=== PATIENT | female | born 1950 | race Caucasian/White ===

== ENCOUNTER → 2020-08-29 15:28 | Outpatient (CLI) | payer MEDICARE, SELFPAY ==
--- NOTE | ~2020-08-29 | MM_ITS ---
EXAMINATION: MM screening vero LT w lina HISTORY: Screening left mammogram, history of right mastectomy TECHNIQUE: Craniocaudal and mediolateral oblique 3-D tomosynthesis images were obtained and synthetic 2-D images were generated. CAD analysis was submitted and interpreted. COMPARISON: 07/26/2019, 07/21/2018, 07/12/2017, 06/23/2016 BREAST PARENCHYMAL COMPOSITION: There are scattered areas of fibroglandular density. FINDINGS: Scattered benign-appearing calcifications are present. An asymmetry in the middle third of the inner breast in the craniocaudal view is stable on multiple examinations, consistent with a benig n finding. There is no evidence of suspicious mass, calcification, or architectural distortion to sug gest malignancy in either breast. There has been no suspicious interval change. IMPRESSION: 1. No mammographic evidence of malignancy. 2. Recommend routine screening mammography in one year. BI-RADS Category 2: Benign finding(s). Reviewed, dictated and finalized at location A. TAPPER
--- NOTE | ~2020-08-29 | DEXA_ITS ---
Bone Density Report Name: Christen Smith Age: 70 Sex: Female Ethnicity: White Date of : 1950 Indication: postmenopausal osteoporosis; monitoring treatment; height loss; cancer; asthma or emphysema; Referring Provider: KAREN BRITTON Study: Bone densitometry was performed. Exam Date: August 29, 2020 Accession number: [id number] Bone Density: Region BMD T-score Z-score Classification AP Spine (L1-L4) 0.838 -1.9 0.2 Osteopenia Femoral Neck (Left) 0.699 -1.4 0.5 Osteopenia Total Hip (Left) 0.812 -1.1 0.5 Osteopenia Femoral Neck (Right) 0.694 -1.4 0.4 Osteopenia Total Hip (Right) 0.849 -0.8 0.8 Normal Total Hip Mean 0.831 -1.0 0.7 Normal World Health Organization criteria for BMD impression classify patients as: Normal (T-score at or above -1.0), Osteopenia (T-score between -1.0 and -2.5), or Osteoporosis (T-score at or below -2.5). 10-year Fracture Risk: FRAX not reported because: Treated for osteoporosis Previous Exams: Region Exam Age BMD T-score BMD Change BMD Change Date g/cm2 vs Baseline vs Previous AP Spine(L1-L4) 08/29/2020 70 0.838 -1.9 -0.016 0.069* 07/21/2018 68 0.769 -2.5 -0.084 -0.041* 06/23/2016 66 0.810 -2.2 -0.044 -0.043 04/20/2014 64 0.853 -1.8 0.000 0.066* 04/17/2012 62 0.787 -2.4 -0.066* -0.028* 03/23/2010 60 0.815 -2.1 -0.038* -0.038* 02/07/2008 58 0.853 -1.8 Total Hip(Left) 08/29/2020 70 0.812 -1.1 0.006 -0.009 07/21/2018 68 0.821 -1.0 0.015 0.015 06/23/2016 66 0.807 -1.1 0.000 -0.009 04/20/2014 64 0.815 -1.0 0.009 0.010 04/17/2012 62 0.806 -1.1 -0.001 0.072* 03/23/2010 60 0.733 -1.7 -0.073* -0.073* 02/07/2008 58 0.807 -1.1 Total Hip(Right) 08/29/2020 70 0.849 -0.8 0.050 0.044* 07/21/2018 68 0.805 -1.1 0.006 -0.007 06/23/2016 66 0.812 -1.1 0.013 -0.015 04/20/2014 64 0.827 -0.9 0.028* 0.036* 04/17/2012 62 0.791 -1.2 -0.008 -0.012 03/23/2010 60 0.803 -1.1 0.004 0.004 02/07/2008 58 0.799 -1.2 *Denotes significance at 95% confidence level, LSC for AP Spine = 0.022 g/cm2, LSC for Total Hip = 0.027 g/cm2 Clinical Information Provided by Patient: Is
== END ==
PROVIDERS: PCP Internal Medicine; Visit Provider Obstetrics & Gynecology Gynecology
DX: Z12.31 Encounter for screening mammogram for malignant neoplasm of breast (principal); Z78.0 Asymptomatic menopausal state; M85.88 Other specified disorders of bone density and structure, other site; M85.852 Other specified disorders of bone density and structure, left thigh; M85.851 Other specified disorders of bone density and structure, right thigh
CPT/HCPCS: 77063; 77067; 77080

== ENCOUNTER → 2021-03-05 03:00 | Outpatient (CLI) | payer MEDICARE, SELFPAY ==
[2021-03-05 20:00] LABS: SARS-CoV-2 RNA PCR Negative
== END ==
PROVIDERS: PCP Internal Medicine; Visit Provider Internal Medicine
DX: R05 Cough (principal); Z20.822 Contact with and (suspected) exposure to COVID-19
CPT/HCPCS: C9803; U0003; U0005

== ENCOUNTER 2021-03-09 08:41 | Emergency (ER) | payer MEDICARE, SELFPAY ==
[2021-03-09] VITALS (7 sets, daily range): BP systolic 109–150; BP diastolic 59–68; PULSE 67–72; RESP 16–20; TEMP 36.8; O2SAT 94–100
--- NOTE | ~2021-03-09 | US_ITS ---
EXAMINATION: US arterial ankle brachial ind DATE: 03/09/2021 11:58 INDICATION: Chronic wound to the right lower limb. Claudication. TECHNIQUE: Segmental pressures and plethysmographic and Doppler waveforms of the brachial and lower e xtremity arteries were obtained. COMPARISON: None. FINDINGS: Right and left brachial artery pressures of 122 mm Hg and 146 mm Hg, respectively, are concordant (no rmal difference <= 30 mmHg). The right ankle-brachial index (ELYSIA) is 1.01 (normal >= 0.9-1.0). The right great toe-brachial index (TBI) is 0.69 (normal >= 0.65). Arterial Doppler waveforms are biphasic with brisk systolic upstrokes at both the right posterior tibial and dorsalis pedis arteries. The left ELYSIA is 1.07. The left TBI is 0.85. Arterial Doppler waveforms are biphasic with brisk systol ic upstrokes at both the left posterior tibial and dorsalis pedis arteries. IMPRESSION: 1. Reviewed, dictated and finalized at location A. IMPRESSION: 1.
--- NOTE | ~2021-03-09 | XR_ITS ---
EXAMINATION: XR tibia fibula RT 2V DATE: 03/09/2021 10:01 INDICATION: Wound and edema at the anterior right lower leg TECHNIQUE: Anteroposterior and lateral views of the right tibia and fibula were obtained. COMPARISON: None. FINDINGS: Bone alignment is normal. No fracture. Cortical erosions or periosteal reaction. The profiled joint s paces appear normal on nonweightbearing imaging there is soft tissue swelling with irregular skin con tour the anterior aspect of the distal right lower leg likely representing the site of the reported s kin wound. No underlying soft tissue gas or radiopaque foreign bodies. Additional soft tissue swellin g about the ankle. No ankle joint effusion. IMPRESSION: 1. No radiopaque foreign bodies or acute osseous abnormality. Reviewed, dictated and finalized at location A.
--- NOTE | ~2021-03-09 | CT_ITS ---
EXAMINATION: CT lumbar spine wo [facility] EXAM DATE: 03/09/2021 10:59 INDICATION: Low back pain radiating down the right leg. TECHNIQUE: Spiral CT of the lumbar spine was performed without contrast. Axial, coronal and sagittal images lumbar spine were reviewed. The dose-length product (DLP) for this examination was 1017.29 m Gy-cm. The exposure was tailored according to patient size (auto mA exposure control), and iterativ e reconstruction (ASIR) was used as additional dose reduction technique. Correlation is made to [facility] ed MRI examination 2014. FINDINGS: There is moderate disc disease at L2-3, mild to moderate at the other lumbar levels. There are no acute fractures identified. No spondylolysis. The vertebral bodies are aligned in the AP dimen gurjit. Paraspinal soft tissue is unremarkable. There are no bony erosions identified. Level by level evaluation: T12-L1: Disc does not extend beyond the endplate margin. Facet arthropathy: None. Neural foraminal stenosis: No stenosis. Central canal stenosis: No stenosis. L1-L2: There is a mild diffuse disc bulge. Facet arthropathy: None. Neural foraminal stenosis: No stenosis. Central canal stenosis: Mild. L2-L3: There is a mild to moderate diffuse disc bulge. Facet arthropathy: Mild. Neural foraminal stenosis: No stenosis. Central canal stenosis: Mild. L3-L4: There is a mild to moderate diffuse disc bulge. Facet arthropathy: Mild. Neural foraminal stenosis: Mild to moderate left, minimal right. Central canal stenosis: Mild to moderate. L4-L5: There is a mild to moderate diffuse disc bulge. Facet arthropathy: Mild to moderate. Neural foraminal stenosis: Mild to moderate left, mild right. Central canal stenosis: Mild to moderate. L5-S1: There is a mild diffuse disc bulge. Facet arthropathy: Mild. Neural foraminal stenosis: No stenosis. Central canal stenosis: No stenosis. IMPRESSION: 1. Overall mild to moderate lumbar spondylosis. 2. No acute findings. Reviewed, dictated and finalized at location B.
--- NOTE | 2021-03-09 10:09 | ED.WOUNDLAC ---
HPI - Wound/Laceration General Chief Complaint: Wound/Laceration Stated Complaint: wound Time Seen by Provider: 03/09/21 09:51 Source: patient Mode of arrival: ambulatory Limitations: no limitations History of Present Illness HPI narrative: This is a 71 year old female that presents to the ER for a chronic wound to the E. Reports she feels as if the wound is not getting any better. She has been seeing wound care for this at [place]. She was seen by another ER a couple of days ago for her wound and started on Keflex. She also reports she has been having trouble with sciatica of the right lower extremity. Reports pain in the right buttock that radiates into the leg. Denies fever, decreased ROM or weakness, or numbness. Related Data Home Medications Medication Instructions Recorded Confirmed albuterol sulfate 90 mcg/actuation 1 inhalation INHALATION Q4H 06/12/19 02/11/21 aerosol inhaler budesonide-formoterol HFA 160 2 puff INHALATION Q12H 06/12/19 02/11/21 mcg-4.5 mcg/actuation aerosol inhaler letrozole 2.5 mg tablet 2.5 mg PO DAILY 06/12/19 02/13/21 magnesium oxide 400 mg PO DAILY 06/12/19 02/13/21 omega-3 fatty acids 1,000 mg 2,000 mg PO BID cap 06/12/19 02/13/21 capsule palbociclib 75 mg capsule 75 mg PO DAILY 06/12/19 02/13/21 warfarin 5 mg tablet 5 mg PO DAILY 06/12/19 02/13/21 fluticasone fur. 200 mcg-umeclid 1 inh INHALATION DAILY 01/05/21 02/13/21 62.5 mcg-vilant 25 mcg inhalat.powder silver sulfadiazine 1 % topical 1 applic TOPICAL BID 01/05/21 02/11/21 cream cephalexin 500 mg PO Q8H 03/09/21 Allergies Allergy/AdvReac Type Severity Reaction Status Date / Time adhesive Allergy Unknown RASH Verified 02/10/21 16:19 aspirin Allergy Unknown Nausea Verified 02/10/21 16:19 chlordiazepoxide Allergy Unknown Unknown Verified 02/10/21 16:19 diazepam Allergy Unknown Dizziness Verified 02/10/21 16:19 meprobamate Allergy Unknown Unknown Verified 02/10/21 16:19 metformin AdvReac Mild Diarrhea Verified 02/10/21 16:19 CHLORDIAZEPOXIDE HCL AdvReac Unknown WHOOZY Uncoded 02/10/21 16:19 Review of Systems Review of Systems: CONSTITUTIONAL: Denies fever SKIN: Reports chronic wound MUSCULOSKELETAL: Reports back pain, joint pain, and myalgia. NEUROLOGIC: Denies numbness, or weakness. All systems reviewed & are unremarkable except as noted in HPI and below PMFSH Past Medical History Medical History (Updated 03/09/21 @ 13:14 by Hailee Griggs PA-C) A-fib Abrasion of right lower extremity Benign essential hypertension Bilateral cataracts BMI 35.0-35.9,adult Breast cancer COPD (chronic obstructive pulmonary disease) Cough DM type 2 (diabetes mellitus, type 2) HUERTA (dyspnea on exertion) Encounter for Medicare annual wellness exam Encounter for routine adult health examination with abnormal findings Follow up Hx pulmonary embolism Hyperlipidemia Impacted cerumen of both ears Neutropenia Non-healing wound of lower extremity On assisted drug therapy VIDYA on CPAP Family History Family History Father Diabetes mellitus Family history of chronic obstructive pulmonary disease Family history of diabetes mellitus in first degree relative Mother Diabetes mellitus Family history of emphysema Family history of diabetes mellitus in first degree relative Social History Social History Smoking status: Never smoker Alcohol intake: never Gender identity (if verbalized by the patient): Female Exam Narrative: GENERAL: Well-appearing, well-nourished, and in no acute distress. HEAD: Normocephalic, atraumatic. EYES: EOMI. CHEST: Clear to auscultation. No respiratory distress. No wheezes rales or rhonchi HEART: Regular rate and rhythm. No murmur heard. Normal peripheral pulses. BACK: No midline spinal tenderness. Strength equal bilateral lower extremities (5/5). EXTREMITIES: Normal r
[2021-03-09 10:41] LABS: Basophils Percent Auto 0.9 % (0.2-1.2); Eosinophils Percent Auto 0.6 % (0-4.4); Hematocrit 34.9 % (37.0-47.0); Hemoglobin 11.4 g/dL (12.0-15.0); Immature Granulocyte Absolute 0.01 K/mm3 (0.00-0.031); Immature Granulocyte Percent A 0.3 % (0-0.5); Lymphocytes Absolute Auto 0.98 K/mm3 (0.9-3.2); Lymphocytes Percent Auto 29.2 % (18.3-44.2); Mean Corpuscular HGB Conc 32.7 g/dl (32-36); Mean Corpuscular Hemoglobin 33.6 pg (26-34); Mean Corpuscular Volume 102.9 fl (80-100); Monocytes Absolute Auto 0.3 K/mm3 (0.1-0.6); Monocytes Percent Auto 7.4 % (2.6-8.5); Neutrophils Absolute Auto 2.1 K/mm3 (1.3-6.7); Neutrophils Percent Auto 61.6 % (45.5-73.1); Platelet Count Result 122 k/mm3 (150-375); Red Blood Count 3.39 M/mm3 (4.2-5.4); Red Cell Distribution Width 14.6 % (11.5-14.5); White Blood Count 3.4 K/mm3 (4.5-10.0)
[2021-03-09] MEDS: MORPHINE SULFATE (*CRX) 4 MG/ML INJ IV PUSH (10:43)
[2021-03-09] MEDS: ONDANSETRON INJ 4 MG/2 ML VIAL IV PUSH (10:43)
[2021-03-09 10:55] LABS: Anion Gap 8 mmol/L (8-16); Blood Urea Nitrogen 13 mg/dL (7-17); Calcium 9.2 mg/dL (8.4-10.2); Carbon Dioxide 25 mmol/L (22-30); Chloride 104 mmol/L (98-107); Estimated CRCL calculation 70 ml/min; Estimated Glomerular Filt Rate > 60; Glucose 105 mg/dL (65-110); Potassium 4.2 mmol/L (3.4-5.0); Sodium 137 mmol/L (137-145)
[2021-03-09 11:43] LABS: Erythrocyte Sedimentation Rate 68 mm/hr (0-20)
--- NOTE | 2021-03-09 12:11 | PCWOUND ---
WOCN NOTE patient followed by wound care as an outpatient. wound to right lower leg is stable 4.3 cm in length by 3.4 cm in width b y 0.2 cm in depth. leg with 4+ pitting edema. patient to follow current home wound care and keep appointment for this coming Tuesday for assessment. Reminded patient she needs to follow up with vascular surgeon as well.
== END 2021-03-09 13:35 | disposition home or self-care (01) ==
PROVIDERS: Physician Assistant; Emergency Provider Emergency Medicine; PCP Internal Medicine
DX: L97.819 Non-pressure chronic ulcer of other part of right lower leg with unspecified severity (principal); M54.31 Sciatica, right side; I48.91 Unspecified atrial fibrillation; I10 Essential (primary) hypertension; E78.5 Hyperlipidemia, unspecified; J44.9 Chronic obstructive pulmonary disease, unspecified; E11.9 Type 2 diabetes mellitus without complications; G47.33 Obstructive sleep apnea (adult) (pediatric); H26.9 Unspecified cataract; Z86.711 Personal history of pulmonary embolism; Z79.01 Long term (current) use of anticoagulants; Z79.84 Long term (current) use of oral hypoglycemic drugs; Z85.3 Personal history of malignant neoplasm of breast; M47.816 Spondylosis without myelopathy or radiculopathy, lumbar region
CPT/HCPCS: 36415; 72131; 73590; 80048; 85025; 85652; 86140; 93922; 96374; 96375; 99284; J0131; J2270; J2405

== ENCOUNTER 2021-03-27 07:50 | Outpatient (RCR) | payer MEDICARE, SELFPAY ==
[2021-02-13 10:54] VITALS: BMI 36.6
--- NOTE | 2021-03-06 13:22 | PCWOUND ---
WOCN NOTE Patient called complaining of pain in her leg and wanted pain medication, informed patient she needs to contract her PCP. asked patient for description of her wound and what treatment she is following. She said the wound looks the same its just the pain, and did not describe the correct wound care she was instructed to follow. i Explained the wound center does not address pain that is a function of the PCP. Patient stated that is not right, again directed patient to contact her PCP of visit the ER for care.
--- NOTE | 2021-04-06 10:21 | PCWOUND ---
WOCN NOTE patient called to cancel her appointment for Tuesday04/10/21 as she has found a new wound center to go to. Will discharge patient at this time.
== END 2021-04-06 10:23 | disposition home or self-care (01) ==
LOC: ANHWOC 07:50
PROVIDERS: PCP Internal Medicine; Visit Provider Internal Medicine
DX: S81.811D Laceration without foreign body, right lower leg, subsequent encounter (principal)
CPT/HCPCS: 99212; 99213; A9270; G0463

== ENCOUNTER → 2021-04-24 06:30 | Outpatient (CLI) | payer MEDICARE, SELFPAY ==
[2021-04-24 17:46] LABS: SARS-CoV-2 RNA PCR Negative
== END ==
PROVIDERS: PCP Internal Medicine; Visit Provider Internal Medicine
DX: R68.89 Other general symptoms and signs (principal); Z20.822 Contact with and (suspected) exposure to COVID-19
CPT/HCPCS: C9803; U0003; U0005

== ENCOUNTER 2021-09-23 00:27 | Day surgery (SDC) | payer MEDICARE, SELFPAY ==
[2021-08-18 12:08] VITALS: BMI 35.6
[2021-09-17 15:55] VITALS: BMI 35.6
--- NOTE | 2021-09-22 17:31 | PM.HPGS ---
History of Present Illness History of Present Illness Consent: Risks, benefits, and alternatives have been discussed and questions answered. Patient agrees to proceed with procedure. Chief complaint: neoplasm screening Narrative: Christen Smith is a 71 year old female Referred for colon cancer screening Review of Systems Review of Systems: All systems reviewed & are unremarkable except as noted in HPI and below PMFSH Past Medical History Medical History A-fib Abrasion of right lower extremity Benign essential hypertension Bilateral cataracts BMI 35.0-35.9,adult Breast cancer COPD (chronic obstructive pulmonary disease) Cough DM type 2 (diabetes mellitus, type 2) HUERTA (dyspnea on exertion) Dysphagia Encounter for Medicare annual wellness exam Encounter for routine adult health examination with abnormal findings Encounter for routine adult health examination without abnormal findings Follow up Hx pulmonary embolism Hyperlipidemia Impacted cerumen of both ears Neutropenia Non-healing wound of lower extremity On penitentiary drug therapy VIDYA on CPAP Family History Family History Father Diabetes mellitus Family history of chronic obstructive pulmonary disease Family history of diabetes mellitus in first degree relative Mother Diabetes mellitus Family history of emphysema Family history of diabetes mellitus in first degree relative Social History Social History Smoking status: Never smoker Alcohol intake: current Substance use: never Substance use type: does not use Living arrangements: with family Gender identity (if verbalized by the patient): Female Spiritual care concerns: No Meds Home Medications and Allergies Home Medications Medication Instructions Recorded Confirmed Type albuterol sulfate 90 mcg/actuation 1 inhalation INHALATION Q4H 06/12/19 09/17/21 History aerosol inhaler letrozole 2.5 mg tablet 2.5 mg PO DAILY 06/12/19 09/17/21 History magnesium oxide 400 mg PO DAILY 06/12/19 09/17/21 History omega-3 fatty acids 1,000 mg 2,000 mg PO DAILY cap 06/12/19 09/17/21 History capsule palbociclib 75 mg capsule 75 mg PO DAILY 06/12/19 09/17/21 History warfarin 5 mg tablet 5 mg PO DAILY 06/12/19 09/17/21 History folic acid 0.8 mg capsule 0.8 mg PO DAILY #90 cap 02/12/20 09/17/21 Rx blood sugar diagnostic #100 ea 10/01/20 09/17/21 Rx fluticasone fur. 200 mcg-umeclid 1 inh INHALATION DAILY 01/05/21 09/17/21 History 62.5 mcg-vilant 25 mcg inhalat.powder syringe with needle 3 mL 23 x 1 #3 each 03/17/21 09/17/21 Rx cefdinir 300 mg capsule 300 mg PO Q12H #15 cap 08/17/21 09/17/21 Rx codeine 10 mg-guaifenesin 100 mg/5 10 ml PO Q6H PRN #120 ml 08/17/21 09/17/21 Rx mL oral liquid Adults Multivitamin 1 tab-cap PO DAILY 08/18/21 09/17/21 History cyanocobalamin (vitamin B-12) 1,000 mcg IM MONTHLY 08/18/21 09/17/21 History dapagliflozin [Farxiga] 10 mg PO DAILY 08/18/21 09/17/21 History ergocalciferol (vitamin D2) 50,000 unit PO WEEKLY 08/18/21 09/17/21 History escitalopram oxalate 10 mg PO DAILY 08/18/21 09/17/21 History escitalopram oxalate 20 mg PO DAILY 08/18/21 09/17/21 History linagliptin [Tradjenta] 5 mg PO DAILY 08/18/21 09/17/21 History metoprolol tartrate 50 mg PO BID 08/18/21 09/17/21 History omalizumab [Xolair] 75 mg SUBCUT [id number] 08/18/21 09/17/21 History omalizumab [Xolair] 150 mg SUBCUT [id number] 08/18/21 09/17/21 History rosuvastatin 10 mg PO DAILY 08/18/21 09/17/21 History trazodone 50 mg PO HS 08/18/21 09/17/21 History trazodone 100 mg PO HS 08/18/21 09/17/21 History omeprazole 40 mg capsule,delayed See Rx Instructions .ROUTE 09/07/21 09/17/21 Rx release .COMPLEX #90 capsule glimepiride 2 mg tablet 2 mg PO DAILY 09/18/21 History Allergies Allergy/AdvReac Type Severity Reaction Status Date / Time
[2021-09-23 08:43] VITALS: BP 121/70; PULSE 76; RESP 18; TEMP 36.6; O2SAT 97
[2021-09-23 08:54] LABS: Glucose Point of Care 175 mg/dl (65-105)
[2021-09-23] MEDS: LACTATED RINGERS 1,000 ML 150 ML IV CONT (09:00)
[2021-09-23 09:05] LABS: INR 1.2; Prothrombin Time 14.4 Seconds (11.1-14.7)
--- NOTE | 2021-09-23 09:12 | WPDANESEPPF ---
Anes - Initial Pre Proc Eval Procedure: Operation Date: 09/23/21 09:30 Proposed Procedures p Screening Colonoscopy - Lan Morris MD Date/Time: 09/23/21 09:13 Surgeon: Lan Morris MD Pre Op Diagnosis: neoplasm screening Patient Data Age: 71 Gender: F Height: 1.71 m Weight: 103.4 kg Last Vital Signs Temp 36.6 C 09/23/21 08:43 Pulse 76 09/23/21 08:43 Resp 18 09/23/21 08:43 BP 121/70 09/23/21 08:43 Pulse Ox 97 09/23/21 08:43 Allergies Allergy/AdvReac Type Severity Reaction Status Date / Time adhesive Allergy Intermediate RASH Verified 09/23/21 08:41 diazepam Allergy Intermediate Confusion Verified 09/23/21 08:41 meprobamate Allergy Intermediate Confusion Verified 09/23/21 08:41 chlordiazepoxide AdvReac Intermediate Confusion Verified 09/23/21 08:41 aspirin AdvReac Mild Nausea Verified 09/23/21 08:41 metformin AdvReac Mild Diarrhea Verified 09/23/21 08:41 Home Medications Medication Instructions Recorded Confirmed Type albuterol sulfate 90 mcg/actuation 1 inhalation INHALATION Q4H 06/12/19 09/17/21 History aerosol inhaler letrozole 2.5 mg tablet 2.5 mg PO DAILY 06/12/19 09/17/21 History magnesium oxide 400 mg PO DAILY 06/12/19 09/17/21 History omega-3 fatty acids 1,000 mg 2,000 mg PO DAILY cap 06/12/19 09/17/21 History capsule palbociclib 75 mg capsule 75 mg PO DAILY 06/12/19 09/17/21 History warfarin 5 mg tablet 5 mg PO DAILY 06/12/19 09/17/21 History folic acid 0.8 mg capsule 0.8 mg PO DAILY #90 cap 02/12/20 09/17/21 Rx blood sugar diagnostic #100 ea 10/01/20 09/17/21 Rx fluticasone fur. 200 mcg-umeclid 1 inh INHALATION DAILY 01/05/21 09/17/21 History 62.5 mcg-vilant 25 mcg inhalat.powder syringe with needle 3 mL 23 x 1 #3 each 03/17/21 09/17/21 Rx cefdinir 300 mg capsule 300 mg PO Q12H #15 cap 08/17/21 09/17/21 Rx codeine 10 mg-guaifenesin 100 mg/5 10 ml PO Q6H PRN #120 ml 08/17/21 09/17/21 Rx mL oral liquid Adults Multivitamin 1 tab-cap PO DAILY 08/18/21 09/17/21 History cyanocobalamin (vitamin B-12) 1,000 mcg IM MONTHLY 08/18/21 09/17/21 History dapagliflozin [Farxiga] 10 mg PO DAILY 08/18/21 09/17/21 History ergocalciferol (vitamin D2) 50,000 unit PO WEEKLY 08/18/21 09/17/21 History escitalopram oxalate 10 mg PO DAILY 08/18/21 09/17/21 History escitalopram oxalate 20 mg PO DAILY 08/18/21 09/17/21 History linagliptin [Tradjenta] 5 mg PO DAILY 08/18/21 09/17/21 History metoprolol tartrate 50 mg PO BID 08/18/21 09/17/21 History omalizumab [Xolair] 75 mg SUBCUT [id number] 08/18/21 09/17/21 History omalizumab [Xolair] 150 mg SUBCUT [id number] 08/18/21 09/17/21 History rosuvastatin 10 mg PO DAILY 08/18/21 09/17/21 History trazodone 50 mg PO HS 08/18/21 09/17/21 History trazodone 100 mg PO HS 08/18/21 09/17/21 History omeprazole 40 mg capsule,delayed See Rx Instructions .ROUTE 09/07/21 09/17/21 Rx release .COMPLEX #90 capsule glimepiride 2 mg tablet 2 mg PO DAILY 09/18/21 History Laboratory Tests 09/23/21 09/23/21 08:39 08:51 PT 14.4 Seconds Seconds (11.1-14.7) INR 1.2 POC Capillary Glucose 175 mg/dl H mg/dl (65-105) Patient hx anesthesia problems: none Family hx anesthesia problems: none Results Review: All pre-operative results and documents have been reviewed as part of the pre-operative evaluation. [facility] Past Medical History Medical History A-fib Abrasion of right lower extremity Benign essential hypertension Bilateral cataracts BMI 35.0-35.9,adult Breast cancer COPD (chronic obstructive pulmonary disease) Cough DM type 2 (diabetes mellitus, type 2) HUERTA (dyspnea on exertion) Dysphagia Encounter for Medicare annual wellness exam Encounter for routine adult health examination with abnormal findings Encounter for routine adult health examination without abnormal findings Follow up Hx pulmonary embolism Hyperlipidemia Impacted cerumen of both ears Neutropenia Non-heal
[2021-09-23 09:40] VITALS: BP 153/64; PULSE 75; RESP 17; O2SAT 100
[2021-09-23 09:50] VITALS: BP 147/71; PULSE 67; RESP 18; O2SAT 100
[2021-09-23 10:00] VITALS: BP 154/70; PULSE 67; RESP 18; O2SAT 100
== END 2021-09-23 10:14 | disposition home or self-care (01) ==
PROVIDERS: PCP Internal Medicine; Visit Provider Internal Medicine Gastroenterology
PROC: 0DJD8ZZ Inspection of Lower Intestinal Tract, Via Natural or Artificial Opening Endoscopic (ICD-10-PCS; CPT 45378; principal; 2021-09-23 09:30)
DX: Z12.11 Encounter for screening for malignant neoplasm of colon (principal); K57.30 Diverticulosis of large intestine without perforation or abscess without bleeding; I48.91 Unspecified atrial fibrillation; I10 Essential (primary) hypertension; J44.9 Chronic obstructive pulmonary disease, unspecified; E78.5 Hyperlipidemia, unspecified; G47.33 Obstructive sleep apnea (adult) (pediatric); E11.9 Type 2 diabetes mellitus without complications; Z86.711 Personal history of pulmonary embolism; Z85.3 Personal history of malignant neoplasm of breast; Z79.811 Long term (current) use of aromatase inhibitors; Z79.84 Long term (current) use of oral hypoglycemic drugs; Z79.01 Long term (current) use of anticoagulants; Z79.51 Long term (current) use of inhaled steroids; E66.9 Obesity, unspecified; Z68.35 Body mass index [BMI] 35.0-35.9, adult
CPT/HCPCS: G0105; 36415; 82948; 85610; J2704; J7120

== ENCOUNTER → 2021-09-28 10:07 | Outpatient (CLI) | payer MEDICARE, SELFPAY ==
--- NOTE | ~2021-09-28 | MM_ITS ---
EXAMINATION: MM screening vero LT w lina HISTORY: Screening mammogram TECHNIQUE: Craniocaudal and mediolateral oblique 3-D tomosynthesis images were obtained and synthetic 2-D images were generated. CAD analysis was submitted and interpreted. COMPARISON: August 29, 2020, July 26, 2019, July 21, 2018 left screening mammogram examinatio ns BREAST PARENCHYMAL COMPOSITION: There are scattered areas of fibroglandular density. FINDINGS: History of right mastectomy in 2004 for breast cancer. There scattered benign calcification s. Is no evidence of suspicious mass, calcification, or architectural distortion to suggest malignanc y of the left breast. There has been no suspicious interval change. IMPRESSION: 1. No mammographic evidence of malignancy. 2. Recommend routine screening mammography in one year. BI-RADS Category 2: Benign finding(s). Reviewed, dictated and finalized at location A.
== END ==
PROVIDERS: PCP Internal Medicine; Visit Provider Obstetrics & Gynecology Gynecology
DX: Z12.31 Encounter for screening mammogram for malignant neoplasm of breast (principal)
CPT/HCPCS: 77063; 77067

== ENCOUNTER → 2023-01-14 13:16 | Outpatient (CLI) | payer MEDICARE, SELFPAY ==
--- NOTE | ~2023-01-14 | MM_ITS ---
EXAMINATION: MM screening vero LT w lina HISTORY: Screening left mammogram, history of right mastectomy TECHNIQUE: Craniocaudal and mediolateral oblique 3-D tomosynthesis images were obtained and synthetic 2-D images were generated. CAD analysis was submitted and interpreted. COMPARISON: 09/28/2021, 08/29/2020, 07/26/2019 BREAST PARENCHYMAL COMPOSITION: There are scattered areas of fibroglandular density. FINDINGS: There has been interval insertion of a cardiac monitoring device into the medial left breas t. No suspicious mass, calcification, or architectural distortion are identified to suggest malignanc y. There has been no suspicious interval change. IMPRESSION: 1. No mammographic evidence of malignancy. 2. Recommend routine screening mammography in one year. BI-RADS Category 1: Negative Reviewed, dictated and finalized at location A.
== END ==
PROVIDERS: PCP Internal Medicine; Visit Provider Advanced Practice Midwife
DX: Z12.31 Encounter for screening mammogram for malignant neoplasm of breast (principal)
CPT/HCPCS: 77063; 77067

== ENCOUNTER 2023-07-12 12:44 | Outpatient (CLI) | payer OTHER, SELFPAY ==
--- NOTE | ~2023-07-12 | XR_ITS ---
EXAMINATION: XR chest 2V DATE: 07/12/2023 13:02 INDICATION: Acute upper respiratory tract infection, cough and wheezing TECHNIQUE: PA and lateral views of the chest were obtained. COMPARISON: Chest radiograph dated 04/11/2018 FINDINGS: Left paracardial fat pad which partially obscures the apex of the heart. No other airspace opacities, pulmonary edema, pleural effusion or pneumothorax. Size is normal. Right breast implant. Left pector al implantable venue attendant. Cholecystectomy clips in the right upper quadrant. Thoracic kyphosis with moderate to severe spondylosis and chronic mild anterior wedging of a few mid and lower thoracic vertebral bodies. IMPRESSION: 1. No acute cardiopulmonary disease. Reviewed, dictated and finalized at location A. 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
== END 2023-07-12 12:45 | disposition home or self-care (01) ==
PROVIDERS: PCP Internal Medicine; Visit Provider Internal Medicine
DX: J06.9 Acute upper respiratory infection, unspecified (principal); R05.9 Cough, unspecified; R06.2 Wheezing
CPT/HCPCS: 71046

== ENCOUNTER 2024-02-13 12:30 | Outpatient (CLI) | payer OTHER, SELFPAY ==
--- NOTE | ~2024-02-13 | MM_ITS ---
EXAMINATION: MM screening vero LT w lina HISTORY: Screening TECHNIQUE: Craniocaudal and mediolateral oblique 3-D tomosynthesis images were obtained and synthetic 2-D images were generated. CAD analysis was submitted and interpreted. COMPARISON: Comparison to multiple prior studies sequentially, with oldest reviewed study dated 08/2017. BREAST PARENCHYMAL COMPOSITION: There are scattered areas of fibroglandular density. FINDINGS: There is no evidence of suspicious mass, calcification, or architectural distortion to sugg est malignancy in the left breast. There has been no suspicious interval change. IMPRESSION: 1. No mammographic evidence of malignancy. 2. Recommend routine screening mammography in one year. BI-RADS Category 1: Negative Reviewed, dictated and finalized at location B.
== END 2024-02-13 12:31 ==
LOC: MICIMG 12:31
PROVIDERS: PCP Internal Medicine; Visit Provider Obstetrics & Gynecology Gynecology
DX: Z12.31 Encounter for screening mammogram for malignant neoplasm of breast (principal)
CPT/HCPCS: 77063; 77067

== ENCOUNTER 2024-03-28 10:59 | Outpatient (CLI) | payer OTHER, SELFPAY ==
--- NOTE | 2024-03-28 11:14 | ECG_ITS ---
Test Date: 2024-03-28 10:28:09 Measurements Intervals [place] Rate: 71 P: 11 ND: 162 QRS: 15 QRSD: 81 T: 24 QT: 404 QTc: 439 Interpretive Statements SINUS RHYTHM LOW QRS VOLTAGE IN PRECORDIAL LEADS CONSIDER INFERIOR INFARCT, AGE INDETERMINATE ABNORMAL ECG No previous ECG available for comparison Electronically Signed On 03-28-2024 11:47:22 CDT by Madhav Lee D.O.
[2024-03-28 12:37] LABS: Hematocrit 38.9 % (37.0-47.0); Hemoglobin 12.7 g/dL (12.0-15.0)
[2024-03-28 12:48] LABS: Albumin Level 4.5 g/dL (3.5-5.1); Estimated Glomerular Filt Rate > 60; Glucose 148 mg/dL (65-110)
[2024-03-28 12:52] LABS: Urine Cotinine NEGATIVE
[2024-03-28 13:04] LABS: Hemoglobin A1C 6.7 % (<5.7)
== END 2024-03-28 11:00 | disposition home or self-care (01) ==
LOC: ANHCARD 11:10
PROVIDERS: PCP Internal Medicine; Visit Provider Orthopaedic Surgery
DX: I48.0 Paroxysmal atrial fibrillation (principal); M17.11 Unilateral primary osteoarthritis, right knee; E11.65 Type 2 diabetes mellitus with hyperglycemia; E53.8 Deficiency of other specified B group vitamins; Z79.899 Other long term (current) drug therapy
CPT/HCPCS: 80307; 82040; 82565; 82947; 83036; 85014; 85018; 93005

== ENCOUNTER 2024-05-25 09:57 | Outpatient (CLI) | payer OTHER, SELFPAY ==
[2024-05-25 11:36] LABS: INR 1.8; Prothrombin Time 21.4 Seconds (11.1-14.7)
[2024-05-25 11:37] LABS: Partial Thromboplastin Time 33.1 Seconds (22.3-36.8)
[2024-05-25 11:55] LABS: Urine Cotinine NEGATIVE
[2024-05-25 12:31] LABS: MRSA (PCR) NOT DETECTED (NOT DETECTE)
== END 2024-05-25 09:58 | disposition home or self-care (01) ==
LOC: ANHSURGERY 10:01
PROVIDERS: Anesthesiology; PCP Internal Medicine; Visit Provider Orthopaedic Surgery
DX: M17.11 Unilateral primary osteoarthritis, right knee (principal); Z79.01 Long term (current) use of anticoagulants; Z79.899 Other long term (current) drug therapy
CPT/HCPCS: 36415; 80307; 85610; 85730; 87641

== ENCOUNTER 2024-06-21 02:00 | Observation (INO) | payer OTHER, SELFPAY ==
--- NOTE | 2024-05-25 08:28 | PC.NURSE ---
Report to the Outpatient Waiting Room, entrance under the green pavilion located off [facility], at time _10 am on date __06/18/24 . Planned Procedure Time: _1200 noon .? Time changes happen often and if your time is changed the preop area will call you the afternoon before. - You and your visitor will be asked to self-screen and do not enter if you have any COVID symptoms. Please call surgeon if you need to reschedule. - A mask is optional within the hospital at this time. Patients may have clear liquids (water, carbonated beverages, clear teas, apple juice) until 3 hours prior to surgery( 9 am) with a maximum of 20 ounces. - No food from midnight until time of surgery and no smoking. This includes no chewing gum, candy or mints. - Infants may have breast milk until 4 hours before surgery, formula 6 hours prior to surgery. - Children will be allowed to drink immediately following surgery.? If applicable, please bring a bottle or sippy cup to assist with drinking. Juice, water, soda, and popsicles are readily available.? For infants on formula, please bring formula the day of surgery.? Pacifiers are allowed. Take only the following medications with a SIP of water on the morning of surgery: inhaler,escitalopram,metoprolol, DO NOT STOP ANY OF YOUR OTHER PRESCRIPTION MEDICATIONS PRIOR TO SURGERY EXCEPT THE FOLLOWING Medications to discontinue per physician _oncologist dr mcmullen hold palbociclib (ibrance) 2 months prior to surgery. hold warfarin 4 days pre op per dr lal last dose 06/13/24 hold all vitamins and supplements 3 days pre op.last dose 06/14/24 TOTAL JOINT CLASS 05/30/24 AT 10 AM Please no make-up, nail maltese, hairspray, perfume, deodorant, or body powder the day of surgery.? No jewelry (including any body piercings) or valuables the day of surgery, leave them at home.? Please take a shower or bath the night before, or the morning of, surgery with an antibacterial soap.? Wear comfortable, loose fitting clothing.? Children are encouraged to wear pajamas. - Jewelry must be removed prior to entering the operating room.? Rings and piercings that are not removed may be cut off. - The hospital will not accept responsibility for valuables.? - Please leave all valuables, including medications, at home the day of surgery. If you are going home after surgery, a licensed hazmat cdl a driver must drive you home.? - NO public transportation without another adult if you receive anesthesia. - We recommend that an adult stay with you for 24 hours following discharge. - We also recommend that you do not drive, make important decision, drink alcoholic beverages, or take any drugs that were not prescribed by your health care provider for at least 24 hours after your discharge time. Follow any additional instructions given to you from your surgeon. verbal and written instructions given to _patient and asked if any additional questions and then verbalized understanding. Patient advised to call surgeon office or pre surgery nurse liaison [phone] if any additional questions.
[2024-05-25 10:06] VITALS: BMI 33.0
[2024-05-25 11:00] VITALS: BP 138/60; PULSE 69; RESP 18; TEMP 36.7; O2SAT 97
[2024-06-18] VITALS (14 sets, daily range): BP systolic 114–159; BP diastolic 47–68; PULSE 63–100; RESP 12–18; TEMP 35.8–36.7; O2SAT 93–100; BMI 33.0
[2024-06-18] MEDS: LACTATED RINGERS 1,000 ML 30 ML IV CONT ×3 (10:40→14:25)
[2024-06-18] MEDS: ACETAMINOPHEN 500 MG TABLET 1000 MG PO (10:50)
[2024-06-18 10:58] LABS: Glucose Point of Care 125 mg/dl (65-105)
[2024-06-18 11:11] LABS: INR 1.1; Prothrombin Time 14.5 Seconds (11.1-14.7)
[2024-06-18] MEDS: TRANEXAMIC ACID 1,000MG/ISO100 1,000 MG/100 ML BAG 200 MG IVPB (11:33)
--- NOTE | 2024-06-18 11:58 | WPDANESEPPF ---
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 Patient Data Age: 74 Gender: F Height: 1.7 m Weight: 95.5 kg Last Vital Signs Temp 36.3 C L 06/18/24 10:00 Pulse 63 06/18/24 10:00 Resp 18 06/18/24 10:00 BP 145/63 H 06/18/24 10:00 Pulse Ox 98 06/18/24 10:00 O2 Del Method Room Air 06/18/24 10:00 Allergies Allergy/AdvReac Type Severity Reaction Status Date / Time adhesive Allergy Intermediate RASH Verified 06/18/24 10:13 diazepam Allergy Intermediate Confusion Verified 06/18/24 10:13 meprobamate Allergy Intermediate Confusion Verified 06/18/24 10:13 chlordiazepoxide AdvReac Intermediate Confusion Verified 06/18/24 10:13 aspirin AdvReac Mild Nausea Verified 06/18/24 10:13 metformin AdvReac Mild Diarrhea Verified 06/18/24 10:13 Home Medications Medication Instructions Recorded Confirmed Type albuterol sulfate 90 mcg/actuation 1 inhalation inhalation Q4H 06/12/19 05/29/24 History aerosol inhaler letrozole 2.5 mg tablet 2.5 mg PO DAILY 06/12/19 05/29/24 History magnesium oxide 400 mg PO DAILY 06/12/19 05/29/24 History omega-3 fatty acids 1,000 mg 2,000 mg PO DAILY 06/12/19 06/18/24 History capsule (Fish Oil Concentrate) palbociclib 75 mg capsule (Ibrance) 75 mg PO DAILY 06/12/19 06/18/24 History folic acid 0.8 mg capsule 0.8 mg PO DAILY #90 caps 02/12/20 06/18/24 Rx Adults Multivitamin 1 tab-cap PO DAILY 08/18/21 06/18/24 History diphenhydramine HCl 25 mg capsule 25 mg PO QHS PRN itching #90 caps 10/19/21 05/29/24 Rx (Benadryl) budesonide 160 mcg-glycopyr 9 2 inh inhalation BID 03/08/22 05/29/24 History mcg-formot 4.8 mcg/actuation HFA inhaler (Breztri Aerosphere) ergocalciferol (vitamin D2) 1,250 50,000 unit PO .twice a month 04/15/23 06/18/24 History mcg (50,000 unit) capsule warfarin 5 mg tablet 5 mg PO 6XW 04/15/23 06/18/24 History albuterol sulfate 2.5 mg/3 mL 2.5 mg (3 mL) inhalation Q4-6H PRN 07/12/23 05/29/24 Rx (0.083 %) solution for nebulization shortness of breath or wheezing #90 mL cyanocobalamin (vitamin B-12) See Rx Instructions .Route 11/07/23 06/18/24 Rx 1,000 mcg/mL injection solution .COMPLEX #3 mL trazodone 50 mg tablet See Rx Instructions .Route 01/11/24 05/29/24 Rx .COMPLEX #180 tabs Restless Leg 1 tab-cap PO HS 01/18/24 05/29/24 History calcium 600 mg (as carbonate)-vit 1 tablet PO DAILY 01/18/24 06/18/24 History D3 20 mcg (800 unit) chewable tablet (Caltrate plus D) losartan 100 mg tablet 100 mg PO DAILY 01/18/24 05/29/24 History blood-glucose meter (FreeStyle #1 ea 02/27/24 05/29/24 Rx [place] Lite kit) escitalopram oxalate 20 mg tablet See Rx Instructions .Route 02/27/24 06/18/24 Rx .COMPLEX #90 tabs omeprazole 40 mg capsule,delayed See Rx Instructions .Route DAILY 02/27/24 05/29/24 Rx release #90 caps Freestyle [place] Lite Test Strips #1 ea 02/29/24 05/29/24 Rx Freestyle [place] Lite lancets #1 ea 02/29/24 05/29/24 Rx empagliflozin 25 mg-linagliptin 5 See Rx Instructions .Route 03/02/24 05/29/24 Rx mg tablet (Glyxambi) .COMPLEX #90 tabs rosuvastatin 10 mg tablet See Rx Instructions .Route 03/13/24 05/29/24 Rx .COMPLEX #90 tabs Gemtesa 75 mg PO DAILY 05/25/24 05/25/24 History acetaminophen 500 mg capsule 500 mg PO PRN PRN Pain 05/25/24 05/25/24 History escitalopram oxalate 10 mg tablet See Rx Instructions .Route 05/25/24 06/18/24 Rx .COMPLEX #90 tabs warfarin 7.5 mg PO WEEKLY 05/25/24 05/25/24 History metoprolol tartrate 25 mg tablet 12.5 mg PO BID #180 tabs 05/28/24 Rx syringe with needle 3 mL 23 x 1 #100 ea 06/04/24 Rx (BD Luer-Rosio Syringe) trazodone 100 mg tablet See Rx Instructions .Route 06/11/24 Rx .COMPLEX #90 tabs oxycodone-acetaminophen 5 mg-325 1 - 2 tablet PO Q4-6H PRN pain 7 06/18/24 Rx mg tablet days #30 tabs prednisone 5 mg tablet 5 mg PO DAILY 3 weeks #21 tabs 06/18/24 Rx Laboratory Tests 06/18/24 06/18/24 10:46 10:53 PT 14.5 Seconds (11.1-14.7) INR 1.1 POC Capillary Glucose 125 H mg/dl (65-105) Blood Type B Positive Antibody Screen Negative Patient hx anesthesia problems: none Family hx anesthesia problems: none Results Review: All pre-operative results and documents have been reviewed as part of the pre-operative evaluation. [facility] Past Medical History Medical History A-fib Acute bronchitis Acute dysfunction of right eustachian tube Acute UTI Atypical chest pain Back pain with history of spinal surgery Benign essential hypertension Biceps tendonitis on right Bilateral cataracts BMI 30.0-30.9,adult BMI 31.0-31.9,adult BMI 32.0-32.9,adult BMI 33.0-33.9,adult BMI 34.0-34.9,adult BMI 35.0-35.9,adult BMI 36.0-36.9,adult Breast cancer Compression fracture of L1 lumbar vertebra COPD (chronic obstructive pulmonary disease) Diarrhea DM type 2 (diabetes mellitus, type 2) Encounter for Medicare annual wellness exam Encounter for routine adult health examination with abnormal findings Encounter for routine adult health examination without abnormal findings Epistaxis Fall Follow up Hospital discharge follow-up Hx pulmonary embolism Hyperlipidemia Impaired functional mobility, balance, gait, and endurance Multiple episodes of deep venous thrombosis Neutropenia Non-healing wound of lower extremity 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 Orthostatic hypotension VIDYA on CPAP Pneumonia Pre-operative clearance Right medial knee pain Shortness of breath Sore throat and laryngitis Splenic artery aneurysm SVT (supraventricular tachycardia) URI (upper respiratory infection) Surgical History Surgical History S/P kyphoplasty Family History Family History Father Diabetes mellitus Family history of chronic obstructive pulmonary disease Family history of diabetes mellitus in first degree relative Mother Diabetes mellitus Family history of emphysema Family history of diabetes mellitus in first degree relative Social History Social History Smoking status: Never smoker Second hand tobacco smoke exposure: No Additional smoking assessment comments: DENIES ANY FORM OF TOBACCO USE Alcohol intake: current Drinks per week: 1 Alcohol use details: BEER Substance use: never Substance use type: does not use Do You Feel Safe in your Home?: Yes Lack of Transportation: No Lack of Food: Never True Current Housing: I Have Housing Concerned About Future Housing: No Difficulty Paying Gas/Electric Bills: No Difficulty Paying for Meds: No Currently Unemployed: No Education: High School Diploma/GED Difficulty w/ Childcare or Family Care: No Living arrangements: with family Occupation/Education: occupation Gender identity (if verbalized by the patient): Female Spiritual care concerns: No Anes - Eval Final PreProcedure Day of Procedure 06/18/24 11:58 Patient weight: obese Heart: regular rate and rhythm Lungs: decreased breath sounds Airway: Mallampati scale class II Neurological: alert and oriented Last oral intake: >/= 8 hours ASA classification: III Emergent: no Anesthetic plan: proceed Anesthesia type and monitoring: general LMA and standard monitoring Results Review: All pre-operative results and documents have been reviewed as part of the pre-operative evaluation. Informed Consent: The patient's anesthetic plan and its attendant risks and benefits were discussed with the patient/family/POA. Questions were solicited and answers provided to the satisfaction of the patient/family/POA.
--- NOTE | 2024-06-18 12:01 | WPDHPUPDATE1 ---
History and Physical Update Update Date/Time: 06/18/24 12:01 History and Physical has been reviewed, including an updated exam of the patient. There are NO changes in the patient's condition. Risks, benefits, and alternatives have been discussed and questions answered. Patient agrees to proceed with procedure.
[2024-06-18] MEDS: ceFAZolin 2 GM/D5W 50 ML 2 GM/50 ML BAG IVPB ×2 (12:13→20:00)
[2024-06-18] MEDS: SODIUM CHLORIDE 0.9% IV 37.7 ML, MORPHINE SULFATE INJ (*CRX) 2 MG, ROPivacaine HCL 1% 2... INFILTRATE (12:15)
[2024-06-18] MEDS: GENTAMICIN BONE CEMENT REFOBACIN 1 EACH TOPICAL (13:39)
[2024-06-18 14:40] LABS: Glucose Point of Care 148 mg/dl (65-105)
--- NOTE | 2024-06-18 14:41 | P.OP_ITS ---
Procedure Note - Detailed Date of Procedure 06/18/24 Pre-op Diagnosis Right knee degenerative arthritis. Post-op Diagnosis Same Procedure Performed Calipered, kinematically aligned total knee replacement right knee. Surgeon Ar Melgar MD Senior Reservoir Engineer Jacqueline Price PA-C Anesthesia General Findings According to the calipered kinematic alignment principles, the knee was balanced by the following verification checks incorporating 6 caliper measurements, and adjusting the tibial resection following the kinematic alignment algorithm (see figure 160.10 published in [employer] chapter on kinematic alignment total knee arthroplasty.) The steps verified the femoral and tibial components were kinematically aligned coincident to the patient's pre arthritic joint lines, which closely restored the [place] tibial compartment forces and ligament laxities without ligament release. The invendo medicala Novalere FPK TestPlantriKA knee, designed specifically for kinematic alignment, fit optimally. Severe patellofemoral changes. Significant changes of the lateral tibia. No ligament releases. The record of verification checks were documented and scanned into the chart. Distal Femoral Resection: Distal Medial 8 mm, Distal Lateral 8 mm Target thickness of 8mm Unworn, 6mm Worn (No Cartilage). Posterior Femoral Resection: Posterior Medial 7 mm, Posterior Lateral 7 mm. Target thickness of 7mm Unworn, 5mm Worn (No Cartilage). Description of Procedure General anesthesia was administered. A well-padded tourniquet was placed high on the thigh. The limb was prepped and draped in the usual sterile fashion. The limb was exsanguinated and the tourniquet inflated to 300 mmHg. A longitudinal incision was created over the midline of the knee. Sharp dissection was taken through subcutaneous tissues. Electrocautery was used for hemostasis. A trivector approach to the knee joint was performed. The ACL, anterior horns of the menisci, and fat pad were excised, and a subperiosteal dissection was carried along the posterior medial border of the tibia. The thickness of the [place] patella was measured with a caliper. The patella was resected using the oscillating saw. The best fitting anatomic patella button was selected. The fixation holes were drilled. When the patella and patella buttons combined thickness was thicker than the [place] patella, the patella was recut. Starting midway between the top of the notch in the anterior femoral cortex, I drilled a 9 mm diameter hole parallel to the anterior cortex to minimize flexion of the femoral component and promote patella tracking. I verified the existence of a 5-10 mm bone bridge between the posterior aspect of the hole and the anterior limit of the intercondylar notch. An intraosseous positioning pato was inserted 10 cm into the femur perpendicular to the distal joint line and parallel to the anterior cortex. I used a distal femoral referencing guide that compensated 2 mm when the cartilage was worn on the distal medial femoral condyle, and 2 mm when the cartilage was worn on the distal lateral femoral condyle. The basis for setting the distal and posterior femoral resection guide is knowing that the varus and valgus grade II to IV Kellegren-Ariel osteoarthritic knees have negligible bone wear at 0? and 90? and that the mean full-thickness cartilage wear approximates 2 mm. I measured the thickness of distal femoral resections with a caliper to +/- 0.5 mm. The thickness of each resection was adjusted to match the thickness of the respective condyle of the femoral component within 0.5 mm of target after compensating for cartilage wear and kerf. When the distal resection was 1-2 mm too thin, a recut guide was used to adjust the cut. When the distal resection was too thick, a 1 or 2 mm thick washer was fixed to the back of the 4-in-1 chamfer block to [place] a corrective gap between the femoral component and distal femur. I set posterior femoral referencing guide at 0? orientation to position the pin holes for the 4 in 1 chamfer block. The oswaldo wing measured the width of the distal femoral resection and selected the size of the 4 in 1 chamfer block and femoral component. The AP sizer confirmed the size. I measured the thickness of the posterior femoral resections with a caliper before making the anterior and chamfer cuts. I adjusted the thicknesses of each resection to match the thickness of the respective condyle of the femoral component within +/-0.5 mm after compensating for cartilage wear and curve. When a posterior resection femoral resection was 1-2 mm too thick or thin a corrective correction was made by shifting or rotating the 4 in 1 chamfer block as needed. The chamfer block was secured in the correct position with compression screws. The anterior and chamfer femoral resections were made. These caliper measurements and corrections verified that the femoral component was set coincident with the patient's pre-arthritic distal and posterior femoral joint lines. I removed all the medial and lateral femoral and tibial osteophytes to restore the pre arthritic length of the medial and lateral collateral ligaments. I olya AP lines along the major axis of the lateral tibial plateau in between the tibial spines which identified the flexion extension plane of the knee. A conventional extramedullary tibial resection guide was applied to the ankle. An oswaldo wing was placed medially in the saw slot. The varus valgus angle of the tibial resection guide was adjusted until the guide paralleled the proximal tibial articular surface after compensating for cartilage and bone wear. The slope of flexion extension angle of the tibial resection guide was adjusted until the oswaldo wing paralleled the slope of the medial tibia after compensating for wear. The AP axis of the tibial resection guide was adjusted parallel to the two lines. The proximal tibia was resected, partially releasing the insertion of the posterior cruciate ligament. The thickness of the medial and lateral lateral tibial condyle was measured at the base of the tibial spines. I visually verified the slope of the medial border of the resection was parallel to the patient's pre arthritic slope after compensating for cartilage and bone wear. I removed the remnants of the posterior horns of the menisci and posterior osteophytes and cauterized the inferior lateral genicular vessels. The Aquamantys bipolar device was also used to for additional hemostasis. When the knee had a preoperative flexion contracture of 20? or more I teased the capsule off the posterior femur with a curved 3 quarter-inch osteotome. I administered the posterior femoral periosteal injection by delivering 10 cc using a 20 gauge spinal needle at the most medial and 10 cc at the most lateral femoral spur surface which reduced the risk of injury to the posterior neurovascular structures. I followed 6 options in a decision tree to fine tune the varus valgus and posterior slope orientation of the tibial component to restore the patient's pre arthritic tibial joint line and limb alignment. First, I adjusted the varus- valgus orientation of the proximal tibia resection working in 1 degree to 2 degree increments until there was negligible medial and lateral lift off of the distal femoral and proximal tibial resection from the spacer block during a varus valgus laxity assessment in extension. I selected the largest anatomic shape trial tibial base plate that fit within the cortical boundary of the proximal tibial resection. The base plate was best fit parallel to the cortical boundary which set the Internal-external orientation of the anterior to posterior and medial to lateral positions. The best fit method set the AP axis of the tibial base plate and insert parallel to the flexion extension plane of the pre arthritic knee. I pinned the trial tibial base plate, prepared the cruciate slot, and fixed the base plate to the tibia with the cruciate stem. I inserted the trial femoral component. The knee was placed in full extension. Varus valgus laxity is of the knee with trial components were assessed. When asymmetric laxity was observed a 1-2 degree varus or valgus recut guide was used to fine tune the tibial resection until the laxity was 1 degree or less in full extension like the [place] knee. The following steps determined the optimal insert thickness within +/-1 mm. I reduced the patella and then with the knee in maximum extension, I verified the knee hyperextended a few degrees and had negligible varus valgus laxity, like the pre arthritic knee. Next, I measured the external tibial orientation which was the angle the insert goniometer intersected the sagittal line on the medial condyle of the femoral trial component. Then with the knee in 15-30 degrees flexion I verified a 3-4 mm gap in the lateral compartment and no gap in the medial compartment during a 2nd varus valgus laxity test. Next, I placed the knee in 90? of flexion and the foot resting on the operating table and measured the internal tibial orientation. I repeated the steps until I identified the insert thickness that provided the highest external tibia orientation in extension and the highest internal tibial orientation at 90? flexion without anterior lift-off of the insert from the tibial base plate. The insert with this thickness was implanted. I applied a posterior drawer test with the tibia distracted by gravity and verified no posterior subluxation of the tibia relative to the femur. The patella remained centered on the trochlea and tracked well throughout the entire arc of flexion and extension. I used pulse lavage to clean the bony surfaces of debris and dried bone. I cemented the tibial, femoral, and patellar components using 1 bag of methylmethacrylate with Gentamycin, then rechecked the stability at full extens ion, 15-30 degrees, and 90? flexion and verified jewish of the entire arc of motion of the knee. The circulating nurse confirmed the sponge and needle counts were correct. I used pulse lavage to rinse the joint and wound. The extensor mechanism was closed with interrupted #1 Vicryl suture and #1 running Stratafix suture. The subcutaneous layer was closed with interrupted #1 Vicryl suture followed by 2-0 Stratafix and 3-0 Stratafix. Steri-Strips placed on the skin. Silver impregnated occlusive dressing applied to the wound. A light gauze wrap and Isac bandage were placed. The patient was transferred to the recovery room in stable condition. There were no complications. Implants Medacta GMK spheriKA Femoral component SpheriKA size 3+, tibial component size 3, vitamin-E flex insert, thickness 11mm, Anatomic patella implant size . Estimated Blood Loss 20 Tourniquet Time Total Tourniquet Time: 72 Drains No Pathology None sent Complications No immediate complications Condition Stable Disposition PACU [facility] Billing Surgery - Charge Forward: Surgery Billing
--- NOTE | 2024-06-18 15:42 | ADMGEN ---
This patient, Christen Smith, was admitted to -. Patient/family oriented to hospital policies and general routines including ID bracelet, bed and alarms, visiting hours, pain management, procedures, bathroom and other care routines, personal items, smoking policy, room service/diet, and visiting hours. Information on how to activate the Rapid Response Team has been discussed. Patient/Family are encouraged to report perceived risks to care and to ask questions if they do not understand what they are told or what they should do.
[2024-06-18] MEDS: SODIUM CHLORIDE 0.9% IV 1,000 ML 125 ML IV CONT (16:21)
[2024-06-18] MEDS: predniSONE 5 MG TABLET PO (16:21)
[2024-06-18] MEDS: SENNA/DOCUSATE SODIUM TABLET 2 TAB PO (16:21)
[2024-06-18] MEDS: WARFARIN (*PBKC) 7.5 MG TABLET PO (16:21)
[2024-06-18] MEDS: ACETAMINOPHEN 325 MG TABLET 650 MG PO ×2 (17:00→23:14)
--- NOTE | 2024-06-18 18:35 | P.CONIM_ITS ---
Assessment and Plan Assessment and plan (1) Degenerative arthritis of right knee: Code(s): M17.11 - Unilateral primary osteoarthritis, right knee Status: Acute Assessment and Plan: Postoperative day 0 status post right total knee arthroplasty. Wound care, pain control, and DVT prophylaxis deferred to primary service. Check baseline labs in a.m.. 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 Continue neurovascular checks ordered per surgeon. (3) Breast cancer: Qualifiers: Breast location: unspecified site of breast Estrogen receptor status: unspecified Patient sex: female Laterality: unspecified laterality Qualified Code(s): C50.919 - Malignant neoplasm of unspecified site of unspecified female breast Code(s): C50.919 - Malignant neoplasm of unspecified site of unspecified female breast Status: Acute Assessment and Plan: Right breast cancer in 2014 with recurrence and metastases to the liver in 2017. Resume letrozole and palbociclib when okay with surgeon. (4) Chronic anticoagulation: Code(s): Z79.01 - custodial (current) use of anticoagulants Status: Acute Assessment and Plan: Patient on warfarin for history of recurrent DVTs and paroxysmal atrial fibrillation. Recommend aggressive DVT prophylaxis given her history. Resume warfarin when okay with surgeon. (5) Obstructive sleep apnea on CPAP: Code(s): G47.33 - Obstructive sleep apnea (adult) (pediatric) Status: Acute Assessment and Plan: CPAP will be provided for the patient to use while hospitalized. (6) Paroxysmal atrial fibrillation: Code(s): I48.0 - Paroxysmal atrial fibrillation Status: Acute Assessment and Plan: She currently sounds to be in a normal sinus rhythm. (7) Type 2 diabetes mellitus: Code(s): E11.9 - Type 2 diabetes mellitus without complications Status: Acute Assessment and Plan: Resume empagliflozin once tolerating diet. Initiate sliding scale insulin, Accu-Cheks, and hypoglycemic protocol. Plan Thank you for allowing us to participate in this patient's care. Please do not hesitate to contact us with any questions. HPI Date of Consult Consult date: 06/18/24 Requesting Physician: Ar Melgar MD Primary Care Provider: Hayder Zepeda MD Consult Narrative Reason for consult: medical managment Narrative: This is a very pleasant 74-year-old female with history of recurrent deep venous thrombosis, pulmonary embolism, breast cancer, atrial fibrillation on chronic anticoagulation, hypertension, obstructive sleep apnea on CPAP, type 2 diabetes mellitus, breast cancer, and degenerative arthritis whom the hospitalist service has been consulted for help managing the patient's medical conditions postoperatively. She presented today for elective right total knee arthroplasty due to ongoing pain despite conservative outpatient treatment. Postoperatively her pain is well controlled and she has minimal discomfort which is manageable with acetaminophen. She has been up to the chair to the bathroom with help. She is having difficulties dorsiflexing the right foot and reports some tingling in the right leg [id number]. She denies fever, chills, sweats, chest pain, shortness a breath, nausea, and vomiting. Regarding her chronic medical conditions; she believes they are well controlled on home medications. Her glucose is typically in the 120s in the mornings though on occasion it is a bit lower though she has not had any significant lows. She has been off her warfarin in anticipation of the surgery and that will be resumed per the surgeon's discretion. Review of Systems Review of Systems: 12 systems were reviewed and are negativ e except for as per HPI. [facility] Past Medical History Medical History (Updated 06/18/24 @ 21:18 by Ximena Tomas PA-C) Back pain with history of spinal surgery Benign essential hypertension Cancer of right breast (2003) metastasized to liver as of 2016 Chronic anticoagulation Chronic obstructive pulmonary disease Compression fracture of L1 lumbar vertebra Hyperlipidemia Multiple episodes of deep venous thrombosis Obstructive sleep apnea on CPAP Paroxysmal atrial fibrillation Pulmonary embolism Splenic artery aneurysm Type 2 diabetes mellitus Surgical History Surgical History (Updated 06/18/24 @ 21:15 by Ximena Tomas PA-C) History of appendectomy History of arthroplasty of right knee (06/18/24) History of bilateral cataract extraction History of cholecystectomy History of kyphoplasty History of lumbar surgery History of nasal septoplasty History of total mastectomy of right breast (2003) Family History Family History Father Diabetes mellitus Family history of chronic obstructive pulmonary disease Family history of diabetes mellitus in first degree relative Mother Diabetes mellitus Family history of emphysema Family history of diabetes mellitus in first degree relative Social History Social History (Updated 06/18/24 @ 21:15 by Ximena Tomas PA-C) Social History: Surrogate medical decision maker: Jourdan Smith, spouse. Code status: Full code. Smoking status: Never smoker Second hand tobacco smoke exposure: No Alcohol intake: current Drinks per week: 1 Alcohol use details: BEER Substance use: never Substance use type: does not use Do You Feel Safe in your Home?: Yes Lack of Transportation: No Lack of Food: Never True Current Housing: I Have Housing Concerned About Future Housing: No Difficulty Paying Gas/Electric Bills: No Difficulty Paying for Meds: No Currently Unemployed: No Education: High School Diploma/GED Difficulty w/ Childcare or Family Care: No Spiritual care concerns: No Meds Home Medications and Allergies Home Medications Medication Instructions Recorded Confirmed Type albuterol sulfate 90 mcg/actuation 1 inhalation inhalation Q4H 06/12/19 05/29/24 History aerosol inhaler letrozole 2.5 mg tablet 2.5 mg PO DAILY 06/12/19 05/29/24 History magnesium oxide 400 mg PO DAILY 06/12/19 05/29/24 History omega-3 fatty acids 1,000 mg 2,000 mg PO DAILY 06/12/19 06/18/24 History capsule (Fish Oil Concentrate) palbociclib 75 mg capsule (Ibrance) 75 mg PO DAILY 06/12/19 06/18/24 History folic acid 0.8 mg capsule 0.8 mg PO DAILY #90 caps 02/12/20 06/18/24 Rx Adults Multivitamin 1 tab-cap PO DAILY 08/18/21 06/18/24 History diphenhydramine HCl 25 mg capsule 25 mg PO QHS PRN itching #90 caps 10/19/21 05/29/24 Rx (Benadryl) budesonide 160 mcg-glycopyr 9 2 inh inhalation BID 03/08/22 05/29/24 History mcg-formot 4.8 mcg/actuation HFA inhaler (Breztri Aerosphere) ergocalciferol (vitamin D2) 1,250 50,000 unit PO .twice a month 04/15/23 06/18/24 History mcg (50,000 unit) capsule warfarin 5 mg tablet 5 mg PO 6XW 04/15/23 06/18/24 History albuterol sulfate 2.5 mg/3 mL 2.5 mg (3 mL) inhalation Q4-6H PRN 07/12/23 05/29/24 Rx (0.083 %) solution for nebulization shortness of breath or wheezing #90 mL cyanocobalamin (vitamin B-12) See Rx Instructions .Route 11/07/23 06/18/24 Rx 1,000 mcg/mL injection solution .COMPLEX #3 mL Restless Leg 1 tab-cap PO HS 01/18/24 05/29/24 History calcium 600 mg (as carbonate)-vit 1 tablet PO DAILY 01/18/24 06/18/24 History D3 20 mcg (800 unit) chewable tablet (Caltrate plus D) losartan 100 mg tablet 100 mg PO DAILY 01/18/24 05/29/24 History blood-glucose meter (FreeStyle #1 ea 02/27/24 06/18/24 Rx [place] Lite kit) escitalopram oxalate 20 mg tablet See Rx Instructions .Route 02/27/24 06/18/24 Rx .COMPLEX #90 tabs omeprazole 40 mg capsule,delayed See Rx Instructions .Route DAILY 02/27/24 05/29/24 Rx release #90 caps Freestyle [place] Lite Test Strips #1 ea 02/29/24 06/18/24 Rx Freestyle [place] Lite lancets #1 ea 02/29/24 06/18/24 Rx empagliflozin 25 mg-linagliptin 5 See Rx Instructions .Route 03/02/24 05/29/24 Rx mg tablet (Glyxambi) .COMPLEX #90 tabs rosuvastatin 10 mg tablet See Rx Instructions .Route 03/13/24 05/29/24 Rx .COMPLEX #90 tabs Gemtesa 75 mg PO DAILY 05/25/24 05/25/24 History acetaminophen 500 mg capsule 500 mg PO PRN PRN Pain 05/25/24 05/25/24 History escitalopram oxalate 10 mg tablet See Rx Instructions .Route 05/25/24 06/18/24 Rx .COMPLEX #90 tabs warfarin 7.5 mg PO WEEKLY 05/25/24 05/25/24 History metoprolol tartrate 25 mg tablet 12.5 mg PO BID #180 tabs 05/28/24 Rx syringe with needle 3 mL 23 x 1 #100 ea 06/04/24 06/18/24 Rx (BD Luer-Rosio Syringe) oxycodone-acetaminophen 5 mg-325 1 - 2 tablet PO Q4-6H PRN pain 7 06/18/24 Rx mg tablet days #30 tabs prednisone 5 mg tablet 5 mg PO DAILY 3 weeks #21 tabs 06/18/24 Rx trazodone 100 mg tablet 150 mg PO HS 06/18/24 06/18/24 History Allergies Allergy/AdvReac Type Severity Reaction Status Date / Time adhesive Allergy Intermediate RASH Verified 06/18/24 10:13 chlordiazepoxide AdvReac Intermediate Confusion Verified 06/18/24 10:13 diazepam AdvReac Intermediate Confusion Verified 06/18/24 12:03 meprobamate AdvReac Intermediate Confusion Verified 06/18/24 12:03 aspirin AdvReac Mild Nausea Verified 06/18/24 10:13 metformin AdvReac Mild Diarrhea Verified 06/18/24 10:13 Vital Signs Vital Signs - 24 hr 06/18/24 10:00 06/18/24 14:25 06/18/24 14:40 Temperature 97.3 F L 97.6 F Pulse Rate 63 100 87 Respiratory Rate 18 16 12 Blood Pressure 145/63 H 159/68 H 130/49 L Pulse Oximetry 98 98 97 Oxygen Delivery Room Air Simple Face Mask Room Air Oxygen Flow Rate 8 06/18/24 14:55 06/18/24 15:10 06/18/24 15:25 Temperature Pulse Rate 85 81 77 Respiratory Rate 14 13 16 Blood Pressure 136/52 L 135/51 L 114/54 L Pulse Oximetry 93 94 96 Oxygen Delivery Room Air Room Air Nasal Cannula Oxygen Flow Rate 2 06/18/24 15:31 06/18/24 17:41 Temperature Pulse Rate 77 Respiratory Rate 14 Blood Pressure 126/56 L Pulse Oximetry 94 95 Oxygen Delivery Nasal Cannula Room Air Oxygen Flow Rate 2 Exam Narrative: General: Well-developed, nontoxic appearing female sitting in a chair at the side of the bed. Weight: 95.5 kg. BMI: 33.0. HEENT: Normocephalic, atraumatic. PERRL, EOMI. Sclera anicteric. Oral mucosa moist. Oropharynx clear. Neck: Supple. Respiratory: Lungs are clear to auscultation bilaterally. Cardiovascular: Regular rate and rhythm with S1-S2. Gastrointestinal: Abdomen is soft, nontender, and nondistended with positive bowel sounds. Skin: Warm and dry. No rash or lesions on limited exam. Extremities: No cyanosis, clubbing, or edema. Radial and pedal pulses intact. Musculoskeletal: Right knee dressing is clean, dry, and intact. She has sensation in the lower leg though she states that is blunted. Unable to dorsiflex the right foot. Able to scot and invert no eversion seems a little weak. Neurological: Alert. Cranial nerves 2-12 grossly intact. No gross focal deficits to casual conversation. Psychiatric: Pleasant and cooperative with normal mood and affect. Judgment and insight intact.
[2024-06-18] MEDS: ALBUTEROL SULFATE (*SP) AEROSOL 1 PUFF INHALATION (19:17)
[2024-06-18] MEDS: traZODone HCL 50 MG TABLET 150 MG PO (20:00)
[2024-06-18 22:01] LABS: Glucose Point of Care 194 mg/dl (65-105)
[2024-06-19] VITALS (10 sets, daily range): BP systolic 115–135; BP diastolic 47–56; PULSE 63–86; RESP 18–20; TEMP 36.2–36.8; O2SAT 93–97
[2024-06-19] MEDS: ALBUTEROL SULFATE (*SP) AEROSOL 1 PUFF INHALATION ×5 (02:05→20:50)
[2024-06-19] MEDS: ceFAZolin 2 GM/D5W 50 ML 2 GM/50 ML BAG IVPB ×2 (02:46→11:45)
[2024-06-19] MEDS: ACETAMINOPHEN 325 MG TABLET 650 MG PO ×4 (05:25→23:23)
[2024-06-19 07:36] LABS: Glucose Point of Care 135 mg/dl (65-105)
[2024-06-19 07:39] LABS: Basophils Percent Auto 0.2 % (0.2-1.2); Hematocrit 35.1 % (37.0-47.0); Hemoglobin 11.2 g/dL (12.0-15.0); Immature Granulocyte Absolute 0.06 K/mm3 (0.00-0.031); Immature Granulocyte Percent A 0.9 % (0-0.5); Lymphocytes Percent Auto 16.7 % (18.3-44.2); Mean Corpuscular HGB Conc 31.9 g/dl (32-36); Mean Corpuscular Hemoglobin 31.4 pg (26-34); Mean Corpuscular Volume 98.3 fl (80-100); Mean Platelet Volume 8.7 fl (7.4-10.4); Monocytes Absolute Auto 0.5 K/mm3 (0.1-0.6); Neutrophils Percent Auto 75.2 % (45.5-73.1); Platelet Count Result 121 k/mm3 (150-375); Red Blood Count 3.57 M/mm3 (4.2-5.4); Red Cell Distribution Width 14.1 % (11.5-14.5); White Blood Count 6.6 K/mm3 (4.5-10.0)
[2024-06-19 07:49] LABS: INR 1.2; Prothrombin Time 15.1 Seconds (11.1-14.7)
[2024-06-19] MEDS: ROSUVASTATIN 10 MG TABLET PO (07:55)
[2024-06-19] MEDS: ESCITALOPRAM OXALATE 10 MG TABLET 30 MG PO (07:55)
[2024-06-19] MEDS: LOSARTAN POTASSIUM 100 MG TABLET PO (07:55)
[2024-06-19] MEDS: SENNA/DOCUSATE SODIUM TABLET 2 TAB PO ×2 (07:55→16:49)
[2024-06-19] MEDS: polyethylene glycoL 3350 17 GM POWD.PACK PO (07:56)
[2024-06-19] MEDS: ENOXAPARIN 30 MG/0.3 ML SYRINGE SUB-Q ×2 (07:56→21:05)
[2024-06-19] MEDS: traMADol HCL (*CRX) 50 MG TABLET PO (07:56)
[2024-06-19 08:19] LABS: Alanine Aminotransferase 80 U/L (6-35); Albumin Level 3.6 g/dL (3.5-5.1); Alkaline Phosphatase 63 U/L (38-126); Anion Gap 5 mmol/L (4-12); Aspartate Amino Transferase 62 U/L (14-36); Bilirubin,Total 0.4 mg/dL (0.2-1.3); Blood Urea Nitrogen 19 mg/dL (7-17); Calcium 8.4 mg/dL (8.4-10.2); Carbon Dioxide 25 mmol/L (22-30); Chloride 105 mmol/L (98-107); Estimated CRCL calculation 66 ml/min; Estimated Glomerular Filt Rate > 60; Glucose 127 mg/dL (65-110); Potassium 4.2 mmol/L (3.4-5.0); Sodium 135 mmol/L (137-145)
[2024-06-19] MEDS: FLUTICASONE/UMECLIDIN/VILANTER 100-62.5-25 MCG ELLIPTA 1 PUFF INHALATION (09:09)
--- NOTE | 2024-06-19 09:49 | P.DS_ITS ---
DS: Admitting Diagnosis Discharge Date 06/19/24 Admitting Diagnosis Knee arthritis. DS: Discharge Diagnosis Discharge Diagnosis (1) Status post total right knee replacement: Code(s): Z96.651 - Presence of right artificial knee joint Status: Acute Assessment and Plan: Postop day 1: Right total knee arthroplasty. Patient tolerated procedure well. No complications. Pain manageable with pain medication. No numbness or tingling. We had a lengthy discussion regarding postoperative wound care, limitations, expectations, and exercises. Patient shows good understanding. She has had initial physical therapy and is tolerating it well. DVT prophylaxis: Continue Warfarin as normal. Pain medication: Percocet. Prednisone. Patient has followup appointment with Dr. Melgar in 3 weeks. DS: Summary Hospital Course Reason for hospitalization: Total knee arthroplasty Hospital Course: Patient tolerated procedure well. Has had initial PT/OT. Status at Discharge Functional status at discharge: uses cane/walker Overall status at discharge: patient is progressing back to baseline Time Spent with Patient Time attestation: Total time spent providing and/or coordinating discharge services: Exam Narrative: Overweight 74 y/o female. Resting comfortably in bed. Wearing compression socks bilaterally. Dressing intact with no drainage. Moderate swelling. No ecchymosis. No erythema. No hematoma. Range of motion limited due to pain. 0-90. Calf nontender. Neurologic status intact. No varicosities. Distal pulses palpable. DS: Data Data Completed and Pending Labs on day of discharge: Labs from last 24 hours 06/19/24 06/19/24 06/18/24 07:33 07:15 21:52 WBC 6.6 RBC 3.57 L Hgb 11.2 L Hct 35.1 L MCV 98.3 MCH 31.4 MCHC 31.9 L RDW 14.1 Plt Count 121 L MPV 8.7 Immature Gran % (Auto) 0.9 H Neut % (Auto) 75.2 H Lymph % (Auto) 16.[address] [place] % (Auto) 7.0 Eos % (Auto) 0.0 Baso % (Auto) 0.2 Lymph # (Auto) 1.10 [place] # (Auto) 0.5 Eos # (Auto) 0.0 Baso # (Auto) 0.0 Abs Immat Gran (auto) 0.06 H Absolute Neuts (auto) 5.0 Absolute Nucleated RBC 0.000 Nucleated RBC % 0.0 PT 15.1 H INR 1.2 Sodium 135 L Potassium 4.2 Chloride 105 Carbon Dioxide 25 Anion Gap 5 BUN 19 H Creatinine 0.80 Estim Creat Clear Calc 66 Estimated GFR > 60 Glucose 127 H POC Capillary Glucose 135 H 194 H Calcium 8.4 Total Bilirubin 0.4 Direct Bilirubin 0.0 AST 62 H ALT 80 H Alkaline Phosphatase 63 Total Protein 6.0 L Albumin 3.6 Blood Type Antibody Screen 06/18/24 06/18/24 06/18/24 14:28 10:53 10:46 WBC RBC Hgb Hct MCV MCH MCHC RDW Plt Count MPV Immature Gran % (Auto) Neut % (Auto) Lymph % (Auto) [place] % (Auto) Eos % (Auto) Baso % (Auto) Lymph # (Auto) [place] # (Auto) Eos # (Auto) Baso # (Auto) Abs Immat Gran (auto) Absolute Neuts (auto) Absolute Nucleated RBC Nucleated RBC % PT 14.5 INR 1.1 Sodium Potassium Chloride Carbon Dioxide Anion Gap BUN Creatinine Estim Creat Clear Calc Estimated GFR Glucose POC Capillary Glucose 148 H 125 H Calcium Total Bilirubin Direct Bilirubin AST ALT Alkaline Phosphatase Total Protein Albumin Blood Type B Positive Antibody Screen Negative Discharge Plan Discharge Patient Disposition: Home, Self-Care Discharge Instructions: See green instruction sheets Patient Instructions: Pain Management (DC) Patient Language: Estonian Stand Alone Forms: General Discharge Instructions Follow-up/Referrals: Jacqueline Price PA [[facility] [employer]] - Discharge Medications: New prednisone 5 mg tablet 5 mg PO DAILY 21 Days Qty: 21 0RF oxycodone-acetaminophen 5-325 mg tablet 1 - 2 tablet PO Q4-6H PRN (Reason: pain) 7 Days Qty: 30 0RF Continued albuterol sulfate 90 mcg/actuation HFA aerosol inhaler 1 inhalation INHALATION Q4H letrozole 2.5 mg tablet 2.5 mg PO DAILY omega-3 fatty acids [Fish Oil Concentrate] 1,000 mg capsule 2,000 mg PO DAILY Breztri Aerosphere 160-9-4.8 mcg/actuation HFA aerosol inhaler 2 inh inhalation BID Caltrate 600 plus D 600 mg-20 mcg (800 unit) tablet,chewable 1 tablet PO DAILY Restless Leg 1 tab-cap PO HS losartan 100 mg tablet 100 mg PO DAILY diphenhydramine HCl [Benadryl] 25 mg capsule 25 mg PO QHS PRN (Reason: itching) Qty: 90 0RF albuterol sulfate 2.5 mg /3 mL (0.083 %) solution for nebulization 2.5 mg inhalation Q4-6H PRN (Reason: shortness of breath or wheezing) Qty: 90 3RF Gemtesa 75 mg PO DAILY warfarin 7.5 mg PO WEEKLY Patient Comments: takes 7.5 mg on mondays acetaminophen 500 mg Capsule 500 mg PO PRN PRN (Reason: Pain) Adults Multivitamin 1 tab-cap PO DAILY ergocalciferol (vitamin D2) 1,250 mcg (50,000 unit) capsule 50,000 unit PO .twice a month magnesium oxide 400 mg magnesium tablet 400 mg PO DAILY folic acid 0.8 mg capsule 0.8 mg PO DAILY Qty: 90 0RF warfarin 5 mg tablet 5 mg PO 6XW cyanocobalamin (vitamin B-12) 1,000 mcg/mL solution See Rx Instructions .ROUTE .COMPLEX Qty: 3 3RF Dose Instruction: ADMINISTER 1 ML IN THE MUSUCLE MONTHLY (NON-FORMULARY ON INSURANCE) Rx Instructions: ADMINISTER 1 ML IN THE MUSUCLE MONTHLY (NON-FORMULARY ON INSURANCE) omeprazole 40 mg capsule,delayed release(DR/EC) See Rx Instructions .ROUTE DAILY Qty: 90 1RF Dose Instruction: TAKE 1 CAPSULE BY MOUTH EVERY DAY Rx Instructions: TAKE 1 CAPSULE BY MOUTH EVERY DAY daily; escitalopram oxalate 20 mg tablet See Rx Instructions .ROUTE .COMPLEX Qty: 90 1RF Dose Instruction: TAKE 1 TABLET BY MOUTH EVERY DAY WITH 1-10MG TABLET FOR A TOTAL OF 30MG DAILY Rx Instructions: TAKE 1 TABLET BY MOUTH EVERY DAY WITH 1-10MG TABLET FOR A TOTAL OF 30MG DAILY (DME) blood-glucose meter [FreeStyle [place] Lite] Kit See Rx Instructions .Route Qty: 1 0RF Rx Instructions: As directed (DME) Freestyle [place]ite Test Strips See Rx Instructions .Route .MEDSUPPLY Qty: 1 1RF Rx Instructions: test blood sugar daily; (DME) Freestyle [place] lancets See Rx Instructions .Route .MEDSUPPLY Qty: 1 2RF Rx Instructions: test blood sugar daily; Glyxambi 25-5 mg tablet See Rx Instructions .ROUTE .COMPLEX Qty: 90 2RF Dose Instruction: TAKE 1 TABLET BY MOUTH EVERY DAY Rx Instructions: TAKE 1 TABLET BY MOUTH EVERY DAY rosuvastatin 10 mg tablet See Rx Instructions .ROUTE .COMPLEX Qty: 90 1RF Dose Instruction: TAKE 1 TABLET BY MOUTH EVERY DAY Rx Instructions: TAKE 1 TABLET BY MOUTH EVERY DAY escitalopram oxalate 10 mg tablet See Rx Instructions .ROUTE .COMPLEX Qty: 90 0RF Dose Instruction: TAKE 1 TABLET (10 MG) BY MOUTH DAILY WITH 20MG FOR TOTAL 30MG Rx Instructions: TAKE 1 TABLET (10 MG) BY MOUTH DAILY WITH 20MG FOR TOTAL 30MG metoprolol tartrate 25 mg tablet 12.5 mg PO BID Qty: 180 1RF (DME) BD Luer-Rosio Syringe 3 mL 23 x 1 syringe See Rx Instructions .ROUTE .COMPLEX Qty: 100 3RF Dose Instruction: USE 1 SYRINGE MONTHLY TO INJECT B-12 INTO THE MUSCLE Rx Instructions: USE 1 SYRINGE MONTHLY TO INJECT B-12 INTO THE MUSCLE Held Ibrance 75 mg capsule 75 mg PO DAILY Hold Instructions: Resume on 07/02/24. Hold for 2 weeks after surgery. Patient Comments: No Action trazodone 100 mg tablet 150 mg PO HS
[2024-06-19] MEDS: oxyCODONE/ACETAMINOPHEN (*CRX) 5-325 MG TABLET 1 TABLET PO (10:02)
--- NOTE | 2024-06-19 11:22 | P.PNIM_ITS ---
Progress Note: A&P Assessment and Plan (1) Degenerative arthritis of right knee: Code(s): M17.11 - Unilateral primary osteoarthritis, right knee Status: Acute Assessment and Plan: * Postoperative day 1 status post right total knee arthroplasty. * Wound care, pain control, and DVT prophylaxis deferred to primary service. * Monitor labs. (2) Right foot drop: Code(s): M21.371 - Foot drop, right foot Status: Acute Assessment and Plan: * Possible peroneal nerve palsy following surgery. * Continue neurovascular checks ordered per surgeon. (3) Breast cancer: Qualifiers: Breast location: unspecified site of breast Estrogen receptor status: unspecified Patient sex: female Laterality: unspecified laterality Qualified Code(s): C50.919 - Malignant neoplasm of unspecified site of unspecified female breast Code(s): C50.919 - Malignant neoplasm of unspecified site of unspecified female breast Status: Acute Assessment and Plan: * Right breast cancer in 2014 with recurrence and metastases to the liver in 2017. * Resume letrozole and palbociclib when okay with surgeon. (4) Chronic anticoagulation: Code(s): Z79.01 - [facility] (current) use of anticoagulants Status: Acute Assessment and Plan: * Patient on warfarin for history of recurrent DVTs and paroxysmal atrial fibrillation. * Recommend aggressive DVT prophylaxis given her history. * Warfarin 7.5 mg PO started back this evening. * INR 1.2. Patient reports goal is 2.5 * Monitor labs. (5) Obstructive sleep apnea on CPAP: Code(s): G47.33 - Obstructive sleep apnea (adult) (pediatric) Status: Acute Assessment and Plan: * CPAP will be provided for the patient to use while hospitalized. (6) Paroxysmal atrial fibrillation: Code(s): I48.0 - Paroxysmal atrial fibrillation Status: Acute Assessment and Plan: * She currently sounds to be in a normal sinus rhythm. (7) Type 2 diabetes mellitus: Code(s): E11.9 - Type 2 diabetes mellitus without complications Status: Acute Assessment and Plan: * Resume empagliflozin once tolerating diet. * Initiate sliding scale insulin, Accu-Cheks, and hypoglycemic protocol. Subjective Date/time seen: 06/19/24 11:22 Interval history: Patient report pain in right knee is a 7 , constant, and aching. Patient denies chest pain, palpitations, headache, dizziness, nausea, or vomiting. Patient reports that her INR goal is 2.5, patient is currently 1.2. Review of Systems Review of Systems: All systems reviewed & are unremarkable except as noted in HPI and below Exam Const: General: no acute distress and uncomfortable Eyes: Sclera: sclerae normal Resp: Effort & Inspection: normal respiratory effort Auscultation: clear to auscultation bilaterally Cardio: Rate: regular rate Rhythm: regular rhythm GI: GI Palp: Yes Soft to palpation Auscultation: normal bowel sounds Skin: Other: Right knee dressing is clean, dry, and intact. Neuro: Speech: normal speech Extrem: General: no pedal edema Psych: Mental Status: mental status grossly normal Affect: normal affect Objective Data Vital Signs Vital Signs: Vital Signs - 24 hr 06/18/24 14:25 06/18/24 14:40 06/18/24 14:55 Temperature 97.6 F Pulse Rate 100 87 85 Respiratory Rate 16 12 14 Blood Pressure 159/68 H 130/49 L 136/52 L Pulse Oximetry 98 97 93 Oxygen Delivery Simple Face Mask Room Air Room Air Oxygen Flow Rate 8 06/18/24 15:10 06/18/24 15:25 06/18/24 15:31 Temperature Pulse Rate 81 77 77 Respiratory Rate 13 16 14 Blood Pressure 135/51 L 114/54 L 126/56 L Pulse Oximetry 94 96 94 Oxygen Delivery Room Air Nasal Cannula Nasal Cannula Oxygen Flow Rate 2 2 06/18/24 15:33 06/18/24 15:48 06/18/24 16:18 Temperature 96.5 F L 97.4 F L 97.4 F L Pulse Rate 69 70 68 Respiratory Rate 18 18 18 Blood Pressure 121/55 L 121/47 L 127/54 L Pulse Oximetry 99 99 99 Oxygen Delivery Oxygen Flow Rate 06/18/24 17:18 06/18/24 17:41 06/18/24 20:50 Temperature 97.8 F Pulse Rate 78 65 Respiratory Rate 18 Blood Pressure 137/50 L Pulse Oximetry 100 95 96 Oxygen Delivery Room Air Oxygen Flow Rate 06/18/24 21:00 06/18/24 23:06 06/19/24 01:07 Temperature 98.1 F 97.5 F L Pulse Rate 67 63 Respiratory Rate 18 18 Blood Pressure 131/59 L 115/47 L Pulse Oximetry 98 95 Oxygen Delivery Room Air Oxygen Flow Rate 06/19/24 05:18 06/19/24 08:11 06/19/24 09:11 Temperature 97.2 F L Pulse Rate 66 77 Respiratory Rate 18 20 Blood Pressure 127/51 L Pulse Oximetry 97 Oxygen Delivery Room Air Oxygen Flow Rate 06/19/24 09:15 06/19/24 09:28 06/19/24 09:37 Temperature Pulse Rate Respiratory Rate Blood Pressure Pulse Oximetry 94 Oxygen Delivery Room Air Room Air Room Air Oxygen Flow Rate Intake/Output Intake/Output: Intake & Output 06/16/24 06/17/24 06/18/24 06/19/24 23:59 23:59 23:59 23:59 Intake Total 1090 360 Balance 1090 360 Meds/Results Medications: Active Medications Generic Name Dose Route Start Last Admin Trade Name Freq PRN Reason Stop Dose Admin Acetaminophen 650 mg 06/18/24 18:00 06/19/24 05:25 Acetaminophen 325 Mg Tablet PO 650 mg Q6HR ROSAMARIA Administration Albuterol 2.5 mg 06/18/24 15:33 Albuterol Sulfate Neb 2.5 Mg/3 Ml Inh INHALATION Q4HRT PRN shortness of breath or wheezing Albuterol 1 puff 06/18/24 16:00 06/19/24 09:09 Albuterol Sulfate (*Sp) Aerosol 1 Puff INHALATION 1 puff Q4HRT ROSAMARIA Administration Cyclobenzaprine HCl 10 mg 06/18/24 15:33 Cyclobenzaprine Hcl 10 Mg Tablet PO Q8H PRN Spasms Dextrose 12.5 gm 06/18/24 21:18 Dextrose 50% 25 Gm/50 Ml Syringe IV PUSH PRN PRN Hypoglycemia Protocol Diphenhydramine HCl 25 mg 06/18/24 15:33 Diphenhydramine Hcl Cap 25 Mg Capsule PO QHS PRN itching Enoxaparin Sodium 30 mg 06/19/24 09:00 06/19/24 07:56 Enoxaparin 30 Mg/0.3 Ml Syringe SUB-Q 30 mg Q12HR ROSAMARIA Administration Escitalopram Oxalate 30 mg 06/19/24 09:00 06/19/24 07:55 Escitalopram Oxalate 10 Mg Tablet PO 30 mg DAILY ROSAMARIA Administration Fluticasone/Umeclidinium/Vilanterol 1 puff 06/19/24 08:00 06/19/24 09:09 Fluticasone/Umeclidin/Vilanter 100-62.5-25 Mcg Ellipta INHALATION 1 puff DAILYRT ROSAMARIA Administration Glucagon 1 mg 06/18/24 21:18 Glucagon For Inj 1 Mg Vial IM PRN PRN Hypoglycemia Protocol Glucose 15 gm 06/18/24 21:18 Glucose Oral Gel 15 Gm Of Glucse In 37.5 Gm Tube PO PRN PRN Hypoglycemia Protocol Hydromorphone HCl 1 mg 06/18/24 15:33 Hydromorphone Hcl Inj (*Crx) 1 Mg/Ml Syr IV PUSH Q2H PRN Breakthrough Pain Rated 7-10 or NPO Hydromorphone HCl 0.5 mg 06/18/24 15:33 Hydromorphone Hcl Inj (*Crx) 1 Mg/Ml Syr IV PUSH Q2H PRN Breakthrough Pain Rated 4-6 or NPO Cefazolin Sodium 2 gm in 50 mls @ 100 mls/hr 06/18/24 20:00 06/19/24 02:46 Ancef 2 Gm/D5w 50 Ml IVPB 06/19/24 12:29 100 mls/hr Q8H ROSAMARIA Administration Dextrose 1,000 mls @ 100 mls/hr 06/18/24 21:18 Dextrose 5% 1,000 Ml IVPB PRN PRN Hypoglycemia Protocol Insulin Aspart 1 - 3 units 06/19/24 21:00 Insulin Aspart (*Bkc) 100 Units/Ml SUB-Q HS ROSAMARIA Protocol Insulin Aspart 3 - 6 units 06/19/24 08:00 06/19/24 07:55 Insulin Aspart (*Bkc) 100 Units/Ml SUB-Q Not Given TIDWM ROSAMARIA Protocol Losartan Potassium 100 mg 06/19/24 09:00 06/19/24 07:55 Losartan Potassium 100 Mg Tablet PO 100 mg DAILY ROSAMARIA Administration Miscellaneous Information 1 each 06/18/24 00:01 Gemtesa Is Non Formulary Can Patient Use From Home? XX 07/18/24 00:00 CLARIFY ROSAMARIA Naloxone HCl 0.1 mg 06/18/24 15:33 Naloxone Hcl 0.4 Mg/Ml Vial IV PUSH Q2M PRN Opiate Reversal Non-Formulary Medication 75 mg 06/19/24 09:00 Gemtesa PO 07/19/24 08:59 DAILY ROSAMARIA Ondansetron HCl 4 mg 06/18/24 15:33 Ondansetron Inj 4 Mg/2 Ml Vial IV PUSH Q4H PRN Nausea And Vomiting Oxycodone/Acetaminophen 1 tablet 06/18/24 15:33 06/19/24 10:02 Oxycodone/Acetaminophen (*Crx) 5-325 Mg Tablet PO 1 tablet Q4H PRN Administration Pain Rated 4-6 Oxycodone/Acetaminophen 1 tab 06/18/24 15:33 Oxycodone/Acetaminophen (*Crx) 10-325 Mg Tablet PO Q6H PRN Pain Rated 7-10 Polyethylene Glycol 17 gm 06/19/24 09:00 06/19/24 07:56 Polyethylene Glycol 3350 17 Gm Powd.Pack PO 17 gm QAM ROSAMARIA Administration Prednisone 5 mg 06/18/24 17:00 06/18/24 16:21 Prednisone 5 Mg Tablet PO 5 mg DAILY@1700 ROSAMARIA Administration Rosuvastatin Calcium 10 mg 06/19/24 09:00 06/19/24 07:55 Rosuvastatin 10 Mg Tablet PO 10 mg DAILY ROSAMARIA Administration Senna/Docusate Sodium 2 tab 06/18/24 17:00 06/19/24 07:55 Senna/Docusate Sodium Tablet PO 2 tab BID ROSAMARIA Administration Tramadol HCl 50 mg 06/18/24 15:33 06/19/24 07:56 Tramadol Hcl (*Crx) 50 Mg Tablet PO 50 mg Q4H PRN Administration Pain Rated 1-3 Trazodone HCl 150 mg 06/18/24 21:00 06/18/24 20:00 Trazodone Hcl 50 Mg Tablet PO 150 mg HS ROSAMARIA Administration Warfarin Sodium 7.5 mg 06/18/24 17:00 06/18/24 16:21 Warfarin (*Pbkc) 7.5 Mg Tablet PO 7.5 mg DAILY@1700 ROSAMARIA Administration Radiology Results: ITS Impressions Knee X-Ray 06/18/24 14:51 IMPRESSION: 1. Right total knee arthroplasty, negative for postoperative purposes. Labs Labs: Laboratory Results - last 24 hr 06/18/24 06/18/24 06/18/24 10:46 14:28 21:52 WBC RBC Hgb Hct MCV MCH MCHC RDW Plt Count MPV Immature Gran % (Auto) Neut % (Auto) Lymph % (Auto) [place] % (Auto) Eos % (Auto) Baso % (Auto) Lymph # (Auto) [place] # (Auto) Eos # (Auto) Baso # (Auto) Abs Immat Gran (auto) Absolute Neuts (auto) Absolute Nucleated RBC Nucleated RBC % PT INR Sodium Potassium Chloride Carbon Dioxide Anion Gap BUN Creatinine Estim Creat Clear Calc Estimated GFR Glucose POC Capillary Glucose 148 H 194 H Calcium Total Bilirubin Direct Bilirubin AST ALT Alkaline Phosphatase Total Protein Albumin Blood Type B Positive Antibody Screen Negative 06/19/24 06/19/24 07:15 07:33 WBC 6.6 RBC 3.57 L Hgb 11.2 L Hct 35.1 L MCV 98.3 MCH 31.4 MCHC 31.9 L RDW 14.1 Plt Count 121 L MPV 8.7 Immature Gran % (Auto) 0.9 H Neut % (Auto) 75.2 H Lymph % (Auto) 16.7 L [place] % (Auto) 7.0 Eos % (Auto) 0.0 Baso % (Auto) 0.2 Lymph # (Auto) 1.10 [place] # (Auto) 0.5 Eos # (Auto) 0.0 Baso # (Auto) 0.0 Abs Immat Gran (auto) 0.06 H Absolute Neuts (auto) 5.0 Absolute Nucleated RBC 0.000 Nucleated RBC % 0.0 PT 15.1 H INR 1.2 Sodium 135 L Potassium 4.2 Chloride 105 Carbon Dioxide 25 Anion Gap 5 BUN 19 H Creatinine 0.80 Estim Creat Clear Calc 66 Estimated GFR > 60 Glucose 127 H POC Capillary Glucose 135 H Calcium 8.4 Total Bilirubin 0.4 Direct Bilirubin 0.0 AST 62 H ALT 80 H Alkaline Phosphatase 63 Total Protein 6.0 L Albumin 3.6 Blood Type Antibody Screen Quality VTE Prophylaxis VTE prophylaxis: mechanical ordered and pharmacologic ordered
[2024-06-19 11:35] LABS: Glucose Point of Care 131 mg/dl (65-105)
--- NOTE | 2024-06-19 13:55 | P.PNAN_ITS ---
Anes - Prog Note Post-Op Date/Time: 06/19/24 13:55 Cardiovascular status: normal Respiratory status: normal Airway patency: baseline Mental status: baseline Post-Op hydration status: normal Vital Signs: Last Vital Signs Temp 97.2 F L 06/19/24 05:18 Pulse 86 06/19/24 11:23 Resp 20 06/19/24 11:23 BP 127/51 L 06/19/24 05:18 Pulse Ox 95 06/19/24 11:23 O2 Del Method Room Air 06/19/24 11:23 O2 Flow Rate 2 06/18/24 15:31 Pain Score (VAS): 0/10 I/O: Intake & Output 06/18/24 06/19/24 06/19/24 23:59 07:59 15:59 Intake Total 840 50 420 Balance 840 50 420 Laboratory Tests 06/19/24 07:15 06/19/24 07:15 06/18/24 06/18/24 06/19/24 14:28 21:52 07:15 WBC 6.6 RBC 3.57 L Hgb 11.2 L Hct 35.1 L MCV 98.3 MCH 31.4 MCHC 31.9 L RDW 14.1 Plt Count 121 L MPV 8.7 Immature Gran % (Auto) 0.9 H Neut % (Auto) 75.2 H Lymph % (Auto) 16.7 L [place] % (Auto) 7.0 Eos % (Auto) 0.0 Baso % (Auto) 0.2 Lymph # (Auto) 1.10 [place] # (Auto) 0.5 Eos # (Auto) 0.0 Baso # (Auto) 0.0 Abs Immat Gran (auto) 0.06 H Absolute Neuts (auto) 5.0 Absolute Nucleated RBC 0.000 Nucleated RBC % 0.0 PT 15.1 H INR 1.2 Sodium 135 L Potassium 4.2 Chloride 105 Carbon Dioxide 25 Anion Gap 5 BUN 19 H Creatinine 0.80 Estim Creat Clear Calc 66 Estimated GFR > 60 Glucose 127 H POC Capillary Glucose 148 H 194 H Calcium 8.4 Total Bilirubin 0.4 Direct Bilirubin 0.0 AST 62 H ALT 80 H Alkaline Phosphatase 63 Total Protein 6.0 L Albumin 3.6 06/19/24 06/19/24 07:33 11:31 WBC RBC Hgb Hct MCV MCH MCHC RDW Plt Count MPV Immature Gran % (Auto) Neut % (Auto) Lymph % (Auto) [place] % (Auto) Eos % (Auto) Baso % (Auto) Lymph # (Auto) [place] # (Auto) Eos # (Auto) Baso # (Auto) Abs Immat Gran (auto) Absolute Neuts (auto) Absolute Nucleated RBC Nucleated RBC % PT INR Sodium Potassium Chloride Carbon Dioxide Anion Gap BUN Creatinine Estim Creat Clear Calc Estimated GFR Glucose POC Capillary Glucose 135 H 131 H Calcium Total Bilirubin Direct Bilirubin AST ALT Alkaline Phosphatase Total Protein Albumin Post-procedural complaints: none Patient Feedback: Patient satisfied with anesthetic care.
--- NOTE | 2024-06-19 15:20 | PM.PNORT ---
Progress Note: A&P Assessment and Plan (1) Status post total right knee replacement: Code(s): Z96.651 - Presence of right artificial knee joint Status: Acute (2) Chronic anticoagulation: Code(s): Z79.01 - [facility] (current) use of anticoagulants Status: Acute (3) Hx pulmonary embolism: Code(s): Z86.711 - Personal history of pulmonary embolism Status: Acute Plan Postop day 1: Right total knee arthroplasty. Patient tolerated procedure well. No complications. Pain manageable with pain medication. No numbness or tingling. Patient is a very high risk for blood clot. Patient was non-compliant with the pre-operative plan for her to take her last dose of Lovenox the morning before surgery and then resume the Warfarin the night before surgery. She did not resume the Warfarin and continued the Lovenox. Her INR is not in a therapeutic range and given her high risk for DVT, I recommend she stay another night and recheck INR in the AM. We do not want the INR to be above 2 due to the risk of bleeding. Subjective Subjective Date/Time Seen: 06/19/24 15:20 Interval history: Patient resting comfortably. No complaints. Review of Systems Review of Systems: All systems reviewed & are unremarkable except as noted in HPI and below Exam Narrative: Overweight 74 y/o female. Resting comfortably in bed. Wearing compression socks bilaterally. Dressing intact with no drainage. Mild swelling. No erythema. No hematoma. Range of motion limited due to pain. Calf nontender. Neurologic status intact. No varicosities. Distal pulses palpable. Objective Data Vital Signs Vital Signs: Vital Signs - 24 hr 06/18/24 15:25 06/18/24 15:31 06/18/24 15:33 Temperature 96.5 F L Pulse Rate 77 77 69 Respiratory Rate 16 14 18 Blood Pressure 114/54 L 126/56 L 121/55 L Pulse Oximetry 96 94 99 Oxygen Delivery Nasal Cannula Nasal Cannula Oxygen Flow Rate 2 2 06/18/24 15:48 06/18/24 16:18 06/18/24 17:18 Temperature 97.4 F L 97.4 F L 97.8 F Pulse Rate 70 68 78 Respiratory Rate 18 18 18 Blood Pressure 121/47 L 127/54 L 137/50 L Pulse Oximetry 99 99 100 Oxygen Delivery Oxygen Flow Rate 06/18/24 17:41 06/18/24 20:50 06/18/24 21:00 Temperature 98.1 F Pulse Rate 65 67 Respiratory Rate 18 Blood Pressure 131/59 L Pulse Oximetry 95 96 98 Oxygen Delivery Room Air Oxygen Flow Rate 06/18/24 23:06 06/19/24 01:07 06/19/24 05:18 Temperature 97.5 F L 97.2 F L Pulse Rate 63 66 Respiratory Rate 18 18 Blood Pressure 115/47 L 127/51 L Pulse Oximetry 95 97 Oxygen Delivery Room Air Oxygen Flow Rate 06/19/24 08:11 06/19/24 09:11 06/19/24 09:15 Temperature Pulse Rate 77 Respiratory Rate 20 Blood Pressure Pulse Oximetry 94 Oxygen Delivery Room Air Room Air Oxygen Flow Rate 06/19/24 09:28 06/19/24 09:37 06/19/24 11:23 Temperature Pulse Rate 86 Respiratory Rate 20 Blood Pressure Pulse Oximetry Oxygen Delivery Room Air Room Air Oxygen Flow Rate 06/19/24 11:23 06/19/24 15:05 Temperature Pulse Rate 75 Respiratory Rate 18 Blood Pressure Pulse Oximetry 95 Oxygen Delivery Room Air Oxygen Flow Rate Intake/Output Intake/Output: Intake & Output 06/16/24 06/17/24 06/18/24 06/19/24 23:59 23:59 23:59 23:59 Intake Total 1090 470 Balance 1090 470 Meds/Results Medications: Active Medications Generic Name Dose Route Start Last Admin Trade Name Freq PRN Reason Stop Dose Admin Acetaminophen 650 mg 06/18/24 18:00 06/19/24 11:45 Acetaminophen 325 Mg Tablet PO 650 mg Q6HR ROSAMARIA Administration Albuterol 2.5 mg 06/18/24 15:33 Albuterol Sulfate Neb 2.5 Mg/3 Ml Inh INHALATION Q4HRT PRN shortness of breath or wheezing Albuterol 1 puff 06/18/24 16:00 06/19/24 15:05 Albuterol Sulfate (*Sp) Aerosol 1 Puff INHALATION 1 puff Q4HRT ROSAMARIA Administration Cyclobenzaprine HCl 10 mg 06/18/24 15:33 Cyclobenzaprine Hcl 10 Mg Tablet PO Q8H PRN Spasms Dextrose 12.5 gm 06/18/24 21:18 Dextrose 50% 25 Gm/50 Ml Syringe IV PUSH PRN PRN Hypoglycemia Protocol Diphenhydramine HCl 25 mg 06/18/24 15:33 Diphenhydramine Hcl Cap 25 Mg Capsule PO QHS PRN itching Enoxaparin Sodium 30 mg 06/19/24 09:00 06/19/24 07:56 Enoxaparin 30 Mg/0.3 Ml Syringe SUB-Q 30 mg Q12HR ROSAMARIA Administration Escitalopram Oxalate 30 mg 06/19/24 09:00 06/19/24 07:55 Escitalopram Oxalate 10 Mg Tablet PO 30 mg DAILY ROSAMARIA Administration Fluticasone/Umeclidinium/Vilanterol 1 puff 06/19/24 08:00 06/19/24 09:09 Fluticasone/Umeclidin/Vilanter 100-62.5-25 Mcg Ellipta INHALATION 1 puff DAILYRT ROSAMARIA Administration Glucagon 1 mg 06/18/24 21:18 Glucagon For Inj 1 Mg Vial IM PRN PRN Hypoglycemia Protocol Glucose 15 gm 06/18/24 21:18 Glucose Oral Gel 15 Gm Of Glucse In 37.5 Gm Tube PO PRN PRN Hypoglycemia Protocol Hydromorphone HCl 1 mg 06/18/24 15:33 Hydromorphone Hcl Inj (*Crx) 1 Mg/Ml Syr IV PUSH Q2H PRN Breakthrough Pain Rated 7-10 or NPO Hydromorphone HCl 0.5 mg 06/18/24 15:33 Hydromorphone Hcl Inj (*Crx) 1 Mg/Ml Syr IV PUSH Q2H PRN Breakthrough Pain Rated 4-6 or NPO Dextrose 1,000 mls @ 100 mls/hr 06/18/24 21:18 Dextrose 5% 1,000 Ml IVPB PRN PRN Hypoglycemia Protocol Insulin Aspart 1 - 3 units 06/19/24 21:00 Insulin Aspart (*Bkc) 100 Units/Ml SUB-Q HS ROSAMARIA Protocol Insulin Aspart 3 - 6 units 06/19/24 08:00 06/19/24 11:42 Insulin Aspart (*Bkc) 100 Units/Ml SUB-Q Not Given TIDWM ROSAMARIA Protocol Losartan Potassium 100 mg 06/19/24 09:00 06/19/24 07:55 Losartan Potassium 100 Mg Tablet PO 100 mg DAILY ORSAMARIA Administration Miscellaneous Information 1 each 06/18/24 00:01 Gemtesa Is Non Formulary Can Patient Use From Home? XX 07/18/24 00:00 CLARIFY ROSAMARIA Naloxone HCl 0.1 mg 06/18/24 15:33 Naloxone Hcl 0.4 Mg/Ml Vial IV PUSH Q2M PRN Opiate Reversal Non-Formulary Medication 75 mg 06/19/24 09:00 Gemtesa PO 07/19/24 08:59 DAILY ROSAMARIA Ondansetron HCl 4 mg 06/18/24 15:33 Ondansetron Inj 4 Mg/2 Ml Vial IV PUSH Q4H PRN Nausea And Vomiting Oxycodone/Acetaminophen 1 tablet 06/18/24 15:33 06/19/24 10:02 Oxycodone/Acetaminophen (*Crx) 5-325 Mg Tablet PO 1 tablet Q4H PRN Administration Pain Rated 4-6 Oxycodone/Acetaminophen 1 tab 06/18/24 15:33 Oxycodone/Acetaminophen (*Crx) 10-325 Mg Tablet PO Q6H PRN Pain Rated 7-10 Polyethylene Glycol 17 gm 06/19/24 09:00 06/19/24 07:56 Polyethylene Glycol 3350 17 Gm Powd.Pack PO 17 gm QAM ROSAMARIA Administration Prednisone 5 mg 06/18/24 17:00 06/18/24 16:21 Prednisone 5 Mg Tablet PO 5 mg DAILY@1700 ROSAMARIA Administration Rosuvastatin Calcium 10 mg 06/19/24 09:00 06/19/24 07:55 Rosuvastatin 10 Mg Tablet PO 10 mg DAILY ROSAMARIA Administration Senna/Docusate Sodium 2 tab 06/18/24 17:00 06/19/24 07:55 Senna/Docusate Sodium Tablet PO 2 tab BID ROSAMARIA Administration Tramadol HCl 50 mg 06/18/24 15:33 06/19/24 07:56 Tramadol Hcl (*Crx) 50 Mg Tablet PO 50 mg Q4H PRN Administration Pain Rated 1-3 Trazodone HCl 150 mg 06/18/24 21:00 06/18/24 20:00 Trazodone Hcl 50 Mg Tablet PO 150 mg HS ROSAMARIA Administration Warfarin Sodium 7.5 mg 06/18/24 17:00 06/18/24 16:21 Warfarin (*Pbkc) 7.5 Mg Tablet PO 7.5 mg DAILY@1700 ROSAMARIA Administration Radiology Results: ITS Impressions Knee X-Ray 06/18/24 14:51 IMPRESSION: 1. Right total knee arthroplasty, negative for postoperative purposes. Labs Labs: Laboratory Results - last 24 hr 06/18/24 06/19/24 06/19/24 21:52 07:15 07:33 WBC 6.6 RBC 3.57 L Hgb 11.2 L Hct 35.1 L MCV 98.3 MCH 31.4 MCHC 31.9 L RDW 14.1 Plt Count 121 L MPV 8.7 Immature Gran % (Auto) 0.9 H Neut % (Auto) 75.2 H Lymph % (Auto) 16.7 L [place] % (Auto) 7.0 Eos % (Auto) 0.0 Baso % (Auto) 0.2 Lymph # (Auto) 1.10 [place] # (Auto) 0.5 Eos # (Auto) 0.0 Baso # (Auto) 0.0 Abs Immat Gran (auto) 0.06 H Absolute Neuts (auto) 5.0 Absolute Nucleated RBC 0.000 Nucleated RBC % 0.0 PT 15.1 H INR 1.2 Sodium 135 L Potassium 4.2 Chloride 105 Carbon Dioxide 25 Anion Gap 5 BUN 19 H Creatinine 0.80 Estim Creat Clear Calc 66 Estimated GFR > 60 Glucose 127 H POC Capillary Glucose 194 H 135 H Calcium 8.4 Total Bilirubin 0.4 Direct Bilirubin 0.0 AST 62 H ALT 80 H Alkaline Phosphatase 63 Total Protein 6.0 L Albumin 3.6 06/19/24 11:31 WBC RBC Hgb Hct MCV MCH MCHC RDW Plt Count MPV Immature Gran % (Auto) Neut % (Auto) Lymph % (Auto) [place] % (Auto) Eos % (Auto) Baso % (Auto) Lymph # (Auto) [place] # (Auto) Eos # (Auto) Baso # (Auto) Abs Immat Gran (auto) Absolute Neuts (auto) Absolute Nucleated RBC Nucleated RBC % PT INR Sodium Potassium Chloride Carbon Dioxide Anion Gap BUN Creatinine Estim Creat Clear Calc Estimated GFR Glucose POC Capillary Glucose 131 H Calcium Total Bilirubin Direct Bilirubin AST ALT Alkaline Phosphatase Total Protein Albumin
[2024-06-19 16:46] LABS: Glucose Point of Care 172 mg/dl (65-105)
[2024-06-19] MEDS: predniSONE 5 MG TABLET PO (16:49)
[2024-06-19] MEDS: WARFARIN (*PBKC) 7.5 MG TABLET PO (16:49)
[2024-06-19] MEDS: oxyCODONE/ACETAMINOPHEN (*CRX) 10-325 MG TABLET 1 TAB PO ×2 (16:49→22:12)
[2024-06-19] MEDS: traZODone HCL 50 MG TABLET 150 MG PO (21:06)
[2024-06-19] MEDS: INSULIN ASPART (*BKC) 100 UNITS/ML SUB-Q (21:06)
[2024-06-19 21:13] LABS: Glucose Point of Care 235 mg/dl (65-105)
[2024-06-20] VITALS (10 sets, daily range): BP systolic 152–173; BP diastolic 61–65; PULSE 74–87; RESP 18–20; TEMP 36.4–36.9; O2SAT 94–98
[2024-06-20] MEDS: ALBUTEROL SULFATE (*SP) AEROSOL 1 PUFF INHALATION ×6 (02:37→20:33)
[2024-06-20] MEDS: oxyCODONE/ACETAMINOPHEN (*CRX) 10-325 MG TABLET 1 TAB PO ×2 (05:37→17:02)
[2024-06-20] MEDS: ACETAMINOPHEN 325 MG TABLET 650 MG PO ×3 (05:37→17:46)
[2024-06-20 06:57] LABS: Basophils Percent Auto 0.4 % (0.2-1.2); Eosinophils Percent Auto 0.7 % (0-4.4); Hematocrit 34.1 % (37.0-47.0); Hemoglobin 11.2 g/dL (12.0-15.0); Immature Granulocyte Absolute 0.06 K/mm3 (0.00-0.031); Immature Granulocyte Percent A 1.1 % (0-0.5); Lymphocytes Absolute Auto 1.46 K/mm3 (0.9-3.2); Lymphocytes Percent Auto 26.8 % (18.3-44.2); Mean Corpuscular HGB Conc 32.8 g/dl (32-36); Mean Corpuscular Hemoglobin 32.4 pg (26-34); Mean Corpuscular Volume 98.6 fl (80-100); Mean Platelet Volume 9.7 fl (7.4-10.4); Monocytes Absolute Auto 0.5 K/mm3 (0.1-0.6); Monocytes Percent Auto 8.8 % (2.6-8.5); Neutrophils Absolute Auto 3.4 K/mm3 (1.3-6.7); Neutrophils Percent Auto 62.2 % (45.5-73.1); Platelet Count Result 145 k/mm3 (150-375); Red Blood Count 3.46 M/mm3 (4.2-5.4); Red Cell Distribution Width 14.6 % (11.5-14.5); White Blood Count 5.4 K/mm3 (4.5-10.0)
[2024-06-20 07:04] LABS: Alanine Aminotransferase 48 U/L (6-35); Albumin Level 3.5 g/dL (3.5-5.1); Alkaline Phosphatase 61 U/L (38-126); Anion Gap 0 mmol/L (4-12); Aspartate Amino Transferase 27 U/L (14-36); Bilirubin,Total 0.5 mg/dL (0.2-1.3); Blood Urea Nitrogen 14 mg/dL (7-17); Calcium 8.3 mg/dL (8.4-10.2); Carbon Dioxide 27 mmol/L (22-30); Chloride 106 mmol/L (98-107); Estimated CRCL calculation 85 ml/min; Estimated Glomerular Filt Rate > 60; Glucose 125 mg/dL (65-110); Potassium 3.9 mmol/L (3.4-5.0); Sodium 133 mmol/L (137-145)
[2024-06-20 07:05] LABS: INR 1.3; Prothrombin Time 16.3 Seconds (11.1-14.7)
[2024-06-20 07:51] LABS: Glucose Point of Care 126 mg/dl (65-105)
[2024-06-20] MEDS: FLUTICASONE/UMECLIDIN/VILANTER 100-62.5-25 MCG ELLIPTA 1 PUFF INHALATION (09:22)
[2024-06-20] MEDS: LOSARTAN POTASSIUM 100 MG TABLET PO (09:40)
[2024-06-20] MEDS: ENOXAPARIN 30 MG/0.3 ML SYRINGE SUB-Q (09:40)
[2024-06-20] MEDS: ROSUVASTATIN 10 MG TABLET PO (09:41)
[2024-06-20] MEDS: ESCITALOPRAM OXALATE 10 MG TABLET 30 MG PO (09:41)
[2024-06-20] MEDS: oxyCODONE/ACETAMINOPHEN (*CRX) 5-325 MG TABLET 1 TABLET PO ×2 (09:41→12:44)
[2024-06-20] MEDS: polyethylene glycoL 3350 17 GM POWD.PACK PO (09:42)
[2024-06-20] MEDS: SENNA/DOCUSATE SODIUM TABLET 2 TAB PO ×2 (09:42→17:03)
[2024-06-20] MEDS: CYCLOBENZAPRINE HCL 10 MG TABLET PO ×2 (09:42→17:03)
[2024-06-20 11:32] LABS: Glucose Point of Care 170 mg/dl (65-105)
--- NOTE | 2024-06-20 16:05 | PM.IMPN ---
Progress Note: A&P Assessment and Plan (1) Degenerative arthritis of right knee: Code(s): M17.11 - Unilateral primary osteoarthritis, right knee Status: Acute Assessment and Plan: Postoperative day 2 status post right total knee arthroplasty. Continue wound care per nursing staff. Pain fairly well controlled. Started on weight based Lovenox as we bridge Warfarin with pt Hx of Paroxysmal A-Fib, DVT and PE. 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 Continue neurovascular checks ordered per surgeon. (3) Breast cancer: Qualifiers: Breast location: unspecified site of breast Estrogen receptor status: unspecified Patient sex: female Laterality: unspecified laterality Qualified Code(s): C50.919 - Malignant neoplasm of unspecified site of unspecified female breast Code(s): C50.919 - Malignant neoplasm of unspecified site of unspecified female breast Status: Acute Assessment and Plan: Right breast cancer in 2013 with recurrence and metastases to the liver in 2017. Continue letrozole and palbociclib when okay with surgeon. 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 Recommend aggressive DVT prophylaxis given her history. Currently on Warfarin 7.5 mg. INR 1.2. Patient reports goal is 2.5. Lovenox changed to weight based. Continue to monitor INR. (5) Obstructive sleep apnea on CPAP: Code(s): G47.33 - Obstructive sleep apnea (adult) (pediatric) Status: Acute Assessment and Plan: CPAP bedtime. (6) Paroxysmal atrial fibrillation: Code(s): I48.0 - Paroxysmal atrial fibrillation Status: Acute Assessment and Plan: Currently in sinus rhythm. Continue tele monitoring. (7) Type 2 diabetes mellitus: Code(s): E11.9 - Type 2 diabetes mellitus without complications Status: Acute Assessment and Plan: Blood glucose levels labile. Continue to adjust insulin as needed. Continue sliding scale insulin, Accu-Cheks, and hypoglycemic protocol. Time Spent With Patient Time with patient: 15 - 25 minutes Subjective Date/time seen: 06/20/24 16:05 Patient states she feels alright, ambulated with PT and tolerated well, minimal pain. Interval history: Patient calm on bedrest and looks to be in no acute distress. Right knee brace intact. Review of Systems Review of Systems: 12 systems were reviewed and are negative except for as per HPI. All systems reviewed & are unremarkable except as noted in HPI and below Exam Narrative: General: Well appearing, no acute distress. HEENT: Atraumatic, PERRL, EOM, moist mucosa. NECK: Supple. LUNGS: Clear lungs. HEART: RRR, no murmurs. Abdomen: Soft, non-tender, non-distended, +ve bowel sounds X4 quadrants. Extremities:Acyanotic, no edema. Skin: Knee with intact brace. Objective Data Vital Signs Vital Signs: Vital Signs - 24 hr 06/19/24 16:23 06/19/24 17:18 06/19/24 20:52 Temperature 98.3 F Pulse Rate 74 82 Respiratory Rate 18 Blood Pressure 127/56 L Pulse Oximetry 96 93 Oxygen Delivery Room Air CPAP 06/19/24 20:52 06/19/24 20:52 06/19/24 21:31 Temperature 97.7 F Pulse Rate 82 72 Respiratory Rate 18 20 Blood Pressure 135/56 L Pulse Oximetry 93 96 Oxygen Delivery Room Air 06/20/24 02:38 06/20/24 02:38 06/20/24 05:58 Temperature 98.4 F Pulse Rate 76 76 77 Respiratory Rate 18 20 Blood Pressure 152/65 H Pulse Oximetry 94 98 Oxygen Delivery CPAP 06/20/24 09:45 06/20/24 09:53 06/20/24 09:53 Temperature Pulse Rate 87 87 Respiratory Rate 20 20 Blood Pressure Pulse Oximetry 95 Oxygen Delivery Room Air Room Air 06/20/24 12:20 06/20/24 13:56 Temperature 98.0 F Pulse Rate 84 83 Respiratory Rate 18 20 Blood Pressure 173/61 H Pulse Oximetry 97 Oxygen Delivery Intake/Output Intake/Output: Intake & Output 06/17/24 06/18/24 06/19/24 06/20/24 23:59 23:59 23:59 23:59 Intake Total 1090 1310 1160 Balance 1090 1310 1160 Meds/Results Medications: Active Medications Generic Name Dose Route Start Last Admin Trade Name Freq PRN Reason Stop Dose Admin Acetaminophen 650 mg 06/18/24 18:00 06/20/24 12:45 Acetaminophen 325 Mg Tablet PO 650 mg Q6HR ROSAMARIA Administration Albuterol 2.5 mg 06/18/24 15:33 Albuterol Sulfate Neb 2.5 Mg/3 Ml Inh INHALATION Q4HRT PRN shortness of breath or wheezing Albuterol 1 puff 06/18/24 16:00 06/20/24 12:18 Albuterol Sulfate (*Sp) Aerosol 1 Puff INHALATION 1 puff Q4HRT ROSAMARIA Administration Cyclobenzaprine HCl 10 mg 06/18/24 15:33 06/20/24 09:42 Cyclobenzaprine Hcl 10 Mg Tablet PO 10 mg Q8H PRN Administration Spasms Dextrose 12.5 gm 06/18/24 21:18 Dextrose 50% 25 Gm/50 Ml Syringe IV PUSH PRN PRN Hypoglycemia Protocol Diphenhydramine HCl 25 mg 06/18/24 15:33 Diphenhydramine Hcl Cap 25 Mg Capsule PO QHS PRN itching Enoxaparin Sodium 30 mg 06/19/24 09:00 06/20/24 09:40 Enoxaparin 30 Mg/0.3 Ml Syringe SUB-Q 30 mg Q12HR ROSAMARIA Administration Escitalopram Oxalate 30 mg 06/19/24 09:00 06/20/24 09:41 Escitalopram Oxalate 10 Mg Tablet PO 30 mg DAILY ROSAMARIA Administration Fluticasone/Umeclidinium/Vilanterol 1 puff 06/19/24 08:00 06/20/24 09:22 Fluticasone/Umeclidin/Vilanter 100-62.5-25 Mcg Ellipta INHALATION 1 puff DAILYRT ROSAMARIA Administration Glucagon 1 mg 06/18/24 21:18 Glucagon For Inj 1 Mg Vial IM PRN PRN Hypoglycemia Protocol Glucose 15 gm 06/18/24 21:18 Glucose Oral Gel 15 Gm Of Glucse In 37.5 Gm Tube PO PRN PRN Hypoglycemia Protocol Hydromorphone HCl 1 mg 06/18/24 15:33 Hydromorphone Hcl Inj (*Crx) 1 Mg/Ml Syr IV PUSH Q2H PRN Breakthrough Pain Rated 7-10 or NPO Hydromorphone HCl 0.5 mg 06/18/24 15:33 Hydromorphone Hcl Inj (*Crx) 1 Mg/Ml Syr IV PUSH Q2H PRN Breakthrough Pain Rated 4-6 or NPO Dextrose 1,000 mls @ 100 mls/hr 06/18/24 21:18 Dextrose 5% 1,000 Ml IVPB PRN PRN Hypoglycemia Protocol Insulin Aspart 1 - 3 units 06/19/24 21:00 06/19/24 21:06 Insulin Aspart (*Bkc) 100 Units/Ml SUB-Q 1 units HS ROSAMARIA Administration Protocol Insulin Aspart 3 - 6 units 06/19/24 08:00 06/20/24 12:46 Insulin Aspart (*Bkc) 100 Units/Ml SUB-Q Not Given TIDWM [facility] Protocol Losartan Potassium 100 mg 06/19/24 09:00 06/20/24 09:40 Losartan Potassium 100 Mg Tablet PO 100 mg DAILY ROSAMARIA Administration Miscellaneous Information 1 each 06/18/24 00:01 Gemtesa Is Non Formulary Can Patient Use From Home? XX 07/18/24 00:00 CLARIFY ROSAMARIA Naloxone HCl 0.1 mg 06/18/24 15:33 Naloxone Hcl 0.4 Mg/Ml Vial IV PUSH Q2M PRN Opiate Reversal Non-Formulary Medication 75 mg 06/19/24 09:00 Gemtesa PO 07/19/24 08:59 DAILY [facility] Ondansetron HCl 4 mg 06/18/24 15:33 Ondansetron Inj 4 Mg/2 Ml Vial IV PUSH Q4H PRN Nausea And Vomiting Oxycodone/Acetaminophen 1 tablet 06/18/24 15:33 06/20/24 12:44 Oxycodone/Acetaminophen (*Crx) 5-325 Mg Tablet PO 1 tablet Q4H PRN Administration Pain Rated 4-6 Oxycodone/Acetaminophen 1 tab 06/18/24 15:33 06/20/24 05:37 Oxycodone/Acetaminophen (*Crx) 10-325 Mg Tablet PO 1 tab Q6H PRN Administration Pain Rated 7-10 Polyethylene Glycol 17 gm 06/19/24 09:00 06/20/24 09:42 Polyethylene Glycol 3350 17 Gm Powd.Pack PO 17 gm QAM ROSAMARIA Administration Prednisone 5 mg 06/18/24 17:00 06/19/24 16:49 Prednisone 5 Mg Tablet PO 5 mg DAILY@1700 ROSAMARIA Administration Rosuvastatin Calcium 10 mg 06/19/24 09:00 06/20/24 09:41 Rosuvastatin 10 Mg Tablet PO 10 mg DAILY ROSAMARIA Administration Senna/Docusate Sodium 2 tab 06/18/24 17:00 06/20/24 09:42 Senna/Docusate Sodium Tablet PO 2 tab BID ROSAMARIA Administration Tramadol HCl 50 mg 06/18/24 15:33 06/19/24 07:56 Tramadol Hcl (*Crx) 50 Mg Tablet PO 50 mg Q4H PRN Administration Pain Rated 1-3 Trazodone HCl 150 mg 06/18/24 21:00 06/19/24 21:06 Trazodone Hcl 50 Mg Tablet PO 150 mg HS ROSAMARIA Administration Warfarin Sodium 5 mg 06/20/24 17:00 Warfarin (*Pbkc) 5 Mg Tablet PO DAILY@1700 [facility] Radiology Results: ITS Impressions Knee X-Ray 06/18/24 14:51 IMPRESSION: 1. Right total knee arthroplasty, negative for postoperative purposes. Labs Labs: Laboratory Results - last 24 hr 06/19/24 06/19/24 06/20/24 16:42 20:41 06:28 WBC 5.4 RBC 3.46 L Hgb 11.2 L Hct 34.1 L MCV 98.6 MCH 32.4 MCHC 32.8 RDW 14.6 H Plt Count 145 L MPV 9.7 Immature Gran % (Auto) 1.1 H Neut % (Auto) 62.2 Lymph % (Auto) 26.8 [place] % (Auto) 8.8 H Eos % (Auto) 0.7 Baso % (Auto) 0.4 Lymph # (Auto) 1.46 [place] # (Auto) 0.5 Eos # (Auto) 0.0 Baso # (Auto) 0.0 Abs Immat Gran (auto) 0.06 H Absolute Neuts (auto) 3.4 Absolute Nucleated RBC 0.000 Nucleated RBC % 0.0 PT 16.3 H INR 1.3 Sodium 133 L Potassium 3.9 Chloride 106 Carbon Dioxide 27 Anion Gap 0 L BUN 14 D Creatinine 0.60 L Estim Creat Clear Calc 85 Estimated GFR > 60 Glucose 125 H POC Capillary Glucose 172 H 235 H Calcium 8.3 L Total Bilirubin 0.5 AST 27 ALT 48 H Alkaline Phosphatase 61 Total Protein 6.0 L Albumin 3.5 06/20/24 06/20/24 07:25 11:23 WBC RBC Hgb Hct MCV MCH MCHC RDW Plt Count MPV Immature Gran % (Auto) Neut % (Auto) Lymph % (Auto) [place] % (Auto) Eos % (Auto) Baso % (Auto) Lymph # (Auto) [place] # (Auto) Eos # (Auto) Baso # (Auto) Abs Immat Gran (auto) Absolute Neuts (auto) Absolute Nucleated RBC Nucleated RBC % PT INR Sodium Potassium Chloride Carbon Dioxide Anion Gap BUN Creatinine Estim Creat Clear Calc Estimated GFR Glucose POC Capillary Glucose 126 H 170 H Calcium Total Bilirubin AST ALT Alkaline Phosphatase Total Protein Albumin Quality VTE Prophylaxis VTE prophylaxis: mechanical ordered and pharmacologic ordered Hospitalist MIPS Advance Care Plan I have confirmed that the patient's Advanced Care Plan is present, code status is documented, or surrogate decision maker is listed in patient medical record.: Yes Medication Reconciliation I have utilized all available resources to obtain, update and review the patients current medications (includes all prescriptions, OTC, herbals, cannabis, and nutritional supplements).: Yes
--- NOTE | 2024-06-20 16:29 | PM.PNORT ---
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 Patient tolerated procedure well. No complications. Pain manageable with pain medication. No numbness or tingling. Patient is a very high risk for blood clot. Patient was non-compliant with the pre-operative plan for her to take her last dose of Lovenox the morning before surgery and then resume the Warfarin the night before surgery. She did not resume the Warfarin and continued the Lovenox. Her INR is not in a therapeutic range and given her high risk for DVT, I recommend she stay another night and recheck INR in the AM. INR has gone up to 1.3 today. Will switch her back to her 5 mg dose. Will continue Lovenox. Will continue monitoring. Subjective Subjective Date/Time Seen: 06/20/24 16:29 Interval history: Patient resting comfortably. Notes pain in the knee. Difficultly ambulating due to pain. Review of Systems Review of Systems: No All systems reviewed & are unremarkable except as noted in HPI and below Exam Narrative: Overweight 74 y/o female. Resting comfortably in bed. Wearing compression socks bilaterally. Dressing intact with no drainage. Mild swelling. No erythema. No hematoma. Range of motion limited due to pain. Calf nontender. Neurologic status intact. No varicosities. Distal pulses palpable. Objective Data Vital Signs Vital Signs: Vital Signs - 24 hr 06/19/24 17:18 06/19/24 20:52 06/19/24 20:52 Temperature 98.3 F Pulse Rate 74 82 Respiratory Rate 18 Blood Pressure 127/56 L Pulse Oximetry 96 93 93 Oxygen Delivery CPAP Room Air 06/19/24 20:52 06/19/24 21:31 06/20/24 02:38 Temperature 97.7 F Pulse Rate 82 72 76 Respiratory Rate 18 20 18 Blood Pressure 135/56 L Pulse Oximetry 96 Oxygen Delivery 06/20/24 02:38 06/20/24 05:58 06/20/24 09:45 Temperature 98.4 F Pulse Rate 76 77 Respiratory Rate 20 Blood Pressure 152/65 H Pulse Oximetry 94 98 Oxygen Delivery CPAP Room Air 06/20/24 09:53 06/20/24 09:53 06/20/24 12:20 Temperature Pulse Rate 87 87 84 Respiratory Rate 20 20 18 Blood Pressure Pulse Oximetry 95 Oxygen Delivery Room Air 06/20/24 13:56 Temperature 98.0 F Pulse Rate 83 Respiratory Rate 20 Blood Pressure 173/61 H Pulse Oximetry 97 Oxygen Delivery Intake/Output Intake/Output: Intake & Output 06/17/24 06/18/24 06/19/24 06/20/24 23:59 23:59 23:59 23:59 Intake Total 1090 1310 1160 Balance 1090 1310 1160 Meds/Results Medications: Active Medications Generic Name Dose Route Start Last Admin Trade Name Freq PRN Reason Stop Dose Admin Acetaminophen 650 mg 06/18/24 18:00 06/20/24 12:45 Acetaminophen 325 Mg Tablet PO 650 mg Q6HR ROSAMARIA Administration Albuterol 2.5 mg 06/18/24 15:33 Albuterol Sulfate Neb 2.5 Mg/3 Ml Inh INHALATION Q4HRT PRN shortness of breath or wheezing Albuterol 1 puff 06/18/24 16:00 06/20/24 12:18 Albuterol Sulfate (*Sp) Aerosol 1 Puff INHALATION 1 puff Q4HRT ROSAMARIA Administration Cyclobenzaprine HCl 10 mg 06/18/24 15:33 06/20/24 09:42 Cyclobenzaprine Hcl 10 Mg Tablet PO 10 mg Q8H PRN Administration Spasms Dextrose 12.5 gm 06/18/24 21:18 Dextrose 50% 25 Gm/50 Ml Syringe IV PUSH PRN PRN Hypoglycemia Protocol Diphenhydramine HCl 25 mg 06/18/24 15:33 Diphenhydramine Hcl Cap 25 Mg Capsule PO QHS PRN itching Enoxaparin Sodium 30 mg 06/19/24 09:00 06/20/24 09:40 Enoxaparin 30 Mg/0.3 Ml Syringe SUB-Q 30 mg Q12HR ROSAMARIA Administration Escitalopram Oxalate 30 mg 06/19/24 09:00 06/20/24 09:41 Escitalopram Oxalate 10 Mg Tablet PO 30 mg DAILY ROSAMARIA Administration Fluticasone/Umeclidinium/Vilanterol 1 puff 06/19/24 08:00 06/20/24 09:22 Fluticasone/Umeclidin/Vilanter 100-62.5-25 Mcg Ellipta INHALATION 1 puff DAILYRT ROSAMARIA Administration Glucagon 1 mg 06/18/24 21:18 Glucagon For Inj 1 Mg Vial IM PRN PRN Hypoglycemia Protocol Glucose 15 gm 06/18/24 21:18 Glucose Oral Gel 15 Gm Of Glucse In 37.5 Gm Tube PO PRN PRN Hypoglycemia Protocol Hydromorphone HCl 1 mg 06/18/24 15:33 Hydromorphone Hcl Inj (*Crx) 1 Mg/Ml Syr IV PUSH Q2H PRN Breakthrough Pain Rated 7-10 or NPO Hydromorphone HCl 0.5 mg 06/18/24 15:33 Hydromorphone Hcl Inj (*Crx) 1 Mg/Ml Syr IV PUSH Q2H PRN Breakthrough Pain Rated 4-6 or NPO Dextrose 1,000 mls @ 100 mls/hr 06/18/24 21:18 Dextrose 5% 1,000 Ml IVPB PRN PRN Hypoglycemia Protocol Insulin Aspart 1 - 3 units 06/19/24 21:00 06/19/24 21:06 Insulin Aspart (*Bkc) 100 Units/Ml SUB-Q 1 units HS ROSAMARIA Administration Protocol Insulin Aspart 3 - 6 units 06/19/24 08:00 06/20/24 12:46 Insulin Aspart (*Bkc) 100 Units/Ml SUB-Q Not Given TIDWM ROSAMARIA Protocol Losartan Potassium 100 mg 06/19/24 09:00 06/20/24 09:40 Losartan Potassium 100 Mg Tablet PO 100 mg DAILY ROSAMARIA Administration Miscellaneous Information 1 each 06/18/24 00:01 Gemtesa Is Non Formulary Can Patient Use From Home? XX 07/18/24 00:00 CLARIFY ROSAMARIA Naloxone HCl 0.1 mg 06/18/24 15:33 Naloxone Hcl 0.4 Mg/Ml Vial IV PUSH Q2M PRN Opiate Reversal Non-Formulary Medication 75 mg 06/19/24 09:00 Gemtesa PO 07/19/24 08:59 DAILY ROSAMARIA Ondansetron HCl 4 mg 06/18/24 15:33 Ondansetron Inj 4 Mg/2 Ml Vial IV PUSH Q4H PRN Nausea And Vomiting Oxycodone/Acetaminophen 1 tablet 06/18/24 15:33 06/20/24 12:44 Oxycodone/Acetaminophen (*Crx) 5-325 Mg Tablet PO 1 tablet Q4H PRN Administration Pain Rated 4-6 Oxycodone/Acetaminophen 1 tab 06/18/24 15:33 06/20/24 05:37 Oxycodone/Acetaminophen (*Crx) 10-325 Mg Tablet PO 1 tab Q6H PRN Administration Pain Rated 7-10 Polyethylene Glycol 17 gm 06/19/24 09:00 06/20/24 09:42 Polyethylene Glycol 3350 17 Gm Powd.Pack PO 17 gm QAM ROSAMARIA Administration Prednisone 5 mg 06/18/24 17:00 06/19/24 16:49 Prednisone 5 Mg Tablet PO 5 mg DAILY@1700 [facility] Administration Rosuvastatin Calcium 10 mg 06/19/24 09:00 06/20/24 09:41 Rosuvastatin 10 Mg Tablet PO 10 mg DAILY ROSAMARIA Administration Senna/Docusate Sodium 2 tab 06/18/24 17:00 06/20/24 09:42 Senna/Docusate Sodium Tablet PO 2 tab BID ROSAMARIA Administration Tramadol HCl 50 mg 06/18/24 15:33 06/19/24 07:56 Tramadol Hcl (*Crx) 50 Mg Tablet PO 50 mg Q4H PRN Administration Pain Rated 1-3 Trazodone HCl 150 mg 06/18/24 21:00 06/19/24 21:06 Trazodone Hcl 50 Mg Tablet PO 150 mg HS ROSAMARIA Administration Warfarin Sodium 5 mg 06/20/24 17:00 Warfarin (*Pbkc) 5 Mg Tablet PO DAILY@1700 [facility] Radiology Results: ITS Impressions Knee X-Ray 06/18/24 14:51 IMPRESSION: 1. Right total knee arthroplasty, negative for postoperative purposes. Labs Labs: Laboratory Results - last 24 hr 06/19/24 06/19/24 06/20/24 16:42 20:41 06:28 WBC 5.4 RBC 3.46 L Hgb 11.2 L Hct 34.1 L MCV 98.6 MCH 32.4 MCHC 32.8 RDW 14.6 H Plt Count 145 L MPV 9.7 Immature Gran % (Auto) 1.1 H Neut % (Auto) 62.2 Lymph % (Auto) 26.8 [place] % (Auto) 8.8 H Eos % (Auto) 0.7 Baso % (Auto) 0.4 Lymph # (Auto) 1.46 [place] # (Auto) 0.5 Eos # (Auto) 0.0 Baso # (Auto) 0.0 Abs Immat Gran (auto) 0.06 H Absolute Neuts (auto) 3.4 Absolute Nucleated RBC 0.000 Nucleated RBC % 0.0 PT 16.3 H INR 1.3 Sodium 133 L Potassium 3.9 Chloride 106 Carbon Dioxide 27 Anion Gap 0 L BUN 14 D Creatinine 0.60 L Estim Creat Clear Calc 85 Estimated GFR > 60 Glucose 125 H POC Capillary Glucose 172 H 235 H Calcium 8.3 L Total Bilirubin 0.5 AST 27 ALT 48 H Alkaline Phosphatase 61 Total Protein 6.0 L Albumin 3.5 06/20/24 06/20/24 07:25 11:23 WBC RBC Hgb Hct MCV MCH MCHC RDW Plt Count MPV Immature Gran % (Auto) Neut % (Auto) Lymph % (Auto) [place] % (Auto) Eos % (Auto) Baso % (Auto) Lymph # (Auto) [place] # (Auto) Eos # (Auto) Baso # (Auto) Abs Immat Gran (auto) Absolute Neuts (auto) Absolute Nucleated RBC Nucleated RBC % PT INR Sodium Potassium Chloride Carbon Dioxide Anion Gap BUN Creatinine Estim Creat Clear Calc Estimated GFR Glucose POC Capillary Glucose 126 H 170 H Calcium Total Bilirubin AST ALT Alkaline Phosphatase Total Protein Albumin
[2024-06-20 16:33] LABS: Glucose Point of Care 220 mg/dl (65-105)
[2024-06-20] MEDS: predniSONE 5 MG TABLET PO (17:03)
[2024-06-20] MEDS: WARFARIN (*PBKC) 5 MG TABLET PO (17:04)
[2024-06-20] MEDS: INSULIN ASPART (*BKC) 100 UNITS/ML SUB-Q ×2 (18:08→21:21)
[2024-06-20 21:04] LABS: Glucose Point of Care 218 mg/dl (65-105)
[2024-06-20] MEDS: traZODone HCL 50 MG TABLET 150 MG PO (21:20)
[2024-06-20] MEDS: ENOXAPARIN 100 MG/ML SYRINGE SUB-Q (21:21)
--- NOTE | ~2024-06-21 | XR_ITS ---
EXAMINATION: [id number] DATE: 06/18/2024 14:42 INDICATION: Postoperative evaluation following right total knee arthroplasty. TECHNIQUE: Anteroposterior and lateral views of the right knee were obtained. COMPARISON: None. FINDINGS: Right total knee arthroplasty with patellar resurfacing appears well seated and in near anatomic alig nment. No fractures identified. Expected postoperative subcutaneous comment intramedullary and intra -articular gas. IMPRESSION: 1. Right total knee arthroplasty, negative for postoperative purposes. Reviewed, dictated and finalized at location A. RRER MACHINE
[2024-06-21] MEDS: ACETAMINOPHEN 325 MG TABLET 650 MG PO ×4 (00:06→17:06)
[2024-06-21] MEDS: ALBUTEROL SULFATE (*SP) AEROSOL 1 PUFF INHALATION ×5 (04:20→21:41)
[2024-06-21 06:04] VITALS: BP 158/56; PULSE 75; RESP 18; TEMP 36.3; O2SAT 97
[2024-06-21] MEDS: FLUTICASONE/UMECLIDIN/VILANTER 100-62.5-25 MCG ELLIPTA 1 PUFF INHALATION (07:45)
[2024-06-21 08:03] LABS: Glucose Point of Care 137 mg/dl (65-105)
[2024-06-21 08:13] LABS: Basophils Percent Auto 0.2 % (0.2-1.2); Eosinophils Percent Auto 0.8 % (0-4.4); Hematocrit 38.2 % (37.0-47.0); Hemoglobin 12.4 g/dL (12.0-15.0); Immature Granulocyte Absolute 0.05 K/mm3 (0.00-0.031); Lymphocytes Absolute Auto 1.47 K/mm3 (0.9-3.2); Lymphocytes Percent Auto 29.9 % (18.3-44.2); Mean Corpuscular HGB Conc 32.5 g/dl (32-36); Mean Corpuscular Hemoglobin 31.7 pg (26-34); Mean Corpuscular Volume 97.7 fl (80-100); Monocytes Absolute Auto 0.4 K/mm3 (0.1-0.6); Monocytes Percent Auto 7.1 % (2.6-8.5); Nucleated Red Blood Cells Perc 0.4 % (0.0-0.2); Platelet Count Result 141 k/mm3 (150-375); Red Blood Count 3.91 M/mm3 (4.2-5.4); Red Cell Distribution Width 14.5 % (11.5-14.5); White Blood Count 4.9 K/mm3 (4.5-10.0)
[2024-06-21 08:28] LABS: Alanine Aminotransferase 51 U/L (6-35); Alkaline Phosphatase 76 U/L (38-126); Anion Gap 5 mmol/L (4-12); Aspartate Amino Transferase 31 U/L (14-36); Bilirubin,Total 0.8 mg/dL (0.2-1.3); Blood Urea Nitrogen 13 mg/dL (7-17); Calcium 9.3 mg/dL (8.4-10.2); Carbon Dioxide 30 mmol/L (22-30); Chloride 102 mmol/L (98-107); Estimated CRCL calculation 74 ml/min; Estimated Glomerular Filt Rate > 60; Glucose 127 mg/dL (65-110); Potassium 3.9 mmol/L (3.4-5.0); Sodium 137 mmol/L (137-145)
[2024-06-21] MEDS: polyethylene glycoL 3350 17 GM POWD.PACK PO (08:50)
[2024-06-21] MEDS: ENOXAPARIN 100 MG/ML SYRINGE SUB-Q ×2 (08:50→20:29)
[2024-06-21] MEDS: LOSARTAN POTASSIUM 100 MG TABLET PO (08:51)
[2024-06-21] MEDS: oxyCODONE/ACETAMINOPHEN (*CRX) 5-325 MG TABLET 1 TABLET PO (08:51)
[2024-06-21] MEDS: SENNA/DOCUSATE SODIUM TABLET 2 TAB PO ×2 (08:51→16:23)
[2024-06-21] MEDS: ESCITALOPRAM OXALATE 10 MG TABLET 30 MG PO (08:51)
[2024-06-21] MEDS: ROSUVASTATIN 10 MG TABLET PO (08:51)
[2024-06-21 08:54] LABS: INR 1.4; Prothrombin Time 17.2 Seconds (11.1-14.7)
[2024-06-21 11:59] LABS: Glucose Point of Care 128 mg/dl (65-105)
--- NOTE | 2024-06-21 14:35 | P.PNIM_ITS ---
Progress Note: A&P Assessment and Plan (1) Degenerative arthritis of right knee: Code(s): M17.11 - Unilateral primary osteoarthritis, right knee Status: Acute Assessment and Plan: * Postoperative day 3 status post right total knee arthroplasty. * Continue wound care per nursing staff. * Pain fairly well controlled. * Continue weight based Lovenox as we bridge Warfarin with pt Hx of Paroxysmal A-Fib, DVT and PE. (2) Right foot drop: Code(s): M21.371 - Foot drop, right foot Status: Acute Assessment and Plan: * Possible peroneal nerve palsy following surgery. * Continue to monitor for acute neuro changes. (3) Breast cancer: Qualifiers: Breast location: unspecified site of breast Estrogen receptor status: unspecified Patient sex: female Laterality: unspecified laterality Qualified Code(s): C50.919 - Malignant neoplasm of unspecified site of unspecified female breast Code(s): C50.919 - Malignant neoplasm of unspecified site of unspecified female breast Status: Acute Assessment and Plan: * Right breast cancer in 2013 with recurrence and metastases to the liver in 2017. * Continue letrozole and palbociclib when okay with surgeon. (4) Chronic anticoagulation: Code(s): Z79.01 - senior living (current) use of anticoagulants Status: Acute Assessment and Plan: * Patient on warfarin for history of recurrent DVTs and paroxysmal atrial fibrillation. * Recommend aggressive DVT prophylaxis given her history. * Currently on Warfarin 7.5 mg and 5 mg. * INR 1.4. Patient reports goal is 2.5. * Lovenox changed to weight based. * Continue to monitor INR closely. (5) Obstructive sleep apnea on CPAP: Code(s): G47.33 - Obstructive sleep apnea (adult) (pediatric) Status: Acute Assessment and Plan: * CPAP bedtime. (6) Paroxysmal atrial fibrillation: Code(s): I48.0 - Paroxysmal atrial fibrillation Status: Acute Assessment and Plan: * Currently in sinus rhythm. * Continue tele monitoring. (7) Type 2 diabetes mellitus: Code(s): E11.9 - Type 2 diabetes mellitus without complications Status: Acute Assessment and Plan: * Blood glucose levels labile. * Continue to adjust insulin as needed. * Continue sliding scale insulin, Accu-Cheks, and hypoglycemic protocol. Time Spent With Patient Time with patient: 15 - 25 minutes Subjective Date/time seen: 06/21/24 10:35 Patient states she feels alright and is comfortable currently, with no pain or other distress. Interval history: Patient calm on bedrest and appears to be in no acute distress. Right knee brace intact. Review of Systems Review of Systems: 12 systems were reviewed and are negativ e except for as per HPI. All systems reviewed & are unremarkable except as noted in HPI and below Exam Narrative: General: Well appearing, no acute distress. HEENT: Atraumatic, PERRL, EOM, moist mucosa. NECK: Supple. LUNGS: Clear lungs. HEART: RRR, no murmurs. Abdomen: Soft, non-tender, non-distended, +ve bowel sounds X4 quadrants. Extremities:Acyanotic, no edema. Skin: Knee with intact brace. Objective Data Vital Signs Vital Signs: Vital Signs - 24 hr 06/20/24 16:20 06/20/24 20:34 06/20/24 22:00 Temperature 97.6 F Pulse Rate 80 81 74 Respiratory Rate 18 18 18 Blood Pressure 165/63 H Pulse Oximetry 94 Oxygen Delivery 06/20/24 22:43 06/20/24 22:43 06/20/24 22:48 Temperature Pulse Rate 81 82 Respiratory Rate 18 Blood Pressure Pulse Oximetry 94 94 Oxygen Delivery CPAP Room Air 06/21/24 04:21 06/21/24 06:04 06/21/24 08:00 Temperature 97.4 F L Pulse Rate 75 Respiratory Rate 18 Blood Pressure 158/56 H Pulse Oximetry 97 Oxygen Delivery CPAP Room Air Intake/Output Intake/Output: Intake & Output 06/18/24 06/19/24 06/20/24 06/21/24 23:59 23:59 23:59 23:59 Intake Total 1090 1310 1640 415 Balance 1090 1310 1640 415 Meds/Results Medications: Active Medications Generic Name Dose Route Start Last Admin Trade Name Freq PRN Reason Stop Dose Admin Acetaminophen 650 mg 06/18/24 18:00 06/21/24 11:52 Acetaminophen 325 Mg Tablet PO 650 mg Q6HR ROSAMARIA Administration Albuterol 2.5 mg 06/18/24 15:33 Albuterol Sulfate Neb 2.5 Mg/3 Ml Inh INHALATION Q4HRT PRN shortness of breath or wheezing Albuterol 1 puff 06/18/24 16:00 06/21/24 11:59 Albuterol Sulfate (*Sp) Aerosol 1 Puff INHALATION 1 puff Q4HRT ROSAMARIA Administration Cyclobenzaprine HCl 10 mg 06/18/24 15:33 06/20/24 17:03 Cyclobenzaprine Hcl 10 Mg Tablet PO 10 mg Q8H PRN Administration Spasms Dextrose 12.5 gm 06/18/24 21:18 Dextrose 50% 25 Gm/50 Ml Syringe IV PUSH PRN PRN Hypoglycemia Protocol Diphenhydramine HCl 25 mg 06/18/24 15:33 Diphenhydramine Hcl Cap 25 Mg Capsule PO QHS PRN itching Enoxaparin Sodium 100 mg 06/20/24 21:00 06/21/24 08:50 Enoxaparin 100 Mg/Ml Syringe SUB-Q 100 mg Q12HR ROSAMARIA Administration Escitalopram Oxalate 30 mg 06/19/24 09:00 06/21/24 08:51 Escitalopram Oxalate 10 Mg Tablet PO 30 mg DAILY ROSAMARIA Administration Fluticasone/Umeclidinium/Vilanterol 1 puff 06/19/24 08:00 06/21/24 07:45 Fluticasone/Umeclidin/Vilanter 100-62.5-25 Mcg Ellipta INHALATION 1 puff DAILYRT ROSAMARIA Administration Glucagon 1 mg 06/18/24 21:18 Glucagon For Inj 1 Mg Vial IM PRN PRN Hypoglycemia Protocol Glucose 15 gm 06/18/24 21:18 Glucose Oral Gel 15 Gm Of Glucse In 37.5 Gm Tube PO PRN PRN Hypoglycemia Protocol Hydromorphone HCl 1 mg 06/18/24 15:33 Hydromorphone Hcl Inj (*Crx) 1 Mg/Ml Syr IV PUSH Q2H PRN Breakthrough Pain Rated 7-10 or NPO Hydromorphone HCl 0.5 mg 06/18/24 15:33 Hydromorphone Hcl Inj (*Crx) 1 Mg/Ml Syr IV PUSH Q2H PRN Breakthrough Pain Rated 4-6 or NPO Dextrose 1,000 mls @ 100 mls/hr 06/18/24 21:18 Dextrose 5% 1,000 Ml IVPB PRN PRN Hypoglycemia Protocol Insulin Aspart 1 - 3 units 06/19/24 21:00 06/20/24 21:21 Insulin Aspart (*Bkc) 100 Units/Ml SUB-Q 1 units HS ROSAMARIA Administration Protocol Insulin Aspart 3 - 6 units 06/19/24 08:00 06/21/24 12:00 Insulin Aspart (*Bkc) 100 Units/Ml SUB-Q Not Given TIDWM [facility] Protocol Losartan Potassium 100 mg 06/19/24 09:00 06/21/24 08:51 Losartan Potassium 100 Mg Tablet PO 100 mg DAILY ROSAMARIA Administration Miscellaneous Information 1 each 06/18/24 00:01 Gemtesa Is Non Formulary Can Patient Use From Home? XX 07/18/24 00:00 CLARIFY ROSAMARIA Naloxone HCl 0.1 mg 06/18/24 15:33 Naloxone Hcl 0.4 Mg/Ml Vial IV PUSH Q2M PRN Opiate Reversal Non-Formulary Medication 75 mg 06/19/24 09:00 Gemtesa PO 07/19/24 08:59 DAILY ROSAMARIA Ondansetron HCl 4 mg 06/18/24 15:33 Ondansetron Inj 4 Mg/2 Ml Vial IV PUSH Q4H PRN Nausea And Vomiting Oxycodone/Acetaminophen 1 tablet 06/18/24 15:33 06/21/24 08:51 Oxycodone/Acetaminophen (*Crx) 5-325 Mg Tablet PO 1 tablet Q4H PRN Administration Pain Rated 4-6 Oxycodone/Acetaminophen 1 tab 06/18/24 15:33 06/20/24 17:02 Oxycodone/Acetaminophen (*Crx) 10-325 Mg Tablet PO 1 tab Q6H PRN Administration Pain Rated 7-10 Polyethylene Glycol 17 gm 06/19/24 09:00 06/21/24 08:50 Polyethylene Glycol 3350 17 Gm Powd.Pack PO 17 gm QAM ROSAMARIA Administration Prednisone 5 mg 06/18/24 17:00 06/20/24 17:03 Prednisone 5 Mg Tablet PO 5 mg DAILY@1700 ROSAMARIA Administration Rosuvastatin Calcium 10 mg 06/19/24 09:00 06/21/24 08:51 Rosuvastatin 10 Mg Tablet PO 10 mg DAILY ROSAMARIA Administration Senna/Docusate Sodium 2 tab 06/18/24 17:00 06/21/24 08:51 Senna/Docusate Sodium Tablet PO 2 tab BID ROSAMARIA Administration Tramadol HCl 50 mg 06/18/24 15:33 06/19/24 07:56 Tramadol Hcl (*Crx) 50 Mg Tablet PO 50 mg Q4H PRN Administration Pain Rated 1-3 Trazodone HCl 150 mg 06/18/24 21:00 06/20/24 21:20 Trazodone Hcl 50 Mg Tablet PO 150 mg HS ROSAMARIA Administration Warfarin Sodium 5 mg 06/20/24 17:00 06/20/24 17:04 Warfarin (*Pbkc) 5 Mg Tablet PO 5 mg DAILY@1700 ROSAMARIA Administration Radiology Results: ITS Impressions Knee X-Ray 06/18/24 14:51 IMPRESSION: 1. Right total knee arthroplasty, negative for postoperative purposes. Labs Labs: Laboratory Results - last 24 hr 06/20/24 06/20/24 06/21/24 16:19 20:41 07:55 WBC 4.9 RBC 3.91 L Hgb 12.4 Hct 38.2 MCV 97.7 MCH 31.7 MCHC 32.5 RDW 14.5 Plt Count 141 L MPV 9.0 Immature Gran % (Auto) 1.0 H Neut % (Auto) 61.0 Lymph % (Auto) 29.9 [place] % (Auto) 7.1 Eos % (Auto) 0.8 Baso % (Auto) 0.2 Lymph # (Auto) 1.47 [place] # (Auto) 0.4 Eos # (Auto) 0.0 Baso # (Auto) 0.0 Abs Immat Gran (auto) 0.05 H Absolute Neuts (auto) 3.0 Absolute Nucleated RBC 0.020 H Nucleated RBC % 0.4 H PT 17.2 H INR 1.4 Sodium 137 Potassium 3.9 Chloride 102 Carbon Dioxide 30 Anion Gap 5 BUN 13 Creatinine 0.70 Estim Creat Clear Calc 74 Estimated GFR > 60 Glucose 127 H POC Capillary Glucose 220 H 218 H Calcium 9.3 Total Bilirubin 0.8 AST 31 ALT 51 H Alkaline Phosphatase 76 Total Protein 8.0 Albumin 4.0 06/21/24 06/21/24 08:00 11:57 WBC RBC Hgb Hct MCV MCH MCHC RDW Plt Count MPV Immature Gran % (Auto) Neut % (Auto) Lymph % (Auto) [place] % (Auto) Eos % (Auto) Baso % (Auto) Lymph # (Auto) [place] # (Auto) Eos # (Auto) Baso # (Auto) Abs Immat Gran (auto) Absolute Neuts (auto) Absolute Nucleated RBC Nucleated RBC % PT INR Sodium Potassium Chloride Carbon Dioxide Anion Gap BUN Creatinine Estim Creat Clear Calc Estimated GFR Glucose POC Capillary Glucose 137 H 128 H Calcium Total Bilirubin AST ALT Alkaline Phosphatase Total Protein Albumin Quality VTE Prophylaxis VTE prophylaxis: mechanical ordered and pharmacologic ordered Hospitalist MIPS Advance Care Plan I have confirmed that the patient's Advanced Care Plan is present, code status is documented, or surrogate decision maker is listed in patient medical record.: Yes Medication Reconciliation I have utilized all available resources to obtain, update and review the patients current medications (includes all prescriptions, OTC, herbals, cannabis, and nutritional supplements).: Yes
[2024-06-21 15:12] VITALS: BP 147/50; PULSE 79; RESP 18; TEMP 36.6; O2SAT 96
[2024-06-21] MEDS: WARFARIN (*PBKC) 5 MG TABLET PO (16:23)
[2024-06-21] MEDS: predniSONE 5 MG TABLET PO (16:23)
--- NOTE | 2024-06-21 16:27 | PM.PNORT ---
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 Continuing to monitor INR. INR 1.4 today. 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 Patient notes pain is improving and she is doing better with formal physical therapy today. Will continue to monitor. Subjective Subjective Date/Time Seen: 06/21/24 16:27 Interval history: Patient states pain is improving today. She has been doing better with therapy. No calf pain or trouble breathing. Review of Systems Review of Systems: All systems reviewed & are unremarkable except as noted in HPI and below Exam Narrative: Overweight 74 y/o female. Resting comfortably in bed. Wearing compression socks bilaterally. Dressing intact with no drainage. Mild swelling. No erythema. No hematoma. Range of motion limited due to pain. Calf nontender. Neurologic status intact. No varicosities. Distal pulses palpable. Objective Data Vital Signs Vital Signs: Vital Signs - 24 hr 06/20/24 20:34 06/20/24 22:00 06/20/24 22:43 Temperature 97.6 F Pulse Rate 81 74 81 Respiratory Rate 18 18 Blood Pressure 165/63 H Pulse Oximetry 94 94 Oxygen Delivery CPAP 06/20/24 22:43 06/20/24 22:48 06/21/24 04:21 Temperature Pulse Rate 82 Respiratory Rate 18 Blood Pressure Pulse Oximetry 94 Oxygen Delivery Room Air CPAP 06/21/24 06:04 06/21/24 08:00 06/21/24 15:12 Temperature 97.4 F L 97.9 F Pulse Rate 75 79 Respiratory Rate 18 18 Blood Pressure 158/56 H 147/50 H Pulse Oximetry 97 96 Oxygen Delivery Room Air Intake/Output Intake/Output: Intake & Output 06/18/24 06/19/24 06/20/24 06/21/24 23:59 23:59 23:59 23:59 Intake Total 1090 1310 1640 652 Balance 1090 1310 1640 652 Meds/Results Medications: Active Medications Generic Name Dose Route Start Last Admin Trade Name Freq PRN Reason Stop Dose Admin Acetaminophen 650 mg 06/18/24 18:00 06/21/24 11:52 Acetaminophen 325 Mg Tablet PO 650 mg Q6HR ROSAMARIA Administration Albuterol 2.5 mg 06/18/24 15:33 Albuterol Sulfate Neb 2.5 Mg/3 Ml Inh INHALATION Q4HRT PRN shortness of breath or wheezing Albuterol 1 puff 06/18/24 16:00 06/21/24 16:18 Albuterol Sulfate (*Sp) Aerosol 1 Puff INHALATION 1 puff Q4HRT ROSAMARIA Administration Cyclobenzaprine HCl 10 mg 06/18/24 15:33 06/20/24 17:03 Cyclobenzaprine Hcl 10 Mg Tablet PO 10 mg Q8H PRN Administration Spasms Dextrose 12.5 gm 06/18/24 21:18 Dextrose 50% 25 Gm/50 Ml Syringe IV PUSH PRN PRN Hypoglycemia Protocol Diphenhydramine HCl 25 mg 06/18/24 15:33 Diphenhydramine Hcl Cap 25 Mg Capsule PO QHS PRN itching Enoxaparin Sodium 100 mg 06/20/24 21:00 06/21/24 08:50 Enoxaparin 100 Mg/Ml Syringe SUB-Q 100 mg Q12HR ROSMAARIA Administration Escitalopram Oxalate 30 mg 06/19/24 09:00 06/21/24 08:51 Escitalopram Oxalate 10 Mg Tablet PO 30 mg DAILY ROSAMARIA Administration Fluticasone/Umeclidinium/Vilanterol 1 puff 06/19/24 08:00 06/21/24 07:45 Fluticasone/Umeclidin/Vilanter 100-62.5-25 Mcg Ellipta INHALATION 1 puff DAILYRT ROSAMARIA Administration Glucagon 1 mg 06/18/24 21:18 Glucagon For Inj 1 Mg Vial IM PRN PRN Hypoglycemia Protocol Glucose 15 gm 06/18/24 21:18 Glucose Oral Gel 15 Gm Of Glucse In 37.5 Gm Tube PO PRN PRN Hypoglycemia Protocol Hydromorphone HCl 1 mg 06/18/24 15:33 Hydromorphone Hcl Inj (*Crx) 1 Mg/Ml Syr IV PUSH Q2H PRN Breakthrough Pain Rated 7-10 or NPO Hydromorphone HCl 0.5 mg 06/18/24 15:33 Hydromorphone Hcl Inj (*Crx) 1 Mg/Ml Syr IV PUSH Q2H PRN Breakthrough Pain Rated 4-6 or NPO Dextrose 1,000 mls @ 100 mls/hr 06/18/24 21:18 Dextrose 5% 1,000 Ml IVPB PRN PRN Hypoglycemia Protocol Insulin Aspart 1 - 3 units 06/19/24 21:00 06/20/24 21:21 Insulin Aspart (*Bkc) 100 Units/Ml SUB-Q 1 units HS ROSAMARIA Administration Protocol Insulin Aspart 3 - 6 units 06/19/24 08:00 06/21/24 12:00 Insulin Aspart (*Bkc) 100 Units/Ml SUB-Q Not Given TIDWM [facility] Protocol Losartan Potassium 100 mg 06/19/24 09:00 06/21/24 08:51 Losartan Potassium 100 Mg Tablet PO 100 mg DAILY ROSAMARIA Administration Miscellaneous Information 1 each 06/18/24 00:01 Gemtesa Is Non Formulary Can Patient Use From Home? XX 07/18/24 00:00 CLARIFY [facility] Naloxone HCl 0.1 mg 06/18/24 15:33 Naloxone Hcl 0.4 Mg/Ml Vial IV PUSH Q2M PRN Opiate Reversal Non-Formulary Medication 75 mg 06/19/24 09:00 Gemtesa PO 07/19/24 08:59 DAILY [facility] Ondansetron HCl 4 mg 06/18/24 15:33 Ondansetron Inj 4 Mg/2 Ml Vial IV PUSH Q4H PRN Nausea And Vomiting Oxycodone/Acetaminophen 1 tablet 06/18/24 15:33 06/21/24 08:51 Oxycodone/Acetaminophen (*Crx) 5-325 Mg Tablet PO 1 tablet Q4H PRN Administration Pain Rated 4-6 Oxycodone/Acetaminophen 1 tab 06/18/24 15:33 06/20/24 17:02 Oxycodone/Acetaminophen (*Crx) 10-325 Mg Tablet PO 1 tab Q6H PRN Administration Pain Rated 7-10 Polyethylene Glycol 17 gm 06/19/24 09:00 06/21/24 08:50 Polyethylene Glycol 3350 17 Gm Powd.Pack PO 17 gm QAM ROSAMARIA Administration Prednisone 5 mg 06/18/24 17:00 06/21/24 16:23 Prednisone 5 Mg Tablet PO 5 mg DAILY@1700 ROSAMARIA Administration Rosuvastatin Calcium 10 mg 06/19/24 09:00 06/21/24 08:51 Rosuvastatin 10 Mg Tablet PO 10 mg DAILY ROSAMARIA Administration Senna/Docusate Sodium 2 tab 06/18/24 17:00 06/21/24 16:23 Senna/Docusate Sodium Tablet PO 2 tab BID ROSAMARIA Administration Tramadol HCl 50 mg 06/18/24 15:33 06/19/24 07:56 Tramadol Hcl (*Crx) 50 Mg Tablet PO 50 mg Q4H PRN Administration Pain Rated 1-3 Trazodone HCl 150 mg 06/18/24 21:00 06/20/24 21:20 Trazodone Hcl 50 Mg Tablet PO 150 mg HS ROSAMARIA Administration Warfarin Sodium 5 mg 06/20/24 17:00 06/21/24 16:23 Warfarin (*Pbkc) 5 Mg Tablet PO 5 mg DAILY@1700 [facility] Administration Radiology Results: ITS Impressions Knee X-Ray 06/18/24 14:51 IMPRESSION: 1. Right total knee arthroplasty, negative for postoperative purposes. Labs Labs: Laboratory Results - last 24 hr 06/20/24 06/20/24 06/21/24 16:19 20:41 07:55 WBC 4.9 RBC 3.91 L Hgb 12.4 Hct 38.2 MCV 97.7 MCH 31.7 MCHC 32.5 RDW 14.5 Plt Count 141 L MPV 9.0 Immature Gran % (Auto) 1.0 H Neut % (Auto) 61.0 Lymph % (Auto) 29.9 [place] % (Auto) 7.1 Eos % (Auto) 0.8 Baso % (Auto) 0.2 Lymph # (Auto) 1.47 [place] # (Auto) 0.4 Eos # (Auto) 0.0 Baso # (Auto) 0.0 Abs Immat Gran (auto) 0.05 H Absolute Neuts (auto) 3.0 Absolute Nucleated RBC 0.020 H Nucleated RBC % 0.4 H PT 17.2 H INR 1.4 Sodium 137 Potassium 3.9 Chloride 102 Carbon Dioxide 30 Anion Gap 5 BUN 13 Creatinine 0.70 Estim Creat Clear Calc 74 Estimated GFR > 60 Glucose 127 H POC Capillary Glucose 220 H 218 H Calcium 9.3 Total Bilirubin 0.8 AST 31 ALT 51 H Alkaline Phosphatase 76 Total Protein 8.0 Albumin 4.0 06/21/24 06/21/24 08:00 11:57 WBC RBC Hgb Hct MCV MCH MCHC RDW Plt Count MPV Immature Gran % (Auto) Neut % (Auto) Lymph % (Auto) [place] % (Auto) Eos % (Auto) Baso % (Auto) Lymph # (Auto) [place] # (Auto) Eos # (Auto) Baso # (Auto) Abs Immat Gran (auto) Absolute Neuts (auto) Absolute Nucleated RBC Nucleated RBC % PT INR Sodium Potassium Chloride Carbon Dioxide Anion Gap BUN Creatinine Estim Creat Clear Calc Estimated GFR Glucose POC Capillary Glucose 137 H 128 H Calcium Total Bilirubin AST ALT Alkaline Phosphatase Total Protein Albumin
[2024-06-21 17:13] LABS: Glucose Point of Care 176 mg/dl (65-105)
--- NOTE | 2024-06-21 17:16 | P.PNOP_ITS ---
Progress Note: A&P Assessment and Plan (1) Status post total right knee replacement: Code(s): Z96.651 - Presence of right artificial knee joint Status: Acute Plan Mild pain. Mobilizing well with therapy. AVSS. Unlabored breathing. Calves non tender. No distal edema. INR trending up. Likely will be ok for discharge tomorrow. Discussed care plan. Subjective Subjective Date/Time Seen: 06/21/24 17:16 Objective Data Vital Signs Vital Signs: Vital Signs - 24 hr 06/20/24 20:34 06/20/24 22:00 06/20/24 22:43 Temperature 36.4 C Pulse Rate 81 74 81 Respiratory Rate 18 18 Blood Pressure 165/63 H Pulse Oximetry 94 94 Oxygen Delivery CPAP 06/20/24 22:43 06/20/24 22:48 06/21/24 04:21 Temperature Pulse Rate 82 Respiratory Rate 18 Blood Pressure Pulse Oximetry 94 Oxygen Delivery Room Air CPAP 06/21/24 06:04 06/21/24 08:00 06/21/24 15:12 Temperature 36.3 C L 36.6 C Pulse Rate 75 79 Respiratory Rate 18 18 Blood Pressure 158/56 H 147/50 H Pulse Oximetry 97 96 Oxygen Delivery Room Air Intake/Output Intake/Output: Intake & Output 06/18/24 06/19/24 06/20/24 06/21/24 23:59 23:59 23:59 23:59 Intake Total 1090 1310 1640 652 Balance 1090 1310 1640 652 Meds/Results Medications: Active Medications Generic Name Dose Route Start Last Admin Trade Name Freq PRN Reason Stop Dose Admin Acetaminophen 650 mg 06/18/24 18:00 06/21/24 17:06 Acetaminophen 325 Mg Tablet PO 650 mg Q6HR ROSAMARIA Administration Albuterol 2.5 mg 06/18/24 15:33 Albuterol Sulfate Neb 2.5 Mg/3 Ml Inh INHALATION Q4HRT PRN shortness of breath or wheezing Albuterol 1 puff 06/18/24 16:00 06/21/24 16:18 Albuterol Sulfate (*Sp) Aerosol 1 Puff INHALATION 1 puff Q4HRT ROSAMARIA Administration Cyclobenzaprine HCl 10 mg 06/18/24 15:33 06/20/24 17:03 Cyclobenzaprine Hcl 10 Mg Tablet PO 10 mg Q8H PRN Administration Spasms Dextrose 12.5 gm 06/18/24 21:18 Dextrose 50% 25 Gm/50 Ml Syringe IV PUSH PRN PRN Hypoglycemia Protocol Diphenhydramine HCl 25 mg 06/18/24 15:33 Diphenhydramine Hcl Cap 25 Mg Capsule PO QHS PRN itching Enoxaparin Sodium 100 mg 06/20/24 21:00 06/21/24 08:50 Enoxaparin 100 Mg/Ml Syringe SUB-Q 100 mg Q12HR ROSAMARIA Administration Escitalopram Oxalate 30 mg 06/19/24 09:00 06/21/24 08:51 Escitalopram Oxalate 10 Mg Tablet PO 30 mg DAILY ROSAMARIA Administration Fluticasone/Umeclidinium/Vilanterol 1 puff 06/19/24 08:00 06/21/24 07:45 Fluticasone/Umeclidin/Vilanter 100-62.5-25 Mcg Ellipta INHALATION 1 puff DAILYRT ROSAMARIA Administration Glucagon 1 mg 06/18/24 21:18 Glucagon For Inj 1 Mg Vial IM PRN PRN Hypoglycemia Protocol Glucose 15 gm 06/18/24 21:18 Glucose Oral Gel 15 Gm Of Glucse In 37.5 Gm Tube PO PRN PRN Hypoglycemia Protocol Hydromorphone HCl 1 mg 06/18/24 15:33 Hydromorphone Hcl Inj (*Crx) 1 Mg/Ml Syr IV PUSH Q2H PRN Breakthrough Pain Rated 7-10 or NPO Hydromorphone HCl 0.5 mg 06/18/24 15:33 Hydromorphone Hcl Inj (*Crx) 1 Mg/Ml Syr IV PUSH Q2H PRN Breakthrough Pain Rated 4-6 or NPO Dextrose 1,000 mls @ 100 mls/hr 06/18/24 21:18 Dextrose 5% 1,000 Ml IVPB PRN PRN Hypoglycemia Protocol Insulin Aspart 1 - 3 units 06/19/24 21:00 06/20/24 21:21 Insulin Aspart (*Bkc) 100 Units/Ml SUB-Q 1 units HS ROSAMARIA Administration Protocol Insulin Aspart 3 - 6 units 06/19/24 08:00 06/21/24 17:06 Insulin Aspart (*Bkc) 100 Units/Ml SUB-Q Not Given TIDWM ROSAMARIA Protocol Losartan Potassium 100 mg 06/19/24 09:00 06/21/24 08:51 Losartan Potassium 100 Mg Tablet PO 100 mg DAILY ROSAMARIA Administration Miscellaneous Information 1 each 06/18/24 00:01 Gemtesa Is Non Formulary Can Patient Use From Home? XX 07/18/24 00:00 CLARIFY ROSAMARIA Naloxone HCl 0.1 mg 06/18/24 15:33 Naloxone Hcl 0.4 Mg/Ml Vial IV PUSH Q2M PRN Opiate Reversal Non-Formulary Medication 75 mg 06/19/24 09:00 Gemtesa PO 07/19/24 08:59 DAILY ROSAMARIA Ondansetron HCl 4 mg 06/18/24 15:33 Ondansetron Inj 4 Mg/2 Ml Vial IV PUSH Q4H PRN Nausea And Vomiting Oxycodone/Acetaminophen 1 tablet 06/18/24 15:33 06/21/24 08:51 Oxycodone/Acetaminophen (*Crx) 5-325 Mg Tablet PO 1 tablet Q4H PRN Administration Pain Rated 4-6 Oxycodone/Acetaminophen 1 tab 06/18/24 15:33 06/20/24 17:02 Oxycodone/Acetaminophen (*Crx) 10-325 Mg Tablet PO 1 tab Q6H PRN Administration Pain Rated 7-10 Polyethylene Glycol 17 gm 06/19/24 09:00 06/21/24 08:50 Polyethylene Glycol 3350 17 Gm Powd.Pack PO 17 gm QAM ROSAMARIA Administration Prednisone 5 mg 06/18/24 17:00 06/21/24 16:23 Prednisone 5 Mg Tablet PO 5 mg DAILY@1700 ROSAMARIA Administration Rosuvastatin Calcium 10 mg 06/19/24 09:00 06/21/24 08:51 Rosuvastatin 10 Mg Tablet PO 10 mg DAILY ROSAMARIA Administration Senna/Docusate Sodium 2 tab 06/18/24 17:00 06/21/24 16:23 Senna/Docusate Sodium Tablet PO 2 tab BID ROSAMARIA Administration Tramadol HCl 50 mg 06/18/24 15:33 06/19/24 07:56 Tramadol Hcl (*Crx) 50 Mg Tablet PO 50 mg Q4H PRN Administration Pain Rated 1-3 Trazodone HCl 150 mg 06/18/24 21:00 06/20/24 21:20 Trazodone Hcl 50 Mg Tablet PO 150 mg HS ROSAMARIA Administration Warfarin Sodium 5 mg 06/20/24 17:00 06/21/24 16:23 Warfarin (*Pbkc) 5 Mg Tablet PO 5 mg DAILY@1700 ROSAMARIA Administration Radiology Results: ITS Impressions Knee X-Ray 06/18/24 14:51 IMPRESSION: 1. Right total knee arthroplasty, negative for postoperative purposes. Labs Labs: Laboratory Results - last 24 hr 06/20/24 06/21/24 06/21/24 20:41 07:55 08:00 WBC 4.9 RBC 3.91 L Hgb 12.4 Hct 38.2 MCV 97.7 MCH 31.7 MCHC 32.5 RDW 14.5 Plt Count 141 L MPV 9.0 Immature Gran % (Auto) 1.0 H Neut % (Auto) 61.0 Lymph % (Auto) 29.9 [place] % (Auto) 7.1 Eos % (Auto) 0.8 Baso % (Auto) 0.2 Lymph # (Auto) 1.47 [place] # (Auto) 0.4 Eos # (Auto) 0.0 Baso # (Auto) 0.0 Abs Immat Gran (auto) 0.05 H Absolute Neuts (auto) 3.0 Absolute Nucleated RBC 0.020 H Nucleated RBC % 0.4 H PT 17.2 H INR 1.4 Sodium 137 Potassium 3.9 Chloride 102 Carbon Dioxide 30 Anion Gap 5 BUN 13 Creatinine 0.70 Estim Creat Clear Calc 74 Estimated GFR > 60 Glucose 127 H POC Capillary Glucose 218 H 137 H Calcium 9.3 Total Bilirubin 0.8 AST 31 ALT 51 H Alkaline Phosphatase 76 Total Protein 8.0 Albumin 4.0 06/21/24 06/21/24 11:57 16:51 WBC RBC Hgb Hct MCV MCH MCHC RDW Plt Count MPV Immature Gran % (Auto) Neut % (Auto) Lymph % (Auto) [place] % (Auto) Eos % (Auto) Baso % (Auto) Lymph # (Auto) [place] # (Auto) Eos # (Auto) Baso # (Auto) Abs Immat Gran (auto) Absolute Neuts (auto) Absolute Nucleated RBC Nucleated RBC % PT INR Sodium Potassium Chloride Carbon Dioxide Anion Gap BUN Creatinine Estim Creat Clear Calc Estimated GFR Glucose POC Capillary Glucose 128 H 176 H Calcium Total Bilirubin AST ALT Alkaline Phosphatase Total Protein Albumin
[2024-06-21 20:23] LABS: Glucose Point of Care 271 mg/dl (65-105)
[2024-06-21] MEDS: traZODone HCL 50 MG TABLET 150 MG PO (20:27)
[2024-06-21] MEDS: INSULIN ASPART (*BKC) 100 UNITS/ML SUB-Q (20:28)
[2024-06-21 20:35] VITALS: BP 169/67; PULSE 84; RESP 20; TEMP 37.1; O2SAT 95
[2024-06-21 21:40] VITALS: O2SAT 95
[2024-06-21 21:42] VITALS: PULSE 84; O2SAT 95
[2024-06-22] MEDS: ACETAMINOPHEN 325 MG TABLET 650 MG PO ×4 (00:39→17:20)
[2024-06-22] MEDS: ALBUTEROL SULFATE (*SP) AEROSOL 1 PUFF INHALATION ×4 (02:09→12:22)
[2024-06-22 02:17] VITALS: PULSE 79; O2SAT 95
--- NOTE | 2024-06-22 06:16 | PCRCNOTE ---
Window of time for administration has passed. See next scheduled administration.
[2024-06-22 06:30] LABS: Basophils Percent Auto 0.7 % (0.2-1.2); Eosinophils Absolute Auto 0.1 K/mm3 (0-0.3); Eosinophils Percent Auto 1.5 % (0-4.4); Hematocrit 41.2 % (37.0-47.0); Hemoglobin 12.7 g/dL (12.0-15.0); Immature Granulocyte Absolute 0.07 K/mm3 (0.00-0.031); Immature Granulocyte Percent A 1.5 % (0-0.5); Lymphocytes Absolute Auto 1.68 K/mm3 (0.9-3.2); Lymphocytes Percent Auto 37.2 % (18.3-44.2); Mean Corpuscular HGB Conc 30.8 g/dl (32-36); Mean Corpuscular Hemoglobin 30.8 pg (26-34); Mean Corpuscular Volume 99.8 fl (80-100); Mean Platelet Volume 9.1 fl (7.4-10.4); Monocytes Absolute Auto 0.4 K/mm3 (0.1-0.6); Monocytes Percent Auto 8.2 % (2.6-8.5); Neutrophils Absolute Auto 2.3 K/mm3 (1.3-6.7); Neutrophils Percent Auto 50.9 % (45.5-73.1); Nucleated Red Blood Cells Perc 0.7 % (0.0-0.2); Platelet Count Result 153 k/mm3 (150-375); Red Blood Count 4.13 M/mm3 (4.2-5.4); Red Cell Distribution Width 14.5 % (11.5-14.5); White Blood Count 4.5 K/mm3 (4.5-10.0)
[2024-06-22 06:40] LABS: INR 1.3; Prothrombin Time 16.5 Seconds (11.1-14.7)
[2024-06-22 06:41] LABS: Alanine Aminotransferase 73 U/L (6-35); Albumin Level 4.4 g/dL (3.5-5.1); Alkaline Phosphatase 108 U/L (38-126); Anion Gap 9 mmol/L (4-12); Aspartate Amino Transferase 38 U/L (14-36); Blood Urea Nitrogen 13 mg/dL (7-17); Calcium 9.5 mg/dL (8.4-10.2); Carbon Dioxide 26 mmol/L (22-30); Chloride 103 mmol/L (98-107); Estimated CRCL calculation 74 ml/min; Estimated Glomerular Filt Rate > 60; Glucose 142 mg/dL (65-110); Potassium 3.8 mmol/L (3.4-5.0); Sodium 138 mmol/L (137-145)
[2024-06-22 07:50] LABS: Glucose Point of Care 164 mg/dl (65-105)
[2024-06-22] MEDS: FLUTICASONE/UMECLIDIN/VILANTER 100-62.5-25 MCG ELLIPTA 1 PUFF INHALATION (08:21)
[2024-06-22 08:23] VITALS: PULSE 88; RESP 20; O2SAT 98
[2024-06-22] MEDS: SENNA/DOCUSATE SODIUM TABLET 2 TAB PO (08:51)
[2024-06-22] MEDS: polyethylene glycoL 3350 17 GM POWD.PACK PO (08:52)
[2024-06-22] MEDS: LOSARTAN POTASSIUM 100 MG TABLET PO (08:52)
[2024-06-22] MEDS: ROSUVASTATIN 10 MG TABLET PO (08:52)
[2024-06-22] MEDS: ESCITALOPRAM OXALATE 10 MG TABLET 30 MG PO (08:52)
[2024-06-22] MEDS: ENOXAPARIN 100 MG/ML SYRINGE SUB-Q (08:52)
[2024-06-22 11:39] LABS: Glucose Point of Care 153 mg/dl (65-105)
[2024-06-22 14:16] VITALS: BP 171/62; PULSE 77; RESP 18; TEMP 36.6; O2SAT 96
--- NOTE | 2024-06-22 15:24 | P.DS_ITS ---
DS: Admitting Diagnosis Discharge Date 06/22/24 Admitting Diagnosis Degenerative arthritis of right knee. DS: Discharge Diagnosis Discharge Diagnosis Plan Discharge Home DS: Summary Hospital Course Reason for hospitalization: Degenerative arthritis of right knee: Time Spent with Patient Time attestation: Total time spent providing and/or coordinating discharge services: DS: Data Data Completed and Pending Labs on day of discharge: Labs from last 24 hours 06/22/24 06/22/24 06/22/24 11:33 07:42 06:10 WBC 4.5 RBC 4.13 L Hgb 12.7 Hct 41.2 MCV 99.8 MCH 30.8 MCHC 30.8 L RDW 14.5 Plt Count 153 MPV 9.1 Immature Gran % (Auto) 1.5 H Neut % (Auto) 50.9 Lymph % (Auto) 37.2 [place] % (Auto) 8.2 Eos % (Auto) 1.5 Baso % (Auto) 0.7 Lymph # (Auto) 1.68 [place] # (Auto) 0.4 Eos # (Auto) 0.1 Baso # (Auto) 0.0 Abs Immat Gran (auto) 0.07 H Absolute Neuts (auto) 2.3 Absolute Nucleated RBC 0.030 H Nucleated RBC % 0.7 H PT 16.5 H INR 1.3 Sodium 138 Potassium 3.8 Chloride 103 Carbon Dioxide 26 Anion Gap 9 BUN 13 Creatinine 0.70 Estim Creat Clear Calc 74 Estimated GFR > 60 Glucose 142 H POC Capillary Glucose 153 H 164 H Calcium 9.5 Total Bilirubin 1.0 AST 38 H ALT 73 H Alkaline Phosphatase 108 Total Protein 8.0 Albumin 4.4 06/21/24 06/21/24 19:58 16:51 WBC RBC Hgb Hct MCV MCH MCHC RDW Plt Count MPV Immature Gran % (Auto) Neut % (Auto) Lymph % (Auto) [place] % (Auto) Eos % (Auto) Baso % (Auto) Lymph # (Auto) [place] # (Auto) Eos # (Auto) Baso # (Auto) Abs Immat Gran (auto) Absolute Neuts (auto) Absolute Nucleated RBC Nucleated RBC % PT INR Sodium Potassium Chloride Carbon Dioxide Anion Gap BUN Creatinine Estim Creat Clear Calc Estimated GFR Glucose POC Capillary Glucose 271 H 176 H Calcium Total Bilirubin AST ALT Alkaline Phosphatase Total Protein Albumin Discharge Plan Discharge Attending physician on discharge: Mechelle Silverman Consulting providers: Ximena Tomasarging Clinician: Katie Gaston Anticipated Discharge Date/Time: 06/22/24 15:25 Patient Disposition: Home, Self-Care Activity: as tolerated Diet: heart healthy and diabetic Discharge Instructions: See green instruction sheets Patient Instructions: Pain Management (DC) Patient Language: Malaysian Stand Alone Forms: General Discharge Instructions Follow-up/Referrals: Jacqueline Price PA [Physician Water/Wastewater Project Manager] - Hayder Zepeda MD [Primary Care Provider] - 1 Week Discharge Medications: New prednisone 5 mg tablet 5 mg PO DAILY 21 Days Qty: 21 0RF oxycodone-acetaminophen 5-325 mg tablet 1 - 2 tablet PO Q4-6H PRN (Reason: pain) 7 Days Qty: 30 0RF Continued albuterol sulfate 90 mcg/actuation HFA aerosol inhaler 1 inhalation INHALATION Q4H letrozole 2.5 mg tablet 2.5 mg PO DAILY omega-3 fatty acids [Fish Oil Concentrate] 1,000 mg capsule 2,000 mg PO DAILY Breztri Aerosphere 160-9-4.8 mcg/actuation HFA aerosol inhaler 2 inh inhalation BID Caltrate 600 plus D 600 mg-20 mcg (800 unit) tablet,chewable 1 tablet PO DAILY Restless Leg 1 tab-cap PO HS losartan 100 mg tablet 100 mg PO DAILY diphenhydramine HCl [Benadryl] 25 mg capsule 25 mg PO QHS PRN (Reason: itching) Qty: 90 0RF albuterol sulfate 2.5 mg /3 mL (0.083 %) solution for nebulization 2.5 mg inhalation Q4-6H PRN (Reason: shortness of breath or wheezing) Qty: 90 3RF Gemtesa 75 mg PO DAILY warfarin 7.5 mg PO WEEKLY Patient Comments: takes 7.5 mg on mondays acetaminophen 500 mg Capsule 500 mg PO PRN PRN (Reason: Pain) Adults Multivitamin 1 tab-cap PO DAILY ergocalciferol (vitamin D2) 1,250 mcg (50,000 unit) capsule 50,000 unit PO .twice a month magnesium oxide 400 mg magnesium tablet 400 mg PO DAILY folic acid 0.8 mg capsule 0.8 mg PO DAILY Qty: 90 0RF warfarin 5 mg tablet 5 mg PO 6XW cyanocobalamin (vitamin B-12) 1,000 mcg/mL solution See Rx Instructions .ROUTE .COMPLEX Qty: 3 3RF Dose Instruction: ADMINISTER 1 ML IN THE MUSUCLE MONTHLY (NON-FORMULARY ON INSURANCE) Rx Instructions: ADMINISTER 1 ML IN THE MUSUCLE MONTHLY (NON-FORMULARY ON INSURANCE) omeprazole 40 mg capsule,delayed release(DR/EC) See Rx Instructions .ROUTE DAILY Qty: 90 1RF Dose Instruction: TAKE 1 CAPSULE BY MOUTH EVERY DAY Rx Instructions: TAKE 1 CAPSULE BY MOUTH EVERY DAY daily; escitalopram oxalate 20 mg tablet See Rx Instructions .ROUTE .COMPLEX Qty: 90 1RF Dose Instruction: TAKE 1 TABLET BY MOUTH EVERY DAY WITH 1-10MG TABLET FOR A TOTAL OF 30MG DAILY Rx Instructions: TAKE 1 TABLET BY MOUTH EVERY DAY WITH 1-10MG TABLET FOR A TOTAL OF 30MG DAILY (DME) blood-glucose meter [FreeStyle Randall Lite] Kit See Rx Instructions .Route Qty: 1 0RF Rx Instructions: As directed (DME) Freestyle Randall Lite Test Strips See Rx Instructions .Route .MEDSUPPLY Qty: 1 1RF Rx Instructions: test blood sugar daily; (DME) Freestyle Randall Lite lancets See Rx Instructions .Route .MEDSUPPLY Qty: 1 2RF Rx Instructions: test blood sugar daily; Glyxambi 25-5 mg tablet See Rx Instructions .ROUTE .COMPLEX Qty: 90 2RF Dose Instruction: TAKE 1 TABLET BY MOUTH EVERY DAY Rx Instructions: TAKE 1 TABLET BY MOUTH EVERY DAY rosuvastatin 10 mg tablet See Rx Instructions .ROUTE .COMPLEX Qty: 90 1RF Dose Instruction: TAKE 1 TABLET BY MOUTH EVERY DAY Rx Instructions: TAKE 1 TABLET BY MOUTH EVERY DAY escitalopram oxalate 10 mg tablet See Rx Instructions .ROUTE .COMPLEX Qty: 90 0RF Dose Instruction: TAKE 1 TABLET (10 MG) BY MOUTH DAILY WITH 20MG FOR TOTAL 30MG Rx Instructions: TAKE 1 TABLET (10 MG) BY MOUTH DAILY WITH 20MG FOR TOTAL 30MG metoprolol tartrate 25 mg tablet 12.5 mg PO BID Qty: 180 1RF (DME) BD Luer-Rosio Syringe 3 mL 23 x 1 syringe See Rx Instructions .ROUTE .COMPLEX Qty: 100 3RF Dose Instruction: USE 1 SYRINGE MONTHLY TO INJECT B-12 INTO THE MUSCLE Rx Instructions: USE 1 SYRINGE MONTHLY TO INJECT B-12 INTO THE MUSCLE Held Ibrance 75 mg capsule 75 mg PO DAILY Hold Instructions: Resume on 07/02/24. Hold for 2 weeks after surgery. Patient Comments: No Action trazodone 100 mg tablet 150 mg PO HS Date of admission: 06/21/24 02:00 Primary Care Provider: Hayder Zepeda Admitting Provider: Ar Melgar Attending physician on admission: Ar Meglar Condition: Stable
--- NOTE | 2024-06-22 15:33 | P.PNIM_ITS ---
Progress Note: A&P Assessment and Plan (1) Degenerative arthritis of right knee: Code(s): M17.11 - Unilateral primary osteoarthritis, right knee Status: Acute Assessment and Plan: s/p Right Total Knee Arthroplasty. Pain meds PRN. Activity restrictions per ortho surgeon. (2) Right foot drop: Code(s): M21.371 - Foot drop, right foot Status: Acute Assessment and Plan: Stable. Continue to use walker for ambulation. (3) Breast cancer: Qualifiers: Breast location: unspecified site of breast Estrogen receptor status: unspecified Patient sex: female Laterality: unspecified laterality Qualified Code(s): C50.919 - Malignant neoplasm of unspecified site of unspecified female breast Code(s): C50.919 - Malignant neoplasm of unspecified site of unspecified female breast Status: Acute Assessment and Plan: - Letrozole continued inpatient. (4) Chronic anticoagulation: Code(s): Z79.01 - senior living (current) use of anticoagulants Status: Acute Assessment and Plan: Continue Warfarin per home dose. Weight based Lovenox bridging until INR therapeutic 2-2.5 Follow-up with PCP in 3-4 days for repeat INR check. (5) Obstructive sleep apnea on CPAP: Code(s): G47.33 - Obstructive sleep apnea (adult) (pediatric) Status: Acute Assessment and Plan: Stable. Resume home bronchodilators. (6) Paroxysmal atrial fibrillation: Code(s): I48.0 - Paroxysmal atrial fibrillation Status: Acute Assessment and Plan: - Stable. - Resume Warfarin, Lovenox and metoprolol. (7) Type 2 diabetes mellitus: Code(s): E11.9 - Type 2 diabetes mellitus without complications Status: Acute Assessment and Plan: - Resume empagliflozin. Plan Discharge Home Time Spent With Patient Time with patient: 15 - 25 minutes Subjective Date/time seen: 06/22/24 14:33 Patient states she feels alright and hoping to go home today. Interval history: Patient with Degenerative arthritis of right knee underwent Right Total Knee Art hroplasty per Orthopedic surgeon. Patient with Hx of DVT's and on Coumadin at home. Patient's INR is subtherapeutic at 1.3 this AM. She's being discharged on Lovenox for bridging until INR 2.0-2.5. Patient's health insurance has agreed to pay for the Lovenox until INR therapeutic per Case Mgt. Patient will follow-up with PCP in 3-4 days for INR check. She's medically stable for discharge with no acute distress noted or reported prior to discharge. Pt has her walker in the room for ambulation. Review of Systems Review of Systems: 12 systems were reviewed and are negativ e except for as per HPI. All systems reviewed & are unremarkable except as noted in HPI and below Exam Narrative: General: Well appearing, no acute distress. HEENT: Atraumatic, PERRL, EOM, moist mucosa. NECK: Supple. LUNGS: Clear lungs. HEART: RRR, no murmurs. Abdomen: Soft, non-tender, non-distended, +ve bowel sounds X4 quadrants. Extremities:Acyanotic, no edema. Skin: Right Knee with intact brace. Objective Data Vital Signs Vital Signs: Vital Signs - 24 hr 06/21/24 20:35 06/21/24 21:40 06/21/24 21:42 Temperature 98.8 F Pulse Rate 84 84 Respiratory Rate 20 Blood Pressure 169/67 H Pulse Oximetry 95 95 95 Oxygen Delivery Room Air CPAP 06/22/24 02:17 06/22/24 08:23 06/22/24 08:23 Temperature Pulse Rate 79 88 Respiratory Rate 20 Blood Pressure Pulse Oximetry 95 98 Oxygen Delivery CPAP Room Air 06/22/24 14:16 Temperature 97.8 F Pulse Rate 77 Respiratory Rate 18 Blood Pressure 171/62 H Pulse Oximetry 96 Oxygen Delivery Intake/Output Intake/Output: Intake & Output 06/19/24 06/20/24 06/21/24 06/22/24 23:59 23:59 23:59 23:59 Intake Total 1310 6945 639 9350 Balance 1310 2164 593 4915 Meds/Results Medications: Active Medications Generic Name Dose Route Start Last Admin Trade Name Freq PRN Reason Stop Dose Admin Acetaminophen 650 mg 06/18/24 18:00 06/22/24 13:02 Acetaminophen 325 Mg Tablet PO 650 mg Q6HR ROSAMARIA Administration Albuterol 2.5 mg 06/18/24 15:33 Albuterol Sulfate Neb 2.5 Mg/3 Ml Inh INHALATION Q4HRT PRN shortness of breath or wheezing Albuterol 1 puff 06/18/24 16:00 06/22/24 12:22 Albuterol Sulfate (*Sp) Aerosol 1 Puff INHALATION 1 puff Q4HRT ROSAMARIA Administration Cyclobenzaprine HCl 10 mg 06/18/24 15:33 06/20/24 17:03 Cyclobenzaprine Hcl 10 Mg Tablet PO 10 mg Q8H PRN Administration Spasms Dextrose 12.5 gm 06/18/24 21:18 Dextrose 50% 25 Gm/50 Ml Syringe IV PUSH PRN PRN Hypoglycemia Protocol Diphenhydramine HCl 25 mg 06/18/24 15:33 Diphenhydramine Hcl Cap 25 Mg Capsule PO QHS PRN itching Enoxaparin Sodium 100 mg 06/20/24 21:00 06/22/24 08:52 Enoxaparin 100 Mg/Ml Syringe SUB-Q 100 mg Q12HR ROSAMARIA Administration Escitalopram Oxalate 30 mg 06/19/24 09:00 06/22/24 08:52 Escitalopram Oxalate 10 Mg Tablet PO 30 mg DAILY ROSAMARIA Administration Fluticasone/Umeclidinium/Vilanterol 1 puff 06/19/24 08:00 06/22/24 08:21 Fluticasone/Umeclidin/Vilanter 100-62.5-25 Mcg Ellipta INHALATION 1 puff DAILYRT ROSAMARIA Administration Glucagon 1 mg 06/18/24 21:18 Glucagon For Inj 1 Mg Vial IM PRN PRN Hypoglycemia Protocol Glucose 15 gm 06/18/24 21:18 Glucose Oral Gel 15 Gm Of Glucse In 37.5 Gm Tube PO PRN PRN Hypoglycemia Protocol Hydromorphone HCl 1 mg 06/18/24 15:33 Hydromorphone Hcl Inj (*Crx) 1 Mg/Ml Syr IV PUSH Q2H PRN Breakthrough Pain Rated 7-10 or NPO Hydromorphone HCl 0.5 mg 06/18/24 15:33 Hydromorphone Hcl Inj (*Crx) 1 Mg/Ml Syr IV PUSH Q2H PRN Breakthrough Pain Rated 4-6 or NPO Dextrose 1,000 mls @ 100 mls/hr 06/18/24 21:18 Dextrose 5% 1,000 Ml IVPB PRN PRN Hypoglycemia Protocol Insulin Aspart 1 - 3 units 06/19/24 21:00 06/21/24 20:28 Insulin Aspart (*Bkc) 100 Units/Ml SUB-Q 2 units HS ROSAMARIA Administration Protocol Insulin Aspart 3 - 6 units 06/19/24 08:00 06/22/24 13:01 Insulin Aspart (*Bkc) 100 Units/Ml SUB-Q Not Given [facility] Protocol Losartan Potassium 100 mg 06/19/24 09:00 06/22/24 08:52 Losartan Potassium 100 Mg Tablet PO 100 mg DAILY ROSAMARIA Administration Miscellaneous Information 1 each 06/18/24 00:01 Gemtesa Is Non Formulary Can Patient Use From Home? XX 07/18/24 00:00 [facility] Naloxone HCl 0.1 mg 06/18/24 15:33 Naloxone Hcl 0.4 Mg/Ml Vial IV PUSH Q2M PRN Opiate Reversal Non-Formulary Medication 75 mg 06/19/24 09:00 Gemtesa PO 07/19/24 08:59 [facility] Ondansetron HCl 4 mg 06/18/24 15:33 Ondansetron Inj 4 Mg/2 Ml Vial IV PUSH Q4H PRN Nausea And Vomiting Oxycodone/Acetaminophen 1 tablet 06/18/24 15:33 06/21/24 08:51 Oxycodone/Acetaminophen (*Crx) 5-325 Mg Tablet PO 1 tablet Q4H PRN Administration Pain Rated 4-6 Oxycodone/Acetaminophen 1 tab 06/18/24 15:33 06/20/24 17:02 Oxycodone/Acetaminophen (*Crx) 10-325 Mg Tablet PO 1 tab Q6H PRN Administration Pain Rated 7-10 Polyethylene Glycol 17 gm 06/19/24 09:00 06/22/24 08:52 Polyethylene Glycol 3350 17 Gm Powd.Pack PO 17 gm QAM ROSAMARIA Administration Prednisone 5 mg 06/18/24 17:00 06/21/24 16:23 Prednisone 5 Mg Tablet PO 5 mg DAILY@1700 ROSAMARIA Administration Rosuvastatin Calcium 10 mg 06/19/24 09:00 06/22/24 08:52 Rosuvastatin 10 Mg Tablet PO 10 mg DAILY ROSAMARIA Administration Senna/Docusate Sodium 2 tab 06/18/24 17:00 06/22/24 08:51 Senna/Docusate Sodium Tablet PO 2 tab BID ROSAMARIA Administration Tramadol HCl 50 mg 06/18/24 15:33 06/19/24 07:56 Tramadol Hcl (*Crx) 50 Mg Tablet PO 50 mg Q4H PRN Administration Pain Rated 1-3 Trazodone HCl 150 mg 06/18/24 21:00 06/21/24 20:27 Trazodone Hcl 50 Mg Tablet PO 150 mg HS ROSAMARIA Administration Warfarin Sodium 5 mg 06/20/24 17:00 06/21/24 16:23 Warfarin (*Pbkc) 5 Mg Tablet PO 5 mg DAILY@1700 ROSAMARIA Administration Radiology Results: ITS Impressions Knee X-Ray 06/18/24 14:51 IMPRESSION: 1. Right total knee arthroplasty, negative for postoperative purposes. Labs Labs: Laboratory Results - last 24 hr 06/21/24 06/21/24 06/22/24 16:51 19:58 06:10 WBC 4.5 RBC 4.13 L Hgb 12.7 Hct 41.2 MCV 99.8 MCH 30.8 MCHC 30.8 L RDW 14.5 Plt Count 153 MPV 9.1 Immature Gran % (Auto) 1.5 H Neut % (Auto) 50.9 Lymph % (Auto) 37.2 [place] % (Auto) 8.2 Eos % (Auto) 1.5 Baso % (Auto) 0.7 Lymph # (Auto) 1.68 [place] # (Auto) 0.4 Eos # (Auto) 0.1 Baso # (Auto) 0.0 Abs Immat Gran (auto) 0.07 H Absolute Neuts (auto) 2.3 Absolute Nucleated RBC 0.030 H Nucleated RBC % 0.7 H PT 16.5 H INR 1.3 Sodium 138 Potassium 3.8 Chloride 103 Carbon Dioxide 26 Anion Gap 9 BUN 13 Creatinine 0.70 Estim Creat Clear Calc 74 Estimated GFR > 60 Glucose 142 H POC Capillary Glucose 176 H 271 H Calcium 9.5 Total Bilirubin 1.0 AST 38 H ALT 73 H Alkaline Phosphatase 108 Total Protein 8.0 Albumin 4.4 06/22/24 06/22/24 07:42 11:33 WBC RBC Hgb Hct MCV MCH MCHC RDW Plt Count MPV Immature Gran % (Auto) Neut % (Auto) Lymph % (Auto) [place] % (Auto) Eos % (Auto) Baso % (Auto) Lymph # (Auto) [place] # (Auto) Eos # (Auto) Baso # (Auto) Abs Immat Gran (auto) Absolute Neuts (auto) Absolute Nucleated RBC Nucleated RBC % PT INR Sodium Potassium Chloride Carbon Dioxide Anion Gap BUN Creatinine Estim Creat Clear Calc Estimated GFR Glucose POC Capillary Glucose 164 H 153 H Calcium Total Bilirubin AST ALT Alkaline Phosphatase Total Protein Albumin Quality VTE Prophylaxis VTE prophylaxis: mechanical ordered and pharmacologic ordered Hospitalist MIPS Advance Care Plan I have confirmed that the patient's Advanced Care Plan is present, code status is documented, or surrogate decision maker is listed in patient medical record.: Yes Medication Reconciliation I have utilized all available resources to obtain, update and review the patients current medications (includes all prescriptions, OTC, herbals, cannabis, and nutritional supplements).: Yes
[2024-06-22 16:34] LABS: Glucose Point of Care 235 mg/dl (65-105)
[2024-06-22] MEDS: WARFARIN (*PBKC) 5 MG TABLET PO (17:20)
[2024-06-22] MEDS: predniSONE 5 MG TABLET PO (17:20)
== END 2024-06-22 17:45 | disposition home or self-care (01) ==
LOC: ANHSURGERY 10:11 → ANH3MEDSUR 10:11
PROVIDERS: Anesthesiology; Nurse Practitioner Family; Physician Assistant; Physician Assistant Surgical; Admitting Provider Orthopaedic Surgery; PCP Internal Medicine; Visit Provider Orthopaedic Surgery
PROC: (CPT 27447; principal; 2024-06-18 12:00)
DX: M17.11 Unilateral primary osteoarthritis, right knee (principal); M21.371 Foot drop, right foot; E66.9 Obesity, unspecified; Z68.34 Body mass index [BMI] 34.0-34.9, adult; C50.911 Malignant neoplasm of unspecified site of right female breast; C78.7 Secondary malignant neoplasm of liver and intrahepatic bile duct; Z86.718 Personal history of other venous thrombosis and embolism; I48.0 Paroxysmal atrial fibrillation; G47.33 Obstructive sleep apnea (adult) (pediatric); Z99.89 Dependence on other enabling machines and devices; E11.9 Type 2 diabetes mellitus without complications; I10 Essential (primary) hypertension; J44.9 Chronic obstructive pulmonary disease, unspecified; E78.5 Hyperlipidemia, unspecified; Z86.711 Personal history of pulmonary embolism; Z90.49 Acquired absence of other specified parts of digestive tract; Z90.11 Acquired absence of right breast and nipple; Z79.01 Long term (current) use of anticoagulants; Z79.51 Long term (current) use of inhaled steroids; Z79.899 Other long term (current) drug therapy; Z91.148 Patient's other noncompliance with medication regimen for other reason; Z98.890 Other specified postprocedural states
CPT/HCPCS: 27447; 36415; 73560; 80048; 80053; 80076; 82948; 85025; 85610; 86850; 86900; 86901; 94640; 97110; 97116; 97161; 97165; 97530; 97535; C1776; A9270; C1713; G0378; J0171; J0690; J1100; J1650; J1815; J1885; J2250; J2270; J2371; J2405; J2704; J2795; J7030; J7120; J7512

== ENCOUNTER 2024-07-12 10:26 | Outpatient (CLI) | payer OTHER, SELFPAY ==
--- NOTE | ~2024-07-12 | XR_ITS ---
CHEST RADIOGRAPH, PA AND LATERAL CLINICAL HISTORY: R07.89 - Other chest pain . COMPARISON: 07/12/2023 TECHNIQUE: PA and lateral views of the chest. FINDINGS Loop recorder projects to the left of midline. The remainder of the cardiomediastinal silhouette is otherwise unremarkable. The lungs are clear. Evidence of vertebral augmentation on lateral view. Remainder of the visualized osseous structures and soft tissues are unremarkable. IMPRESSION: No focal infiltrate or effusion. Reviewed, dictated and finalized at location A. T SUPERVISOR
[2024-07-12 10:58] LABS: Basophils Percent Auto 0.3 % (0.2-1.2); Eosinophils Percent Auto 0.7 % (0-4.4); Hematocrit 37.6 % (37.0-47.0); Hemoglobin 12.1 g/dL (12.0-15.0); Lymphocytes Absolute Auto 0.86 K/mm3 (0.9-3.2); Mean Corpuscular HGB Conc 32.2 g/dl (32-36); Mean Corpuscular Hemoglobin 31.3 pg (26-34); Mean Corpuscular Volume 97.4 fl (80-100); Mean Platelet Volume 8.6 fl (7.4-10.4); Monocytes Absolute Auto 0.1 K/mm3 (0.1-0.6); Monocytes Percent Auto 3.6 % (2.6-8.5); Neutrophils Absolute Auto 2.1 K/mm3 (1.3-6.7); Neutrophils Percent Auto 67.4 % (45.5-73.1); Platelet Count Result 146 k/mm3 (150-375); Red Blood Count 3.86 M/mm3 (4.2-5.4); White Blood Count 3.1 K/mm3 (4.5-10.0)
[2024-07-12 11:15] LABS: CRP 1.1 mg/dL (<1.0)
[2024-07-12 11:30] LABS: Erythrocyte Sedimentation Rate 76 mm/hr (0-20)
== END 2024-07-12 10:27 | disposition home or self-care (01) ==
PROVIDERS: PCP Internal Medicine; Visit Provider Internal Medicine
DX: R07.89 Other chest pain (principal); Z79.899 Other long term (current) drug therapy
CPT/HCPCS: 36415; 71046; 85025; 85652; 86140

== ENCOUNTER 2024-10-09 14:22 | Outpatient (CLI) | payer OTHER, SELFPAY ==
--- NOTE | ~2024-10-09 | XR_ITS ---
HISTORY: M25.512 - Pain in left shoulder COMPARISON: None TECHNIQUE: 2 views of the left shoulder were performed FINDINGS: No acute fracture. The glenohumeral and acromioclavicular joint space is maintained The visualized portion of the adjacent left lung is clear. The humeral head is well seated within the glenoid fossa. IMPRESSION: No acute fracture or anterior dislocation. Reviewed, dictated and finalized at location A.
--- OUTSIDE RECORDS SUMMARY | 2024-10-09 15:50 | XMS_ITS | Clinical Summary ---
Author Organization [facility] Healthcare Address [address] [place] [address] Care Team Providers Care Title Insurance Agent Name Role Phone Hayder Zepeda MD Primary Care Provider [phone] Boaz Gilliam MD Unavailable [phone] Patrick Valverde MD PhD Unavailable Allergies Active Allergy Reactions Criticality Noted Date Comments Adhesive Unknown 11/04/2022 Cloth tape okay Medications traZODone (DESYREL) 100 mg tablet TK 2 TS PO HS 1 04/12/20 18 Active magnesium oxide (MAG-OX) 400 mg (241.3 mg elemental magnesium) tabletIndicati ons:hypomagnes emia Take 1 tablet (400 mg total) by mouth 02/07/20 17 Active cyanocobalamin (Vitamin B-12) 1,000 mcg/mL injection Inject 1 mL (1,000 mcg total) under the skin 01/31/20 18 Active albuterol sulfate 90 mcg/actuation aerosol powdr breath activated Inhale 2 puffs 03/07/20 17 Active multivitamin (MULTIPLE VITAMINS ORAL) Take 1 tablet by mouth daily 02/07/20 19 Active escitalopram (LEXAPRO) 10 mg tablet TK 1 T PO QD WITH ONE 20 MG T FOR TOTAL OF 30 MG D 3 02/08/20 19 Active rosuvastatin (CRESTOR) 10 mg tablet 07/30/19 20 Active warfarin (COUMADIN) 5 mg tablet TAKE 1 AND 1/2 TABLETS BY MOUTH EVERY OTHER DAY ALTERNATING WITH 1 TABLET BY MOUTH EVERY OTHER DAY 01/17/20 20 Active folic acid (FOLVITE) 800 mcg tablet Take 1 tablet (800 mcg total) by mouth daily Active BD Luer-Rosio Syringe 3 mL 25 gauge x 1 syringe USE 1 SYRINGE MONTHLY TO INJECT B 12 IM 08/03/19 21 Active Breztri Aerosphere 160-9-4.8 mcg/actuation HFA aerosol inhaler INHALE 2 PUFFS INTO THE LUNGS TWICE A DAY 02/29/20 23 Active palbociclib (IBRANCE) 75 mg capsuleIndicat ions:HR-positi ve, HER2-negative advanced breast cancer Take 1 capsule (75 mg total) by mouth daily For 21 days on 7 days off 21 capsule 11 07/21/19 24 Active Glyxambi 25-5 mg tablet Take 1 tablet by mouth daily 01/13/20 24 Active losartan (COZAAR) 50 mg tablet TAKE 1 TABLET (50 MG) BY MOUTH EVERY DAY Active fish fme-nluqd-4-vi t C-vit E 2,000-650-12 mg/2.5 gram emulsion in packet Take by mouth Active FreeStyle Lite Strips strip USE TO TEST BLOOD SUGAR ONCE DAILY 02/29/20 24 Active FreeStyle [place] Lite kit as directed 02/27/20 24 Active freestyle 28 gauge lancets daily 02/29/20 24 Active tezepelumab-ek ko (Tezspire) 210 mg/1.91 mL (110 mg/mL) syringe Inject 1.91 mL (210 mg total) under the skin every 28 (twenty-eight) days 01/03/20 24 Active letrozole (FEMARA) 2.5 mg tablet TAKE 1 TABLET BY MOUTH EVERY DAY 90 tablet 3 05/04/20 24 Active vibegron (Gemtesa) 75 mg tablet Take by mouth Active calcium carbonate-toni min D3 1,500 mg (600mg elemental) -800 unit per tablet Take 1 tablet by mouth daily Active metoprolol tartrate (LOPRESSOR) 25 mg immediate release tablet Take 1 tablet (25 mg total) by mouth 2 (two) times a day 09/13/19 25 Active omeprazole (PriLOSEC) 20 mg capsule Take 1 capsule (20 mg total) by mouth daily Active metoprolol (LOPRESSOR) 50 mg tablet TK 1 T PO BID WC 1 12/27/19 18 025 Discontinued omeprazole (PriLOSEC) 40 mg capsule 10/28/19 19 025 Discontinued denosumab (PROLIA) 60 mg/mL syringe Inject 1 mL (60 mg total) under the skin every 6 (six) months 025 Discontinued NOT IN DATABASE, PRESCRIPTION, Restless leg medication 025 Discontinued Active Problems Problem Noted Date Diagnosed Date Non-recurrent acute serous otitis media of left ear 06/14/2024 Assessment & Plan (06/14/2024 4:26 PM HELICOPTER OFFICER): We did a myringotomy today on the left side to remove fluid. It did result in improvement in her hearing. I am prescribing a 3 day course of prednisone to try to help this resolve additionally. She tolerated this well. She will see me in 6 weeks. 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 Ultimately could consider amplification if she wished. For now we are addressing the middle ear effusion on the left. She is planning on following up with me in about 6 weeks. Aneurysm of splenic artery 03/16/2023 Assessment & Plan (03/22/2024 9:47 AM CDT): Impression: Patient has stable 8 mm splenic artery aneurysm. She remains asymptomatic. Plan: Discussed patient and plan of care with Dr. Tamica Laurent. -patient to follow-up in 2 years for re-evaluation with CT abdomen and pelvis. Assessment & Plan (03/16/2023 11:36 AM CDT): Impression: Patient underwent a CT chest abdomen and pelvis performed at an outside facility for routine diagnostic testing for metastatic liver cancer and incidentally was found to have a 8 mm splenic artery aneurysm. Patient denies any abdominal, back, flank pain. Plan: Recommend patient to obtain CT scan for further evaluation of aneurysm. - Due to the size of the aneurysm seen on CT scan report, we will have patient follow-up in 1 year for re-evaluation with CTA of abdomen and pelvis. Atrial fibrillation, transient 03/08/2023 CHF (congestive heart failure) 03/08/2023 Syncope and collapse 11/05/2022 Status post placement of implantable loop record er 11/04/2022 Severe persistent asthma with exacerbation 01/06 GI bleed 10/28/2021 Open wound of right lower leg 01/26/2021 Dyspnea on exertion 10/16/2018 Atypical chest pain 10/15/2018 correction (current) use of anticoagulants 2018 Hypercholesterolemia 08/17/2018 Assessment & Plan (03/22/2024 9:47 AM CDT): Impression: Chronic and stable Plan: Continue rosuvastatin Assessment & Plan (03/16/2023 11:29 AM CDT): Impression: Chronic and stable. Plan: Continue Crestor DVT (deep venous thrombosis) 07/25/2018 Malignant neoplasm of right breast in female, estrogen receptor positive 02/09/2018 Malignant neoplasm 08/06/2017 VIDYA on CPAP 04/10/2017 Dyslipidemia 03/07/2017 Essential hypertension 03/07/2017 Assessment & Plan (03/22/2024 9:47 AM CDT): Impression: Chronic stable. Plan: Continue metoprolol, losartan Assessment & Plan (03/16/2023 11:29 AM CDT): Impression: Chronic and stable. Plan: Continue metoprolol Chronic saddle pulmonary emb olism without acute cor pulmonale 03/07/2017 Asthma 02/15/2017 Obesity 02/15/2017 Right ventricular dysfunction 02/15/2017 Vitamin D deficiency 03/23/2012 Encounters Date Type Department Care Team Description 10/04/2024 Orders Only [facility] Oncology [address] [facility] [address] [place] [address] Patrick Valverde MD PhD 09/20/2024 11:30 AM CDT Office Visit [facility] Surgery [address] [facility] [place] Advanced Medicine 6th [place] [address] [place] [address] Arthur Tucker MD Malignant neoplasm of right breast in female, estrogen receptor positive, unspecified site of breast (HCC); Deflation of breast implant, initial encounter 08/24/2024 Telephone [facility] [address] [place] [address] Jacquie Hernández, sales support technician 08/23/2024 Telephone [facility] [address] [facility] [address] [place] [address] Jacquie Hernández, sales support technician 08/21/2024 Telephone [facility] [address] [facility] [address] [place] [address] Jacquie Hernández, sales support technician 08/08/2024 Telephone [facility] [address] [address] Jacquie Hernández, sales support technician 08/07/2024 [facility] [address] [address] Jacquie Hernández, sales support technician from Last 3 Months Immunizations Immunization Administration Dates Next Due Influenza, Quadrivalent, Hig h Dose, Preservative Free, Intrr 03/01/2020,04/05/2019 Influenza, Trivalent, Adjuva nted, Intramuscular 03/24/2018 Influenza, Trivalent, High D ose, Split, Preservative Free, Intramuscular 04/05/2019,03/10/2017,04/16/2016,05/06 Influenza, Unspecified 04/05/2019,2017,03/24/2018,04/16,03/10/2017,04/16/2016,05/06/2015 Pneumococcal Polysaccharide PPV23 09/08/2017 Pneumococcal, Unspecified 04/16/2017 ZOSTER Recombinant 05/19/2020,03/01/2020 Surgical History Surgery Date Site/Laterality Comments COLONOSCOPY BREAST BIOPSY BREAST LUMPECTOMY BACK SURGERY 08/15/2023 vetebrae L1 compact fracture BACK SURGERY 09/13/2023 fractured L1 and was repairerd LEG SURGERY 11/09/2023 - 12/09/2023 Right wound repair, EYE SURGERY Bilateral Cataracts Medical History Medical History Date Comments Breast cancer (HCC) Diabetes mellitus (HCC) Asthma Cataracts, bilateral Hypertension GERD (gastroesophageal reflux disease) HL (hearing loss) Family History Medical History Relation Name Comments COPD Father Diabetes Father Heart disease Father Asthma Mother COPD Mother Diabetes Mother Breast cancer Mother's Sister Breast cancer Paternal Grandmother Relation Name Status Comments Father Mother Mother's Sister Paternal Grandmother Social History Tobacco Use Types Packs/Day Years Used Date Smoking Tobacco: Never Smokeless Tobacco: Never Tobacco Cessation:Counseling Given: Not Answered Alcohol Use Standard Drinks/Week Comments Yes 0 (1 standard drink = 0.6 oz pur e alcohol) occasionally AUDIT-C Answer Date Recorded Frequency of Alcohol Consumption Not on file 12/16/2023 Q2: How many drinks containi ng alcohol do you have on a typical day when you are drinking? Patient does not drink Frequency of Binge Drinking Not on file 01/2024 Comments Unknown Sex and Gender Information Value Date Recorded Sex Assigned at Not on file Legal Sex Female 9:08 AM HELICOPTER OFFICER Gender Identity Not on file Sexual Orientation Not on file Obstetrics History Last Filed Vital Signs Vital Sign Reading Time Taken Comments Blood Pressure 148/85 06/15/2024 9:14 AM HELICOPTER OFFICER Pulse 61 06/15/2024 9:14 AM HELICOPTER OFFICER Temperature 36.7 C (98 F) 06/15/2024 9:14 AM HELICOPTER OFFICER Respiratory Rate 16 06/15/2024 9:14 AM HELICOPTER OFFICER Oxygen Saturation 100% 06/15/2024 9:14 AM HELICOPTER OFFICER Inhaled Oxygen Concentration - - Weight 95.5 kg (210 lb 9.6 oz) 06/15/2024 9:14 A M HELICOPTER OFFICER Height 170.2 cm (5' 7 ) 06/14/2024 9:49 AM HELICOPTER OFFICER Body Mass Index 32.98 06/14/2024 9:49 AM HELICOPTER OFFICER Plan of Treatment Health Maintenance Due Date Last Done Comments Breast Cancer Screening-Mammogram 1950 Colon Cancer Screening-Colonoscopy 1950 Depression Screening 1950 Fall Risk Assessment 1950 Hepatitis C Screening 1950 DTaP/Tdap/Td Vaccine (1 - Tdap) 1961 Hepatitis B Screening 01/23/1968 Well Visit 65+ 2015 Pneumococcal vaccine 65+ (2 of 2 - PCV) 09/08/2018 09/08/2017, 04/16/2017 Covid-19 Vaccine (3 - Pfizer risk series) 10/29/2020 10/01/2020, 09/10/2020 Influenza Vaccine (#1) 2024 , 04/05/2019, 04/05/2019, Additional history exists Osteoporosis Screening-Bone Density Scan 09/27/2024 09/27/2022 Zoster Vaccine Completed 05/19/2020, 03/01/2020 Medical Devices Implanted Type Area Gravedigger Device Identifier Shelf Expiration Date Model / Serial / Lot Loop Recorder, [employer] Lux-Dx Model # M301 Serial # [id number] Chest Wall Insurance [employer] CHOICE PPO [employer] CHOICE PPO [employer] SENIOR SUPPLEMENT MEDICARE Care Teams Title Insurance Agent Relationship Specialty Start Date End Date Hayder Zepeda MD [address] [place] [address] PCP - General Internal Medicine 11/23/17 Boaz Gilliam MD [address] [address] Referring Physician Internal Medicine 11/13/19 Patrick Valverde MD PhD [address] [facility] [address] [place] [address] Medical Oncologist/Dipper Operator Medical Oncology 05/06/23
--- OUTSIDE RECORDS SUMMARY | 2024-10-09 15:50 | XMS_ITS | Referral Summary ---
Author Organization [facility] Healthcare Address [address] [place] [address] Care Team Providers Care Etl Tester Name Role Phone Hayder Zepeda MD Primary Care Provider [phone] Boaz Gilliam MD Unavailable [phone] Patrick Valverde MD PhD Unavailable Encounters Date Type Department Care Team Description 10/04/2024 Orders Only [facility] Oncology [address] [facility] [address] [place] [id number] Patrick Valverde MD PhD 09/20/2024 11:30 AM CDT Office Visit [facility] Surgery [address] [facility] Advanced Medicine 6th [place] [address] [place] [address] Arthur Tucker MD Malignant neoplasm of right breast in female, estrogen receptor positive, unspecified site of breast (HCC); Deflation of breast implant, initial encounter 08/24/2024 Telephone [facility] [address] [facility] [address] [place] [address] Jacquie Hernández, Anahi 08/23/2024 Telephone [facility] [address] [facility] [address] [place] [address] Jacquie Hernández, Anahi 08/21/2024 Telephone [facility] [address] [facility] [address] [place] [address] Jacquie Hernández, yardage control clerk 08/08/2024 Telephone [facility] [address] [place] [address] Jacquie Hernández, yardage control clerk 08/07/2024 Telephone [facility] [address] [facility] [address] [place] [address] Jacquie Hernández, [facility] from Last 3 Months Allergies Active Allergy Reactions Criticality Noted Date [...] MG) BY MOUTH EVERY DAY Active fish lix-rebnk-5-vi t C-vit E 2,000-650-12 mg/2.5 gram emulsion in packet Take by mouth Active FreeStyle Lite Strips strip USE TO TEST BLOOD SUGAR ONCE DAILY 02/29/20 24 Active FreeStyle [place] Lite kit as directed 02/27/20 24 Active [...] 06/14/2024 Assessment & Plan (06/14/2024 4:26 PM SAMPLE CUTTER): We did a myringotomy today on the [...] 06/14/2024 Assessment & Plan (06/14/2024 4:26 PM SAMPLE CUTTER): She does have some high-frequency sensorineural hearing [...] on exertion 10/16/2018 Atypical chest pain 10/15/2018 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 2018 Hypercholesterolemia 08/17/2018 [...] ventricular dysfunction 02/15/2017 Vitamin D deficiency 03/23/2012 Immunizations Immunization Administration Dates Next Due Influenza, Quadrivalent, Hig h Dose, Preservative Free, Intrr 03/01/2020,04/05/2019 Influenza, Trivalent, Adjuva nted, Intramuscular 03/24/2018 Influenza, Trivalent, High D ose, Split, Preservative Free, Intramuscular 04/05/2019,03/10/2017,04/16/2016,05/06 Influenza, Unspecified 04/05/2019,2017,03/24/2018,04/16,03/10/2017,04/16/2016,05/06/2015 Pneumococcal Polysaccharide PPV23 09/08/2017 Pneumococcal, Unspecified 04/16/2017 ZOSTER Recombinant 05/19/2020,03/01/2020 Social History Tobacco Use Types Packs/Day Years [...] on file Legal Sex Female 9:08 AM SAMPLE CUTTER Gender Identity Not on file Sexual Orientation Not on file Last Filed Vital Signs Vital Sign Reading Time Taken Comments Blood Pressure 148/85 06/15/2024 9:14 AM SAMPLE CUTTER Pulse 61 06/15/2024 9:14 AM SAMPLE CUTTER Temperature 36.7 C (98 F) 06/15/2024 9:14 AM SAMPLE CUTTER Respiratory Rate 16 06/15/2024 9:14 AM SAMPLE CUTTER Oxygen Saturation 100% 06/15/2024 9:14 AM SAMPLE CUTTER Inhaled Oxygen Concentration - - Weight 95.5 kg (210 lb 9.6 oz) 06/15/2024 9:14 A M SAMPLE CUTTER Height 170.2 cm (5' 7 ) 06/14/2024 9:49 AM SAMPLE CUTTER Body Mass Index 32.98 06/14/2024 9:49 AM SAMPLE CUTTER Plan of Treatment Not on file Medical Devices Implanted Type Area Corn Chip Maker Device Identifier Shelf Expiration Date Model / Serial / Lot Loop Recorder, [employer] Lux-Dx Model # M301 Serial # [id number] Chest Wall Insurance [employer] PPO [employer] PPO [employer] SENIOR SUPPLEMENT MEDICARE Care Teams Etl Tester Relationship Specialty Start Date End Date Hayder Zepeda MD [address] [place] [address] PCP - General Internal Medicine 11/23/17 Boaz Gilliam MD 3 [facility] [address] [place] [address] Referring Physician Internal Medicine 11/13/19 Patrick Valverde MD PhD [address] [place] [address] Medical Oncologist/Wood Heel Fitter Machine Medical Oncology 05/06/23
--- OUTSIDE RECORDS SUMMARY | 2024-10-09 15:50 | XMS_ITS | Encounter Summary ---
Author Organization [facility] - [facility] Address [address] [place] [id number] Care Team Providers Care Congressional Aide Name Role Phone Hayder Zepeda MD Primary Care Provider [phone] Boaz Gilliam MD Unavailable [phone] Encounter Details Date Type Department Care Team (Late st Contact Info) Description 11/11/2020 MyChart Message Enc [facility] Medical Group Multispecialty Care - [facility] [address] [place] [phone] Florin Deras MD [address] [facility] [address] [place], [place] [id number] [facility] Social History Tobacco Use Types Packs/Day Years Used Date Smoking Tobacco: Never Smokeless Tobacco: Never Alcohol Use Standard Drinks/Week Comments Yes 0 (1 standard drink = 0.6 oz pur e alcohol) AUDIT-C Answer Date Recorded Frequency of Alcohol Consumption Monthly or less 10/16/2018 Average Number of Drinks Not on file 019 Frequency of Binge Drinking Not on file 02/2019 PHQ-2 Answer Date Recorded PHQ-2 Score - If the patient scores above 3, please move on to questions 3-9 2 11/03/2020 Comments No Sex and Gender Information Value Date Recorded Sex Assigned at Female 07/24/2024 8:13 AM SLIP OPERATOR Legal Sex Female 9:18 AM CDT Gender Identity Not on file Sexual Orientation Not on file Occupation Industry Job Start Date Job End Date 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 No / Unsure 11/11/2020 10:07 AM CDT documented as of this encounter Functional Status * RETIRED Are you deaf or do you have serious difficulty hearing Answer Date of Assessment Author Status No 10/15/2018 5:48 PM CDT Activ e * RETIRED Are you blind or do you have serious difficulty seeing, even when wearing glasses? Answer Date of Assessment Author Status No 10/15/2018 5:48 PM CDT Activ e * Do you have serious difficulty walking or climbing stairs? Answer Date of Assessment Author Status No 10/15/2018 5:48 PM CDT Renate Draper RN Active * Do you have difficulty dressing or bathing? Answer Date of Assessment Author Status No 10/15/2018 5:48 PM CDT Renate Draper RN Active * Because of a physical, mental, or emotional condition, do you have difficulty doing errands alone such as visiting a doctor's office or shopping? Answer Date of Assessment Author Status No 10/15/2018 5:48 PM CDT Renate Draper RN Active documented as of this encounter Mental Status * Because of a physical, mental, or emotional condition, do you have serious difficulty concentrating, remembering, or making decisions? Answer Entry Date Author Status No 10/15/2018 5:48 PM CDT Renate Draper RN Active documented in this encounter Plan of Treatment Upcoming Encounters Date Type Department Care Team (Late st Contact Info) Description 10/10/2024 10:00 AM CDT Appointment [facility] [address] [place] [address] Boaz Gilliam MD Three [facility]. [address] [address] 10/11/2024 10:00 AM CDT Appointment [facility] [address] [place] [address] Boaz Gilliam MD Three [facility]. [address] [address] 10/15/2024 10:00 AM CDT Appointment [facility] [address] [place] [address] Boaz Gilliam MD Three [facility]. [address] [address] 10/16/2024 11:15 AM CDT Appointment [facility] [place] [address] [place] [address] Beatrice Ngo APNP [address] [place] [address] [place] [address] 10/17/2024 10:00 AM CDT Appointment [facility] [address] [place] [address] Boaz Gilliam MD Three [facility]. [address] [address] 10/18/2024 9:30 AM CDT Allied Health/Nurse Visit [facility] THREE [facility], [address] [address] Boaz Gilliam MD Three [facility]. [address] [address] 10/18/2024 10:00 AM CDT Appointment [facility] 3 [place] [address] Boaz Gilliam MD Three [facility]. [address] [address] 10/19/2024 10:00 AM CDT [facility] [address] Patrick Valverde MD [address] [facility] [address] [place] [address] 10/22/2024 10:00 AM CDT Appointment [facility] 3 [place] [address] Boaz Gilliam MD [facility]. [address] [address] 10/24/2024 10:00 AM CDT Appointment [facility] [address] [place] [address] Boaz Gilliam MD Three [facility]. [address] [address] 10/25/2024 10:00 AM CDT Appointment [facility] 3 [place] [address] Boaz Gilliam MD Three [facility]. [address] [address] 10/29/2024 10:00 AM CDT Appointment [facility] 3 [place] [address] Boaz Gilliam MD Three [facility]. [address] [address] 10/30/2024 9:00 AM CDT Treatment [facility] THREE [facility] [place] [address] Florin Deras MD [address] [address] 10/31/2024 10:00 AM CDT Appointment [facility] 3 [place] [address] Boaz Gilliam MD Three [facility]. [facility] [address] [place] [address] 11/01/2024 10:00 AM CDT Appointment [facility] 3 [place] [address] Boaz Gilliam MD Three [facility]. [address] [address] 11/05/2024 10:00 AM CDT Appointment [facility] 3 [place] [address] Boaz Gilliam MD Three [facility]. [address] [address] 11/05/2024 10:55 AM CDT [facility] THREE [facility], [address] [address] Boaz Gilliam MD Three [facility]. [address] [address] 11/07/2024 10:00 AM CDT Appointment [facility] 3 [facility] [place] [address] Boaz Gilliam MD Three [facility]. [address] [place] [address] 11/16/2024 8:40 AM CDT Office Visit [facility] Medical Group Multispecialty Care - [facility] [address] [facility] [facility] [address] Florin Deras MD [address] [facility] [address] [place] [address] 11/27/2024 9:00 AM CDT Treatment [facility] [address] [facility] [place] [address] Florin Deras MD [address] [facility] [address] [place] [address] 12/25/2024 9:15 AM CDT Office Visit [facility], [address] [place] [address] Boaz Gilliam MD Three [facility]. [facility] [address] [place] [address] documented as of this encounter Visit Diagnoses Not on filedocumented in this encounter Additional Health Concerns Infection Onset Date Last Indicated Resolved Time COVID-19 Rule Out 07/19/2023 07/19/2023 07/19/2023 2:42 PM SLIP OPERATOR COVID-19 Rule Out 07/28/2023 07/28/2023 07/28/2023 6:07 PM SLIP OPERATOR COVID-19 Rule Out 08/13/2023 08/13/2023 08/13/2023 6:07 PM SLIP OPERATOR COVID-19 Rule Out 05/12/2024 05/12/2024 05/12/2024 10:29 AM CDT COVID-19 Rule Out 07/19/2024 07/19/2024 07/19/2024 12:13 PM SLIP OPERATOR documented as of this encounter Care Teams Congressional Aide Relationship Specialty Start Date End Date Hayder Zepeda MD PCP - General INTERNAL MEDICINE 01/19/17 Boaz Gilliam MD [facility]. [address] [address] [place] [employer] CARDIOVASCULAR DISEASE 02/08/17 documented as of this encounter
--- OUTSIDE RECORDS SUMMARY | 2024-10-09 15:50 | XMS_ITS | Clinical Summary ---
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 cyanocobalamin 1000 MCG/ML injectionIndica tions:Deficienc y of other B group vitamins Inject 1 mL (1,000 mcg total) into the skin every 30 (thirty) days. Indications: Deficiency of other B group vitamins 018 Active Multiple Vitamins-Minera ls (SID MULTIVITAMIN FOR WOMEN OR)Indications: supplement Take 1 tablet by mouth daily. 1 multivitamin & mineral tablet Active letrozole 2.5 MG tabletIndicatio ns:for cancer Take 1 tablet by mouth every evening. Active escitalopram 10 MG tabletIndicatio ns:Depression Take 1 tablet (10 mg total) by mouth daily. Indications: Depression Total dose = 30 mg Daily 3 Active folic acid 800 MCG tablet Take 1 tablet (800 mcg total) by mouth daily. Active escitalopram 20 MG tablet Take 1 tablet (20 mg total) by mouth daily. Total daily dose of 30 mg 021 Active vitamin D2, ergocalciferol, (DRISDOL) 1.25 mg capsuleIndicati ons:Vitamin D deficiency Take 1 capsule (50,000 Units total) by mouth see administration instructions. Indications: Vitamin D deficiency 2 weeks on and 2 week off. Takes on Tuesday on the week she is off of Ibrance and and then on the first week she is on Ibrance. 5 capsule 023 Active magnesium oxide (MAG-OX) 400 (240 Mg) MG tablet Take 1 tablet (400 mg total) by mouth daily. Active oxybutynin XL (DITROPAN-XL) 10 MG 24 hr tablet Take 1 tablet (10 mg total) by mouth daily. 023 Active metoprolol tartrate (LOPRESSOR) 25 MG tabletIndicatio ns:Hypertension Take 1 tablet (25 mg total) by mouth 2 (two) times daily. Indications: High Blood Pressure 024 Active losartan (COZAAR) 50 MG tablet Take 1 tablet (50 mg total) by mouth daily. 30 tablet 024 Active Zinc 100 MG Tab Take 1 tablet by mouth daily. Active Calcium Carb-Cholecalci ferol (CALCIUM 500 + D OR) Take 1 tablet by mouth daily. Active TEZSPIRE 210 MG/1.91ML Solution Prefilled Syringe injectionIndica tions:Severe persistent asthma without complication (CMS/HCC HHS/HCC) Inject 1.91 mLs (210 mg total) into the skin every 28 days. 1.91 mL 11 024 Active warfarin (COUMADIN) 5 MG tablet NEW DOSE: Take 1 1/2 tablets (7.5 mg) by mouth on Mondays and , then take 1 tablet (5mg) all the other days. 105 tablet 1 024 Active Additional Information Patient taking differently: 5-7.5 mg Oral See admin instructions, Take 1 1/2 tablets (7.5 mg) by mouth on all other days, then take 1 tablet (5mg) M/W/, Reported on 09/25/2024 denosumab (PROLIA) 60 MG/ML injection Inject 1 mL (60 mg total) into the skin every 6 (six) months. Active hydroCHLOROthia zide (MICROZIDE) 12.5 MG tablet Take 1 tablet (12.5 mg total) by mouth daily. Active predniSONE (DELTASONE) 5 mg tablet Take 1 tablet (5 mg total) by mouth daily. 024 Active Palbociclib (IBRANCE OR) Take 1 each by mouth see administration instructions. 21 days on; 7 days off Active budesonide-glyc opyrrolate-form oterol (BREZTRI AEROSPHERE) 160-9-4.8 MCG/ACT inhalerIndicati ons:Severe persistent asthma without complication ([facility]) Inhale 2 puffs into the lungs 2 (two) times daily. Rinse and spit after each use. 10.7 g 3 Active traZODone (DESYREL) 100 MG tablet Take 2 tablets (200 mg total) by mouth nightly at bedtime. Active omeprazole (PRILOSEC) 20 MG capsule Take 1 capsule (20 mg total) by mouth daily. Active clopidogrel (PLAVIX) 75 MG tablet Take 1 tablet (75 mg total) by mouth daily. 90 tablet 1 Active nitroglycerin (NITROSTAT) 0.[address] 1 tablet (0.4 mg total) under the tongue every 5 (five) minutes as needed for Chest Pain. Maximum of 3 doses, if a third dose is needed call 911. 25 tablet 3 025 2025 Active atorvastatin (LIPITOR) 40 MG tablet Take 1 tablet (40 mg total) by mouth nightly at bedtime. 30 tablet 5 Active empagliflozin (JARDIANCE) 10 MG tablet Take 1 tablet (10 mg total) by mouth daily. 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 20 capsule 025 2024 Active traZODone (DESYREL) 50 MG tablet Take 4 tablets (200 mg total) by mouth nightly at bedtime. 022 2024 Discontinued warfarin (COUMADIN) 7.5 MG tablet Take 1 tablet (7.5 mg total) by mouth daily for 3 days. Take 7.5 mg Warfarin for 3 days, then resume 5 mg Warfarin after. 3 tablet 025 2024 Discontinued ASPIRIN LOW DOSE 81 MG tablet TAKE 1 TABLET BY MOUTH EVERY DAY 90 tablet 1 025 2024 Discontinued(O ther- Please enter comment in Notes field) empagliflozin (JARDIANCE) 10 MG tablet Take 1 tablet (10 mg total) by mouth daily. 30 tablet 3 025 2024 Discontinued(R eorder) dapagliflozin (FARXIGA) 10 MG tablet Take 1 tablet (10 mg total) by mouth daily. 30 tablet 3 025 2024 Discontinued(O ther- Please enter comment in Notes field) Active Problems Problem Noted Date Diagnosed Date Indigestion 07/25/2024 NSTEMI (non-ST elevated myoc ardial infarction) ([facility]) 07/19/2024 Myofascial low back pain 01/18/2024 Severe persistent asthma ([facility]) 01/02 S/P kyphoplasty 08/25/2023 Sacroiliitis 08/25/2023 Closed compression fracture of body of L1 vertebra (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 Syncope and collapse 11/05/2022 Status post placement of implantable loop record er 11/04/2022 Severe persistent asthma wit h exacerbation ([facility]) 01/06/2022 GI bleed 10/28/2021 Open wound of right lower leg 01/26/2021 Dyspnea on exertion 10/16/2018 Metastatic breast cancer ([facility]) 10/16 Atypical chest pain 10/15/2018 Hypercholesterolemia 08/17/2018 DVT (deep venous thrombosis) ([facility]) 0 07/25/2018 Malignant neoplasm ([facility]) 08/06/2017 VIDYA on CPAP 04/10/2017 Chronic saddle pulmonary emb olism without acute cor pulmonale ([facility]) 03/07/2017 Dyslipidemia 03/07/2017 Essential hypertension 03/07/2017 Asthma ([facility]) 02/15/2017 Obesity 02/15/2017 Right ventricular dysfunction 02/15/2017 PE (pulmonary thromboembolism) ([facility]) 02/15/2017 SOB (shortness of breath) 02/14/2017 Vitamin D deficiency 03/23/2012 CHF (congestive heart failure) ([facility]) Atrial fibrillation, transient ([facility]) Encounters Date Type Department Care Team Description 10/09/2024 9:21 AM T Hospital Encounter [facility] [place] [address] Beatrice Ngo APNP 10/09/2024 Orders Only [facility] [place] [address] Beatrice Ngo APNP 10/09/2024 Orders Only [facility] [place] [address] Beatrice Ngo APNP 10/09/2024 Travel 10/08/2024 6:02 AM T Hospital Encounter [facility] [address] [place] [address] Kem Yuen MD Arrived 10/08/2024 Travel 10/04/2024 5:43 AM CDT - 10/04/2024 11:59 PM CDT Hospital Encounter [facility] Cardiopulmonary Rehab [address] [facility] [address] Kem Yuen MD Discharge Disposition: Home or Self Care (Routine Discharge) 10/04/2024 Travel 10/02/2024 6:08 AM CDT - 10/02/2024 11:59 PM CDT Hospital Encounter [facility] Cardiopulmonary Rehab [address] [facility] [address] Kem Yuen MD Discharge Disposition: Home or Self Care (Routine Discharge) 10/01/2024 10:55 AM CDT Allied Health/Nurse Visit [facility] [place] [address] Kem Yuen MD Remote Device Check 09/25/2024 10:00 AM CDT Office Visit [facility] [address] [place] [address] Stella Hernandez FNP Atrial Fibrillation (6mo); Hypertension 09/25/2024 9:30 AM CDT Allied Health/Nurse Visit [facility] [address] [place] [address] Kem Yuen MD Anticoagulation (INR) 09/25/2024 Telephone [facility] [address] [place] [address] Stella Hernandez FNP Refill Request (ATORVASTATIN) 09/25/2024 Travel 09/06/2024 Telephone [facility] Multispecialty Care - [facility] [address] [facility] [place] [address] Florin Deras MD Question 09/05/2024 Telephone [facility] [address] [place] [address] Kem Yuen MD Orders 09/04/2024 9:45 AM ANTHROPOLOGICAL LINGUIST Allied Health/Nurse Visit [facility] [address] [place] [address] Kem Yuen MD Anticoagulation (INR) 09/04/2024 Telephone [facility] Multispecialty Care - [facility] [address] [facility] [address] [place] [address] Florin Deras MD Information 09/04/2024 Travel 08/29/2024 [facility] [address] [facility] [place] [address] Florin Deras MD Medication 08/27/2024 10:55 AM ANTHROPOLOGICAL LINGUIST Allied Health/Nurse Visit [facility], [facility] [address] [place] [address] Kem Yuen MD Remote Device Check 08/23/2024 10:15 AM ANTHROPOLOGICAL LINGUIST Allied Health/Nurse Visit [facility], [facility] [address] [place] [address] Kem Yuen MD Anticoagulation (INR) 08/23/2024 Travel 08/17/2024 Scan [facility] INFO SRVCS Scanned, [facility] 08/16/2024 9:51 AM ANTHROPOLOGICAL LINGUIST - 08/16/2024 11:59 PM ANTHROPOLOGICAL LINGUIST Hospital Encounter [facility] Vascular Lab [address] [facility] [address] Sharlene Ryan PA-C Discharge Disposition: Home or Self Care (Routine Discharge) 08/16/2024 9:49 AM ANTHROPOLOGICAL LINGUIST - 08/16/2024 9:50 AM ANTHROPOLOGICAL LINGUIST Hospital [place]counter [place] [address] Dulce Collins MD Discharge Disposition: Home or Self Care (Routine Discharge) 08/16/2024 9:45 AM ANTHROPOLOGICAL LINGUIST Allied Health/Nurse Visit [facility], [facility] [address] [place] [address] Kem Yuen MD Anticoagulation (INR) 08/16/2024 Telephone [facility] THREE [facility], [facility] [address] [place] [address] Sharlene Ryan PA-C Results 08/16/2024 Travel 08/15/2024 Orders Only [facility] THREE [facility], [address] [address] Sharlene Ryan PA-C 08/15/2024 Telephone [facility], [facility] [address] [place] [address] Elda Robles, RN Concerns 08/14/2024 Scan [facility] HEALTH INFO SRVCS Scanned, [facility] 08/14/2024 Telephone [facility] Medical [facility] Multispecialty Care - [address], [address] [place] [address] Florin Deras MD Medication 08/09/2024 6:56 AM ANTHROPOLOGICAL LINGUIST - 08/09/2024 11:59 PM ANTHROPOLOGICAL LINGUIST [place] [address] Dulce Collins MD Discharge Disposition: Home or Self Care (Routine Discharge) 08/09/2024 6:56 AM ANTHROPOLOGICAL LINGUIST - 08/09/2024 5:00 PM ANTHROPOLOGICAL LINGUIST Hospital Encounter [facility] [place] [address] Dulce Collins MD Discharge Disposition: Home or Self Care (Routine Discharge) 08/09/2024 Scan HEALTH INFO SRVCS Scanned, [facility] 08/09/2024 Travel 08/08/2024 Orders Only [facility] [place] [address] Dulce Collins MD 08/07/2024 9:00 AM ANTHROPOLOGICAL LINGUIST Treatment [facility] [place] [address] Florin Deras MD Injection 08/07/2024 Travel 07/30/2024 1:32 PM ANTHROPOLOGICAL LINGUIST - 07/30/2024 11:59 PM ANTHROPOLOGICAL LINGUIST Hospital Encounter [facility] [place] [address] Dulec Collins MD Discharge Disposition: Home or Self Care (Routine Discharge) 07/30/2024 Anti-Coag Telephone Call [facility] [address] [address] Teagan Danielson, RN Anticoagulation (INR) 07/30/2024 Travel 07/26/2024 Hospital Follow-up Call [facility] [place] [address] Alis Patten LPN Follow Up Call ([facility] 07/19-07/24/24) 07/25/2024 Hospital Orders Only [facility] [address] [address] Dulce Collins MD 07/25/2024 Telephone [facility] General Surgery - [place] [address] [facility], [address] [place] [address] Bong Martinez MD Referral 07/25/2024 Telephone [facility] General Surgery - [place] [address] [facility], [address] [place] [address] Bong Martinez MD Surgical Clearance 07/25/2024 Prep for Procedure [facility] General Surgery - [place] [address] [facility], [address] [place] [address] Bong Martinez MD 07/25/2024 Orders Only [facility] [address] [address] Dulce Collins MD 07/24/2024 6:21 PM ANTHROPOLOGICAL LINGUIST - 07/25/2024 12:15 AM ANTHROPOLOGICAL LINGUIST Emergency [facility] [place] [address] Juan Diego Santana, Indigestion Discharge Disposition: Home or Self Care (Routine Discharge) 07/24/2024 8:05 AM ANTHROPOLOGICAL LINGUIST Allied Health/Nurse Visit [facility] [address] [address] Kem Yuen MD Remote Device Check 07/24/2024 Travel 07/19/2024 11:37 AM ANTHROPOLOGICAL LINGUIST - 07/24/2024 12:47 PM ANTHROPOLOGICAL LINGUIST Hospital Encounter [facility] [place] [address] Kisha Davidson, Teresita Fontana, Headache Discharge Disposition: Home or Self Care (Routine Discharge) 07/19/2024 Travel from Last 3 Months Immunizations Name Administration Dates Next Due Fluzone High Dose - >Age 65 (Prefilled Syringe) 03/01/2020,04/05/2019,03/10/2017,2015,05/06/2015 Influenza (Afluria - Preserv ative Free) 03/24/2018 Influenza (Generic) 04/05/2019, 8,04/10/2018,2017,04/16/2017,03/10/2017,04/16/2016,1 Influenza Adult (Generic) 06/11/2019,,05/11/2018,2016,04/16/2016,05/06/2015,05/19/2013 Influenza Virus, Split 6-35 Mo 03/11/2014,2011 PFIZER COVID-19 (ORIGINAL FORMULATION, PURPLE CAP) mRNA, LNP-S, PF, 30 MCG/0.3 ML DOSE 10/01/2020,09/10/2020 Pneumococcal (Generic) 04/16/2017 Pneumococcal (Pneumovax 23) 09/08/2017 Pneumococcal (Prevnar 13) 03/10/2017 Shingrix 05/19/2020,03/01/2020 Family History Medical History Relation Comments COPD Father Diabetes Father Heart Disease Father Hypertension Father Ischemic heart disease Father MA in lat e 50's Cancer Maternal Aunt Cancer Maternal Grandmother Diabetes Mother Early Mother age 64 Relation Status Comments Father Maternal Aunt Maternal Grandmother Mother Social History Tobacco Use Types Packs/Day Years Used Date Smoking Tobacco: Never Smokeless Tobacco: Never Alcohol Use Standard Drinks/Week Comments Not Currently 1.7 (1 standard drin k = 0.6 oz pure alcohol) I have sips from my husbands Care IT Answer Date Recorded In the past [address] [facility] [employer], gas, oil, or water [employer] threatened to shut off services in your home? No 07/19/2024 Humiliation, Afraid, Rape, and Kick questionnair e Answer Date Recorded Within the last year, have y ou been afraid of your partner or ex-partner? No 07/19/2024 Within the last year, have y ou been humiliated or emotionally abused in other ways by your partner or ex-partner? No Within the last year, have y ou been kicked, hit, slapped, or otherwise physically hurt by your partner or ex-partner? No 07/19/2024 Within the last year, have y ou been raped or forced to have any kind of sexual activity by your partner or ex-partner? No 07/19/2024 Social Connection and Isolation Panel [NHANES] A nswer Date Recorded In a typical week, how many times do you talk on the phone with family, friends, or neighbors? Three times a week 07/28/19 How often do you get togethe r with friends or relatives? Three times a week 07/28/2023 How often do you attend chur ch or zoroastrianism services? 1 to 4 times per year 07/28/2023 Do you belong to any clubs o r organizations such as alevism groups, unions, fraternal or athletic groups, or school groups? Yes 07/28/2023 How often do you attend meet ings of the clubs or organizations you belong to? 1 to 4 times per year 07/28/2023 Are you , , di vorced, , never , or living with a partner? 07/28/2023 AUDIT-C Answer Date Recorded Q1: How often do you have a drink containing alc ohol? Monthly or less 07/28/2023 Q2: How many drinks containi ng alcohol do you have on a typical day when you are drinking? 1 or 2 07/28/2023 Q3: How often do you have si x or more drinks on one occasion? Less than monthly 07/28/2023 Overall Financial Resource Strain (CARDIA) Answe r Date Recorded How hard is it for you to pa y for the very basics like food, housing, medical care, and heating? Not hard at all 07/19/2024 PHQ-2 Answer Date Recorded Patient Health Questionnaire-2 Score 0 05/08/2024 [facility] - Occupational Stress Questionnaire Answer Date Recorded Do you feel stress - tense, restless, nervous, or anxious, or unable to sleep at night because your mind is troubled all the time - these days? Not at all 07/19/2024 Exercise Vital Sign Answer Date Recorde d On average, how many days pe r week do you engage in moderate to strenuous exercise (like a brisk walk)? 0 days 08/11/2023 On average, how many minutes do you engage in exercise at this level? 0 min 08/11/2023 Hunger Vital Sign Answer Date Recorded Within the past 12 months, y ou worried that your food would run out before you got the money to buy more. Never true 07/19/19 25 Within the past 12 months, t he food you bought just didn't last and you didn't have money to get more. Never true 07/19/2024 PRAPARE - Transportation Answer Date Re corded In the past 12 months, has l ack of transportation kept you from medical appointments or from getting medications? No 03/2025 In the past 12 months, has l ack of transportation kept you from meetings, work, or from getting things needed for daily living? No 07/19/2024 Housing Stability Vital Sign Answer Adrian e Recorded In the last 12 months, was t here a time when you were not able to pay the mortgage or rent on time? No 08/11/2023 In the last 12 months, how many places have you lived? 1 08/11/2023 In the last 12 months, was t here a time when you did not have a steady place to sleep or slept in a skilled nursing (including now)? No 08/11/2023 Housing Stability Vital Sign Answer Adrian e Recorded In the last 12 months, was t here a time when you were not able to pay the mortgage or rent on time? No 07/19/2024 In the past 12 months, how m any times have you moved where you were living? 0 07/19/2024 At any time in the past 12 m [facility], were you homeless or living in a skilled nursing (including now)? 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 Not on file Not on file Not on file Last Filed Vital Signs Vital Sign Reading Time Taken Comments Blood Pressure 130/72 09/25/2024 9:40 AM CDT Pulse 56 09/25/2024 9:40 AM CDT Temperature 21.7 C (71 F) 08/09/2024 7:33 AM ANTHROPOLOGICAL LINGUIST Respiratory Rate 20 08/09/2024 4:30 PM ANTHROPOLOGICAL LINGUIST Oxygen Saturation 97% 09/25/2024 9:40 AM CDT Inhaled Oxygen Concentration - - Weight 92.5 kg (204 lb) 09/25/2024 9:40 AM CDT Height 170.2 cm (5' 7 ) 09/25/2024 9:40 AM CDT Body Mass Index 31.95 09/25/2024 9:40 AM CDT Plan of Treatment Upcoming Encounters Date Type Department Care Team (Late st Contact Info) Description 10/10/2024 10:00 AM CDT Appointment [facility] [address] [place] [address] Kem Yuen MD Three [facility]. [address] [address] 10/11/2024 10:00 AM CDT Appointment [facility] [address] [place] [address] Kem Yuen MD Three [facility]. [address] [address] 10/15/2024 10:00 AM CDT Appointment [facility] [address] [place] [address] Kem Yuen MD Three [facility]. [address] [address] 10/16/2024 11:15 AM CDT Appointment [facility] [place] [address] Beatrice Ngo APNP [address] [facility] [address] [place] [address] 10/17/2024 10:00 AM CDT Appointment [facility] [address] [place] [address] Kem Yuen MD Three [address] [place] [address] 10/18/2024 9:30 AM CDT Allied Health/Nurse Visit [facility] [address], [address] [address] Kem Yuen MD Three [facility] [address] [address] 10/18/2024 10:00 AM CDT Appointment [facility] [address] [place] [address] Kem Yuen MD Three [facility]. [address] [address] 10/19/2024 10:00 AM CDT [place] [address] Patrick Valverde MD [facility] [address] [facility] [address] [place] [address] 10/22/2024 10:00 AM CDT Appointment [facility] [address] [place] [address] Kem Yuen MD Three [facility]. [address] [address] 10/24/2024 10:00 AM CDT Appointment [facility] [address] [place] [address] Kem Yuen MD Three [facility]. [address] [address] 10/25/2024 10:00 AM CDT Appointment [facility] Re[facility] [address] [place] [address] Kem Yuen MD Three [facility]. [address] [address] 10/29/2024 10:00 AM CDT Appointment [facility] Cardiopulmonary Rehab [address] [place] [address] Kem Yuen MD Three [facility]. [address] [address] 10/30/2024 9:00 AM CDT Treatment [facility] [place] [address] Florin Deras MD [address] [address] 10/31/2024 10:00 AM CDT Appointment [facility] Cardiopulmonary Rehab [address] [place] [address] Kem Yuen MD Three [address] [address] 11/01/2024 10:00 AM CDT Appointment [facility] Cardiopulmonary Rehab [address] [place] [address] Kem Yuen MD Three [address] [address] 11/05/2024 10:00 AM CDT Appointment [facility] Cardiopulmonary Rehab 3 [place] [address] Kem Yuen MD Three [facility]. [address] [place] [address] 11/05/2024 10:55 AM CDT Allied Health/Nurse Visit [place] [facility] [facility] THREE [facility], [address] [place] [address] eKm Yuen MD Three [facility]. [address] [place] [address] 11/07/2024 10:00 AM CDT Appointment [facility] Cardiopulmonary Rehab [address] [facility] [address] Kem Yuen MD Three [facility]. [facility] [address] [place] [address] 11/16/2024 8:40 AM CDT Office Visit [facility] Multispecialty Care - [facility] 3 [facility] [address] [place] [address] Florin Deras MD 3 [facility] [address] [place] [address] 11/27/2024 9:00 AM CDT Treatment [facility] [address] [facility] [address] Florni Deras MD 3 [facility] [address] [place] [address] 12/25/2024 9:15 AM CDT Office Visit [place] [facility] THREE [facility], [address] [place] [address] Kem Yuen MD Three [facility]. [facility] [address] [place], [place] [id number] Health Maintenance Due Date Last Done Comments Hepatitis C 01/23/1968 Mammogram Screening 1990 Annual Medicare Wellness Visit 2015 Colorectal Cancer Screening FIT/FOBT (1 Year) 10/28/2022 10/28/2021 PHQ-2 (Physician [place]) 07/11/2024 05/08/2024 COVID-19 Vaccine ( season) 2024 03/23/2024, 09/22/2023, 03/30/2023, Additional history exists DTaP, Tdap and Td Vaccines (2 - Td or Tdap) 02/14/2031 02/14/2021 Pneumococcal Vaccine: 65+ Years Completed 09/08/2017, 03/10/2017 Zoster Vaccines Completed 05/19/2020, 03/01/2020 Dexa Scan (General) Completed 09/27/2022 RSV Immunization or 60+ Years Completed 05/03/2023 Meningococcal B Vaccine Aged Out No l onger eligible based on patient's age to complete this topic Meningococcal Vaccine Aged Out No carlos gilberto eligible based on patient's age to complete this topic RSV Immunizations Under 20 Months Aged Out No longer eligible based on patient's age to complete this topic Goals Goal Patient Goal Type Associated Problems Recent Progress Patient-Stated? Author Health - patient able to perform ADLs independently Lifestyle No Fatemeh Armstrong, QUALITY ASSURANCE AUDITORfisher lampara net Devices Implanted Type Area Fast Food Attendant Device Identifier Shelf Expiration Date Model / Serial / Lot High Viscosity Radiopaque Bone Cement Implanted:Qty : 1 on 08/15/2023 by Jorje Martinez MD at [facility] Cement Implant N/A: Spine Lumbar [employer] DIV [employer]LLY [id number] 02/07/2025 0406-62 2-015 / / [id number] Vertaplex Hv Radiopaque Bone Cement Implanted:Qty : 1 on 01/09/2024 by Jorje Martinez MD at [facility] Cement Implant N/A: Spine Thoracic [employer] DOLLY 09/07/2024 0406-62 2-015 / / [id number] Description:12 minute set ti me completed. Lux Dx Implantable Loop Recorder-11/04 Implanted: by Maurice Gracia MD (Quantity not on file) Implantable Loop Recorder Left: Chest Kula Causes 12/12/2023 [id number] / [id number] / Description:HORIZONTAL BORE SCANNERS ONLY, MR CONDITIONAL AT 1.5 T OR 3 T, MAX SPATIAL GRADIENT FIELD OF 3000 GAUSS/CM OR LESS, MAX WHOLE BODY GAETANO OF 4 W/KG OR LESS, HEAD GAETANO 3.2 W/KG OR LESS, MAX SLEW RATE 200 T/M/S Procedures Procedure Name Priority Date/Time Associated Diagnosis Comments PROTHROMBIN TIME, FINGERSTICK Routine 09/25/2024 9:36 AM CDT PAF (paroxysmal atrial fibrillation) ([facility] 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/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) 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 representative (current) use of anticoagulants PROTHROMBIN TIME, FINGERSTICK Routine 09/04/2024 9:50 AM ANTHROPOLOGICAL LINGUIST PAF (paroxysmal atrial fibrillation) ([facility] HHS/HCC) senior care (current) use of anticoagulants PROTHROMBIN TIME, FINGERSTICK Routine 08/23/2024 10:19 AM ANTHROPOLOGICAL LINGUIST PAF (paroxysmal atrial fibrillation) ([facility] HHS/HCC) senior care (current) use of anticoagulants USV PSEUDO ANEURYSM LOW RT STAT 08/16/2024 10:35 AM ANTHROPOLOGICAL LINGUIST Groin pain, chronic, right Complication of other artery following a procedure, not elsewhere classified, initial encounter HEMATOCRIT Routine 08/16/2024 10:13 AM ANTHROPOLOGICAL LINGUIST CAD (coronary artery disease) CREATININE Routine 08/16/2024 10:13 AM ANTHROPOLOGICAL LINGUIST CAD (coronary artery disease) UREA NITROGEN, BLOOD (BUN) QUANT Routine 08/16/2024 10:13 AM ANTHROPOLOGICAL LINGUIST CAD (coronary artery disease) PROTHROMBIN TIME, FINGERSTICK Routine 08/16/2024 9:40 AM ANTHROPOLOGICAL LINGUIST PAF (paroxysmal atrial fibrillation) ([facility] HHS/HCC) senior care (current) use of anticoagulants ECG 12-LEAD Routine 08/09/2024 11:48 AM ANTHROPOLOGICAL LINGUIST XA CORONARY INTERVENTION Routine 08/09/2024 10:35 AM ANTHROPOLOGICAL LINGUIST CAD (coronary artery disease) POCT ACTIVATED CLOTTING TIME - ISTAT DOCKED DEVICE Routine 08/09/2024 10:09 AM ANTHROPOLOGICAL LINGUIST TYPE & SCREEN STAT 08/09/2024 7:01 AM ANTHROPOLOGICAL LINGUIST CAD (coronary artery disease) CBC W/DIFF AUTOMATED Routine 07/30/2024 1:41 PM ANTHROPOLOGICAL LINGUIST CAD (coronary artery disease) PROTHROMBIN TIME, VENOUS Routine 07/30/2024 1:41 PM ANTHROPOLOGICAL LINGUIST CAD (coronary artery disease) BASIC METABOLIC PANEL Routine 07/30/2024 1:41 PM ANTHROPOLOGICAL LINGUIST CAD (coronary artery disease) TROPONIN, QUANT STAT 07/24/2024 10:03 PM ANTHROPOLOGICAL LINGUIST XR CHEST PORTABLE STAT 07/24/2024 8:0 4 PM ANTHROPOLOGICAL LINGUIST LIPASE STAT 07/24/2024 6:49 PM ANTHROPOLOGICAL LINGUIST TROPONIN, QUANT STAT 07/24/2024 6:49 PM ANTHROPOLOGICAL LINGUIST COMPREHENSIVE METABOLIC PANEL STAT 07/24/2024 6:49 PM ANTHROPOLOGICAL LINGUIST CBC W/DIFF AUTOMATED STAT 07/24/2024 6:49 PM ANTHROPOLOGICAL LINGUIST ECG 12-LEAD Routine 07/24/2024 6:27 PM ANTHROPOLOGICAL LINGUIST PROTHROMBIN TIME, VENOUS Routine 07/24/2024 6:46 AM ANTHROPOLOGICAL LINGUIST CBC W/DIFF AUTOMATED Routine 07/24/2024 6:46 AM ANTHROPOLOGICAL LINGUIST BASIC METABOLIC PANEL Routine 07/24/2024 6:46 AM ANTHROPOLOGICAL LINGUIST PROTHROMBIN TIME, VENOUS STAT 07/23/2024 3:19 PM ANTHROPOLOGICAL LINGUIST XA LHC POSS Today 07/23/2024 1:31 PM ANTHROPOLOGICAL LINGUIST ECG 12-LEAD Routine 07/23/2024 1:14 PM ANTHROPOLOGICAL LINGUIST POCT ACTIVATED CLOTTING TIME - ISTAT DOCKED DEVICE Routine 07/23/2024 1:00 PM ANTHROPOLOGICAL LINGUIST POCT ACTIVATED CLOTTING TIME - ISTAT DOCKED DEVICE Routine 07/23/2024 12:38 PM ANTHROPOLOGICAL LINGUIST TYPE & SCREEN Routine 07/23/2024 12:30 PM ANTHROPOLOGICAL LINGUIST CBC W/DIFF AUTOMATED Routine 07/23/2024 5:35 AM ANTHROPOLOGICAL LINGUIST BASIC METABOLIC PANEL Routine 07/23/2024 5:35 AM ANTHROPOLOGICAL LINGUIST BASIC METABOLIC PANEL Routine 07/22/2024 6:41 AM ANTHROPOLOGICAL LINGUIST CBC W/DIFF AUTOMATED Routine 07/22/2024 6:41 AM ANTHROPOLOGICAL LINGUIST PROTHROMBIN TIME, VENOUS Routine 07/21/2024 11:58 AM ANTHROPOLOGICAL LINGUIST NM PHARM NUC STRESS TEST 1DAY W TRACING Routine 07/21/2024 10:42 AM ANTHROPOLOGICAL LINGUIST CARDIOLOGY STRESS TEST ONLY, EXERCISE Routine 07/21/2024 8:15 AM ANTHROPOLOGICAL LINGUIST BASIC METABOLIC PANEL Routine 07/21/2024 7:08 AM ANTHROPOLOGICAL LINGUIST CBC W/DIFF AUTOMATED Routine 07/21/2024 7:08 AM ANTHROPOLOGICAL LINGUIST USE ECHOCARDIOGRAM W CON Today 07/20/2024 3:02 PM ANTHROPOLOGICAL LINGUIST C-REACTIVE PROTEIN Routine 07/20/2024 6: 59 AM ANTHROPOLOGICAL LINGUIST SED RATE, ERYTHROCYTE (ESR) Routine 07/20/2024 6:59 AM ANTHROPOLOGICAL LINGUIST HEMOGLOBIN, GLYCOSYLATED Routine 07/20/2024 6:59 AM ANTHROPOLOGICAL LINGUIST LIPID PANEL Routine 07/20/2024 6:59 AM ANTHROPOLOGICAL LINGUIST BASIC METABOLIC PANEL Routine 07/20/2024 6:59 AM ANTHROPOLOGICAL LINGUIST CBC W/DIFF AUTOMATED Routine 07/20/2024 6:59 AM ANTHROPOLOGICAL LINGUIST TROPONIN, QUANT STAT 07/19/2024 7:06 PM ANTHROPOLOGICAL LINGUIST ECG 12-LEAD Routine 07/19/2024 4:00 PM ANTHROPOLOGICAL LINGUIST TROPONIN, QUANT STAT 07/19/2024 3:56 PM ANTHROPOLOGICAL LINGUIST MAGNESIUM STAT 07/19/2024 2:58 PM ANTHROPOLOGICAL LINGUIST TROPONIN, QUANT STAT 07/19/2024 2:58 PM ANTHROPOLOGICAL LINGUIST COMPREHENSIVE METABOLIC PANEL STAT 07/19/2024 2:58 PM ANTHROPOLOGICAL LINGUIST XR CHEST PORTABLE STAT 07/19/2024 12: [address] HEAD WO CON STAT 07/19/2024 11:56 AM ANTHROPOLOGICAL LINGUIST PARTIAL THROMBOPLASTIN TIME,PTT STAT 07/19/2024 11:45 AM ANTHROPOLOGICAL LINGUIST PROTHROMBIN TIME, VENOUS STAT 07/19/2024 11:45 AM ANTHROPOLOGICAL LINGUIST CBC W/DIFF AUTOMATED STAT 07/19/2024 11:45 AM ANTHROPOLOGICAL LINGUIST CORONAVIRUS (COVID 19) STAT 11:39 AM ANTHROPOLOGICAL LINGUIST BONE DENSITY/DEXA Routine 09/27/2022 9:5 8 AM CDT Osteoporosis OCCULT BLOOD, FECES STAT 10/28/2021 9 :55 AM CDT from Last 3 Months or Most Recently Relevant to Health Maintenance Results * PROTIME/INR, FINGERSTICK (09/25/2024 9:36 AM CDT) Only the most recent of4 resultswithin the time period is included. INR WHOLE BLOOD 3.10 P[facility]L-[facility] 09/25/2024 9:36 AM CDT us Kem Yuen MD LABORATORY Final [facility]ul [facility] [id number] [place] [address], [id number] * USV PSEUDO ANEURYSM LOW RT (08/16/2024 10:35 AM ANTHROPOLOGICAL LINGUIST) Anatomical Region Laterality Modality Extremity Vascular Ultraso und 08/16/2024 10:2 1 AM ANTHROPOLOGICAL LINGUIST Narrative 08/16/2024 11:16 AM ANTHROPOLOGICAL LINGUIST ARTERIAL DUPLEX IMAGING RIGHT LOWER EXTREMITY VASCULAR LAB Pat.Name: KEVYN SMITH Pat.ID: [id number] .Date: 08/16/2024 Ceferino.: [id number], Shelby alegria Exam Time: 10:21:00 AM Study Type:UMM VS Arterial Duplex Leg Rt Age: 7 1950,74Y Sex: F Sonogrphr: Louisa Butler RVT Pat. Stat.:Outpatient History / Clinical:Rt groin pain, S/P cath 1 week ago. Procedures: Rodney scale, Color Doppler imaging, Doppler Spectral Analysis Race: W ++++++++++++++++++++++++++++++++++++ SUMMARY: ++++++++++++++++++++++++++++++++++++ There is no evidence of extrinsic pulsatile flow collection or arterio-venous hypervascular communication at the right femoral vessels. The primary arteries and veins are patent with normal flow patterns. CONCLUSION: No pseudoaneurysm or AV-fistula is present in the right groin. <Electronic Signature> 08/16/2024 11:16 AM Susie Peterson M.D. Procedure Note Susie Peterson MD - 08/16/2024 ARTERIAL DUPLEX IMAGING RIGHT LOWER EXTREMITY VASCULAR LAB Pat.Name: KEVYN SMITH Pat.ID: [id number] .Date: 08/16/2024 Refer.MD: [id number], Shelby alegria Exam Time: 10:21:00 AM Study Type:UMM VS Arterial Duplex Leg Rt Age: 7 1950,74Y Sex: F Sonogrphr: Louisa Butler RVT Pat. Stat.:Outpatient History / Clinical:Rt groin pain, S/P cath 1 week ago. Procedures: Rodney scale, Color Doppler imaging, Doppler Spectral Analysis Race: W ++++++++++++++++++++++++++++++++++++ SUMMARY: ++++++++++++++++++++++++++++++++++++ There is no evidence of extrinsic pulsatile flow collection or arterio-venous hypervascular communication at the right femoral vessels. The primary arteries and veins are patent with normal flow patterns. CONCLUSION: No pseudoaneurysm or AV-fistula is present in the right groin. <Electronic Signature> 08/16/2024 11:16 AM Susie Peterson M.D. us Sharlene Ryan PA-C [facility] Final Resul t * (ABNORMAL) HEMATOCRIT (08/16/2024 10:13 AM ANTHROPOLOGICAL LINGUIST) [facility] HCT 33.9(L) 38.0 - 48.0 % 08/16/2024 10:25 AM ANTHROPOLOGICAL LINGUIST [facility] 08/16/2024 10:1 3 AM ANTHROPOLOGICAL LINGUIST us Dulce Collins MD LABORATORY Final Result Performing Organization Address City/[facility]/ZIP Co de Phone Number [facility] [address] [place] [address], [place] [phone] * UREA NITROGEN, BLOOD (BUN) QUANT (08/16/2024 10:13 AM ANTHROPOLOGICAL LINGUIST) BUN 18 7 - 18 MG/DL 08/16/2024 10:55 AM ANTHROPOLOGICAL LINGUIST [facility] 08/16/2024 10:1 3 AM ANTHROPOLOGICAL LINGUIST us Dulce Collins MD LABORATORY Final Result Performing Organization Address [facility] Co de Phone Number [facility] [address] [place] [address], [place] [phone] * (ABNORMAL) CREATININE (08/16/2024 10:13 AM ANTHROPOLOGICAL LINGUIST) CREATININE S/P/B 1.14(H) 0.55 - 1.02 MG/DL 08/16/2024 10:55 AM ANTHROPOLOGICAL LINGUIST [facility] GFR ESTIMATE 51(L) >90 ML/MIN/1.7 3 M2 08/16/2024 10:55 AM ANTHROPOLOGICAL LINGUIST [facility] Comment: NOTE: eGFR is not calculated for patients <18 years of age or gender unknown. This is an estimated GFR calculation using the new CKD EPI creatinine equation without race and so does not require a correction factor for race. This estimated GFR should not be used for calculating drug doses. 08/16/2024 10:1 3 AM ANTHROPOLOGICAL LINGUIST us Dulce Collins MD LABORATORY Final Result Performing Organization Address City/[facility]/ZIP Co de Phone Number [facility] [address] [place] [address] [place] [address], * ECG 12 lead (08/09/2024 11:48 AM ANTHROPOLOGICAL LINGUIST) Only the most recent of4 resultswithin the time period is included. 08/09/2024 11:4 8 AM ANTHROPOLOGICAL LINGUIST Narrative [facility] RAD - 08/10/2024 1:07 PM ANTHROPOLOGICAL LINGUIST [facility] [address] Test Date: 2024-08-09 Pat Name: KEVYN [facility] Department: 40 Room: [facility] Gender: Female Steerer: : 1950 Requested By: DULCE COLLINS Order Number: [id number] Reading : Maurice Gracia Measurements Intervals [place] Rate: 65 P: 69 WA: 175 QRS: 30 QRSD: 90 T: -6 QT: 424 QTc: 443 Interpretive Statements SINUS RHYTHM LOW QRS VOLTAGE IN PRECORDIAL LEADS [QRS DEFLECTION < 1.0 mV IN CHEST LEADS] Compared to ECG 07/24/2024 18:27:29 Myocardial infarct finding no longer present ROPOLOGICAL LINGUIST Procedure Note Maurice Gracia MD - 08/10/[address] [facility] [address] Test Date: 2024-08-09 Pat Name: KEVYN SMITH Department: 40 Room: [facility] Gender: Female Steerer: : 1950 Requested By: DULCE COLLINS Order Number: [id number] Reading JOHANYN Gracia Measurements Intervals [place] Rate: 65 P: 69 [place]: 175 QRS: 30 QRSD: 90 T: -6 QT: 424 QTc: 443 Interpretive Statements SINUS RHYTHM LOW QRS VOLTAGE IN PRECORDIAL LEADS [QRS DEFLECTION < 1.0 mV IN CHESTLEADS] Compared to ECG 07/24/2024 18:27:29 Myocardial infarct finding no longer present ROPOLOGICAL LINGUIST us Dulce Collins MD ECG ORDERABLES Final Result [facility] RAD * XA CORONARY INTERVENTION (08/09/2024 10:35 AM ANTHROPOLOGICAL LINGUIST) Anatomical Region Laterality Modality Cardiac Associate Store Manager 08/09/2024 9:00 AM ANTHROPOLOGICAL LINGUIST us Dulce Collins MD CONTAINER FILLER Final Result * (ABNORMAL) POCT ACTIVATED CLOTTING TIME - ISTAT DOCKED DEVICE (08/09/2024 10:09 AM ANTHROPOLOGICAL LINGUIST) Only the most recent of3 resultswithin the time period is included. ACTIVATED CLOTTING TIME (ACT) 255(H) 74 - 125 SEC 08/09/2024 10:38 AM ANTHROPOLOGICAL LINGUIST [facility] FISH CUTTING MACHINE OPERATOR CODE [id number] 08/09/2024 10:38 AM ANTHROPOLOGICAL LINGUIST [facility] 08/09/2024 10:0 9 AM ANTHROPOLOGICAL LINGUIST us Dulce Collins MD POCT ORDERABLES - DEVICE Fin al Result [facility] [address] [place] [address], [place] [phone] * TYPE & SCREEN (08/09/2024 7:01 AM ANTHROPOLOGICAL LINGUIST) Only the most recent of2 resultswithin the time period is included. ABO/RH B POSITIVE 08/09/2024 7:45 AM ANTHROPOLOGICAL LINGUIST [facility] ANTIBODY SCREEN NEGATIVE 08/09/2024 7:49 AM ANTHROPOLOGICAL LINGUIST [facility] SAMPLE EXPIRATION 08/12/2024,2 359 08/09/2024 7:45 AM ANTHROPOLOGICAL LINGUIST [facility] 08/09/2024 7:01 AM ANTHROPOLOGICAL LINGUIST us Dulce Collins MD BLOOD BANK TEST ORDERABLES F inal Result Performing Organization Address [facility] Co de Phone Number [facility] [address] [place] [address], * (ABNORMAL) PROTHROMBIN TIME, VENOUS (07/30/2024 1:41 PM ANTHROPOLOGICAL LINGUIST) Only the most recent of5 resultswithin the time period is included. PROTIME 17.9(H) 10.2 - 12.9 SEC 07/30/2024 3:08 PM ANTHROPOLOGICAL LINGUIST [facility] INR 1.6 07/30/2024 3:08 PM [facility] Comment: Recommended INR Therapeutic Goals: 2.0-3.0 Routine Therapy 2.5-3.5 Mechanical Prosthetic Valves (High Risk) 07/30/2024 1:41 PM ANTHROPOLOGICAL LINGUIST Dulce Collins MD LABORATORY Final Result Performing Organization Address [facility] Co de Phone Number [facility] [address] [place] [address], * (ABNORMAL) BASIC METABOLIC PANEL (07/30/2024 1:41 PM ANTHROPOLOGICAL LINGUIST) Only the most recent of6 resultswithin the time period is included. GLUCOSE 139(H) 70 - 99 MG/DL 07/30/2024 3:00 PM ANTHROPOLOGICAL LINGUIST [facility] BUN 14 7 - 18 MG/DL 07/30/2024 3:00 PM [facility] CREATININE S/P/B 0.98 0.55 - 1.02 MG/DL 07/30/2024 3:00 PM [facility] SODIUM S/P/B 138 136 - 145 MMOL/L 07/30/2024 3:00 PM [facility] POTASSIUM S/P/B 3.7 3.5 - 5.1 MMOL/L 07/30/2024 3:00 PM [facility] CHLORIDE S/P/B 104 97 - 115 MMOL/L 07/30/2024 3:00 PM [facility] CO2 26.8 21 - 32 MMOL/L 07/30/2024 3:00 PM [facility] CALCIUM S/P/B 9.5 8.5 - 10.1 MG/DL 07/30/2024 3:00 PM [facility] ANION GAP 7.2 2 - 10 MMOL/L 07/30/2024 3:00 PM [facility] BUN CREATININE RATIO 14.3 6 - 26 07/30/2024 3:00 PM [facility] GFR ESTIMATE 61(L) >90 ML/MIN/1.7 3 M2 07/30/2024 3:00 PM [facility] Comment: NOTE: eGFR is not calculated for patients <18 years of age or gender unknown. This is an estimated GFR calculation using the new CKD EPI creatinine equation without race and so does not require a correction factor for race. This estimated GFR should not be used for calculating drug doses. 07/30/2024 1:41 PM ANTHROPOLOGICAL LINGUIST us Dulce Collins MD LABORATORY Final Result [facility] [address] [place] [address], [place] [phone] * (ABNORMAL) CBC W/DIFF AUTOMATED (07/30/2024 1:41 PM ANTHROPOLOGICAL LINGUIST) Only the most recent of8 resultswithin the time period is included. WBC 3.06(L) 4.5 - 11.0 x10'3/uL 07/30/2024 2:27 PM [facility] RBC 3.54(L) 4.20 - 5.40 x10'6/uL 07/30/2024 2:27 PM [facility] HGB 11.1(L) 12.0 - 16.0 G/DL 07/30/2024 2:27 PM [facility] HCT 34.9(L) 38.0 - 48.0 % 07/30/2024 2:27 PM [facility] MCV 98.6 81.0 - 99.0 FL 07/30/2024 2:27 PM [facility] MCH 31.4(H) 27.0 - 31.0 PG 07/30/2024 2:27 PM [facility] MCHC 31.8(L) 32.0 - 36.0 G/DL 07/30/2024 2:27 PM [facility] RDW 15.9(H) 11.5 - 14.5 % 07/30/2024 2:27 PM [facility] PLT 148 130 - 400 x10'3/uL 07/30/2024 2:27 PM [facility] MPV 9.0(L) 9.3 - 12.2 FL 07/30/2024 2:27 PM [facility] DIFFERENTIAL TYPE AUTOMATED DIFFERENTIAL 07/30/2024 2:27 PM [facility] NEUTROPHILS % 43.4 % 07/30/2024 2:27 PM [facility] LYMPHOCYTES % 46.1 % 07/30/2024 2:27 PM [facility] MONOCYTES % 8.8 % 07/30/2024 2:27 PM ANTHROPOLOGICAL LINGUIST [facility] EOSINOPHILS 0.7 % 07/30/2024 2:27 PM ANTHROPOLOGICAL LINGUIST [facility] BASOPHILS 0.3 % 07/30/2024 2:27 PM ANTHROPOLOGICAL LINGUIST [facility] IMMATURE GRANS % 0.7 % 07/30/19 2:27 PM ANTHROPOLOGICAL LINGUIST [facility] ABS. NEUTROPHILS 1.33(L) 1.80 - 7.70 x10'3/uL 07/30/2024 2:27 PM ANTHROPOLOGICAL LINGUIST [facility] ABS. LYMPHOCYTES 1.41 1.00 - 4.80 x10'3/uL 07/30/2024 2:27 PM ANTHROPOLOGICAL LINGUIST [facility] ABS. MONOCYTES 0.27 0.24 - 0.86 x10'3/uL 07/30/2024 2:27 PM ANTHROPOLOGICAL LINGUIST [facility] ABS. EOSINOPHILS 0.02(L) 0.04 - 0.36 x10'3/uL 07/30/2024 2:27 PM ANTHROPOLOGICAL LINGUIST [facility] ABS. BASOPHILS 0.01 0.01 - 0.08 x10'3/uL 07/30/2024 2:27 PM ANTHROPOLOGICAL LINGUIST [facility] ABS. IMMATURE GRANULOCYTES 0.02 0.00 - 0.49 x10'3/uL 07/30/2024 2:27 PM ANTHROPOLOGICAL LINGUIST [facility] 07/30/2024 1:41 PM ANTHROPOLOGICAL LINGUIST us Dulce Collins MD LABORATORY Final Result [facility] [address] [place] [address], * (ABNORMAL) TROPONIN, QUANT (07/24/2024 10:03 PM ANTHROPOLOGICAL LINGUIST) Only the most recent of5 resultswithin the time period is included. TROPONIN I HIGH SENSITIVITY 136(HH) <54 ng/L 07/24/2024 10:58 PM ANTHROPOLOGICAL LINGUIST [facility] Comment: NOT CALLED PER CRITICAL VALUE POLICY HIGH DOSES OF BIOTIN, TROPONIN-SPECIFIC AUTOANTIBODIES, AND ANTIBODY THERAPY CONTAINING HAMA MAY INTERFERE WITH THIS TEST RESULT. CORRELATION TO CLINICAL HISTORY AND PRESENTATION RECOMMENDED. 07/24/2024 10:0 3 PM ANTHROPOLOGICAL LINGUIST Juan Diego Santana DO LABORATORY Final Result [facility] [address] [place] [address], [place] [phone] * XR CHEST PORTABLE (07/24/2024 8:04 PM ANTHROPOLOGICAL LINGUIST) Only the most recent of2 resultswithin the time period is included. Anatomical Region Laterality Modality Chest Radiographic Yarely ging 07/24/2024 8:06 PM ANTHROPOLOGICAL LINGUIST Impressions 07/24/2024 8:08 PM ANTHROPOLOGICAL LINGUIST IMPRESSION: No acute chest disease identified. Referred By: Interpreted By: Jeffrey Gonsalez MD, 07/24/2024 8:06 PM Narrative 07/24/2024 8:08 PM ANTHROPOLOGICAL LINGUIST [facility] [address] [place], [place] [address] Examination: XR CHEST PORTABLE Exam time: 07/24/2024 7:51 PM Clinical history: INDIGESTION AND ELEVATED TROPONIN Comparison: Radiograph July 19, 2024. Technique: AP view of the chest. Findings: Monitoring device projects over the left heart border. The cardiomediastinal silhouette appears normal. There is no pulmonary consolidation, pleural effusion or pneumothorax. The pulmonary vasculature appears normal. Procedure Note Jeffrey Gonsalez MD - 07/24/2024 [facility] [address] [place], [place] [address] Examination: XR CHEST PORTABLE Exam time: 07/24/2024 7:51 PM Clinical history: INDIGESTION AND ELEVATED TROPONIN Comparison: Radiograph July 19, 2024. Technique: AP view of the chest. Findings: Monitoring device projects over the left heart border. Thecardiomediastinal silhouette appears normal. There is no pulmonaryconsolidation, pleural effusion or pneumothorax. The pulmonary vasculatureappears normal. IMPRESSION: No acute chest disease identified. Referred By: Interpreted By: Jeffrey Gonsalez MD, 07/24/2024 8:06 PM Juan Diego Santana DO GENERAL IMAGING Final Result * (ABNORMAL) COMPREHENSIVE METABOLIC PANEL (07/24/2024 6:49 PM ANTHROPOLOGICAL LINGUIST) Only the most recent of2 resultswithin the time period is included. GLUCOSE 179(H) 70 - 99 MG/DL 07/24/2024 7:26 PM [facility] BUN 17 7 - 18 MG/DL 07/24/2024 7:26 PM [facility] CREATININE S/P/B 1.19(H) 0.55 - 1.02 MG/DL 07/24/2024 7:26 PM [facility] SODIUM S/P/B 132(L) 136 - 145 MMOL/L 07/24/2024 7:26 PM [facility] POTASSIUM S/P/B 3.6 3.5 - 5.1 MMOL/L 07/24/2024 7:26 PM [facility] CHLORIDE S/P/B 100 97 - 115 MMOL/L 07/24/2024 7:26 PM [facility] CO2 26.8 21 - 32 MMOL/L 07/24/2024 7:26 PM [facility] [facility] CALCIUM S/P/B 9.5 8.5 - 10.1 MG/DL 07/24/2024 7:26 PM [facility] BILIRUBIN TOTAL S/P/B 0.9 0.2 - 1.2 MG/DL 07/24/2024 7:26 PM [facility] Comment: THIS ASSAY IS NOT RECOMMENDED FOR PATIENTS UNDERGOING TREATMENT WITH ELTROMBOPAG DUE TO THE POTENTIAL FOR FALSELY ELEVATED RESULTS. TOTAL PROTEIN S/P/B 7.6 6.4 - 8.2 G/DL 07/24/2024 7:26 PM [facility] ALBUMIN S/P/B 3.5 3.4 - 5.0 G/DL 07/24/2024 7:26 PM [facility] AST 19 15 - 37 U/L 07/24/2024 7:26 PM [facility] ALT 32 14 - 55 U/L 07/24/2024 7:26 PM [facility] ALKALINE PHOSPHATASE S/P/B 68 50 - 136 U/L 07/24/2024 7:26 PM [facility] ANION GAP 5.2 2 - 10 MMOL/L 07/24/2024 7:26 PM [facility] BUN CREATININE RATIO 14.3 6 - 26 07/24/2024 7:26 PM [facility] A/G RATIO 0.9(L) 1.0 - 2.0 RATIO 07/24/2024 7:26 PM [facility] GFR ESTIMATE 48(L) >90 ML/MIN/1.7 3 M2 07/24/2024 7:26 PM [facility] Comment: NOTE: eGFR is not calculated for patients <18 years of age or gender unknown. This is an estimated GFR calculation using the new CKD EPI creatinine equation without race and so does not require a correction factor for race. This estimated GFR should not be used for calculating drug doses. 07/24/2024 6:49 PM ANTHROPOLOGICAL LINGUIST [facility] Final Resul t Performing Organization Address City/[facility]/ZIP Co de Phone Number [facility] [address] [place] [address], [place] [phone] * LIPASE (07/24/2024 6:49 PM ANTHROPOLOGICAL LINGUIST) LIPASE 23 13 - 75 UNITS/L 07/24/2024 7:26 PM ANTHROPOLOGICAL LINGUIST [facility] 07/24/2024 6:49 PM ANTHROPOLOGICAL LINGUIST [facility] Final Resul t Performing Organization Address [facility] de Phone Number [facility] [address] [place] [address], [place] [phone] * XA LHC POSS (07/23/2024 1:31 PM ANTHROPOLOGICAL LINGUIST) Anatomical Region Laterality Modality Cardiac Associate Store Manager 07/23/2024 11:0 0 AM ANTHROPOLOGICAL LINGUIST Kinza Ash NP CONTAINER FILLER Final Result * NM PHARM NUC STRESS TEST 1 DAY W TRACING (07/21/2024 10:42 AM ANTHROPOLOGICAL LINGUIST) Anatomical Region Laterality Modality Cardiac Nuclear Medicine 07/21/2024 7:51 AM ANTHROPOLOGICAL LINGUIST Narrative 07/21/2024 11:28 AM ANTHROPOLOGICAL LINGUIST Myocardial Perfusion Imaging Pat.Name: KEVYN SMITH.ID: [id number] .Date: 07/21/2024 Refer.MD: Kem Yuen [id number] Exam Time: 7:51:00 AM Study Type:UMM NC HT MUSCLE IMAGE SPECT MULTI Height: 67 in Weight: 204 lb BSA: 2.04 m2 Age: 7 1950,74Y Sex: F Sonogrphr: Leopoldo Lundy, [facility]. Stat.:Inpatient Reason for Study:Jaw pain, History of MA History / Clinical:Atrial fibrillation, Diabetes, Dyslipidemia, Hypertension Procedures: Nuclear Stress Test with Lexiscan Race: W Surgery: Echocardiogram, Ablation ++++++++++++++++++++++++++++++++++++ SUMMARY: ++++++++++++++++++++++++++++++++++++ Stress conclusion: 1. Clinically positive for worsening headache, abdominal pain, lightheadedness 2. Electrocardiographically negative stress test for ischemia. 3. Scintigraphic images to follow. Perfusion conclusion: 1. Good study quality. Resting and stress motion correction was applied to images. No attenuation is noted. Prone imaging was performed. 2. Mildly abnormal myocardial perfusion SPECT imaging. Images show a small area of reversibility present in the basal and mid inferior wall(s). 3. Normal wall motion with an ejection fraction of 50%. 4. Stress test with myocardial perfusion imaging shows overall low risk for a cardiac event. ++++++++++++++++++++++++++++++++++++ FINDINGS: ++++++++++++++++++++++++++++++++++++ Protocol: Lexiscan 0.4mg was given as a rapid injection IV over a period of 10 seconds with the radiopharmaceutical injected at 20 seconds. The images were processed using the standard SPECT technique. A gated study was performed on the stress images. Impression: SPECT images demonstrate a small reversible perfusion abnormality present in the basal and mid inferior region(s) of mild intensity. Heart Size: The left ventricle is normal. LV Wall Motion: The LVEF is calculated to be 50%. Gated SPECT images reveal normal wall motion. Transient Ischemic Dilatation: The TID is 1.11. There is no evidence of Transient Ischemic Dilatation. ++++++++++++++++++++++++++++++++++++ STRESS: ++++++++++++++++++++++++++++++++++++ Baseline Vital Signs: ECG: Normal sinus rhythm, Non-specific T wave abnormality HR: 80 bmp Rest BP: 148/62 Regadenoson Peak Dose: 0.4 mg Stress Test Results: Max HR: 109 bmp Target HR: 146 bmp % Target: 75 % Max BP: 155/67 Max RPP: [id number] O2 sat: 100 % Symptoms and Complications: Terminated: Protocol completed Symptoms: Abdominal pain, Headache Complications: None Stress ECG Interp: No significant changes <Electronic Signature> 07/21/2024 11:28 AM Sobia Hannon M.D. Procedure Note Sobia Hannon MD - 07/21/2024 Myocardial Perfusion Imaging Pat.Name: KEVYN SMITH Pat.ID: [id number] .Date: 07/21/2024 Refer.MD: Kem Yuen [id number] Exam Time: 7:51:00 AM Study Type:UMM NC HT MUSCLE IMAGE SPECT MULTI Height: 67 in Weight: 204 lb BSA: 2.04 m2 Age: 7 1950,74Y Sex: F Sonogrphr: DARELL Arrington Pat. Stat.:Inpatient Reason for Study:Jaw pain, History of MA History / Clinical:Atrial fibrillation, Diabetes, Dyslipidemia, Hypertension Procedures: Nuclear Stress Test with Lexiscan Race: W Surgery: Echocardiogram, Ablation ++++++++++++++++++++++++++++++++++++ SUMMARY: ++++++++++++++++++++++++++++++++++++ Stress conclusion: 1. Clinically positive for worsening headache, abdominal pain, lightheadedness 2. Electrocardiographically negative stress test for ischemia. 3. Scintigraphic images to follow. Perfusion conclusion: 1. Good study quality. Resting and stress motion correction was applied to images. No attenuation is noted. Prone imaging was performed. 2. Mildly abnormal myocardial perfusion SPECT imaging. Images show a small area of reversibility present in the basal and mid inferior wall(s). 3. Normal wall motion with an ejection fraction of 50%. 4. Stress test with myocardial perfusion imaging shows overall low risk for a cardiac event. ++++++++++++++++++++++++++++++++++++ FINDINGS: ++++++++++++++++++++++++++++++++++++ Protocol: Lexiscan 0.4mg was given as a rapid injection IV over a period of 10 seconds with the radiopharmaceutical injected at 20 seconds. The images were processed using the standard SPECT technique. A gated study was performed on the stress images. Impression: SPECT images demonstrate a small reversible perfusion abnormality present in the basal and mid inferior region(s) of mild intensity. Heart Size: The left ventricle is normal. LV Wall Motion: The LVEF is calculated to be 50%. Gated SPECT images reveal normal wall motion. Transient Ischemic Dilatation: The TID is 1.11. There is no evidence of Transient Ischemic Dilatation. ++++++++++++++++++++++++++++++++++++ STRESS: ++++++++++++++++++++++++++++++++++++ Baseline Vital Signs: ECG: Normal sinus rhythm, Non-specific T wave abnormality HR: 80 bmp Rest BP: 148/62 Regadenoson Peak Dose: 0.4 mg Stress Test Results: Max HR: 109 bmp Target HR: 146 bmp % Target: 75 % Max BP: 155/67 Max RPP: [id number] O2 sat: 100 % Symptoms and Complications: Terminated: Protocol completed Symptoms: Abdominal pain, Headache Complications: None Stress ECG Interp: No significant changes <Electronic Signature> 07/21/2024 11:28 AM Sobia Hannon M.D. us Kem Yuen MD NUC MED Final Resul t * USE ECHOCARDIOGRAM W CON (07/20/2024 3:02 PM ANTHROPOLOGICAL LINGUIST) Anatomical Region Laterality Modality NA Echocardiogram 07/20/2024 2:03 PM ANTHROPOLOGICAL LINGUIST Narrative 07/20/2024 11:59 PM ANTHROPOLOGICAL LINGUIST Echocardiography Report Pat.Name: KEVYN SMITH Pat.ID: [id number] .Date: 07/20/2024 Refer.MD: KEM YUEN Exam Time: 2:03:00 PM Study Type:ECHO WITH CARDIAC DOPPLER COMP Height: 67 in Weight: 206 lb BSA: 2.05 m2 Age: 7 1950,74Y Sex: F BP: 139/60 HR: 73 bpm Sonogrphr: Janett Viera [facility] Pat. Stat.:Inpatient Room: 411 Reason for Study:elevated troponin,hx of Afib and SVT Procedures: 2D, M-mode, Doppler, Color Flow, Definity was used to enhance endocardial definition. The study quality is technically difficult. Race: W ++++++++++++++++++++++++++++++++++++ SUMMARY: ++++++++++++++++++++++++++++++++++++ Left ventricle is normal in size and systolic function Estimated EF of 65-70% Diastolic dysfunction Right ventricle is normal in size and systolic function No significant valve dysfunction Normal estimated pulmonary pressures. ++++++++++++++++++++++++++++++++++++ FINDINGS: ++++++++++++++++++++++++++++++++++++ LV: The left ventricular size is normal. The left ventricular systolic function is normal. Estimated left ventricular ejection fraction is 65-70%. There is no left ventricular hypertrophy. Left ventricular diastolic function is abnormal (grade 1 - impaired relaxation). WM: Wall motion appears normal in all segments. RV: The right ventricular size is normal. Right ventricular systolic function is normal. IVS: No evidence of ventricular septal defect. LA: The left atrial size is normal. The left atrial volume is normal ( less than 34 ml/M2). RA: Right atrial size is normal. IAS: Atrial septum appears intact. PABLITO: No evidence of pericardial effusion. AO: Normal aortic root. AV: The aortic valve is trileaflet. No evidence of aortic valve stenosis. No evidence of aortic regurgitation. MV: Structurally normal mitral valve. No evidence of mitral regurgitation. No evidence of mitral valve stenosis. PV: Trace pulmonic regurgitation. No evidence of pulmonic valve stenosis. TV: A trace of tricuspid regurgitation. Right ventricular systolic pressure is <30 mmHg. No evidence of tricuspid valve stenosis. ++++++++++++++++++++++++++++++++++++ MEASUREMENTS: ++++++++++++++++++++++++++++++++++++ DOPPLER LVOT LVOTpkPG 6 mmHg LVOTmnPG 3 mmHg LVOTpkVel 122 cm/s (70-110)+* LVOT SV 76 ml LVOT TVI 24.3 cm Pulmonary Veins PVnpkVeld 53.8 cm/s PVnVs/Vd 1.5 PVnpkVels 83.3 cm/s PVn A Dur 137 msec AV Forward Flow AV TVI 34.4 cm AV pkPG 12 mmHg AV pkVel 171 cm/s (100-170)+* Area (TVI) 2.22 cm2 (3-5)* AV mnPG 7 mmHg Area (Gonzalo) 2.24 cm2 (3-5)* MV Forward Flow MV DeTm 211 msec MV pkE 95.4 cm/s (60-130) MV E/A 0.8 MV pkA 118 cm/s PV Forward Flow PV pkVel 104 cm/s (60-90)+* PV AC 64 msec PV pkPG 4 mmHg TV Regurg Flow TV pkPG 31 mmHg TV pkVel 277 cm/s (30-70)* TV Forward Flow TV pkE 69 cm/s Lat E' Lat e 11.6 cm/s Lat E/E' Lat E/e 8.2 Med E' Med e 7.18 cm/s Med E/E' Med E/e 13.3 Aortic Valve Aortic Valve Ar 1.08 Aortic Valve Ve 0.71 PV Antegrade Flow Acceleration Sl 1343 cm/s2 Right Atrium Bustos's Disk 20 Right Ventricle Right Ventricle 19.6 cm/s 2D Left Ventricle LVIDd 4.58 cm (3.6-5.2) LV ESV 22 ml LVIDs 3.13 cm (2.3-3.9) LV ESV 22.9 ml LngAxd 7.19 cm LVESV BP 22.8 ml LngAxd 7.17 cm LV EF 65.5 % LV EDV 63.6 ml LV EF 70.8 % LV EDV 78.5 ml LV EF BP 67.8 % LVEDV BP 70.7 ml LV SV 41.7 ml LngAxs 5.65 cm LV SV 55.6 ml LngAxs 5.84 cm LV SV BP 47.9 ml LVPW LVPWd 0.881 cm Right Ventricle RVIDd 2.86 cm (2.6-4.3) Right Ventricle 27 mm Right Ventricle 28.9 mm Right and Left 0.624 [place] 69.3 mm Ventricular Septum IVSd 0.846 cm Left Atrium LA VOLBP 35.7 ml Aorta Ao Rtd 3 cm (zsc 0.3) LVOT LVOT 2 cm LVOTArea 3.14 cm2 Ratios IVS LA Biplane LAVol I BP 17.4 ml/m2 RA Single Plane Right Atrium MO 9.72 mm Right Atrium Sy 30 ml Right Atrium Sy 47.4 mm Right Atrium Sy 14.6 ml/m2 Right Atrium Sy 13.1 cm2 MMODE Ratios LA/Ao 1.46 (0.87-1.1)* Aorta Ao Rt 2.8 cm (2-3.7) Left Atrium LAIDs 4.1 cm TA Tricuspid Annul 22.2 mm <Electronic Signature> 07/20/2024 11:59 PM Kem Yuen M.D. Procedure Note Kem Yuen MD - 07/21/2024 Echocardiography Report Pat.Name: KEVYN SMITH Pat.ID: [id number] .Date: 07/20/2024 Refer.MD: KEM YUEN Exam Time: 2:03:00 PM Study Type:ECHO WITH CARDIAC DOPPLER COMP Height: 67 in Weight: 206 lb BSA: 2.05 m2 Age: 7 1950,74Y Sex: F BP: 139/60 HR: 73 bpm Sonogrphr: Janett Viera [facility] Pat. Stat.:Inpatient Room: 411 Reason for Study:elevated troponin,hx of Afib and SVT Procedures: 2D, M-mode, Doppler, Color Flow, Definity was used to enhance endocardial definition. The study quality is technically difficult. Race: W ++++++++++++++++++++++++++++++++++++ SUMMARY: ++++++++++++++++++++++++++++++++++++ Left ventricle is normal in size and systolic function Estimated EF of 65-70% Diastolic dysfunction Right ventricle is normal in size and systolic function No significant valve dysfunction Normal estimated pulmonary pressures. ++++++++++++++++++++++++++++++++++++ FINDINGS: ++++++++++++++++++++++++++++++++++++ LV: The left ventricular size is normal. The left ventricular systolic function is normal. Estimated left ventricular ejection fraction is 65-70%. There is no left ventricular hypertrophy. Left ventricular diastolic function is abnormal (grade 1 - impaired relaxation). WM: Wall motion appears normal in all segments. RV: The right ventricular size is normal. Right ventricular systolic function is normal. IVS: No evidence of ventricular septal defect. LA: The left atrial size is normal. The left atrial volume is normal ( less than 34 ml/M2). RA: Right atrial size is normal. IAS: Atrial septum appears intact. PABLITO: No evidence of pericardial effusion. AO: Normal aortic root. AV: The aortic valve is trileaflet. No evidence of aortic valve stenosis. No evidence of aortic regurgitation. MV: Structurally normal mitral valve. No evidence of mitral regurgitation. No evidence of mitral valve stenosis. PV: Trace pulmonic regurgitation. No evidence of pulmonic valve stenosis. TV: A trace of tricuspid regurgitation. Right ventricular systolic pressure is <30 mmHg. No evidence of tricuspid valve stenosis. ++++++++++++++++++++++++++++++++++++ MEASUREMENTS: ++++++++++++++++++++++++++++++++++++ DOPPLER LVOT LVOTpkPG 6 mmHg LVOTmnPG 3 mmHg LVOTpkVel 122 cm/s (70-110)+* LVOT SV 76 ml LVOT TVI 24.3 cm Pulmonary Veins PVnpkVeld 53.8 cm/s PVnVs/Vd 1.5 PVnpkVels 83.3 cm/s PVn A Dur 137 msec AV Forward Flow AV TVI 34.4 cm AV pkPG 12 mmHg AV pkVel 171 cm/s (100-170)+* Area (TVI) 2.22 cm2 (3-5)* AV mnPG 7 mmHg Area (Gonzalo) 2.24 cm2 (3-5)* MV Forward Flow MV DeTm 211 msec MV pkE 95.4 cm/s (60-130) MV E/A 0.8 MV pkA 118 cm/s PV Forward Flow PV pkVel 104 cm/s (60-90)+* PV AC 64 msec PV pkPG 4 mmHg TV Regurg Flow TV pkPG 31 mmHg TV pkVel 277 cm/s (30-70)* TV Forward Flow TV pkE 69 cm/s Lat E' Lat e 11.6 cm/s Lat E/E' Lat E/e 8.2 Med E' Med e 7.18 cm/s Med E/E' Med E/e 13.3 Aortic Valve Aortic Valve Ar 1.08 Aortic Valve Ve 0.71 PV Antegrade Flow Acceleration Sl 1343 cm/s2 Right Atrium Bustos's Disk 20 Right Ventricle Right Ventricle 19.6 cm/s 2D Left Ventricle LVIDd 4.58 cm (3.6-5.2) LV ESV 22 ml LVIDs 3.13 cm (2.3-3.9) LV ESV 22.9 ml LngAxd 7.19 cm LVESV BP 22.8 ml LngAxd 7.17 cm LV EF 65.5 % LV EDV 63.6 ml LV EF 70.8 % LV EDV 78.5 ml LV EF BP 67.8 % LVEDV BP 70.7 ml LV SV 41.7 ml LngAxs 5.65 cm LV SV 55.6 ml LngAxs 5.84 cm LV SV BP 47.9 ml LVPW LVPWd 0.881 cm Right Ventricle RVIDd 2.86 cm (2.6-4.3) Right Ventricle 27 mm Right Ventricle 28.9 mm Right and Left 0.624 [place] 69.3 mm Ventricular Septum IVSd 0.846 cm Left Atrium LA VOLBP 35.7 ml Aorta Ao Rtd 3 cm (zsc 0.3) LVOT LVOT 2 cm LVOTArea 3.14 cm2 Ratios IVS LA Biplane LAVol I BP 17.4 ml/m2 RA Single Plane Right Atrium MO 9.72 mm Right Atrium Sy 30 ml Right Atrium Sy 47.4 mm Right Atrium Sy 14.6 ml/m2 Right Atrium Sy 13.1 cm2 MMODE Ratios LA/Ao 1.46 (0.87-1.1)* Aorta Ao Rt 2.8 cm (2-3.7) Left Atrium LAIDs 4.1 cm TA Tricuspid Annul 22.2 mm <Electronic Signature> 07/20/2024 11:59 PM Kem Yuen M.D. Kem Yuen MD ECHO Final Resul t * (ABNORMAL) HEMOGLOBIN, GLYCOSYLATED (07/20/2024 6:59 AM ANTHROPOLOGICAL LINGUIST) HGB A1C 7.1(H) <5.7 % 07/20/2024 9:59 AM ANTHROPOLOGICAL LINGUIST [facility] Comment: ADA GUIDELINES 2010 5.7 TO 6.4% INCREASED RISK OF DIABETES > OR = 6.5% CONSISTENT WITH DIABETES ESTIMATED AVG GLUCOSE 157 mg/dL 07/20/2024 9:59 AM ANTHROPOLOGICAL LINGUIST [facility] 07/20/2024 6:59 AM ANTHROPOLOGICAL LINGUIST us Montse Mike MD LABORATORY Final Resu lt [facility] [address] [place] [address], [place] [phone] * (ABNORMAL) SED RATE, ERYTHROCYTE (ESR) (07/20/2024 6:59 AM ANTHROPOLOGICAL LINGUIST) ESR 31(H) <30 MM/HR 07/20/2024 12:46 PM ANTHROPOLOGICAL LINGUIST [facility] Comment:Testing performed on Reji iSCOLBY. 07/20/2024 6:59 AM ANTHROPOLOGICAL LINGUIST Dulce Collins MD LABORATORY Final Result [facility] [address] [place] [address], [place] [phone] * (ABNORMAL) LIPID PANEL (07/20/2024 6:59 AM ANTHROPOLOGICAL LINGUIST) CHOLESTEROL 171 <200 MG/DL 07/20/2024 7:41 AM [facility] TRIGLYCERIDES 351(H) <150 MG/DL 07/20/2024 7:41 AM [facility] HDL 50 >40.0 MG/DL 07/20/2024 7:41 AM [facility] LDL (CALCULATED) 51 <100 MG/DL 07/20/2024 7:41 AM [facility] NON HDL CHOLESTEROL 121 <130 MG/DL 07/20/2024 7:41 AM [facility] CHOL/HDL RATIO 3.4 0.0 - 4.5 07/20/2024 7:41 AM [facility] VLDL CALCULATION 70(H) 5 - 55 MG/DL 07/20/2024 7:41 AM [facility] LIPID INTERPRETATION 07/20/2024 7:41 AM [facility] Comment: [facility] CONCENSUS REPORT RECOMMENDATIONS: ADULT CHILD LOW RISK: CHOLESTEROL <200 <170 TRIGLYCERIDE <150 --- HDL >=60 --- LDL <100 <110 BORDERLINE: CHOLESTEROL 200-239 170-199 TRIGLYCERIDE 150-199 --- HDL 40-59 --- LDL 100-159 110-129 HIGH RISK: CHOLESTEROL >=240 >=200 TRIGLYCERIDE >=200 --- HDL <40 --- LDL >=160 >=130 07/20/2024 6:59 AM ANTHROPOLOGICAL LINGUIST Montse Mike MD LABORATORY Final Resu lt Performing Organization Address City/[facility]/ZIP Co de Phone Number [facility] [address] [place] [address], [place] [phone] * (ABNORMAL) C-REACTIVE PROTEIN (07/20/2024 6:59 AM ANTHROPOLOGICAL LINGUIST) C-REACTIVE PROTEIN 0.33(H) <0.29 mg/dL 07/20/2024 12:50 PM ANTHROPOLOGICAL LINGUIST [facility] 07/20/2024 6:59 AM ANTHROPOLOGICAL LINGUIST Dulce Collins MD LABORATORY Final Result Performing Organization Address [facility] de Phone Number [facility] [address] [place] [address], [place] [phone] * (ABNORMAL) MAGNESIUM (07/19/2024 2:58 PM ANTHROPOLOGICAL LINGUIST) MAGNESIUM 1.7(L) 1.8 - 2.4 MG/DL 07/19/2024 3:36 PM ANTHROPOLOGICAL LINGUIST [facility] Comment:SLIGHT HEMOLYSIS, RE SULT MAY BE AFFECTED. 07/19/2024 2:58 PM ANTHROPOLOGICAL LINGUIST Kisha Davidson NP LABORATORY Final Result Performing Organization Address [facility] Co de Phone Number [facility] [address] [place] [address], [place] [phone] * CT HEAD WO CON (07/19/2024 11:56 AM ANTHROPOLOGICAL LINGUIST) Anatomical Region Laterality Modality Head Computed Tomogra phy 07/19/2024 12:1 8 PM ANTHROPOLOGICAL LINGUIST Impressions 07/19/2024 12:20 PM ANTHROPOLOGICAL LINGUIST IMPRESSION: 1. No CT evidence of an acute intracranial abnormality. 2. Moderate global cerebral volume loss. Ordered By: KISHA DAVIDSON Interpreted By: Vladimir Baxter MD, 07/19/2024 12:18 PM Narrative 07/19/2024 12:20 PM ANTHROPOLOGICAL LINGUIST [address] [address] EXAMINATION: CT of the head without contrast EXAM DATE/TIME: 07/19/2024 11:54 AM REASON FOR EXAM: headaches COMPARISON: CT head 07/28/2023 TECHNIQUE: Noncontrast CT examination of the head was performed with axial images obtained. Additional coronal and sagittal reformatted images were generated at a separate workstation. A dose lowering technique was used for this procedure, which may include, but is not limited to, dose reduction technique, automated exposure control, iterative reconstruction, ALARA (As Low As Reasonably Achievable), or Image Gently techniques. FINDINGS: There is no acute intracranial hemorrhage. There is no extra-axial fluid collection. Preserved rodney-white matter differentiation. Moderate global cerebral volume loss with ex vacuo dilatation of ventricles and cerebral sulci. Tiny hyperdensity involving the septum pellucidum near the foramen of Monro (best seen on series 2 image 26) which may represent a minimal colloid cyst and/or mineralization, similar to the prior CT head examination from 07/28/2023. Basal cisterns appear normal. Mild to moderate arteriosclerotic calcification the cavernous segments of the internal carotid arteries bilaterally. Prior bilateral ocular lens extractions with prosthetic lens implantation. Paranasal sinuses and mastoid air cells are well aerated. There is no acute fracture nor destructive process of the visualized osseous structures. Mild hyperostosis frontalis internus. Procedure Note Vladimir Baxter MD - 07/19/[address] [address] EXAMINATION: CT of the head without contrast EXAM DATE/TIME: 07/19/2024 11:54 AM REASON FOR EXAM: headaches COMPARISON: CT head 07/28/2023 TECHNIQUE: Noncontrast CT examination of the head was performed with axialimages obtained. Additional coronal and sagittal reformatted images weregenerated at a separate workstation. A dose lowering technique was usedfor this procedure, which may include, but is not limited to, dosereduction technique, automated exposure control, iterative reconstruction,ALARA (As Low As Reasonably Achievable), or Image Gently techniques. FINDINGS: There is no acute intracranial hemorrhage. There is noextra-axial fluid collection. Preserved rodney-white matter differentiation.Moderate global cerebral volume loss with ex vacuo dilatation ofventricles and cerebral sulci. Tiny hyperdensity involving the septumpellucidum near the foramen of Monro (best seen on series 2 image 26)which may represent a minimal colloid cyst and/or mineralization, similarto the prior CT head examination from 07/28/2023. Basal cisterns appearnormal. Mild to moderate arteriosclerotic calcification the cavernoussegments of the internal carotid arteries bilaterally. Prior bilateralocular lens extractions with prosthetic lens implantation. Paranasalsinuses and mastoid air cells are well aerated. There is no acute fracturenor destructive process of the visualized osseous structures. Mildhyperostosis frontalis internus. IMPRESSION: 1. No CT evidence of an acute intracranial abnormality. 2. Moderate global cerebral volume loss. Ordered By: KISHA DAVIDSON Interpreted By: Vladimir Baxter MD, 07/19/2024 12:18 PM Kisha Davidson WIND TUNNEL TECHNICIAN CT Final Result * (ABNORMAL) PARTIAL THROMBOPLASTIN TIME,PTT (07/19/2024 11:45 AM ANTHROPOLOGICAL LINGUIST) PTT 36.9(H) 25.1 - 36.5 SEC 07/19/2024 12:23 PM ANTHROPOLOGICAL LINGUIST [facility] 07/19/2024 11:4 5 AM ANTHROPOLOGICAL LINGUIST Kisha Davidson NP LABORATORY Final Result Performing Organization Address [facility]/ZIP Co de Phone Number [facility] [address] [place] [address], * CORONAVIRUS (COVID 19) (07/19/2024 11:39 AM ANTHROPOLOGICAL LINGUIST) CORONAVIRUS SARS COV 2 RNA NEGATIVE NEGATIVE 07/19/2024 12:13 PM ANTHROPOLOGICAL LINGUIST [facility] Comment: NEGATIVE RESULTS DO NOT RULE OUT COVID 19 AND SHOULD NOT BE USED THE SOLE BASIS FOR TREATMENT OR PATIENT MANAGEMENT DECISIONS, INCLUDING INFECTION CONTROL DECISIONS. NEGATIVE RESULTS SHOULD BE CONSIDERED IN THE CONTEXT OF A PATIENT'S RECENT EXPOSURES, HISTORY AND THE PRESENCE OF CLINICAL SIGNS AND SYMPTOMS CONSISTENT WITH COVID 19. THE ID NOW COVID-19 2.0 TEST HAS BEEN AUTHORIZED BY THE FDA UNDER EAU FOR USE BY AUTHORIZED LABORATORIES. PERFORMED BY NUCLEIC ACID AMPLIFICATION FOR MOLECULAR QUALITATIVE DETECTION OF SARS-COV-2. SPECIMEN TYPE NASAL 07/19/2024 11:46 AM ANTHROPOLOGICAL LINGUIST [facility] NASAL STRUCTURE / Unknown 07/19/2024 11:39 AM ANTHROPOLOGICAL LINGUIST us Kisha Davidson NP MICROBIOLOGY - GENERAL ORDERAB LES Final Result [facility] [address] [place] [address], [place] [phone] * BONE DENSITY/DEXA (09/27/2022 9:58 AM CDT) Anatomical Region Laterality Modality Bone Mammography 09/27/2022 10:3 7 AM CDT Impressions 09/27/2022 10:38 AM CDT IMPRESSION: WHO Classification: osteoporosis. FRAX Score: 3.7% chance of hip fracture and 14% chance of major osteoporotic fracture over the next 10 years Ordered By: AZUL BRITTON Interpreted By: Jose Carlos Alcantara MD, 09/27/2022 10:37 AM Narrative 09/27/2022 10:38 AM CDT Examination: Bone Density Axial Exam Date/Time: 09/27/2022 9:32 AM Reason For Exam: screening Osteoporosis Comparison: None Findings: DEXA bone densitometry The bone mineral density (BMD) was determined by dual-energy x-ray absorptiometry, the results are as follows: AP Lumbar Spine L1 through L4 BMD Patient (GM/SQCM): 0.859 T-Score (Standard deviations from young adult peak bone density): -1.7 Right femoral neck: BMD Patient (GM/SQCM): 0.565 T-Score (Standard deviations from young adult peak bone density): -2.6 Total right femur: BMD Patient (GM/SQCM): 0.781 T-Score (Standard deviations from young adult peak bone density): -1.3 Procedure Note Jose Carlos Alcantara MD - 09/27/2022 Examination: Bone Density Axial Exam Date/Time: 09/27/2022 9:32 AM Reason For Exam: screening Osteoporosis Comparison: None Findings: DEXA bone densitometry The bone mineral density (BMD) was determined bydual-energy x-ray absorptiometry, the results are as follows: AP Lumbar Spine L1 through L4 BMD Patient (GM/SQCM): 0.859 T-Score (Standard deviations from young adult peak bonedensity): -1.7 Right femoral neck: BMD Patient (GM/SQCM): 0.565 T-Score (Standard deviations from young adult peak bonedensity): -2.6 Total right femur: BMD Patient (GM/SQCM): 0.781 T-Score (Standard deviations from young adult peak bonedensity): -1.3 IMPRESSION: WHO Classification: osteoporosis. FRAX Score: 3.7% chance of hip fracture and 14% chance of majorosteoporotic fracture over the next 10 years Ordered By: AZUL BRITTON Interpreted By: Jose Carlos Alcantara MD, 09/27/2022 10:37 AM us Azul Britton MD DEXA Final Res ult * OCCULT BLOOD, FECES (10/28/2021 9:55 AM CDT) OCCULT BLOOD FECAL POSITIVE 10/28/2021 10:02 AM CDT [facility] STOOL SPECIMEN / Unknown 10/28/2021 9:55 AM CDT us Montana Reed MD BODY FLUIDS AND STOOLS ORDERAB LES Final Result [facility] [address] [place] [address], [place] [phone] from Last 3 Months or Most Recently Relevant to Health Maintenance Insurance [employer] Advance Directives Documents on File Type Date Recorded 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 Advance Directives and Livin g Will 01/17/2024 10:48 AM Advance Directives and Livin g Will 10/15/2018 12:00 AM LIVING WILL Advance Directives and Livin g Will 06/06/2018 12:00 AM LIVING WILL Advance Directives and Livin g Will 06/06/2018 12:00 AM LIVING WILL Advance Directives and Livin g Will 05/25/2018 12:00 AM LIVING WILL Advance Directives and Livin g Will 05/25/2018 12:00 AM LIVING WILL Advance Directives and Livin g Will 03/06/2018 12:00 AM LIVING WILL Advance Directives and Livin g Will 03/06/2018 12:00 AM LIVING WILL Advance Directives and Livin g Will 11/29/2017 12:00 AM LIVING WILL Advance Directives and Livin g Will 11/29/2017 12:00 AM LIVING WILL Advance Directives and Livin g Will 08/10/2017 12:00 AM LIVING WILL Advance Directives and Livin g Will 08/10/2017 12:00 AM LIVING WILL Advance Directives and Livin g Will 08/08/2017 12:00 AM LIVING WILL Advance Directives and Livin g Will 08/08/2017 12:00 AM LIVING WILL Advance Directives and Livin g Will 07/20/2017 12:00 AM LIVING WILL Advance Directives and Livin g Will 07/20/2017 12:00 AM LIVING WILL Advance Directives and Livin g Will 05/03/2017 12:00 AM LIVING WILL Advance Directives and Livin g Will 05/03/2017 12:00 AM LIVING WILL Advance Directives and Livin g Will 03/28/2017 12:00 AM LIVING WILL Advance Directives and Livin g Will 03/28/2017 12:00 AM LIVING WILL Advance Directives and Livin g Will 02/08/2017 12:00 AM LIVING WILL Advance Directives and Livin g Will 02/08/2017 12:00 AM LIVING WILL Advance Directives and Livin g Will 02/01/2017 12:00 AM LIVING WILL Advance Directives and Livin g Will 02/01/2017 12:00 AM LIVING WILL Advance Directives and Livin g Will 01/28/2017 12:00 AM LIVING WILL Advance Directives and Livin g Will 01/28/2017 12:00 AM LIVING WILL Advance Directives and Livin g Will 01/13/2017 12:00 AM LIVING WILL Advance Directives and Livin g Will 01/13/2017 12:00 AM LIVING WILL Advance Directives and Livin g Will 01/10/2017 12:00 AM LIVING WILL Advance Directives and Livin g Will 01/10/2017 12:00 AM LIVING WILL Advance Directives and Livin g Will 01/03/2017 12:00 AM LIVING WILL Advance Directives and Livin g Will 01/03/2017 12:00 AM LIVING WILL Advance Directives and Livin g Will 12/30/2016 12:00 AM LIVING WILL Advance Directives and Livin g Will 12/30/2016 12:00 AM LIVING WILL Advance Directives and Livin g Will 12/30/2016 12:00 AM LIVING WILL Advance Directives and Livin g Will 12/30/2016 12:00 AM LIVING WILL Advance Directives and Livin g Will 12/28/2016 12:00 AM LIVING WILL Advance Directives and Livin g Will 12/28/2016 12:00 AM LIVING WILL Advance Directives and Livin g Will 12/14/2016 12:00 AM LIVING WILL Advance Directives and Livin g Will 12/14/2016 12:00 AM LIVING WILL Advance Directives and Livin g Will 06/04/2016 12:00 AM LIVING WILL Advance Directives and Livin g Will 06/04/2016 12:00 AM LIVING WILL Advance Directives and Livin g Will 04/01/2016 12:00 AM LIVING WILL Advance Directives and Livin g Will 04/01/2016 12:00 AM LIVING WILL * Full Code (Latest Code Status on File) Date Activated Date Inactivated Comments 08/09/2024 11:01 AM 08/09/2024 7:28 PM * Full Code Date Activated Date Inactivated Comments 07/23/2024 1:49 PM 07/24/2024 2:48 PM * Full Code Date Activated Date Inactivated Comments 07/20/2024 12:33 PM 07/23/2024 1:49 PM * Full Code Date Activated Date Inactivated Comments 07/19/2024 5:06 PM 07/20/2024 12:33 PM * Full Code Date Activated Date Inactivated Comments 08/15/2023 1:26 PM 08/16/2023 5:10 PM Care Teams Sewing Demonstrator Relationship Specialty Start Date End Date Hayder Zepeda MD PCP - General INTERNAL MEDICINE 01/19/17 Kem Yuen MD [address] [address] [employer] Controller CARDIOVASCULAR DISEASE 02/08/17
--- OUTSIDE RECORDS SUMMARY | 2024-10-09 15:50 | XMS_ITS | Continuity of Care Document ---
Author Organization [facility] Address [address] [place] [address] [place] [address] Phone Care Team Providers Care Tactical Air Control Party Manager Name Role Phone [facility] Unavailable Unavail able Sickage, Shweta Unavailable Unavailable Advance Directives Directive Yes / No Effective Date File Name No Information Encounters Encounter Description Practice Location Reason(s) For Visit Diagnoses Date Provider Providers Copied on Encounter [facility], [address], [place], [place], [id number], [place] tel:[phone] [facility] No Information [facility] [address] [facility], [address], [place], [place], [id number] , [place]. tel:[phone] Referring Provider: Anam Scales, [address] [facility] [address], [place], [address]. tel:[phone] sulting Provider: Shweta Sanchez, [address] [place] [address], [address]. tel:[phone] Family History Family Member Type Diagnosis Age At Onset No Information Payers Payer name Insurance type Covered libertarian ID Authoriza tion(s) No Information Social History Type Description Quantity Date Captured Comments Sex Female Smoking Status No Information Chief Complaint And Reason For Visit No Information Reason For Referral Reason For Referral No Information History Of Present Illness Encounter Date Complaint History Of Prese nt Illness No Information Functional Status Date Functional Assessmen t No Information Instructions Date Instruction Additional Infor mation No Information Assessments Type Assessment Date No Information Patient Care Teams Name Effective Dates (start - stop) Status Members No Information
--- OUTSIDE RECORDS SUMMARY | 2024-10-09 15:50 | XMS_ITS ---
Author Organization [facility] Address [address] [place] [address] Care Team Providers Care Hadoop Engineer Name Role Phone Hayder Zepeda MD Primary Care Provider [phone] Boaz Gilliam MD Unavailable [phone] Patrick Valverde MD PhD Unavailable Active Problems Problem Noted Date Diagnosed Date Non-recurrent acute serous otitis media of left ear 06/14/2024 Assessment & Plan (06/14/2024 4:26 PM CAPITAL EQUIPMENT SPECIALIST): We did a myringotomy today on the [...] 06/14/2024 Assessment & Plan (06/14/2024 4:26 PM CAPITAL EQUIPMENT SPECIALIST): She does have some high-frequency sensorineural hearing [...] on exertion 10/16/2018 Atypical chest pain 10/15/2018 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 No medications scheduled. Past Treatment and Therapy Plans No past plan information found.
--- OUTSIDE RECORDS SUMMARY | 2024-10-09 15:50 | XMS_ITS | Encounter Summary ---
Author Organization [facility] Address [address] [place] [address] Phone Care Team Providers Care Incubator Machine Operator Name Role Phone Hayder Zepeda MD Primary Care Provider [phone] Boaz Gilliam MD Unavailable [phone] Patrick Valverde MD PhD Unavailable Encounter Details Date Type Department Care Team (Latest Contact Info) Description 01/23/2024 Orders Only [facility] Scanning, Provider Social History Tobacco Use Types Packs/Day Years [...] on file Legal Sex Female 9:08 AM HAND HARDENER Gender Identity Not on file Sexual Orientation Not on file documented as of this encounter Plan of Treatment Not on file documented as of this encounter Procedures Procedure Name Priority Date/Time Associated Diagnosis Comments SCAN - RADIOLOGY/IMAGING 01/23/2024 documented in this encounter Results * SCAN - RADIOLOGY/IMAGING (01/23/2024) Anatomical Region Laterality Modality Other us Provider Scanning Final Result documented in this encounter Visit Diagnoses Not on filedocumented in this encounter Care Teams Incubator Machine Operator Relationship Specialty Start Date End Date Hayder Zepeda MD [address] [place] [address] PCP - General Internal Medicine 11/23/17 Boaz Gilliam MD [address] [address] Referring Physician Internal Medicine 11/13/19 Patrick Valverde MD PhD [address] [address] Medical Oncologist/Poultry Farm Worker Medical Oncology 05/06/23 documented as of this encounter
--- OUTSIDE RECORDS SUMMARY | 2024-10-09 15:50 | XMS_ITS | Encounter Summary ---
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 Gender Identity Not on file Sexual Orientation Not on file documented as of this encounter Plan of Treatment Not on file documented as of this encounter Procedures Procedure Name Priority Date/Time Associated Diagnosis Comments SCAN - RADIOLOGY/IMAGING 01/25/2024 documented in this encounter Results * SCAN - RADIOLOGY/IMAGING (01/25/2024) Anatomical Region Laterality Modality Other us Provider Scanning Final Result documented in this encounter Visit Diagnoses Not on filedocumented in this encounter Care Teams Manager Of Quality Relationship Specialty Start Date End Date Hayder Zepeda MD [address] [place] [address] PCP - General Internal Medicine 11/23/17 Boaz Gilliam MD [address] [address] Referring Physician Internal Medicine 11/13/19 Patrick Valverde MD PhD [address] [id number] Medical Oncologist/Automation Engineering Manager Medical Oncology 05/06/23 documented as of this encounter
--- OUTSIDE RECORDS SUMMARY | 2024-10-09 15:51 | XMS_ITS | Encounter Summary ---
Author Organization [facility] Address [facility] access [facility] [place] [address] Care Team Providers Care Architectural Draftsperson Name Role Phone Hayder Zepeda MD Primary Care Provider [phone] Boaz Gilliam MD Unavailable [phone] Encounter Details Date Type Department Care Team (Late st Contact Info) Description 01/05/2023 MyChart Message Enc [facility] - [facility] [address] [place], [place] [id number] [place], [facility] Provider Air Quality Message Social History Tobacco Use Types Packs/Day Years Used Date Smoking Tobacco: Never Smokeless Tobacco: Never Alcohol Use Standard Drinks/Week Comments Yes 0 (1 standard drink = 0.6 oz pur e alcohol) AUDIT-C Answer Date Recorded Frequency of Alcohol Consumption Monthly or less 10/16/2018 Average Number of Drinks Not on file 019 Frequency of Binge Drinking Not on file 02/2019 PHQ-2 Answer Date Recorded Patient Health Questionnaire-2 Score 0 10/28/2022 Comments No Sex and Gender Information Value Date Recorded Sex Assigned at Female 07/24/2024 8:13 AM DIRECTOR OF PRODUCT MARKETING Legal Sex Female 9:18 AM CDT Gender Identity Not on file Sexual Orientation Not on file Occupation Industry Job Start Date Job End Date 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 No / Unsure 12/20/2022 8:58 AM CDT documented as of this encounter Functional Status * RETIRED Are you deaf or do you have serious difficulty hearing Answer Date of Assessment Author Status No 10/28/2021 4:03 PM CDT Activ e * RETIRED Are you blind or do you have serious difficulty seeing, even when wearing glasses? Answer Date of Assessment Author Status No 10/28/2021 4:03 PM CDT Activ e * Do you have serious difficulty walking or climbing stairs? Answer Date of Assessment Author Status Yes 10/28/2021 4:03 PM CDT Monalisa Martins R N Active * Do you have difficulty dressing or bathing? Answer Date of Assessment Author Status No 10/28/2021 4:03 PM CDT Monalisa Martins R N Active * Because of a physical, mental, or emotional condition, do you have difficulty doing errands alone such as visiting a doctor's office or shopping? Answer Date of Assessment Author Status No 10/28/2021 4:03 PM CDT Monalisa Martins R N Active documented as of this encounter Mental Status * Because of a physical, mental, or emotional condition, do you have serious difficulty concentrating, remembering, or making decisions? Answer Entry Date Author Status No 10/28/2021 4:03 PM CDT Monalisa Martins R N Active documented in this encounter Plan of Treatment Upcoming Encounters Date Type Department Care Team (Late st Contact Info) Description 10/10/2024 10:00 AM CDT Appointment [facility] [address] [place] [address] Boaz Gilliam MD Three [facility]. [address] [address] 10/11/2024 10:00 AM CDT Appointment [facility] [address] [place] [address] Boaz Gilliam MD Three [facility]. [address] [address] 10/15/2024 10:00 AM CDT Appointment [facility] [address] [place] [address] [facility]illi[facility] [address] [address] 10/16/2024 11:15 AM CDT Appointment [facility] [place] [address] Beatrice Ngo, [place] [address] [facility] [place] [address] [place] [address] 10/17/2024 10:00 AM CDT Appointment [facility] [address] [place] [address] Boaz Gilliam MD Three [facility]. [address] [address] 10/18/2024 9:30 AM CDT Allied Health/Nurse Visit [facility] THREE [facility], [address] [address] Boaz Gilliam MD Three [facility]. [address] [address] 10/18/2024 10:00 AM CDT Appointment [facility] [address] [place] [address] Boaz Gilliam MD Three [facility]. [address] [address] 10/19/2024 10:00 AM CDT App[facility]ment [facility] [place] [address] Patrick Valverde MD [address] [facility] [address] [place] [address] 10/22/2024 10:00 AM CDT Appointment [facility] [address] [place] [address] Boaz Gilliam MD Three [facility]. [address] [address] 10/24/2024 10:00 AM CDT Appointment [facility] [address] [place] [address] Boaz Gilliam MD Three [facility]. [address] [address] 10/25/2024 10:00 AM CDT Appointment [facility] [address] [place] [address] Boaz Gilliam MD Three [facility]. [address] [address] 10/29/2024 10:00 AM CDT Appointment [facility] [address] [place] [address] Boaz Gilliam MD Three [facility]. [address] [address] 10/30/2024 9:00 AM CDT Treatment [facility] [address] [place] [address] Florin Deras MD [address] [address] 10/31/2024 10:00 AM CDT Appointment [facility] [address] [facility] [place] [address] Boaz Gilliam MD Three [facility]. [place] [address] [place] [address] 11/01/2024 10:00 AM CDT Appointment [facility] [address] [place] [address] Boaz Gilliam MD Three [facility]. [address] [address] 11/05/2024 10:00 AM CDT Appointment [facility] [address] [place] [address] Boaz Gilliam MD Three [facility]. [address] [address] 11/05/2024 10:55 AM CDT [facility] THREE [facility], [address] [address] Boaz Gilliam MD Three [facility]. [address] [address] 11/07/2024 10:00 AM CDT Appointment [facility] [address] [place] [address] Boaz Gilliam MD Three [facility]. [address] [address] 11/16/2024 8:40 AM CDT Office Visit [facility]pecial[facility] - [facility] [address] [facility] [address] [place] [address] Florin Deras MD [address] [facility] [address] [place] [address] 11/27/2024 9:00 AM CDT Treatment [facility] THREE [facility] [place] [address] Florin Deras MD 3 [facility] [address] [place] [address] 12/25/2024 9:15 AM CDT Office Visit [facility] [address] [place] [address] Boaz Gilliam MD Three [facility]. [address] [place] [address] documented as of this encounter Visit Diagnoses Not on filedocumented in this encounter Additional Health Concerns Infection Onset Date Last Indicated Resolved Time COVID-19 Rule Out 07/19/2023 07/19/2023 07/19/2023 2:42 PM DIRECTOR OF PRODUCT MARKETING COVID-19 Rule Out 07/28/2023 07/28/2023 07/28/2023 6:07 PM DIRECTOR OF PRODUCT MARKETING COVID-19 Rule Out 08/13/2023 08/13/2023 08/13/2023 6:07 PM DIRECTOR OF PRODUCT MARKETING COVID-19 Rule Out 05/12/2024 05/12/2024 05/12/2024 10:29 AM CDT COVID-19 Rule Out 07/19/2024 07/19/2024 07/19/2024 12:13 PM DIRECTOR OF PRODUCT MARKETING Assessment Noted Time PHQ-9 Depression Total Score: 0 03/23/20 10:45 AM CDT documented as of this encounter Care Teams Architectural Draftsperson Relationship Specialty Start Date End Date Hayder Zepeda MD PCP - General INTERNAL MEDICINE 01/19/17 Boaz Gilliam MD [facility]. [address] [address] [facility] Director Trust CARDIOVASCULAR DISEASE 02/08/17 documented as of this encounter
--- OUTSIDE RECORDS SUMMARY | 2024-10-09 15:51 | XMS_ITS | Encounter Summary ---
Author Organization [facility] Address [address] [place] [address] Care Team Providers Care Medical Reviewer Name Role Phone Hayder Zepeda MD Primary Care Provider [phone] Boaz Gilliam MD Unavailable [phone] Encounter Details Date Type Department Care Team (Latest Contact Info) Description 10/09/2024 Travel Social History Tobacco Use Types Packs/Day Years Used Date Smoking Tobacco: Never Smokeless Tobacco: Never Alcohol Use Standard Drinks/Week Comments Not Currently 1.7 (1 standard drin k = 0.6 oz pure alcohol) I have sips from my husbands [employer] [facility] Utilities Answer Date Recorded In the past 12 months has [facility] electric, gas, oil, or water [employer] threatened to shut off services in your [...] or neighbors? Three times a week 07/28/19 24 How often do you get togethe r with friends or relatives? Three times a week 07/28/2023 How often do you attend chur or orthodoxy services? 1 to 4 times per year 07/28/2023 Do you belong to any clubs o r organizations such as congregational groups, unions, fraternal or athletic groups, or [...] Recorded Patient Health Questionnaire-2 Score 0 05/08/2024 [facility] - Occupational Stress Questionnaire Answer Date Recorded [...] place to sleep or slept in a assisted (including now)? No 08/11/2023 Housing Stability Vital Sign Answer Adrian e Recorded In the last 12 months, was t here a time when you were not able to pay the mortgage or rent on time? No 07/19/2024 In the past 12 months, how m any times have you moved where you were living? 0 07/19/2024 At any time in the past 12 m [facility], were you homeless or living in a assisted (including now)? 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 Answer Date of Assessment Author Status No 07/19/2024 10:00 PM Lucita Rhodes RN Active * Do you have serious difficulty walking or climbing stairs? Answer Date of Assessment Author Status No 07/19/2024 10:00 PM Lucita Rhodes RN Active * Do you have difficulty dressing or bathing? Answer Date of Assessment Author Status No 07/19/2024 10:00 PM Lucita Rhodes RN Active * Because of a physical, mental, or emotional condition, do you have difficulty doing errands alone such as visiting a doctor's office or shopping? Answer Date of Assessment Author Status No 07/19/2024 10:00 PM Lucita Rhodes RN Active documented as of this encounter Mental Status * Because of a physical, mental, or emotional condition, do you have serious difficulty concentrating, remembering, or making decisions? Answer Entry Date Author Status No 07/19/2024 10:00 PM Lucita Rhodes RN Active documented in this encounter Plan of Treatment Upcoming Encounters Date Type Department Care Team (Late st Contact Info) Description 10/10/2024 10:00 AM CDT Appointment [facility] [address] [place] [address] Boaz Gilliam MD Three [facility]. [address] [address] 10/11/2024 10:00 AM CDT Appointment [facility] [address] [place] [address] Boaz Gilliam MD Three [facility]. [address] [address] 10/15/2024 10:00 AM CDT Appointment [facility] [address] [place] [address] Boaz Gilliam MD Three [facility]. [address] [address] 10/16/2024 11:15 AM CDT Appointment [facility] [place] [address] Beatrice Ngo, APNP [address] [facility] [address] [place] [address] 10/17/2024 10:00 AM CDT Appointment [facility] [address] [place] [address] Boaz Gilliam MD Three [facility]. [address] [address] 10/18/2024 9:30 AM CDT Allied Health/Nurse Visit [facility] THREE [facility], [address] [address] Boaz Gilliam MD Three [facility]. [address] [address] 10/18/2024 10:00 AM CDT Appointment [facility] [address] [place] [address] Boaz Gilliam MD Three [facility]. [address] [address] 10/19/2024 10:00 AM CDT [facility]ment [facility] [place] [address] Patrick Valverde MD [address] [facility] [address] [place] [id number] 10/22/2024 10:00 AM CDT Appointment [facility] [address] [place] [address] Boaz Gilliam MD Three [facility]. [address] [address] 10/24/2024 10:00 AM CDT Appointment [facility] [address] [place] [address] Boaz Gilliam MD Three [facility]. [facility] [address] [place] [address] 10/25/2024 10:00 AM CDT Appointment [facility] [address] [place] [address] Boaz Gilliam MD Three [facility]. [place] [address] [place] [address] 10/29/2024 10:00 AM CDT Appointment [facility] [address] [place] [address] Boaz Gilliam MD Three [facility]. [facility] [address] [place] [address] 10/30/2024 9:00 AM CDT Treatment [facility] [place] [address] Florin Deras MD 3 [facility] [address] [place] [address] 10/31/2024 10:00 AM CDT Appointment [facility] [address] [place] [address] Boaz Gilliam MD Three [facility]. [facility] [address] [place] [address] 11/01/2024 10:00 AM CDT Appointment [facility] Card[facility] Rehab [address] [facility] [place] [address] Boaz Gilliam MD Three [facility]. [place] [address] [place] [address] 11/05/2024 10:00 AM CDT Appointment [facility] [address] [facility] [address] Boaz Gilliam MD Three [facility]. [place] [address] [place] [address] 11/05/2024 10:55 AM CDT Allied Health/Nurse Visit [facility] [facility] THREE [facility], [facility] [address] [place] [address] Boaz Gilliam MD Three [facility]. [place] [address] [place] [address] 11/07/2024 10:00 AM CDT Appointment [facility] Rehab [address] [facility] [address] Boaz Gilliam MD Three [facility]. [facility] [address] [place] [address] 11/16/2024 8:40 AM CDT Office [facility] - [facility] 3 [facility] [address] [place] [address] Florin Deras MD 3 [facility] [address] [place] [address] 11/27/2024 9:00 AM CDT Treatment [facility] [place] [address] Florin Deras MD 3 [facility] [address] [place] [address] 12/25/2024 9:15 AM CDT Office Visit [facility] THREE [facility], [address] [place] [address] Boaz Gilliam MD Three [facility]. [place] [address] [place] [address] documented as of this encounter Goals Goal Patient Goal Type Associated Problems Recent Progress Patient-Stated? Author Health - patient able to perform ADLs independently Lifestyle No Fatemeh Armstrong, DRAPERY AND UPHOLSTERY MEASURER documented as of this encounter Visit Diagnoses Not on filedocumented in this encounter Additional Health Concerns Assessment Noted Time PHQ-9 Depression Total Score: 0 03/23/20 21 10:45 AM CDT documented as of this encounter Care Teams Medical Reviewer Relationship Specialty Start Date End Date Hayder Zepeda MD PCP - General INTERNAL MEDICINE 01/19/17 Boaz Gilliam MD Three [facility]. [place] [address] [place] [address] [place] Supervisory It Specialist CARDIOVASCULAR DISEASE 02/08/17 documented as of this encounter
--- OUTSIDE RECORDS SUMMARY | 2024-10-09 15:51 | XMS_ITS | Encounter Summary ---
Author Organization [facility] Address [address] [place] [address] Care Team Providers Care Neurology Manager Name Role Phone Hayder Zepeda MD Primary Care Provider [phone] Boaz Gilliam MD Unavailable [phone] Encounter Details Date Type Department Care Team (Latest Contact Info) Description 10/08/2024 Travel Social History Tobacco Use Types Packs/Day Years Used Date Smoking Tobacco: Never Smokeless Tobacco: Never Alcohol Use Standard Drinks/Week Comments Not Currently 1.7 (1 standard drin k = 0.6 oz pure alcohol) I have sips from my husbands [employer] [facility] Utilities Answer Date Recorded In the past 12 months has [facility] electric, gas, oil, or water [employer] threatened to shut off services in your [...] How often do you attend chur or scientology services? 1 to 4 times per year 07/28/2023 Do you belong to any clubs o r organizations such as anabaptism groups, unions, fraternal or athletic groups, or [...] Recorded Patient Health Questionnaire-2 Score 0 05/08/2024 [facility] - Occupational Stress Questionnaire Answer Date Recorded [...] place to sleep or slept in a alf (including now)? No 08/11/2023 Housing Stability Vital Sign Answer Adrian e Recorded In the last 12 months, was t here a time when you were not able to pay the mortgage or rent on time? No 07/19/2024 In the past 12 months, how m any times have you moved where you were living? 0 07/19/2024 At any time in the past 12 m [facility], were you homeless or living in a alf (including now)? No 07/19/2024 Comments No Sex and Gender Information Value Date Recorded Sex Assigned at Female 07/24/2024 8:13 AM CITRUS PICKER Legal Sex Female 9:18 AM CDT Gender [...] Info) Description 10/10/2024 10:00 AM CDT Appointment [facility] [address] [place] [address] Boaz Gilliam MD Three [facility]. [address] [address] 10/11/2024 10:00 AM CDT Appointment [facility] 3 [place] [address] Boaz Gilliam MD Three [facility]. [address] [address] 10/15/2024 10:00 AM CDT Appointment [facility] [address] [place] [address] Boaz Gilliam MD Three [facility]. [address] [address] 10/16/2024 11:15 AM CDT Appointment [facility] [place] [address] Beatrice Ngo, APNP [address] [facility] [address] [place] [address] 10/17/2024 10:00 AM CDT Appointment [facility] 3 [place] [address] Boaz Gilliam MD Three [facility]. [address] [address] 10/18/2024 9:30 AM CDT Allied Health/Nurse Visit [facility] THREE [facility], [address] [address] Boaz Gilliam MD Three [facility]. [address] [address] 10/18/2024 10:00 AM CDT Appointment [facility] 3 [place] [address] Boaz Gilliam MD Three [facility]. [address] [address] 10/19/2024 10:00 AM CDT App[place]ment [place] [address] Patrick Valverde MD [address] [facility] [address] [place] [id number] 10/22/2024 10:00 AM CDT Appointment [facility] 3 [place] [address] Boaz Gilliam MD Three [facility]. [address] [address] 10/24/2024 10:00 AM CDT Appointment [facility] 3 [place] [address] Boaz Gilliam MD Three [facility]. [facility] [address] [place] [address] 10/25/2024 10:00 AM CDT Appointment [facility] 3 [place] [address] Boaz Gilliam MD Three [facility]. [place] [address] [place] [address] 10/29/2024 10:00 AM CDT Appointment [facility] 3 [place] [address] Boaz Gilliam MD Three [facility]. [facility] [address] [place] [address] 10/30/2024 9:00 AM CDT Treatment [facility] [place] [address] Florin Deras MD 3 [facility] [address] [place] [address] 10/31/2024 10:00 AM CDT Appointment [facility] 3 [place] [address] Boaz Gilliam MD Three [facility]. [facility] [address] [place] [address] 11/01/2024 10:00 AM CDT Appointment [facility] 3 [facility] [place] [address] Boaz Gilliam MD Three [facility]. [address] [place] [address] 11/05/2024 10:00 AM CDT Appointment [facility] 3 [facility] [place] [address] Boaz Gilliam MD Three [facility]. [address] [place] [address] 11/05/2024 10:55 AM CDT Allied Health/Nurse Visit [facility] THREE [facility], [facility] [address] [place] [address] Boaz Gilliam MD Three [facility]. [address] [place] [address] 11/07/2024 10:00 AM CDT Appointment [facility] 3 [facility] [place] [address] Boaz Gilliam MD Three [facility]. [facility] [address] [place] [address] 11/16/2024 8:40 AM CDT Office Visit [facility] Multispecialty Care - [facility] 3 [facility] [address] [place] [address] Florin Deras MD 3 [facility] [address] [place] [address] 11/27/2024 9:00 AM CDT Treatment [facility] [place] [place] [address] Florin Deras MD 3 [facility] [address] [place] [address] 12/25/2024 9:15 AM CDT Office Visit [facility] THREE [facility], [address] [place] [address] Boaz Gilliam MD Three [facility]. [address] [place] [address] documented as of this encounter Goals Goal Patient Goal Type Associated Problems Recent Progress Patient-Stated? Author Health - patient able to perform ADLs independently Lifestyle No Fatemeh Armstrong, SCIENTIFIC PHOTOGRAPHER documented as of this encounter Visit Diagnoses Not on filedocumented in this encounter Additional Health Concerns Assessment Noted Time PHQ-9 Depression Total Score: 0 03/23/20 21 10:45 AM CDT documented as of this encounter Care Teams Neurology Manager Relationship Specialty Start Date End Date Hayder Zepeda MD PCP - General INTERNAL MEDICINE 01/19/17 Boaz Gilliam MD Three [facility]. [address] [place] [address] [place] Gallery Assistant CARDIOVASCULAR DISEASE 02/08/17 documented as of this encounter
--- OUTSIDE RECORDS SUMMARY | 2024-10-09 15:51 | XMS_ITS | Clinical Summary ---
Author Organization [facility] Address [address] [place] [phone] Phone Care Team Providers Care Patient Relations Liaison Name Role Phone Hayder Zepeda MD Primary Care Provider + Medications No known medications Social History Tobacco Use Types Packs/Day Years Used Date Smoking Tobacco: Never Smokeless Tobacco: Never Comments Unknown Sex and Gender Information Value Date Recorded Sex Assigned at Not on file Legal Sex Female 1:39 PM WEARING APPAREL ASSEMBLER Gender Identity Not on file Sexual Orientation Not on file Last Filed Vital Signs Vital Sign Reading Time Taken Comments Blood Pressure 146/68 09/05/2022 8:00 PM WEARING APPAREL ASSEMBLER Pulse 73 09/05/2022 8:00 PM WEARING APPAREL ASSEMBLER Temperature 36.9 C (98.4 F) 09/05/2022 1:54 PM WEARING APPAREL ASSEMBLER Respiratory Rate 19 09/05/2022 8:00 PM WEARING APPAREL ASSEMBLER Oxygen Saturation 99% 09/05/2022 8:00 PM WEARING APPAREL ASSEMBLER Inhaled Oxygen Concentration - - Weight 99.3 kg (219 lb) 09/05/2022 1:54 PM WEARING APPAREL ASSEMBLER Height 170.2 cm (5' 7 ) 09/05/2022 1:54 PM WEARING APPAREL ASSEMBLER Body Mass Index 34.3 09/05/2022 1:54 PM WEARING APPAREL ASSEMBLER Plan of Treatment Health Maintenance Due Date Last Done Comments DTAP/TDAP/TD VACCINES (1 - Tdap) 1969 BREAST CANCER SCREENING 1990 COLORECTAL SCREENING 1995 Colorectal Cancer Screening 1995 FIT-DNA Q 3 years 1995 FIT/FOBT Q 1 year 1995 Flex Sig/CT Colonography Q 5 years 1995 RSV VACCINE (60+ or ) (1 - Risk 60-74 years 1-dose series) 2010 OSTEOPOROSIS SCREENING 2015 INFLUENZA VACCINE (#1) 2024 0, 04/05/2019, 04/05/2019, Additional history exists COVID-19 Vaccine (2023-2 5 season) 2024 10/01/2020, 09/10/2020 PNEUMOCOCCAL VACCINE 50+ YEARS Completed 0 09/08/2017, 04/16/2017, 04/16/2017, Additional history exists ZOSTER VACCINE Completed 05/19/2020, 03/01/2020 Insurance MEDICARE PART A AND B [employer] MEDICARE SUPPLEMENT Care Teams Patient Relations Liaison Relationship Specialty Start Date End Date Hayder Zepeda MD [address] [place] [address] PCP - General Internal Medicine 09/05/22
--- OUTSIDE RECORDS SUMMARY | 2024-10-09 15:51 | XMS_ITS | Encounter Summary ---
Author Organization [facility] Address [address] [place] [address] Care Team Providers Care Mechanical Engineering Coop Name Role Phone Hayder Zepeda MD Primary Care Provider [phone] Boaz Gilliam MD Unavailable [phone] Encounter Details Date Type Department Care Team (Late st Contact Info) Description 10/09/2024 Orders Only [facility] [place] [address] Beatrice Ngo, ALEJANDRO [address] [facility] [address] [place] [address] Social History Tobacco Use Types Packs/Day Years Used Date Smoking Tobacco: Never Smokeless Tobacco: Never Alcohol Use Standard Drinks/Week Comments Not Currently 1.7 (1 standard drin k = 0.6 oz pure alcohol) I have sips from my husbands [facility] Utilities Answer Date Recorded In the past 12 months has [employer] electric, gas, oil, or water [employer] threatened to shut off services in your [...] How often do you attend chur or pentecostalism services? 1 to 4 times per year 07/28/2023 Do you belong to any clubs o r organizations such as lutheran groups, unions, fraternal or athletic groups, or [...] Recorded Patient Health Questionnaire-2 Score 0 05/08/2024 [facility] [place] of Occupat ional Health - Occupational Stress Questionnaire Answer Date Recorded [...] place to sleep or slept in a longterm (including now)? No 08/11/2023 Housing Stability Vital Sign Answer Adrian e Recorded In the last 12 months, was t here a time when you were not able to pay the mortgage or rent on time? No 07/19/2024 In the past 12 months, how m any times have you moved where you were living? 0 07/19/2024 At any time in the past 12 m [facility], were you homeless or living in a longterm (including now)? 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 [address] [address] 10/16/2024 11:15 AM CDT Appointment [facility] [place] [address] Beatrice Ngo, ALEJANDRO [address] [facility] [address] [place] [address] 10/17/2024 10:00 AM CDT Appointment [facility] 3 [place] [address] Boaz Gilliam MD Three [facility]. [address] [address] 10/18/2024 9:30 AM CDT Allied Health/Nurse Visit [facility] THREE [facility], [address] [address] Boaz Gilliam MD Three [facility]. [address] [address] 10/18/2024 10:00 AM CDT Appointment [facility] 3 [place] [address] Boaz Gilliam MD Three [facility]. [address] [address] 10/19/2024 10:00 AM CDT [place] [address] Patrick Valverde MD [address] [facility] [address] [place] [address] 10/22/2024 10:00 AM CDT Appointment [facility] 3 [place] [address] Boaz Gilliam MD Three [facility]. [facility] [address] [place] [address] 10/24/2024 10:00 AM CDT Appointment [facility] 3 [place] [address] Boaz Gilliam MD Three [facility]. [address] [address] 10/25/2024 10:00 AM CDT Appointment [facility] 3 [place] [address] Boaz Gilliam MD Three [address] [address] 10/29/2024 10:00 AM CDT Appointment [facility] 3 [place] [address] Boaz Gilliam MD Three [facility]. [address] [address] 10/30/2024 9:00 AM CDT Treatment [facility] [place] [address] Florin Deras MD [address] [address] 10/31/2024 10:00 AM CDT Appointment [facility]hab 3 [facility] [place] [address] Boaz Gilliam MD Three [facility]. [address] [place] [address] 11/01/2024 10:00 AM CDT Appointment [facility] 3 [facility] [place] [address] Boaz Gilliam MD Three [facility]. [address] [place] [address] 11/05/2024 10:00 AM CDT Appointment [facility] 3 [facility] [place] [address] Baoz Gilliam MD Three [facility]. [facility] [address] [place] [address] 11/05/2024 10:55 AM CDT Allied Health/Nurse Visit [facility] THREE [facility], [facility] [address] [place], [place] [address] Boaz Gilliam MD Three [facility]. [facility] [address] [place] [address] 11/07/2024 10:00 AM CDT Appointment [facility]hab 3 [facility] [place] [address] Boaz Gilliam MD Three [facility]. [facility] [address] [place] [address] 11/16/2024 8:40 AM CDT Office Visit [facility] Mult[facility]ialty Care - [facility] 3 [facility] [address] [place] [id number] Florin Deras MD 3 [facility] [address] [place] [address] 11/27/2024 9:00 AM CDT Treatment [facility] Infusion Services at [facility] THREE [facility] [place] [address] Florin Deras MD 3 [facility] [address] [place] [address] 12/25/2024 9:15 AM CDT Office Visit [facility], [address] [place] [address] Boaz Gilliam MD Three [facility]. [facility] [address] [place] [address] documented as of this encounter Goals Goal Patient Goal Type Associated Problems Recent Progress Patient-Stated? Author Health - patient able to perform ADLs independently Lifestyle No Fatemeh Armstrong, ANESTHESIOLOGIST ASSISTANT CERTIFIED documented as of this encounter Visit Diagnoses Not on filedocumented in this encounter Additional Health Concerns Assessment Noted Time PHQ-9 Depression Total Score: 0 03/23/20 21 10:45 AM CDT documented as of this encounter Care Teams Mechanical Engineering Coop Relationship Specialty Start Date End Date Hayder Zepeda MD PCP - General INTERNAL MEDICINE 01/19/17 Boaz Gilliam MD [facility]. [facility] [address] [place], [place] [address] Black Coremaker CARDIOVASCULAR DISEASE 02/08/17 documented as of this encounter
--- OUTSIDE RECORDS SUMMARY | 2024-10-09 15:51 | XMS_ITS | Encounter Summary ---
Author Organization [facility] Address [address] [place] [address] Care Team Providers Care Administrative Office Assistant Name Role Phone Hayder Zepeda MD Primary Care Provider [phone] Boaz Gilliam MD Unavailable [phone] Encounter Details Date Type Department Care Team (Late st Contact Info) Description 10/29/2022 UI Robot Message Enc [facility] THREE [facility], [address] [address] [email or web address], [facility] Provider Echocardiogram Social History Tobacco Use Types Packs/Day Years [...] Sex Assigned at Female 07/24/2024 8:13 AM ALARM SIGNAL OPERATOR Legal Sex Female 9:18 AM CDT [...] suspected to have Coronavirus/COVID-19? No / Unsure 10/30/2022 7:53 PM CDT documented as of this encounter Functional [...] Info) Description 10/10/2024 10:00 AM CDT Appointment [facility] 3 [place] [address] Boaz Gilliam MD Three [facility]. [address] [address] 10/11/2024 10:00 AM CDT Appointment [facility] 3 [place] [address] Boaz Gilliam MD Three [facility]. [facility] [address] [place] [address] 10/15/2024 10:00 AM CDT Appointment [facility] 3 [place] [address] Boaz Gilliam MD Three [facility]. [address] [address] 10/16/2024 11:15 AM CDT Appointment [facility] [place] [address] Beatrice Ngo APNP [address] [place] [address] [place] [address] 10/17/2024 10:00 AM CDT Appointment [facility] 3 [place] [address] Boaz Gilliam MD Three [facility]. [address] [address] 10/18/2024 9:30 AM CDT [facility] THREE [facility], [address] [address] Boaz Gilliam MD Three [facility]. [address] [address] 10/18/2024 10:00 AM CDT Appointment [facility] 3 [place] [address] Boaz Gilliam MD Three [facility]. [address] [address] 10/19/2024 10:00 AM CDT App[place]ment [place] [address] Patrick Valverde MD [address] [facility] [address] [place] [address] 10/22/2024 10:00 AM CDT Appointment [facility] 3 [place] [address] Boaz Gilliam MD Three [facility]. [address] [address] 10/24/2024 10:00 AM CDT Appointment [facility] 3 [place] [address] Boaz Gilliam MD Three [facility]. [address] [address] 10/25/2024 10:00 AM CDT Appointment [facility] 3 [place] [address] Boaz Gilliam MD Three [facility]. [address] [address] 10/29/2024 10:00 AM CDT Appointment [facility] 3 [place] [address] Boaz Gilliam MD Three [address] [address] 10/30/2024 9:00 AM CDT Treatment [facility] [place] [address] Florin Deras MD [address] [address] [place] [address] 10/31/2024 10:00 AM CDT Appointment [facility] 3 [place] [address] Boaz Gilliam MD Three [facility]. [facility] [address] [place] [address] 11/01/2024 10:00 AM CDT Appointment [facility] 3 [place] [address] Boaz Gilliam MD Three [facility]. [address] [address] 11/05/2024 10:00 AM CDT Appointment [facility] 3 [place] [address] Boaz Gilliam MD Three [facility]. [address] [address] 11/05/2024 10:55 AM CDT [facility] THREE [facility], [address] [address] Boaz Gilliam MD Three [facility]. [address] [address] 11/07/2024 10:00 AM CDT Appointment [facility] 3 [place] [address] Boaz Gilliam MD Three [facility]. [facility] [address] [place], [place] [address] 11/16/2024 8:40 AM CDT Office Visit [facility]ialty [facility] - [facility] 3 [facility] [address] [place] [address] Florin Deras MD 3 [facility] [address] [place] [address] 11/27/2024 9:00 AM CDT Treatment [facility] [place] [address] Florin Deras MD 3 [facility] [address] [place] [address] 12/25/2024 9:15 AM CDT Office Visit [facility] [address] [place] [address] Boaz Gilliam MD Three [facility]. [address] [place] [address] documented as of this encounter Visit Diagnoses Not on filedocumented in this encounter Additional Health Concerns Infection Onset Date Last Indicated Resolved Time COVID-19 Rule Out 07/19/2023 07/19/2023 07/19/2023 2:42 PM ALARM SIGNAL OPERATOR COVID-19 Rule Out 07/28/2023 07/28/2023 07/28/2023 6:07 PM ALARM SIGNAL OPERATOR COVID-19 Rule Out 08/13/2023 08/13/2023 08/13/2023 6:07 PM ALARM SIGNAL OPERATOR COVID-19 Rule Out 05/12/2024 05/12/2024 05/12/2024 10:29 AM CDT COVID-19 Rule Out 07/19/2024 07/19/2024 07/19/2024 12:13 PM ALARM SIGNAL OPERATOR Assessment Noted Time PHQ-9 Depression Total Score: 0 09/13/20 21 10:45 AM CDT documented as of this encounter Care Teams Administrative Office Assistant Relationship Specialty Start Date End Date Hayder Zepeda MD PCP - General INTERNAL MEDICINE 01/19/17 Boaz Gilliam MD [facility]. [address] [address] [place] Fur Trimming Machine Operator CARDIOVASCULAR DISEASE 02/08/17 documented as of this encounter
--- OUTSIDE RECORDS SUMMARY | 2024-10-09 15:51 | XMS_ITS | Encounter Summary ---
Author Organization [facility] Address [address] [place] [address] Care Team Providers Care Banquet Line Cook Name Role Phone Hayder Zepeda MD Primary Care Provider [phone] Boaz Gilliam MD Unavailable [phone] Hayedr Zepeda MD Unavailable Encounter Details Date Type Department Care Team (Latest Contact Info) Description 03/06/2018 Abstract [facility] , Louise Dueñas MD Social History Tobacco Use Types Packs/Day Years Used Date Smoking Tobacco: Never Smokeless Tobacco: Never Alcohol Use Standard Drinks/Week Comments No 0 (1 standard drink = 0.6 oz pur e alcohol) Comments Unknown Sex and Gender Information Value Date Recorded Sex Assigned at Female 07/24/2024 8:13 AM COMP FIELD CASE MANAGER Legal Sex Female 9:18 AM CDT Gender Identity Not on file Sexual Orientation Not on file Occupation Industry Job Start Date Job End Date Not on file Not on file Not on file Not on file documented as of this encounter Plan of Treatment Upcoming Encounters Date Type Department Care Team (Late st Contact Info) Description 10/10/2024 10:00 AM CDT Appointment [facility] [address] [place] [address] Boaz Gilliam MD Three [facility]. [address] [place] [address] 10/11/2024 10:00 AM CDT Appointment [facility] 3 [place] [address] Boaz Gilliam MD Three [facility]. [address] [address] 10/15/2024 10:00 AM CDT Appointment [facility] 3 [place] [address] Boaz Gilliam MD Three [facility]. [address] [address] 10/16/2024 11:15 AM CDT Appointment [facility] [place] [address] Beatrice Ngo, ALEJANDRO [address] [address] 10/17/2024 10:00 AM CDT Appointment [facility] 3 [place] [address] Boaz Gilliam MD Three [facility]. [address] [address] 10/18/2024 9:30 AM CDT [facility] THREE [facility], [address] [address] Boaz Gilliam MD Three [facility]. [address] [address] 10/18/2024 10:00 AM CDT Appointment [facility] 3 [place] [address] Boaz Gilliam MD [address] [facility] [place] [address] 10/19/2024 10:00 AM CDT App[facility]ment [facility] ONE [facility] [place] [address] Patrick Valverde MD [address] [facility] [address] [place] [address] 10/22/2024 10:00 AM CDT Appointment [facility] 3 [place] [address] Boaz Gilliam MD Three [address] [address] 10/24/2024 10:00 AM CDT Appointment [facility] 3 [place] [address] Boaz Gilliam MD Three [address] [address] 10/25/2024 10:00 AM CDT Appointment [facility] 3 [place] [address] Boaz Gilliam MD Three [address] [address] 10/29/2024 10:00 AM CDT Appointment [facility] 3 [place] [address] Boaz Gilliam MD Three [address] [address] 10/30/2024 9:00 AM CDT Treatment [place] THREE [facility] [place] [address] Florin Deras MD [address] [address] 10/31/2024 10:00 AM CDT Appointment [facility] Cardiopulmonary Rehab 3 [place] [address] Boaz Gilliam MD Three [address] [address] 11/01/2024 10:00 AM CDT Appointment [facility] Cardiopulmonary Rehab 3 [place] [address] Boaz Gilliam MD Three [facility]. [address] [address] 11/05/2024 10:00 AM CDT Appointment [facility] Card[facility]ulmonary Rehab 3 [place] [address] Boaz Gilliam MD Three [facility]. [address] [address] 11/05/2024 10:55 AM CDT [facility] THREE [facility], [address] [address] Boaz Gilliam MD Three [facility]. [address] [address] 11/07/2024 10:00 AM CDT Appointment [facility] Cardiopulmonary Rehab 3 [facility] [place] [address] Boaz Gilliam MD Three [facility]. [address] [place] [address] 11/16/2024 8:40 AM CDT Office Visit [facility] Mult[facility]ialty Care - [facility] 3 [facility] [address] [place] [address] Florin Deras MD 3 [facility] [address] [place] [address] 11/27/2024 9:00 AM CDT Treatment [place] at [facility] THREE [facility] [place] [address] Florin Deras MD 3 [facility] [address] [place] [address] 12/25/2024 9:15 AM CDT Office Visit [facility] THREE [facility], [address] [place] [address] Boaz Gilliam MD Three [facility]. [facility] [address] [place] [address] documented as of this encounter Visit Diagnoses Not on filedocumented in this encounter Additional Health Concerns Infection Onset Date Last Indicated Resolved Time COVID-19 Rule Out 04/18/2020 04/18/2020 04/20/2020 12:39 AM CDT COVID-19 Rule Out 07/19/2023 07/19/2023 07/19/2023 2:42 PM COMP FIELD CASE MANAGER COVID-19 Rule Out 07/28/2023 07/28/2023 07/28/2023 6:07 PM COMP FIELD CASE MANAGER COVID-19 Rule Out 08/13/2023 08/13/2023 08/13/2023 6:07 PM COMP FIELD CASE MANAGER COVID-19 Rule Out 05/12/2024 05/12/2024 05/12/2024 10:29 AM CDT COVID-19 Rule Out 07/19/2024 07/19/2024 07/19/2024 12:13 PM COMP FIELD CASE MANAGER documented as of this encounter Care Teams Banquet Line Cook Relationship Specialty Start Date End Date Hayder Zepeda MD PCP - General INTERNAL MEDICINE 01/19/17 Hayder Zepeda MD [address] [place] [address] PCP - Hospice Attending 01/18/17 12/11/[address] [facility]. [address] [place] [address] [place] Candy Catcher CARDIOVASCULAR DISEASE 02/08/17 documented as of this encounter
--- OUTSIDE RECORDS SUMMARY | 2024-10-09 15:51 | XMS_ITS | Encounter Summary ---
Author Organization [facility] Address [address] [place] [address] Care Team Providers Care Cold Meat Cook Name Role Phone Hayder Zepeda MD Primary Care Provider [phone] Boaz Gilliam MD Unavailable [phone] Encounter Details Date Type Department Care Team (Latest Contact Info) Description 04/28/2020 MyCCozit Message Enc [facility] Multispecialty Care - [facility] 3 [facility] [address] [place] [address] Florin Deras MD 3 [facility] [address] [place] [address] Chest X-ray and lab results Social History Tobacco Use Types Packs/Day Years [...] 02/2019 PHQ-2 Answer Date Recorded PHQ-2 Score 2 03/31/2020 Comments No Sex and Gender Information Value Date Recorded Sex Assigned at Female 07/24/2024 8:13 AM 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 No / Unsure 04/29/2020 10:02 AM CDT documented as of this encounter [...] Info) Description 10/10/2024 10:00 AM CDT Appointment [facility] 3 [place] [address] Boaz Gilliam MD Three [facility]. [address] [address] 10/11/2024 10:00 AM CDT Appointment [facility] 3 [place] [address] Boaz Gilliam MD Three [facility]. [address] [address] 10/15/2024 10:00 AM CDT Appointment [facility] 3 [place] [address] Boaz Gilliam MD Three [facility]. [address] [address] 10/16/2024 11:15 AM CDT Appointment [facility] [place] [address] Beatrice Ngo APNP [address] [address] 10/17/2024 10:00 AM CDT Appointment [facility] 3 [place] [address] Boaz Gilliam MD Three [facility]. [address] [address] 10/18/2024 9:30 AM CDT Allied Health/Nurse Visit [facility] THREE [facility], [address] [address] Boaz Gilliam MD Three [facility]. [address] [address] 10/18/2024 10:00 AM CDT Appointment [facility] 3 [place] [address] Boaz Gilliam MD Three [facility]. [address] [address] 10/19/2024 10:00 AM CDT App[place]ment [place] [address] Patrick Valverde MD [address] [place] [address] 10/22/2024 10:00 AM CDT Appointment [facility] 3 [place] [address] Boaz Gilliam MD Three [address] [address] 10/24/2024 10:00 AM CDT Appointment [facility] 3 [place] [address] Boaz Gilliam MD Three [address] [address] 10/25/2024 10:00 AM CDT Appointment [facility] 3 [place] [address] Boaz Gilliam MD Three [address] [address] 10/29/2024 10:00 AM CDT Appointment [facility] 3 [place] [address] Boaz Gilliam MD Three [address] [address] 10/30/2024 9:00 AM CDT Treatment [facility] THREE [facility] [place] [address] Florin Deras MD 3 [facility] [address] [place] [address] 10/31/2024 10:00 AM CDT Appointment [facility] 3 [place] [address] Boaz Gilliam MD Three [facility]. [facility] [address] [place] [address] 11/01/2024 10:00 AM CDT Appointment [facility] 3 [place] [address] Boaz Gilliam MD Three [facility]. [address] [address] 11/05/2024 10:00 AM CDT Appointment [facility] 3 [place] [address] Boaz Gilliam MD Three [facility]. [address] [address] 11/05/2024 10:55 AM CDT Allied Health/Nurse Visit [facility] THREE [facility], [address] [address] Boaz Gilliam MD Three [facility]. [address] [address] 11/07/2024 10:00 AM CDT Appointment [facility] 3 [place] [address] Boaz Gilliam MD Three [facility]. [address] [place] [address] 11/16/2024 8:40 AM CDT Office Visit [facility] Multispecialty Care - [facility] 3 [facility] [place] [address] Florin Deras MD 3 [facility] [address] [place] [address] 11/27/2024 9:00 AM CDT Treatment [facility] THREE [place] [address] Florin Deras MD 3 [facility] [address] [place] [address] 12/25/2024 9:15 AM CDT Office Visit [facility] THREE [facility], [address] [place] [address] Boaz Gilliam MD Three [facility]. [address] [place] [address] documented as of this encounter Visit Diagnoses Not on filedocumented in this encounter Additional Health Concerns Infection Onset Date Last Indicated Resolved Time COVID-19 Rule Out 07/19/2023 07/19/2023 07/19/2023 2:42 PM COOK PRESSURE COVID-19 Rule Out 07/28/2023 07/28/2023 07/28/2023 6:07 PM COOK PRESSURE COVID-19 Rule Out 08/13/2023 08/13/2023 08/13/2023 6:07 PM COOK PRESSURE COVID-19 Rule Out 05/12/2024 05/12/2024 05/12/2024 10:29 AM CDT COVID-19 Rule Out 07/19/2024 07/19/2024 07/19/2024 12:13 PM COOK PRESSURE documented as of this encounter Care Teams Cold Meat Cook Relationship Specialty Start Date End Date Hayder Zepeda MD PCP - General INTERNAL MEDICINE 01/19/17 Boaz Gilliam MD [facility]. [address] [address] [place] [facility] CARDIOVASCULAR DISEASE 02/08/17 documented as of this encounter
--- OUTSIDE RECORDS SUMMARY | 2024-10-09 15:51 | XMS_ITS | Encounter Summary ---
Author Organization [facility] Address [address] [place] [address] Care Team Providers Care Data Processor Name Role Phone Hayder Zepeda MD Primary Care Provider [phone] Boaz Gilliam MD Unavailable [phone] Encounter Details Date Type Department Care Team (Late st Contact Info) Description 04/22/2020 MyCContent Ravent Message Enc [facility] Multispecialty Care - [facility] 3 [facility] [address] [place] [address] Florin Deras MD 3 [facility] [address] [place] [address] Results Social History Tobacco Use Types Packs/Day Years [...] Sex Assigned at Female 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 No / Unsure 04/25/2020 6:24 AM CDT documented as of this encounter [...] Info) Description 10/10/2024 10:00 AM CDT Appointment [facility] 3 [place] [address] Boaz Gilliam MD Three [facility]. [address] [id number] 10/11/2024 10:00 AM CDT Appointment [facility] 3 [place] [address] Boaz Gilliam MD Three [facility]. [address] [address] 10/15/2024 10:00 AM CDT Appointment [facility] 3 [place] [address] Boaz Gilliam MD Three [facility]. [address] [address] 10/16/2024 11:15 AM CDT Appointment [facility] [place] [address] Beatrice Ngo APNP [address] [place] [address] 10/17/2024 10:00 AM CDT Appointment [facility] 3 [place] [address] Boaz Gilliam MD Three [facility]. [address] [address] 10/18/2024 9:30 AM CDT Allied Health/Nurse Visit [facility] THREE [facility], [address] [address] Boaz Gilliam MD Three [facility]. [address] [address] 10/18/2024 10:00 AM CDT Appointment [facility] 3 [place] [address] Boaz Gilliam MD Three [facility]. [address] [address] 10/19/2024 10:00 AM CDT Appointment [facility] [place] [address] Patrick Valverde MD [address] [place] [address] 10/22/2024 10:00 AM CDT Appointment [facility] Cardiopulmonary Rehab 3 [place] [address] Boaz Gilliam MD Three [address] [address] 10/24/2024 10:00 AM CDT Appointment [facility] Cardiopulmonary Rehab 3 [place] [address] Boaz Gilliam MD Three [address] [address] 10/25/2024 10:00 AM CDT Appointment [facility] Cardiopulmonary Rehab 3 [place] [address] Boaz Gilliam MD Three [address] [address] 10/29/2024 10:00 AM CDT Appointment [facility] Cardiopulmonary Rehab 3 [place] [address] Boaz Gilliam MD Three [address] [address] 10/30/2024 9:00 AM CDT Treatment [facility] THREE [facility] [place] [address] Florin Deras MD [address] [address] [place] [address] 10/31/2024 10:00 AM CDT Appointment [facility] Cardiopulmonary Rehab 3 [facility] [place] [address] Boaz Gilliam MD Three [facility]. [facility] [address] [place] [address] 11/01/2024 10:00 AM CDT Appointment [facility] Cardiopulmonary Rehab 3 [place] [address] Boaz Gilliam MD Three [facility]. [address] [address] 11/05/2024 10:00 AM CDT Appointment [facility] Cardiopulmonary Rehab 3 [place] [address] Boaz Gilliam MD Three [facility]. [address] [address] 11/05/2024 10:55 AM CDT Allied Health/Nurse Visit [facility] THREE [facility], [address] [address] Boaz Gilliam MD Three [facility]. [address] [address] 11/07/2024 10:00 AM CDT Appointment [facility] Cardiopulmonary Rehab 3 [place] [address] Boaz Gilliam MD Three [facility]. [address] [place] [address] 11/16/2024 8:40 AM CDT Office Visit [facility] Medical Group Multispecialty Care - [facility] 3 [facility] [address] [place] [address] Florin Deras MD 3 [facility] [address] [place] [address] 11/27/2024 9:00 AM CDT Treatment [facility] THREE [facility] [place] [address] Florin Deras MD 3 [facility] [address] [place] [address] 12/25/2024 9:15 AM CDT Office Visit [facility] THREE [facility], [address] [place] [address] Boaz Gilliam MD Three [facility]. 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 [address] [address] [place] Tube Knitter CARDIOVASCULAR DISEASE 02/08/17 documented as of this encounter
--- OUTSIDE RECORDS SUMMARY | 2024-10-09 15:51 | XMS_ITS | Clinical Summary ---
Author Organization [facility] Address [address] [place] [address] Care Team Providers Care Seedling Puller Name Role Phone Negro Mejia MD Primary Care Provider [phone] Source Comments [facility],non-owned Affiliates and Associated Physician Practices is amultiple site organization consisting of ambulatory clinics and hospital sitesin [place], [place], [place] and [place]. This disclosure is being madepursuant to the Care Everywhere program and may not contain all information available regarding this patient. Last updated 18.[facility] Allergies No known active allergies Social History Tobacco Use Types Packs/Day Years Used Date Smoking Tobacco: Never Assessed Sex and Gender Information Value Date Recorded Sex Assigned at Not on file Gender Identity Not on file Sexual Orientation Not on file Plan of Treatment Health Maintenance Due Date Last Done Comments BONE DENSITY TESTING 1950 COLOGUARD (AGES 45-75) - COL ON CA SCREENING 1950 COLON MONITORING 1950 COLONOSCOPY - COLON CA SCREENING 1950 CT COLONOGRAPHY - COLON CA SCREENING 1950 Colorectal Cancer Screening 1950 FIT - COLON CA SCREENING 1950 FLEX SIG - COLON CA SCREENING 1950 LIPID TESTING 1950 MAMMOGRAM 1950 MEDICARE AWV 12 MONTHS 1950 HEPATITIS C SCREENING 01/18/1968 DTAP/TDAP/TD VACCINES (1 - Tdap) 1969 PNEUMOCOCCAL VACCINE 50+ (1 of 1 - PCV) 01/23/2000 ZOSTER VACCINE (1 of 2) 01/23/2000 COVID-19 VACCINE ( - 2023-2 5 season) 2024 DEPRESSION SCREENING 07/11/2024 Respiratory Syncytial Virus (RSV) Vaccine Pt: or over 60 yrs (1 - 1-dose 75+ series) 2025 INFLUENZA VACCINE (Season Ended) 2025 HEPATITIS B VACCINE Aged Out No longe r eligible based on patient's age to complete this topic HIB VACCINE Aged Out No longer eligi ble based on patient's age to complete this topic HPV VACCINE Aged Out No longer eligi ble based on patient's age to complete this topic MENINGOCOCCAL (Group B) VACC INE SHARED DECISION-MAKING Aged Out No longer eligibl e based on patient's age to complete this topic MENINGOCOCCAL GROUPS A/C/Y/W VACCINE Aged Out No longer eligible b ased on patient's age to complete this topic Care Teams Seedling Puller Relationship Specialty Start Date End Date Negro Mejia MD PCP - General Otolaryngology 08/20/16
--- OUTSIDE RECORDS SUMMARY | 2024-10-09 15:51 | XMS_ITS | Encounter Summary ---
Author Organization [facility] Address [address] [place] [address] Care Team Providers Care Heel Sorter Name Role Phone Hayder Zepeda MD Primary Care Provider [phone] Boaz Gilliam MD Unavailable [phone] Reason for Visit * Rehabilitation (Routine) - Authorized Specialty Diagnoses / Procedures Referred By Contact Referred To Contact [facility] Cardiopulmonary Rehab Diagnoses S/P PTCA (percutaneous transluminal coronary angioplasty) Procedures Cardiac Rehab Evaluation (Phase II) (ONLY ORDER IF MD) Boaz Gilliam MD Three [address] [address] Phone: tel:[phone] fax: [facility] 3 [place] [address] fax: Referral ID Status Reason Start Date Expiration Date V isits Requested Visits Authorized Authorized 09/05/2024 10/06/2025 [id number] Encounter Details Date Type Department Care Team (Late st Contact Info) Description 10/08/2024 6:02 AM T Hospital Encounter [facility] 3 [place] [address] Boaz Gilliam MD Three [facility]. [address] [address] Arrived Social History Tobacco Use Types Packs/Day Years Used Date Smoking Tobacco: Never Smokeless Tobacco: Never Alcohol Use Standard Drinks/Week Comments Not Currently 1.7 (1 standard drin k = 0.6 oz pure alcohol) I have sips from my husbands beer [facility] Utilities Answer Date Recorded In the past 12 months has th e [employer], gas, oil, or water company threatened to shut off services in your [...] How often do you attend chur or episcopal services? 1 to 4 times per year 07/28/2023 Do you belong to any clubs o r organizations such as sikh groups, unions, fraternal or athletic groups, or [...] Recorded Patient Health Questionnaire-2 Score 0 05/08/2024 [facility] [place] - Occupational Stress Questionnaire Answer Date Recorded [...] place to sleep or slept in a long-term (including now)? No 08/11/2023 Housing Stability Vital [...] time in the past 12 m [facility], were you homeless or living in a long-term (including now)? 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 [address] [address] 10/11/2024 10:00 AM CDT Appointment [facility] 3 [place] [address] Boaz Gilliam MD Three [facility]. [address] [address] 10/15/2024 10:00 AM CDT Appointment [facility] 3 [place] [address] Boaz Gilliam MD Three [facility]. [address] [address] 10/16/2024 11:15 AM CDT Appointment [facility] [place] [address] Beatrice gNo, ALEJANDR[address] [address] [place] [address] 10/17/2024 10:00 AM CDT Appointment [facility] 3 [place] [address] Boaz Gilliam MD Three [facility]. [address] [address] 10/18/2024 9:30 AM CDT Allied Health/Nurse Visit [facility] THREE [facility], [address] [address] Boaz Gilliam MD Three [facility]. [address] [address] 10/18/2024 10:00 AM CDT Appointment [facility] 3 [place] [address] Boaz Gilliam MD [address] [place] [address] 10/19/2024 10:00 AM CDT Appointment [facility] [place] [address] Patrick Valverde MD [address] [facility] [address] [place] [address] 10/22/2024 10:00 AM CDT Appointment [facility] 3 [place] [address] Boaz Gilliam MD Three [facility]. [address] [address] 10/24/2024 10:00 AM CDT Appointment [facility] 3 [place] [address] Boaz Gilliam MD [facility] [address] [address] 10/25/2024 10:00 AM CDT Appointment [facility] 3 [place] [address] Boaz Gilliam MD [address] [address] 10/29/2024 10:00 AM CDT Appointment [facility] 3 [place] [address] Boaz Gilliam MD Three [facility]. [facility] [address] [place] [address] 10/30/2024 9:00 AM CDT Treatment [facility] THREE [place] [address] Florin Deras MD 3 [facility] [address] [place] [address] 10/31/2024 10:00 AM CDT Appointment [facility] 3 [place] [address] Boaz Gililam MD Three [facility]. [address] [address] 11/01/2024 10:00 AM CDT Appointment [facility] 3 [place] [address] Boaz Gilliam MD Three [facility]. [address] [address] 11/05/2024 10:00 AM CDT Appointment [facility] 3 [place] [address] Boaz Gilliam MD Three [facility]. [facility] [address] [place] [address] 11/05/2024 10:55 AM CDT [facility] Health[facility] THREE [facility], [facility] [address] [place] [address] Boaz Gilliam MD Three [facility] [address] [place] [address] 11/07/2024 10:00 AM CDT Appointment [facility] 3 [place] [address] Boaz Gilliam MD Three [facility]. [facility] [address] [place] [address] 11/16/2024 8:40 AM CDT Office Visit [facility] Medical Group Multispecialty Care - [facility] 3 [facility], [address] [place] [address] Florin Deras MD 3 [facility] [address] [place] [address] 11/27/2024 9:00 AM CDT Treatment [facility] THREE [place] [address] Florin Deras MD 3 [facility] [address] [place] [address] 12/25/2024 9:15 AM CDT Office Visit [facility] THREE [facility], [address] [place] [address] Boaz Gilliam MD Three [facility]. [facility] [address] [place], [place] [address] documented as of this encounter Goals Goal Patient Goal Type Associated Problems Recent Progress Patient-Stated? Author Health - patient able to perform ADLs independently Lifestyle Fatemeh Valentine, SILK SCREEN FRAME ASSEMBLER documented as of this encounter Visit Diagnoses Not on filedocumented in this encounter Additional Health Concerns Assessment Noted Time PHQ-9 Depression Total Score: 0 03/23/20 21 10:45 AM CDT documented as of this encounter Care Teams Heel Sorter Relationship Specialty Start Date End Date Hayder Zepeda MD PCP - General INTERNAL MEDICINE 01/19/17 Boaz Gilliam MD [facility]. [address] [address] [place] Resource Manager CARDIOVASCULAR DISEASE 02/08/17 documented as of this encounter
--- OUTSIDE RECORDS SUMMARY | 2024-10-09 15:51 | XMS_ITS | Encounter Summary ---
Author Organization [facility] Address [address] [place] [address] Phone Care Team Providers Care Wind Operations Manager Name Role Phone Hayder Zepeda MD Primary Care Provider [phone] Boaz Gilliam MD Unavailable [phone] Patrick Valverde MD PhD Unavailable Encounter Details Date Type Department Care Team (Late st Contact Info) Description 10/04/2024 Orders Only [facility] Oncology [address] [facility] [address] [place] [address] Patrick Valverde MD PhD [address] [facility] 7A/7B/7C [place], [place] [id number] Social History Tobacco Use Types Packs/Day Years [...] on file 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 Gender Identity Not on file Sexual Orientation Not on file documented as of this encounter Plan of Treatment Not on file documented as of this encounter Visit Diagnoses Not on filedocumented in this encounter Care Teams Wind Operations Manager Relationship Specialty Start Date End Date Hayder Zepeda MD [address] [facility] [address] [place] [address] PCP - General Internal Medicine 11/23/17 Boaz Gilliam MD [address] [address] Referring Physician Internal Medicine 11/13/19 Patrick Valverde MD PhD [address] [address] Medical Oncologist/Certified Tower Climber Medical Oncology 05/06/23 documented as of this encounter
--- OUTSIDE RECORDS SUMMARY | 2024-10-09 15:51 | XMS_ITS | Encounter Summary ---
Author Organization [facility] Address [address] [place] [address] Care Team Providers Care Manager Of Enterprise Name Role Phone Hayder Zepeda MD Primary Care Provider [phone] Boaz Gilliam MD Unavailable [phone] Hayder Zepeda MD Unavailable Encounter Details Date Type Department Care Team (Late st Contact Info) Description 10/19/2019 Abstract [facility] at [facility], [address] [address] Leandro Alonso MA Social History Tobacco Use Types Packs/Day Years Used Date Smoking Tobacco: Never Smokeless Tobacco: Never Alcohol Use Standard Drinks/Week Comments Yes 0 (1 standard drink = 0.6 oz pur e alcohol) AUDIT-C Answer Date Recorded Frequency of Alcohol Consumption Monthly or less 10/16/2018 Average Number of Drinks Not on file 019 Frequency of Binge Drinking Not on file 02/2019 Comments No Sex and Gender Information Value Date Recorded Sex Assigned at Female 07/24/2024 8:13 AM SPORTS TEAM MANAGER Legal Sex Female 9:18 AM CDT [...] Assessment Author Status No 10/15/2018 5:48 PM Renate Bettencourt RN Active documented as of this encounter [...] Info) Description 10/10/2024 10:00 AM CDT Appointment [facility] Card[facility] Rehab 3 [place] [address] Boaz Gilliam MD [address] [address] 10/11/2024 10:00 AM CDT Appointment [facility] Card[facility] Re[facility] 3 [place] [address] Boaz Gilliam MD Three [address] [address] 10/15/2024 10:00 AM CDT Appointment [facility] Card[facility] Re[facility] 3 [place] [address] Boaz Gilliam MD Three [address] [address] [place] [address] 10/16/2024 11:15 AM CDT Appointment [facility] [place] [address] Beatrice Ngo, APNP [address] [facility] [address] [place] [address] 10/17/2024 10:00 AM CDT Appointment [facility] 3 [place] [address] Boaz Gilliam MD Three [facility]. [address] [address] 10/18/2024 9:30 AM CDT Allied Health/Nurse Visit [facility] [address] [facility], [address] [address] Boaz Gilliam MD Three [facility]. [address] [address] 10/18/2024 10:00 AM CDT Appointment [facility] 3 [place] [address] Boaz Gilliam MD Three [facility]. [address] [address] 10/19/2024 10:00 AM CDT App[facility]ment [facility] [place] [address] Patrick Vlaverde MD [address] [facility] [address] [place] [address] 10/22/2024 10:00 AM CDT Appointment [facility] Cardiop[facility] Rehab 3 [place] [address] Boaz Gilliam MD Three [facility]. [address] [address] 10/24/2024 10:00 AM CDT Appointment [facility] Cardiop[facility] Re[facility] 3 [place] [address] Boaz Gilliam MD Three [facility]. [address] [address] 10/25/2024 10:00 AM CDT Appointment [facility] Card[facility] Re[facility] 3 [place] [address] Boaz Gilliam MD Three [facility]. [address] [address] 10/29/2024 10:00 AM CDT Appointment [facility] Card[facility] 3 [place] [address] Boaz Gilliam MD Three [facility]. [address] [address] 10/30/2024 9:00 AM CDT Treatment [facility] [place] [address] Florin Deras MD [address] [address] 10/31/2024 10:00 AM CDT Appointment [facility] Card[facility] Re[facility] 3 [place] [address] Boaz Gilliam MD Three [facility]. [address] [place], [place] [address] 11/01/2024 10:00 AM CDT Appointment [facility] 3 [facility] [place] [address] Boaz Gilliam MD Three [facility]. [address] [place] [address] 11/05/2024 10:00 AM CDT Appointment [facility] 3 [facility] [place] [address] Boaz Gilliam MD Three [facility]. [address] [place], [place] [address] 11/05/2024 10:55 AM CDT Allied Health/Nurse Visit [facility] [address] [facility], [address] [place], [place] [address] Boaz Gilliam MD Three [facility]. [address] [place] [address] 11/07/2024 10:00 AM CDT Appointment [facility] 3 [facility] [place] [address] Boaz Gilliam MD Three [facility]. [address] [place], [place] [address] 11/16/2024 8:40 AM CDT Office Visit [facility]ialty Care - [facility] 3 [facility] [address] [place] [address] Florin Deras MD 3 [facility] [address] [place] [address] 11/27/2024 9:00 AM CDT Treatment [facility] THREE [facility] [place] [address] Florin Deras MD 3 [facility] [address] [place] [address] 12/25/2024 9:15 AM CDT Office Visit [facility] [address] [facility], [address] [place] [address] Boaz Gilliam MD Three [facility]. [address] [place] [address] documented as of this encounter Procedures Procedure Name Priority Date/Time Associated Diagnosis Comments LIPID PANEL Routine 10/17/2019 CK (CPK) Routine 10/17/2019 documented in this encounter Results * CK (CPK) (10/17/2019) CPK 76 29 - 143 10/17/2019 [facility]AT[facility] Final Result * LIPID PANEL (10/17/2019) CHOLESTEROL 145 <200 HDL 50 > or = 50 TRIGLYCERIDES 208 <150 NON HDL CHOLESTEROL 95 <130 LDL (CALCULATED) 68 <100 10/17/2019 us [facility] LABORATORY Edited Resul t - Final documented in this encounter Visit Diagnoses Not on filedocumented in this encounter Additional Health Concerns Infection Onset Date Last Indicated Resolved Time COVID-19 Rule Out 04/18/2020 04/18/2020 04/20/2020 12:39 AM CDT COVID-19 Rule Out 07/19/2023 07/19/2023 07/19/2023 2:42 PM SPORTS TEAM MANAGER COVID-19 Rule Out 07/28/2023 07/28/2023 07/28/2023 6:07 PM SPORTS TEAM MANAGER COVID-19 Rule Out 08/13/2023 08/13/2023 08/13/2023 6:07 PM SPORTS TEAM MANAGER COVID-19 Rule Out 05/12/2024 05/12/2024 05/12/2024 10:29 AM CDT COVID-19 Rule Out 07/19/2024 07/19/2024 07/19/2024 12:13 PM SPORTS TEAM MANAGER documented as of this encounter Care Teams Manager Of Enterprise Relationship Specialty Start Date End Date Hayder Zepeda MD PCP - General INTERNAL MEDICINE 01/19/17 Hayder Zepeda MD [address] [place] [address] PCP - Hospice Attending 01/18/17 12/11/19 Boaz Gilliam MD [facility]. [address] [address] [place] Lead Ramp Service Man CARDIOVASCULAR DISEASE 02/08/17 documented as of this encounter
--- OUTSIDE RECORDS SUMMARY | 2024-10-09 15:51 | XMS_ITS | Encounter Summary ---
Author Organization [facility] Address [address] [place] [address] Care Team Providers Care Supervisor Electronics Processing Name Role Phone Hayder Zepeda MD Primary Care Provider [phone] Boaz Gilliam MD Unavailable [phone] Encounter Details Date Type Department Care Team (Late st Contact Info) Description 10/09/2024 9:21 AM T Hospital Encounter [facility] [address] [place] [address] Beatrice Ngo, ALEJANDRO [address] [address] Social History Tobacco Use Types Packs/Day Years Used Date Smoking Tobacco: Never Smokeless Tobacco: Never Alcohol Use Standard Drinks/Week Comments Not Currently 1.7 (1 standard drin k = 0.6 oz pure alcohol) I have sips from my husbands [facility] Utilities Answer Date Recorded In the past 12 months has [facility] electric, gas, oil, or water company threatened to [...] How often do you attend chur or restoration services? 1 to 4 times per year 07/28/2023 Do you belong to any clubs o r organizations such as anabaptist groups, unions, fraternal or athletic groups, or [...] Recorded Patient Health Questionnaire-2 Score 0 05/08/2024 [facility] of Occupat ional Health - Occupational Stress [...] place to sleep or slept in a correction (including now)? No 08/11/2023 Housing Stability Vital Sign Answer Adrian e Recorded In the last 12 months, was t here a time when you were not able to pay the mortgage or rent on time? No 07/19/2024 In the past 12 months, how m any times have you moved where you were living? 0 07/19/2024 At any time in the past 12 m [facility], were you homeless or living in a correction (including now)? No 07/19/2024 Comments No Sex and Gender Information Value Date Recorded Sex Assigned at Female 07/24/2024 8:13 AM VOCATIONAL AIDE Legal Sex Female 9:18 AM CDT Gender [...] Info) Description 10/10/2024 10:00 AM CDT Appointment [facility] 3 [place] [address] Boaz Gilliam MD Three [facility]. [address] [address] 10/11/2024 10:00 AM CDT Appointment [facility] 3 [place] [address] Boaz Gilliam MD Three [facility]. [address] [address] 10/15/2024 10:00 AM CDT Appointment [facility] 3 [place] [address] Boaz Gilliam MD Three [facility]. [facility] [address] [place] [address] 10/16/2024 11:15 AM CDT Appointment [facility] [place] [address] Beatrice Ngo, ALEJANDRO [address] [address] 10/17/2024 10:00 AM CDT Appointment [facility] 3 [place] [address] Boaz Gilliam MD Three [facility]. [address] [address] 10/18/2024 9:30 AM CDT Allied Health/Nurse Visit [facility] THREE [facility], [address] [address] Boaz Gilliam MD Three [facility]. [address] [address] 10/18/2024 10:00 AM CDT Appointment [facility] 3 [place] [address] Boaz Gilliam MD Three [facility]. [address] [address] 10/19/2024 10:00 AM CDT App[facility]ment [facility] [place] [address] Patrick Valverde MD [address] [facility] [address] [place] [address] 10/22/2024 10:00 AM CDT Appointment [facility] 3 [place] [address] Boaz Gilliam MD Three [facility]. [facility] [address] [place] [address] 10/24/2024 10:[address] [facility] Cardiop[facility] Rehab 3 [place] [address] Boaz Gilliam MD Three [facility]. [address] [address] 10/25/2024 10:[address] [facility] Card[facility] Rehab 3 [place] [address] Boaz Gilliam MD Three [facility]. [facility] [address] [place] [address] 10/29/2024 10:[address] [facility] Card[facility] Rehab 3 [place] [address] Boaz Gilliam MD Three [facility]. [facility] [address] [place] [address] 10/30/2024 9:00 AM CDT Treatment [facility] [place] [address] Florin Deras MD 3 [facility] [address] [place] [address] 10/31/2024 10:[address] [facility] Cardiop[facility] Rehab 3 [facility] [place] [address] Boaz Gilliam MD Three [address] [place], [place] [address] 11/01/2024 10:00 AM CDT Appointment [facility] 3 [facility] [place] [address] Boaz Gilliam MD Three [facility]. [address] [place] [address] 11/05/2024 10:00 AM CDT Appointment [facility] 3 [facility] [place] [address] Boaz Gilliam MD Three [facility]. [address] [place], [place] [address] 11/05/2024 10:55 AM CDT Allied Health/Nurse Visit [facility] THREE [facility], [address] [place], [place] [address] Boaz Gilliam MD Three [facility]. [address] [place], [place] [address] 11/07/2024 10:00 AM CDT Appointment [facility] 3 [facility] [place] [address] Boaz Gilliam MD Three [facility]. [facility] [address] [place], [place] [address] 11/16/2024 8:40 AM CDT Office Visit [facility] Medical Group Multispecialty Care - [facility] 3 [facility] [address] [place] [address] Florin Deras MD 3 [facility] [address] [place] [address] 11/27/2024 9:00 AM CDT Treatment [facility] THREE [facility] [place] [address] Florin Deras MD 3 [facility] [address] [place] [address] 12/25/2024 9:15 AM CDT Office Visit [facility], [address] [place] [address] Boaz Gilliam MD [facility]. [address] [place] [address] documented as of this encounter Goals Goal Patient Goal Type Associated Problems Recent Progress Patient-Stated? Author Health - patient able to perform ADLs independently Lifestyle No Fatemeh Armstrong, EDGE GLUE MACHINE TENDER documented as of this encounter Visit Diagnoses Not on filedocumented in this encounter Additional Health Concerns Assessment Noted Time PHQ-9 Depression Total Score: 0 03/23/20 21 10:45 AM CDT documented as of this encounter Care Teams Supervisor Electronics Processing Relationship Specialty Start Date End Date Hayder Zepeda MD PCP - General INTERNAL MEDICINE 01/19/17 Boaz Gilliam MD [facility]. [address] [place] [address] [place] Technology Officer CARDIOVASCULAR DISEASE 02/08/17 documented as of this encounter
--- OUTSIDE RECORDS SUMMARY | 2024-10-09 15:51 | XMS_ITS | Encounter Summary ---
Author Organization [facility] Address [address] [place] [address] Care Team Providers Care Chemical Strength Tester Name Role Phone Hayder Zepeda MD Primary Care Provider [phone] Boaz Gilliam MD Unavailable [phone] Encounter Details Date Type Department Care Team (Late st Contact Info) Description 10/09/2024 Orders Only [facility] [address] [place] [address] Beatrice Ngo, ALEJANDRO [address] [facility] [address] [place] [address] Social History Tobacco Use Types Packs/Day Years Used Date Smoking Tobacco: Never Smokeless Tobacco: Never Alcohol Use Standard Drinks/Week Comments Not Currently 1.7 (1 standard drin k = 0.6 oz pure alcohol) I have sips from my husbands [employer] [facility] Utilities Answer Date Recorded In the past 12 months has [employer] electric, gas, oil, or water [employer] threatened to shut off services in your [...] How often do you attend chur or baptist services? 1 to 4 times per year 07/28/2023 Do you belong to any clubs o r organizations such as hoahaoism groups, unions, fraternal or athletic groups, or [...] Recorded Patient Health Questionnaire-2 Score 0 05/08/2024 [facility] [place] of Occupat ional Health - Occupational Stress [...] place to sleep or slept in a fci (including now)? No 08/11/2023 Housing Stability Vital Sign Answer Adrian e Recorded In the last 12 months, was t here a time when you were not able to pay the mortgage or rent on time? No 07/19/2024 In the past 12 months, how m any times have you moved where you were living? 0 07/19/2024 At any time in the past 12 m [facility], were you homeless or living in a fci (including now)? 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 Cardiop[facility] Rehab 3 [place] [address] Boaz Gilliam MD Three [address] [address] 10/15/2024 10:[address] [facility] Card[facility] Rehab 3 [place] [address] Boaz Gilliam MD Three [facility]. [address] [address] 10/16/2024 11:15 AM CDT Appointment [facility] [place] [address] Beatrice Ngo, ALEJANDRO [address] [facility] [address] [place] [address] 10/17/2024 10:00 AM CDT Appointment [facility] 3 [place] [address] Boaz Gilliam MD Three [facility]. [address] [address] 10/18/2024 9:30 AM CDT Allied Health/Nurse Visit [facility] THREE [facility], [address] [address] Boaz Gilliam MD Three [facility]. [address] [address] 10/18/2024 10:00 AM CDT Appointment [facility] 3 [place] [address] Boaz Gilliam MD Three [facility]. [address] [address] 10/19/2024 10:00 AM CDT Appointment [facility] [address] Patrick Valverde MD [address] [facility] [address] [place] [address] 10/22/2024 10:[address] [facility] Cardiop[facility] Rehab 3 [place] [address] Boaz Gilliam MD Three [facility]. [facility] [address] [place] [address] 10/24/2024 10:[address] [facility] Cardiopulmonary Rehab 3 [place] [address] Boaz Gilliam MD Three [facility]. [address] [address] 10/25/2024 10:[address] [facility] Cardiopulmonary Rehab 3 [place] [address] Boaz Gilliam MD Three [address] [address] 10/29/2024 10:[address] [facility] Cardiop[facility] Rehab 3 [place] [address] Boaz Gilliam MD Three [facility]. [address] [address] 10/30/2024 9:00 AM CDT Treatment [facility] [place] [address] Florin Deras MD [address] [address] 10/31/2024 10:[address] [facility] Cardiopulmonary Rehab 3 [place] [address] Boaz Gilliam MD Three [facility]. [address] [place] [address] 11/01/2024 10:00 AM CDT Appointment [facility] 3 [place] [address] Boaz Gilliam MD Three [facility]. [address] [place] [address] 11/05/2024 10:[address] [facility] Cardiop[facility] Rehab 3 [place] [address] Boaz Gilliam MD Three [facility]. [facility] [address] [place] [address] 11/05/2024 10:55 AM CDT Allied Health/Nurse Visit [facility] THREE [facility], [facility] [address] [place], [place] [address] Boaz Gilliam MD Three [facility]. [facility] [address] [place] [address] 11/07/2024 10:[address] [facility] Card[facility] Rehab 3 [place] [address] Boaz Gilliam MD Three [facility]. [facility] [address] [place] [address] 11/16/2024 8:40 AM CDT Office Visit [facility] Multispecialty Care - [facility] 3 [facility] [address] [place] [address] Florin Deras MD 3 [facility] [address] [place] [address] 11/27/2024 9:00 AM CDT Treatment [facility] Infusion Services at [facility] THREE [place] [address] Florin Deras MD 3 [facility] [address] [place] [address] 12/25/2024 9:15 AM CDT Office Visit [facility] THREE [facility], [facility] [address] [place] [address] Boaz Gilliam MD Three [facility]. [facility] [address] [place] [address] Scheduled Orders Name Type Priority Associated Diagnoses Orde r Schedule CULTURE, WOUND, W/GRAM STAIN Microbiology Routine Non-pressure chronic ulcer of right calf with fat layer exposed ([facility]) 1 Occurrences starting 10/09/2024 until 10/09/2025 documented as of this encounter Goals Goal Patient Goal Type Associated Problems Recent Progress Patient-Stated? Author Health - patient able to perform ADLs independently Lifestyle Fatemeh Valentine, DIE CUTTER documented as of this encounter Visit Diagnoses Diagnosis Non-pressure chronic ulcer of right calf with fat layer exposed ([facility])- Primary Ulcer of calf Severe persistent asthma with exacerbation ([facility])- Primary Unspecified asthma, with exacerbation documented in this encounter Additional Health Concerns Assessment Noted Time PHQ-9 Depression Total Score: 0 03/23/20 21 10:45 AM CDT documented as of this encounter Care Teams Chemical Strength Tester Relationship Specialty Start Date End Date Hayder Zepeda MD PCP - General INTERNAL MEDICINE 01/19/17 Boaz Gilliam MD Three [facility]. [address] [address] [employer] CARDIOVASCULAR DISEASE 02/08/17 documented as of this encounter
--- OUTSIDE RECORDS SUMMARY | 2024-10-09 15:51 | XMS_ITS | Encounter Summary ---
Author Organization [facility] Address [address] [place] [address] Care Team Providers Care Insurance Account Executive Name Role Phone Hayder Zepeda MD Primary Care Provider [phone] Boaz Gilliam MD Unavailable [phone] Encounter Details Date Type Department Care Team (Late st Contact Info) Description 01/17/2023 All Access Tele[employer] Message Enc [facility] THREE [facility], [address] [address] [facility] [address] Provider Stress test Social History Tobacco Use Types Packs/Day Years [...] Sex Assigned at Female 07/24/2024 8:13 AM SHOE SALESPERSON Legal Sex Female 9:18 AM CDT Gender [...] Info) Description 10/10/2024 10:00 AM CDT Appointment [facility] [address] [place] [address] Boaz Gilliam MD Three [facility]. [address] [address] 10/11/2024 10:00 AM CDT Appointment [facility] 3 [place] [address] Boaz Gilliam MD Three [facility]. [place] [address] [place] [address] 10/15/2024 10:00 AM CDT Appointment [facility] 3 [place] [address] Boaz Gilliam MD Three [facility]. [address] [address] 10/16/2024 11:15 AM CDT Appointment [facility] [place] [address] Beatrice Ngo APNP [address] [place] [address] [place] [address] 10/17/2024 10:00 AM CDT Appointment [facility] 3 [place] [address] Boaz Gilliam MD Three [facility]. [address] [address] 10/18/2024 9:30 AM CDT Allied Health/Nurse [facility] THREE [facility], [address] [address] Boaz Gilliam MD Three [facility]. [address] [address] 10/18/2024 10:00 AM CDT Appointment [facility] 3 [place] [address] Boaz Gilliam MD Three [facility]. [address] [address] 10/19/2024 10:00 AM CDT [place] [address] Patrick Valverde MD [address] [facility] [address] [place] [address] 10/22/2024 10:00 AM CDT Appointment [facility] Card[facility] Rehab 3 [place] [address] Boaz Gilliam MD Three [facility]. [address] [address] 10/24/2024 10:00 AM CDT Appointment [facility] Card[facility] Re[facility] 3 [place] [address] Boaz Gilliam MD Three [facility]. [address] [address] 10/25/2024 10:00 AM CDT Appointment [facility] Cardiop[facility] Rehab 3 [place] [address] Boaz Gilliam MD Three [facility]. [address] [address] 10/29/2024 10:00 AM CDT Appointment [facility] Cardiopulmonary Rehab 3 [place] [address] Boaz Gilliam MD Three [address] [address] 10/30/2024 9:00 AM CDT Treatment [facility] [place] [address] Florin Deras MD 3 [facility] [address] [place] [address] 10/31/2024 10:00 AM CDT Appointment [facility] 3 [facility] [place] [address] Boaz Gilliam MD Three [facility]. [facility] [address] [place] [address] 11/01/2024 10:00 AM CDT Appointment [facility] 3 [place] [address] Boaz Gilliam MD Three [facility]. [address] [address] 11/05/2024 10:00 AM CDT Appointment [facility] 3 [place] [address] Boaz Gilliam MD Three [facility]. [address] [address] 11/05/2024 10:55 AM CDT [facility] THREE [facility], [address] [address] Boaz Gilliam MD Three [facility]. [address] [address] 11/07/2024 10:00 AM CDT Appointment [facility] 3 [facility] [place] [address] Boaz Gilliam MD Three [facility]. [facility] [address] [place], [place] [address] 11/16/2024 8:40 AM CDT Office Visit [facility] Medical Group Multispecialty Care - [facility] 3 [facility] [address] [place] [address] Florin Deras MD 3 [facility] [address] [place] [address] 11/27/2024 9:00 AM CDT Treatment [facility] THREE [facility] [place] [address] Florin Deras MD 3 [facility] [address] [place] [address] 12/25/2024 9:15 AM CDT Office Visit [facility] THREE [facility], [address] [place] [address] Boaz Gilliam MD Three [facility]. [facility] [address] [place] [address] documented as of this encounter Visit Diagnoses Not on filedocumented in this encounter Additional Health Concerns Infection Onset Date Last Indicated Resolved Time COVID-19 Rule Out 07/19/2023 07/19/2023 07/19/2023 2:42 PM SHOE SALESPERSON COVID-19 Rule Out 07/28/2023 07/28/2023 07/28/2023 6:07 PM SHOE SALESPERSON COVID-19 Rule Out 08/13/2023 08/13/2023 08/13/2023 6:07 PM SHOE SALESPERSON COVID-19 Rule Out 05/12/2024 05/12/2024 05/12/2024 10:29 AM CDT COVID-19 Rule Out 07/19/2024 07/19/2024 07/19/2024 12:13 PM SHOE SALESPERSON Assessment Noted Time PHQ-9 Depression Total Score: 0 03/23/20 10:45 AM CDT documented as of this encounter Care Teams Insurance Account Executive Relationship Specialty Start Date End Date Hayder Zepeda MD PCP - General INTERNAL MEDICINE 01/19/17 Boaz Gilliam MD [facility]. [address] [address] [place] Recreation Coordinator CARDIOVASCULAR DISEASE 02/08/17 documented as of this encounter
--- OUTSIDE RECORDS SUMMARY | 2024-10-09 15:51 | XMS_ITS | Encounter Summary ---
Author Organization [facility] Address [address] [place] [address] Care Team Providers Care Machinist Mate Name Role Phone Hayder Zepeda MD Primary Care Provider [phone] Boaz Gilliam MD Unavailable [phone] Hayder Zepeda MD Unavailable Encounter Details Date Type Department Care Team (Late st Contact Info) Description 01/10/2017 Abstract [facility] CONVERSION [address] [place] [address] , Generic ConversionMD Social History Tobacco Use Types Packs/Day Years Used Date Smoking Tobacco: Never Assessed Comments Unknown Sex and Gender Information Value Date Recorded Sex Assigned at Female 07/24/2024 8:13 AM 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 [address] [address] 10/11/2024 10:00 AM CDT Appointment [facility] 3 [place] [address] Boaz Gilliam MD Three [facility]. [address] [address] 10/15/2024 10:00 AM CDT Appointment [facility] 3 [place] [address] Boaz Gilliam MD Three [facility]. [address] [address] 10/16/2024 11:15 AM CDT Appointment [facility] [place] [address] Beatrice Ngo APNP [address] [address] 10/17/2024 10:00 AM CDT Appointment [facility] 3 [place] [address] Boaz Gilliam MD Three [facility]. [address] [address] 10/18/2024 9:30 AM CDT Allied Health/Nurse Visit [facility] THREE [facility], [address] [address] Boaz Gilliam MD Three [facility]. [address] [address] 10/18/2024 10:00 AM CDT Appointment [facility] 3 [place] [address] Boaz Gilliam MD Three [facility]. [address] [address] 10/19/2024 10:00 AM CDT [place] [address] Patrick Valverde MD [address] [place] [address] 10/22/2024 10:00 AM CDT Appointment [facility] 3 [place] [address] Boaz Gilliam MD Three [facility]. [address] [address] 10/24/2024 10:00 AM CDT Appointment [facility] 3 [place] [address] Boaz Gilliam MD Three [facility]. [address] [address] 10/25/2024 10:00 AM CDT Appointment [facility] 3 [place] [address] Boaz Gilliam MD Three [facility]. [address] [address] 10/29/2024 10:00 AM CDT Appointment [facility] 3 [place] [address] Boaz Gilliam MD Three [facility]. [address] [address] 10/30/2024 9:00 AM CDT Treatment [facility] THREE [place] [address] Florin Deras MD 3 [facility] [address] [place] [address] 10/31/2024 10:00 AM CDT Appointment [facility] 3 [place] [address] Boaz Gilliam MD Three [facility]. [facility] [address] [place] [address] 11/01/2024 10:00 AM CDT Appointment [facility] 3 [place] [address] Boaz Gilliam MD Three [facility]. [address] [address] 11/05/2024 10:00 AM CDT Appointment [facility] 3 [place] [address] Boaz Gilliam MD Three [facility]. [address] [address] 11/05/2024 10:55 AM CDT Allied Health/Nurse Visit [facility] THREE [facility], [address] [address] Boaz Gilliam MD Three [facility]. [address] [address] 11/07/2024 10:00 AM CDT Appointment [facility] 3 [place] [address] Boaz Gilliam MD Three [facility]. [address] [place] [address] 11/16/2024 8:40 AM CDT Office Visit [facility] Medical Group Multispecialty Care - [facility] 3 [facility] [address] [place] [address] Florin Deras MD 3 [facility] [address] [place] [address] 11/27/2024 9:00 AM CDT Treatment [facility] THREE [place] [address] Florin Deras MD 3 [facility] [address] [place] [address] 12/25/2024 9:15 AM CDT Office Visit [facility] THREE [facility], [address] [place] [address] Boaz Gilliam MD Three [facility]. [address] [place] [address] documented as of this encounter Visit Diagnoses Not on filedocumented in this encounter Additional Health Concerns Infection Onset Date Last Indicated Resolved Time COVID-19 Rule Out 04/18/2020 04/18/2020 04/20/2020 12:39 AM CDT COVID-19 Rule Out 07/19/2023 07/19/2023 07/19/2023 2:42 PM SEISMOGRAPH COMPUTER COVID-19 Rule Out 07/28/2023 07/28/2023 07/28/2023 6:07 PM SEISMOGRAPH COMPUTER COVID-19 Rule Out 08/13/2023 08/13/2023 08/13/2023 6:07 PM SEISMOGRAPH COMPUTER COVID-19 Rule Out 05/12/2024 05/12/2024 05/12/2024 10:29 AM CDT COVID-19 Rule Out 07/19/2024 07/19/2024 07/19/2024 12:13 PM SEISMOGRAPH COMPUTER documented as of this encounter Care Teams Machinist Mate Relationship Specialty Start Date End Date Hayder Zepeda MD PCP - General INTERNAL MEDICINE 01/19/17 Hayder Zepeda MD [address] [place] [address] PCP - Hospice Attending 01/18/17 12/11/19 Boaz Gilliam MD [facility]. [address] [address] [place] Historiography Professor CARDIOVASCULAR DISEASE 02/08/17 documented as of this encounter
--- OUTSIDE RECORDS SUMMARY | 2024-10-09 15:51 | XMS_ITS | Encounter Summary ---
Author Organization [facility] Address [address] [place] [address] Care Team Providers Care Condenser Cleaner Name Role Phone Hayder Zepeda MD Primary Care Provider [phone] Boaz Gilliam MD Unavailable [phone] Hayder Zepeda MD Unavailable Encounter Details Date Type Department Care Team (Late st Contact Info) Description 03/09/2017 Abstract [facility] AT [address] [address] Leandro Alonso MA Social History Tobacco Use Types Packs/Day Years Used Date Smoking Tobacco: Never Smokeless Tobacco: Never Alcohol Use Standard Drinks/Week Comments No 0 (1 standard drink = 0.6 oz pur e alcohol) Comments Unknown Sex and Gender Information Value Date Recorded Sex Assigned at Female 07/24/2024 8:13 AM 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 [address] [place], [place] [address] 10/11/2024 10:00 AM CDT Appointment [facility] 3 [place] [address] Boaz Gliliam MD Three [facility]. [address] [address] 10/15/2024 10:00 AM CDT Appointment [facility] 3 [place] [address] Boaz Gilliam MD Three [facility]. [address] [address] 10/16/2024 11:15 AM CDT Appointment [facility] [place] [address] Beatrice Ngo APNP [address] [address] 10/17/2024 10:00 AM CDT Appointment [facility] [address] [place] [address] Boaz Gilliam MD Three [facility]. [address] [address] 10/18/2024 9:30 AM CDT Allied Health/Nurse Visit [facility] THREE [facility], [address] [address] Boaz Gilliam MD Three [facility]. [address] [address] 10/18/2024 10:00 AM CDT Appointment [facility] [address] [place] [address] Boaz Gilliam MD Three [facility]. [address] [address] 10/19/2024 10:00 AM CDT Appointment [facility] [place] [address] Patrick Valverde MD [address] [place] [address] 10/22/2024 10:00 AM CDT Appointment [facility] [address] [place] [address] Boaz Gilliam MD Three [facility]. [address] [address] 10/24/2024 10:00 AM CDT Appointment [facility] 3 [place] [address] Boaz Gilliam MD Three [facility]. [address] [address] 10/25/2024 10:00 AM CDT Appointment [facility] 3 [place] [address] Boaz Gilliam MD Three [facility]. [address] [address] 10/29/2024 10:00 AM CDT Appointment [facility] 3 [place] [address] Boaz Gilliam MD Three [facility]. [address] [place] [address] 10/30/2024 9:00 AM CDT Treatment [facility] [place] [address] Florin Deras MD [address] [address] [place] [address] 10/31/2024 10:00 AM CDT Appointment [facility] Cardiopulmonary Rehab 3 [place] [address] Boaz Gilliam MD Three [address] [address] 11/01/2024 10:00 AM CDT Appointment [facility] Cardiopulmonary Rehab 3 [place] [address] Boaz Gilliam MD Three [address] [address] 11/05/2024 10:00 AM CDT Appointment [facility] Card[facility] Rehab 3 [place] [address] Boaz Gilliam MD Three [address] [address] 11/05/2024 10:55 AM CDT Allied Health/Nurse Visit [facility] THREE [facility], [address] [address] Boaz Gilliam MD Three [address] [address] 11/07/2024 10:00 AM CDT Appointment [facility] Cardiopulmonary Rehab [address] [facility] [place] [address] Boaz Gilliam MD Three [facility]. [address] [place] [address] 11/16/2024 8:40 AM CDT Office Visit [facility] Medical Group Multispecialty Care - [facility] 3 [facility] [address] [place] [address] Florin Deras MD 3 [facility] [address] [place] [address] 11/27/2024 9:00 AM CDT Treatment [facility] [address] [facility] [place] [address] Florin Deras MD 3 [facility] [address] [place] [address] 12/25/2024 9:15 AM CDT Office Visit [facility] [facility] THREE [facility], [address] [place] [address] Boaz Gilliam MD Three [facility]. [address] [place] [address] documented as of this encounter Procedures Procedure Name Priority Date/Time Associated Diagnosis Comments LIPID PANEL Routine 03/09/2019 CBC (OUTSIDE LAB) Routine 02/08/2017 BASIC METABOLIC PANEL Routine 02/08/2017 BNP Routine 02/05/2017 HEPATIC FUNCTION PANEL Routine 02/05/2017 MAGNESIUM Routine 02/05/2017 documented in this encounter Results * LIPID PANEL (03/09/2019) Pathologist [facility] CHOLESTEROL 140 HDL 50 TRIGLYCERIDES 174 NON HDL CHOLESTEROL 90 LDL (CALCULATED) 65 03/09/2019 us [facility]ORATORY Final Result * BASIC METABOLIC PANEL (02/08/2017) Pathologist [facility] SODIUM S/P/B 139 POTASSIUM S/P/B 3.8 CO2 23 CHLORIDE S/P/B 109 GLUCOSE 83 mg/dL CALCIUM S/P/B 9.9 BUN 16 CREATININE S/P/B 0.83 0.5 - 1.0 EGFR NON-AFR. AMER. >60 <=90 02/08/2017 us Doc [facility] LABORATORY Final Result * CBC (OUTSIDE LAB) (02/08/2017) [facility] WBC 4.8 HGB 10.9 HCT 33.5 PLT 175 02/08/2017 us Doc [facility] Abstract LAB-OUTSIDE/ABSTRACTED Final Result * BNP (02/05/2017) Pathologist [facility] B TYPE NATRIURETIC PEPTIDE 130 02/05/2017 us Doc [facility] LABORATORY Final Result * MAGNESIUM (02/05/2017) [facility] MAGNESIUM 1.6 02/05/2017 us Doc [facility] LABORATORY Final Result * (ABNORMAL) HEPATIC FUNCTION PANEL (02/05/2017) Pathologist [facility] ALBUMIN S/P/B 3.1(A) 3.5 - 5.0 ALKALINE PHOSPHATASE S/P/B 32 ALT 19 AST 16 BILIRUBIN TOTAL S/P/B 0.5 TOTAL PROTEIN S/P/B 5.7 02/05/2017 us Doc [facility]ORAT[facility] Final Result documented in this encounter Visit Diagnoses Not on filedocumented in this encounter Additional Health Concerns Infection Onset Date Last Indicated Resolved Time COVID-19 Rule Out 04/18/2020 04/18/2020 04/20/2020 12:39 AM CDT COVID-19 Rule Out 07/19/2023 07/19/2023 07/19/2023 2:42 PM ADHESIVE SPRAYER COVID-19 Rule Out 07/28/2023 07/28/2023 07/28/2023 6:07 PM ADHESIVE SPRAYER COVID-19 Rule Out 08/13/2023 08/13/2023 08/13/2023 6:07 PM ADHESIVE SPRAYER COVID-19 Rule Out 05/12/2024 05/12/2024 05/12/2024 10:29 AM CDT COVID-19 Rule Out 07/19/2024 07/19/2024 07/19/2024 12:13 PM ADHESIVE SPRAYER documented as of this encounter Care Teams Condenser Cleaner Relationship Specialty Start Date End Date Hayder Zepeda MD PCP - General INTERNAL MEDICINE 01/19/17 Hayder Zepeda MD [address] [place] [address] PCP - Hospice Attending 01/18/17 12/11/19 Boaz Gilliam MD Three [facility]. [address] [place] [address] [place] Doctor Of Optometry CARDIOVASCULAR DISEASE 02/08/17 documented as of this encounter
--- OUTSIDE RECORDS SUMMARY | 2024-10-09 15:51 | XMS_ITS | Encounter Summary ---
Author Organization [facility] Address [address] [place] [id number] Care Team Providers Care Telephoto Engineer Name Role Phone Hayder Zepeda MD Primary Care Provider [phone] Boaz Gilliam MD Unavailable [phone] Encounter Details Date Type Department Care Team (Late st Contact Info) Description 01/06/2022 Therapy Plan [facility] [address] [place], [place] [address] Florin Deras MD [address] [address] Social History Tobacco Use Types Packs/Day Years [...] 3, please move on to questions 3-9 0 01/06/2022 Comments No Sex and Gender Information Value Date Recorded Sex Assigned at Female 07/24/2024 8:13 AM [employer]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 No / Unsure 01/06/2022 9:20 AM CDT documented as of this encounter [...] Info) Description 10/10/2024 10:00 AM CDT Appointment [facility] [address] [place] [address] Boaz Gilliam MD [facility]. [address] [address] 10/11/2024 10:00 AM CDT Appointment [facility] 3 [place] [address] Boaz Gilliam MD [facility]. [address] [address] 10/15/2024 10:00 AM CDT Appointment [facility] 3 [place] [address] Boaz Gilliam MD [facility]. [address] [address] 10/16/2024 11:15 AM CDT Appointment [facility] [place] [address] Beatrice Ngo APNP [id number] [address] 10/17/2024 10:00 AM CDT Appointment [facility] 3 [place] [address] Boaz Gilliam MD [facility]. [address] [address] 10/18/2024 9:30 AM CDT Allied Health/Nurse Visit [facility] THREE [facility], [address] [address] Boaz Gilliam MD [facility]. [address] [address] 10/18/2024 10:00 AM CDT Appointment [facility] 3 [place] [address] Boaz Gilliam MD [facility]. [address] [address] 10/19/2024 10:00 AM CDT [place] [address] Patrick Valverde MD [address] [facility] [address] [place] [address] 10/22/2024 10:00 AM CDT Appointment [facility] 3 [place] [address] Boaz Gilliam MD [address] [address] 10/24/2024 10:00 AM CDT Appointment [facility] 3 [place] [address] Boaz Gilliam MD [address] [address] 10/25/2024 10:00 AM CDT Appointment [facility] 3 [place] [address] Boaz Gilliam MD [address] [address] 10/29/2024 10:00 AM CDT Appointment [facility] 3 [place] [address] Boaz Gilliam MD [address] [address] 10/30/2024 9:00 AM CDT Treatment [facility] THREE [facility] [place] [address] Florin Deras MD 3 [facility] [address] [place] [address] 10/31/2024 10:00 AM CDT Appointment [facility] 3 [place] [address] Boaz Gilliam MD [facility]. [facility] [address] [place] [address] 11/01/2024 10:00 AM CDT Appointment [facility] 3 [place] [address] Boaz Gilliam MD [facility]. [facility] [address] [place] [address] 11/05/2024 10:00 AM CDT Appointment [facility] 3 [place] [address] Boaz Gilliam MD [facility]. [address] [address] 11/05/2024 10:55 AM CDT Allied Health/Nurse Visit [facility] THREE [facility], [address] [address] Boaz Gilliam MD [facility]. [address] [address] 11/07/2024 10:00 AM CDT Appointment [facility] 3 [place] [address] Boaz Gilliam MD [facility]. [address] [place] [address] 11/16/2024 8:40 AM CDT Office Visit [facility] - [facility] [address] [facility] [address] [place] [address] Florin Deras MD 3 [facility] [address] [place] [address] 11/27/2024 9:00 AM CDT Treatment [facility] THREE [facility] [place] [address] Florin Deras MD 3 [facility] [address] [place] [address] 12/25/2024 9:15 AM CDT Office Visit [facility] THREE [facility], [address] [place] [address] Boaz Gilliam MD [facility]. [address] [place] [address] documented as of this encounter Visit Diagnoses Diagnosis Severe persistent asthma with exacerbation ([facility])- Primary Unspecified asthma, with exacerbation Severe persistent asthma with exacerbation ([facility])- Primary Unspecified asthma, with exacerbation documented in this encounter Additional Health Concerns Infection Onset Date Last Indicated Resolved Time COVID-19 Rule Out 07/19/2023 07/19/2023 07/19/2023 2:42 PM TOOL 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 WORKER COVID-19 Rule Out 07/28/2023 07/28/2023 07/28/2023 6:07 PM TOOL SALVAGE WORKER COVID-19 Rule Out 08/13/2023 08/13/2023 08/13/2023 6:07 PM TOOL SALVAGE WORKER COVID-19 Rule Out 05/12/2024 05/12/2024 05/12/2024 10:29 AM CDT COVID-19 Rule Out 07/19/2024 07/19/2024 07/19/2024 12:13 PM TOOL SALVAGE WORKER Assessment Noted Time PHQ-9 Depression Total Score: 0 03/23/20 10:45 AM CDT documented as of this encounter Care Teams Telephoto Engineer Relationship Specialty Start Date End Date Hayder Zepeda MD PCP - General INTERNAL MEDICINE 01/19/17 Boaz Gilliam MD [address] [address] [place] Manager Transition CARDIOVASCULAR DISEASE 02/08/17 documented as of this encounter
== END 2024-10-09 14:23 | disposition home or self-care (01) ==
PROVIDERS: PCP Internal Medicine; Visit Provider Internal Medicine
DX: M25.512 Pain in left shoulder (principal)
CPT/HCPCS: 73030

== ENCOUNTER 2025-01-29 08:52 | Outpatient (CLI) | payer OTHER, SELFPAY ==
--- NOTE | ~2025-01-29 | DEXA_ITS ---
Bone Density Report Name: KEVYN HATHAWAY Age: 75 Sex: Female Ethnicity: White Date of : 1950 Indication: osteopenia; monitoring treatment; height loss; prior fracture; cancer; asthma or emphysema; Referring Provider: KAREN BRITTON Study: Bone densitometry was performed. Exam Date: January 29, 2025 Accession number: [id number] Bone Density: Region BMD T-score Z-score Classification AP Spine(L2, L3, L4) 0.847 -2.1 0.4 Osteopenia Femoral Neck (Left) 0.667 -1.6 0.4 Osteopenia Total Hip (Left) 0.848 -0.8 1.0 Normal Femoral Neck (Right) 0.614 -2.1 0.0 Osteopenia Total Hip (Right) 0.838 -0.8 0.9 Normal Total Hip Mean 0.843 -0.8 1.0 Normal World Health Organization criteria for BMD impression classify patients as: Normal (T-score at or above -1.0), Osteopenia (T-score between -1.0 and -2.5), or Osteoporosis (T-score at or below -2.5). 10-year Fracture Risk: FRAX not reported because: Premenopausal woman Prior hip or vertebral fracture Treated for osteoporosis Previous Exams: -- Region Exam Age BMD T-score BMD Change BMD Change Date g/cm2 vs Baseline vs Previous -- AP Spine (L2-L4) 01/29/2025 75 0.847 -2.1 -6.0%* -4.0%# 08/29/2020 70 0.883 -1.8 -2.1%# 8.8%* 07/21/2018 68 0.811 -2.4 -10.0%# -3.8%* 06/23/2016 66 0.843 -2.1 -6.5%# -5.8%# 04/20/2014 64 0.895 -1.7 -0.7% 8.6%* 04/17/2012 62 0.824 -2.3 -8.6%* -3.2%* 03/23/2010 60 0.851 -2.1 -5.6%* -5.6%* 02/07/2008 58 0.901 -1.6 Total Hip(Left) 01/29/2025 75 0.848 -0.8 5.2%* 4.4%# 08/29/2020 70 0.812 -1.1 0.7%# -1.1% 07/21/2018 68 0.821 -1.0 1.8%# 1.8% 06/23/2016 66 0.807 -1.1 0.0%# -1.1%# 04/20/2014 64 0.815 -1.0 1.1% 1.2% 04/17/2012 62 0.806 -1.1 -0.1% 9.9%* 03/23/2010 60 0.733 -1.7 -9.1%* -9.1%* 02/07/2008 58 0.807 -1.1 Total Hip(Right) 01/29/2025 75 0.838 -0.8 4.9%* -1.3%# 08/29/2020 70 0.849 -0.8 6.3%# 5.5%* 07/21/2018 68 0.805 -1.1 0.7%# -0.9% 06/23/2016 66 0.812 -1.1 1.6%# -1.8%# 04/20/2014 64 0.827 -0.9 3.5%* 4.5%* 04/17/2012 62 0.791 -1.2 -1.0% -1.5% 03/23/2010 60 0.803 -1.1 0.5% 0.5% 02/07/2008 58 0.799 -1.2 -- *Denotes significance at 95% confidence level, LSC for AP Spine = 0.022 g/cm2, LSC for Total Hip = 0.027 g/cm2 Rate of change results reflect vertebral levels common to all scans # Denotes dissimilar scan types or analysis methods Clinical Information Provided by Patient: Have had a previous hip or vertebral fracture Has had a low trauma fracture Is being treated for osteoporosis Has used the following medications: Fosamax (i.e. alendronate), Prolia (i.e. denosumab), Vitamin D, Calcium Has the following medical conditions: Asthma or Emphysema, Cancer Patient maximum height was 69 Menopause Age: 54 No regular weight bearing exercise Drinks caffeinated beverages Onset of menses at age 11 Premenopausal Number of children 1 Impression: The patient's bone mass is within expected range for age, gender and ethnicity. The patient has risk factors, including: previous fracture. Unable to evaluate interval change due to the use of different scan modes. Discussion: PATIENT UNDER TREATMENT WITH NO SIGNIFICANT BMD LOSS SINCE LAST EXAM. In an untreated patient, BMD typically declines with age. A lack of decline or gain is usually a sign that treatment is efficacious and fracture risk is reduced. It is important to ask patients whether they are taking their medications and to encourage continued and appropriate compliance with their osteoporosis therapies to reduce fracture risk. It is also important to review their risk factors and encourage appropriate calcium and vitamin D intakes, exercise, fall prevention and other lifestyle measures. Follow-Up: Consider a repeat BMD and Vertebral Fracture Assessment (VFA) exam in 2 years or sooner if medically necessary, to reassess this patient's status. Reported by: AXEL on 01/29/2025 9:14:00 AM. Reviewed, dictated and finalized at location A.
== END 2025-01-29 08:53 | disposition home or self-care (01) ==
LOC: MICIMG 08:54
PROVIDERS: PCP Obstetrics & Gynecology Gynecology; Visit Provider Obstetrics & Gynecology Gynecology
DX: M81.0 Age-related osteoporosis without current pathological fracture (principal); M85.88 Other specified disorders of bone density and structure, other site; M85.852 Other specified disorders of bone density and structure, left thigh; M85.851 Other specified disorders of bone density and structure, right thigh
CPT/HCPCS: 77080